=== PATIENT | female | born 1965 | race American Indian/Alaskan Native ===

== ENCOUNTER → 2017-09-16 00:08 | Outpatient (CLI) | payer MEDICAID, SELFPAY ==
--- NOTE | 2017-09-16 08:53 | DI.REPORT_ITS ---
SYMPTOM/DIAGNOSIS: ABD PAIN, RUQ R10.11 ABDOMINAL ULTRASOUND: Comparison 12/03/14. The aorta and IVC are unremarkable. The liver has a normal appearance sonographically. There is a 2 mm echogenic immobile focus along the wall of the gallbladder likely reflecting a polyp. The gallbladder is otherwise unremarkable. There is no biliary ductal dilatation. The pancreas, kidneys and spleen are unremarkable. IMPRESSION: 2 mm gallbladder polyp, otherwise negative examination.
== END ==
PROVIDERS: PCP Family Medicine; Visit Provider Family Medicine
DX: R10.11 Right upper quadrant pain (principal); K82.4 Cholesterolosis of gallbladder
CPT/HCPCS: 76700

== ENCOUNTER 2017-10-20 02:22 | Outpatient (CLI) | payer MEDICAID, SELFPAY ==
--- NOTE | 2017-10-20 08:03 | DI.NM_ITS ---
SYMPTOM/DIAGNOSIS: RUQ ABD PAIN, R10.11, R10.33, GALLBLADDER POLYP ON US CCK HEPATOBILIARY SCAN: 3.6 millicuries of Technetium 99 M MDP were administered IV. There is normal hepatic uptake. There is prompt excretion into the gallbladder and small bowel. 1.1 micrograms of Kinevac was administered via IV drip over 25 minutes. The gallbladder ejection fraction is normal at 79%. IMPRESSION: Normal CCK hepatobiliary scan.
[2017-10-20] MEDS: Sincalide 5 MCG VIAL 1.1 MCG IJ (10:15)
== END 2017-10-20 02:42 ==
PROVIDERS: PCP Family Medicine; Visit Provider Surgery
DX: R10.11 Right upper quadrant pain (principal); R10.33 Periumbilical pain; K82.4 Cholesterolosis of gallbladder
CPT/HCPCS: 78227

== ENCOUNTER 2017-11-08 09:16 | Outpatient (REF) | payer MEDICAID, SELFPAY ==
[2017-11-08 12:41] LABS: Abs Immature Grans 0.01 k/cumm (0.0-0.09); Absolute Basophil Count 0.01 k/cumm (0.0-0.2); Absolute Eosinophil Count 0.17 k/cumm (0.0-0.7); Absolute Lymphocyte Count 2.07 k/cumm (1.2-3.4); Absolute Monocyte Count 0.52 k/cumm (0.11-0.7); Absolute Neutrophil Count 2.98 k/cumm (1.2-6.7); Basophils % 0.2; HCT 39.7 % (36.0-46.0); HGB 13.1 g/dL (12.0-15.5); Immature Grans % 0.2; Lymphocytes % 35.9; Mean Corpuscular Volume 91.1 fL (80-95); Mean Platelet Volume 10.5 fL (8.0-11.0); Neutrophils % 51.7; Platelet Count 283 x1000/uL (130-400); RBC 4.36 m/cumm (4.00-5.20); RBC Distribution Width 12.4 % (11.7-14.6); White Blood Cell Count 5.76 k/cumm (4.4-10.8)
[2017-11-08 13:03] LABS: TSH (W/Ref FT4) 2.11 uIU/mL (0.358-3.74)
== END 2017-11-08 09:36 ==
LOC: NCHCN 09:16
PROVIDERS: PCP Family Medicine; Visit Provider Nurse Practitioner Family
DX: E03.9 Hypothyroidism, unspecified (principal); R53.83 Other fatigue
CPT/HCPCS: 84443; 85025

== ENCOUNTER 2017-12-06 00:46 | Outpatient (CLI) | payer MEDICAID, SELFPAY ==
--- NOTE | 2017-12-06 12:20 | DI.MAMMO_ITS ---
SYMPTOM/DIAGNOSIS: SCREENING, Z12.31 MAMMOGRAMS; Mammograms were interpreted according to the usual protocol including computer analysis with CAD system, tomosynthesis and C view imaging. Comparison is made with exams from [id number]. The breasts are composed of heterogeneously dense fibroglandular tissue, breast density, Category C. No suspicious masses or suspicious microcalcifications are seen. There has been no significant change. IMPRESSION: Category 1C, negative mammogram. Routine screening is recommended. [facility] ASSESSMENT OF FINDINGS: Negative. Category 1. Patient will receive a letter notifying them of these results. Bi-RADS category C. The breasts are heterogeneously dense, which may obscure small masses.
== END 2017-12-06 01:06 ==
PROVIDERS: PCP Nurse Practitioner Family; Visit Provider Nurse Practitioner Family
DX: Z12.31 Encounter for screening mammogram for malignant neoplasm of breast (principal)
CPT/HCPCS: 77063; 77067

== ENCOUNTER 2017-12-22 10:50 | Day surgery (SDC) | payer MEDICAID, SELFPAY ==
--- NOTE | 2017-12-22 10:20 | W.PM.HP.N ---
Assessment and Plan (1) Epigastric pain: Current visit: No Status: Acute A\\ Epigastric pain, Us showed only a small 2 mm polyp. HIDA was within normal P\\ EGD under sedation Risks, benefits, complications were reviewed with the patient. Complications include but are not limited to bleeding, pain, perforation, sore throat, aspiration, and adverse reaction to the medications. Questions were entertained and answered to her satisfaction and she wished to proceed. No guarantees were given or implied. Ms. Ramires is a 2-year-old female who in August of this year started to have some right lower quadrant pain and then migrated to the right upper quadrant and then more to the epigastric area. The pain is dull and sometimes worse after eating she is. She is normally constipated and that has not changed. She has had no vomiting. She did have nausea but that has subsided on 40 mg of omeprazole. She also stated that the pain seemed to be there less frequently since starting the omeprazole. Ultrasound of the abdomen showed 2 mm polyp. Labs are unremarkable. HIDA scan was done which was normal patient is here today for an upper endoscopy. There have been no changes in her health since she was originally seen in the office on October 14. Review of Systems Constitutional Denies anorexia, Denies fever(s) and Denies night sweats Cardiovascular Denies rapid heart rate, Denies irregular heart rhythm, Denies palpitations, Denies dyspnea and Denies dyspnea on exertion Respiratory Denies cough, Denies dyspnea and Denies dyspnea on exertion Gastrointestinal Reports as per HPI Endocrine Denies palpitations PFSH Family History Father AML (acute myeloid leukemia) Medical History Anxiety Chronic back pain Dizzy spells Dyspnea Exposure to hepatitis C Fatigue History of fracture of right ankle Hypercholesterolemia Hypothyroidism Incomplete bladder emptying Myalgia Panic disorder RLS (restless legs syndrome) Recovering alcoholic Right foot pain Skin tag Smoker TMJ (dislocation of temporomandibular joint) Tubular adenoma Urinary frequency Vitamin D deficiency Social History Smoking/Tobacco Use Status: Former Tobacco Use alcohol intake: never substance use type: does not use seatbelt use: always Surgical History Hysterectomy, Laproscopic (~2004) Oophrectomy, Both (~2004) Meds Home Medications Medication Instructions Recorded Confirmed Type alprazolam [Xanax] 0.5 mg PO PRN PRN 04/30/12 12/22/17 History clonazepam [Klonopin] 0.5 mg PO DAILY 04/30/12 12/22/17 History escitalopram oxalate [Lexapro] 10 mg PO DAILY 04/30/12 12/22/17 History levothyroxine 88 mcg PO DAILY tab-cap 05/13/17 12/22/17 History atorvastatin [Lipitor] 10 mg PO DAILY tab-cap NS 09/23/17 12/22/17 History omeprazole 40 mg PO DAILY tab-cap NS 09/23/17 12/22/17 History estradiol 0.01% (0.1 mg/gram) 1 gm VG .COMPLEX #42.5 gm 11/29/17 12/22/17 Rx vaginal cream methylprednisolone [Medrol (Enio)] DIRECTED 12/22/17 History Allergies Allergy/AdvReac Type Severity Reaction Status Date / Time sulfamethoxazole Allergy Severe hepititis Verified 12/22/17 11:14 [From Bactrim] trimethoprim [From Bactrim] Allergy Severe hepititis Verified 12/22/17 11:14 venlafaxine HCl Allergy Verified 12/22/17 11:14 [From Effexor] metronidazole [From Flagyl] AdvReac Intermediate NAUSEA Verified 12/22/17 11:14 Metronidazole HCl AdvReac Intermediate NAUSEA Verified 12/22/17 11:14 [From Flagyl] oxycodone AdvReac Intermediate NAUSEA Verified 12/22/17 11:14 garlic Allergy Severe Anaphylaxsi Uncoded 12/22/17 11:14 s Exam Const General: comfortable and no acute distress Resp Effort & Inspection: normal respiratory effort Auscultation: clear to auscultation bilaterally Cardio Rate: regular rate Rhythm: regular rhythm Heart Sounds: no gallops, no murmurs and no rubs GI Inspection: normal to inspection Palpation: soft and tender (mild epigastric) Auscultation: normal bowel sounds
--- NOTE | 2017-12-22 10:28 | W.PM.OP ---
Date of service: 12/22/17 Time of Service: 13:07 Operative Note DATE OF PROCEDURE: 12/22/17 PRE-OP DIAGNOSIS: Epigastric pain POST-OP DIAGNOSIS: other (gastritis and esophagitis) PROCEDURE: EGD with biopsies SURGEON: Dixie Diaz ANESTHESIA: MAC (Neelima Chavarria CRNA) ESTIMATED BLOOD LOSS: 3 PATHOLOGY: other (Gastric bx and Ge junction bx) COMPLICATIONS: None Patient was transported to: same day Patient's condition: stable Indications: Ms. Ramires is a pleasant 52 year old female with Epigastric pain. US and HIDA were unremarkable. There was some improvement of symptoms on Omperazole. Risks, benefits, complications were reviewed with the patient and she wished to proceed. No guarantees were given or implied. Procedure Description: After informed consent was obtained the patient was take to the procedure room and placed in a supine position. Monitors were applied and a time out was done. The patients name, date of , procedure type, allergies to medications and metal in their body was reviewed. A bite block was placed and the patient was sedated. Once sedated and comfortable the gastroscope was advanced through the oropharynx which was grossly normal into the esophagus. The proximal and mid-esophagus were normal. In the distal esophagus there was mild inflammation noted. The scope was advanced into the stomach and through the pylorus into the 3rd portion of the duodenum. The duodenum was noted to be normal. The scope was retracted back into the stomach and biopsies were done to rule out H. pylori. The scope was retroflexed. The cardia and fundus were noted to be inflammed. Biopsies were done of the fundus. There was no hiatal hernia noted. The scope was retracted back into the esophagus and biopsies were done of the GE junction to rule out Marion's. The Z line was regular. The GE junction was at 32 cm. The scope was removed and the patient was woken up and taken back to [facility] in stable condition. Follow up: 3-4 weeks
--- NOTE | 2017-12-22 10:30 | W.PM.DSUDISC ---
Discharge Plan Disposition Patient Disposition: HOME Condition: Good Discharge Details Reason For Visit: EGD Attending Provider: Dixie Diaz Primary Care Provider: Rosanna Cintron Home Meds and New Rx's Prescriptions: New ranitidine HCl 300 mg capsule 300 mg PO HS Qty: 30 RF: 0 Continue estradiol [Estrace] 0.01 % (0.1 mg/gram) cream 1 gm VG .COMPLEX Qty: 42.5 RF: 4 levothyroxine 75 MCG tablet 88 mcg PO DAILY RF: 0 atorvastatin [Lipitor] 10 MG tablet 10 mg PO DAILY RF: 0 omeprazole 40 MG capsule,delayed release(DR/EC) 40 mg PO DAILY RF: 0 clonazepam [Klonopin] 0.5 MG tablet 0.5 mg PO DAILY RF: 0 alprazolam [Xanax] 0.5 MG tablet 0.5 mg PO PRN PRNRF: 0 escitalopram oxalate [Lexapro] 20 MG tablet 10 mg PO DAILY RF: 0 methylprednisolone [Medrol (Enio)] 4 mg Tablets,Dose Pack DIRECTED RF: 0 Discharge Instructions Instructions: Upper Endoscopy (DC), Diet for Stomach Ulcers and Gastritis (GEN), Gastritis (DC), Esophagitis (DC) Additional Instructions: Findings: moderate inflammation in the stomach mild inflammation in the esophagus Follow up: 01/10/18 at 1 pm New Medications: Continue Omeprazole 40 mg in the morning Add Zantac (Ranitidine) 300 mg every night Please call if you develop: fevers >101.5 Nausea or Vomiting Abdominal pain that is not transient 1. Because there will be medication in your system for the next 24 hours, you may feel a little sleepy. Your coordination will be affected. Therefore: a. Do not drive or operate dangerous equipment for 24 hours. b. Do not drink alcohol beverages for 24 hours (not even beer). c. Plan to go home and rest for the day. 2. Generally there are no restrictions on your activity after a day or so has gone by, but you may feel a bit fatigued for a few days. 3 After you arrive home you may have a light meal and return to a normal diet as you can tolerate it without feeling sick to your stomach. 4. After surgery, you may feel pain or discomfort. This should be only transient, but if it persists please contact your doctor. 5. If there are any questions regarding the findings of your procedure, please feel free to contact your doctor. 6. If you are unable to contact your doctor with a problem, contact the hospital at [phone]. 7. Continue all your regular medications unless directed otherwise. I understand the above instructions and have no questions. Signature of Patient or Responsible Adult Escort Date/Time Name of Responsible Adult Escort Signature of Nurse Date/Time Referrals: Dixie Diaz MD [ [facility] STAFF PHYSICIAN] - 01/10/18 1:00 pm Activity:: Activity as Tolerated Diet:: Low acid Discharge Orders Discharge Orders: Discharge Order (Routine); Ordered 12/22/17 Ordered By: Dixie Diaz DS: Diagnosis Discharge Diagnosis (1) Gastritis: Status: Acute (2) Esophagitis determined by endoscopy: Status: Acute
[2017-12-22 11:00] VITALS: BP 125/74; PULSE 57; RESP 18; TEMP 37.3; O2SAT 97
[2017-12-22] MEDS: Lactated Ringers 1,000 ML 80 ML IV (11:36)
[2017-12-22] MEDS: Lidocaine 2% Viscous 15 ML CUP (12:50)
--- NOTE | 2017-12-22 13:00 | STOM_PTH ---
PATIENT: Neal Ramires LOC: [facility] U#:[id number] AGE/SX: 52/F ROOM: RE12/22/[address]: Dixie Diaz MD : 1965 BED: DIS: 12/22/2017 SPEC #: [id number] RECD: 12/22/17 17:21 STATUS: JEREMI RE #: [id number] TATYANA: 12/22/17 13:[address]: Dixie Diaz DEPT: Surgical Specimen RECD BY: Esme Luz ENTERED: 12/22/17 17:22 SP TYPE: STOMACH OTHR DR: Rosanna Cintron Tissues: 1 - STOMACH BIOPSY 2 - STOMACH BIOPSY 3 - ESOPHAGUS BIOPSY Procedures: GROSS AND MICRO LEVEL 4 Comments: [id number]
== END 2017-12-22 14:30 | disposition home or self-care (01) ==
LOC: SUR 10:50
PROVIDERS: PCP Nurse Practitioner Family; Visit Provider Surgery
PROC: 0DJ68ZZ Inspection of Stomach, Via Natural or Artificial Opening Endoscopic (ICD-10-PCS; CPT 43235; principal; 2017-12-22 13:00)
DX: R10.13 Epigastric pain (principal); K29.80 Duodenitis without bleeding; K20.9 Esophagitis, unspecified; B96.81 Helicobacter pylori [H. pylori] as the cause of diseases classified elsewhere
CPT/HCPCS: 43239; 88305; NC; J2405

== ENCOUNTER 2018-03-20 09:46 | Outpatient (CLI) | payer MEDICAID, SELFPAY ==
--- NOTE | 2018-03-20 09:35 | DI.RAD_ITS ---
SYMPTOM/DIAGNOSIS: RT KNEE PAIN RIGHT KNEE Comparison is made with 06/05/13. There is mild spurring at the medial tibial plateau, tibial spines and patella. No joint effusion is seen. IMPRESSION: Mild degenerative changes.
== END 2018-03-20 10:06 ==
PROVIDERS: PCP Nurse Practitioner Family; Visit Provider Physician Assistant
DX: M25.561 Pain in right knee (principal); M17.11 Unilateral primary osteoarthritis, right knee
CPT/HCPCS: 73562

== ENCOUNTER 2018-04-04 19:05 | Outpatient (REF) | payer MEDICAID, SELFPAY ==
[2018-04-04 19:53] LABS: TSH (W/Ref FT4) 1.44 uIU/mL (0.358-3.74)
== END 2018-04-04 19:25 ==
LOC: NCHCN 19:05
PROVIDERS: PCP Nurse Practitioner Family; Visit Provider Nurse Practitioner Family
DX: E03.9 Hypothyroidism, unspecified (principal)
CPT/HCPCS: 84443

== ENCOUNTER 2018-04-28 07:14 | Outpatient (REF) | payer MEDICAID, SELFPAY ==
[2018-05-04 14:02] LABS: Helicobacter pylori Ag, Feces Negative (NEGAT)
== END 2018-04-28 07:34 ==
LOC: LBN 07:14
PROVIDERS: PCP Nurse Practitioner Family; Visit Provider Surgery
DX: K29.70 Gastritis, unspecified, without bleeding (principal); B96.81 Helicobacter pylori [H. pylori] as the cause of diseases classified elsewhere
CPT/HCPCS: 87338

== ENCOUNTER 2018-05-18 18:23 | Observation (INO) | payer MEDICAID, SELFPAY ==
[2018-05-18] VITALS (42 sets, daily range): BP systolic 98–133; BP diastolic 62–74; PULSE 57–89; RESP 12–28; TEMP 36.4–36.8; O2SAT 94–100
--- NOTE | 2018-05-18 18:29 | W.ED.GENAD ---
Discharge Plan Disposition Patient Disposition: [facility] INPATIENT Condition: Good Discharge Details Chief Complaint: Dizzy/Sync Clinical Impression: Chest pain, Shortness of breath, Light-headed feeling Primary Care Provider: Mayra Browning ED Provider: Kendall James Meds and New Rx's Prescriptions: No Action estradiol [Estrace] 0.01 % (0.1 mg/gram) cream 1 gm VG .COMPLEX Qty: 42.5 RF: 4 levothyroxine 75 MCG tablet 88 mcg PO DAILY RF: 0 clonazepam [Klonopin] 0.5 MG tablet 0.5 mg PO DAILY RF: 0 alprazolam [Xanax] 0.5 MG tablet 0.5 mg PO PRN PRNRF: 0 escitalopram oxalate [Lexapro] 20 MG tablet 10 mg PO DAILY RF: 0 Medical Decision Making Patient presenting to ED with complaints of chest pressure, shortness of breath, lightheadedness, nausea while working out. Has had symptoms a couple times prior which resolved when she rested. Symptoms did not resolve tonight which worried her so she came in. She has had previous cardiac workup 2 years ago which was negative. She has no major cardiac risk factors other than high cholesterol. She has no PE risk factors. EKG from triage shows sinus rhythm at a rate of 70. She has normal intervals and axis. She has nonspecific mild ST depression in precordial lateral leads. There is no acute ST elevation. There is no change from previous. Doubt this is cardiac in nature, but given exertional nature will work up as such. Will give aspirin and a sublingual nitro. Will check labs, d-dimer, chest x-ray. Will give a liter of fluids and reevaluate. Patient received aspirin and nitroglycerin. She is not sure whether it helped or not but eventually discomfort did resolve. Repeat EKG remains unchanged from previous done earlier. Laboratory studies are unremarkable. She is not anemic. Her troponin is negative. Her d-dimer is normal. Chest x-ray is unremarkable. HEART score is a four with exertional history, mild nonspecific EKG changes, age and risk factors. Case discussed with hospitalist. Patient will be placed in observation admission overnight for trending of enzymes and monitoring. Lab Data Lab results reviewed: Yes I reviewed the patient's lab results. ECG Data Attestation: I personally reviewed and interpreted this ECG (s) as follows: Prior ECG tracings: available for review Interpretation: EKG #1: Normal sinus rhythm at 70. Normal axis and intervals. Nonspecific mild lateral ST depression V3 through V6. No change from previous. EKG #2: Sinus rhythm at 69. No change from EKG #1. HPI General Mode of arrival: ambulatory. Date/Time Provider Initiated Documentation: 05/18/18 18:29. Limitations to Documentation: no limitations. Information obtained by: patient. HPI Narrative: Patient presents to ED for evaluation of chest pressure, lightheadedness, shortness of breath, nausea that occurred while working out doing [employer]. She stopped and thought the symptoms would resolve. They got better but they did not go away so she came here for evaluation. She notes that she has had a slow heart rate over the last week but has not had any other symptoms. She did not pass out. She has noticed some mild symptoms similar to this while doing [employer] a couple of times. Symptoms resolved when she rested. She reports having stress testing and echo 2 years ago which were normal when she had actual chest pain. She denies being ill at all. She denies any leg pain or swelling. She has no PE risk factors. Her only cardiac risk factor is high cholesterol. Related Data Home Medications Medication Instructions Recorded Confirmed alprazolam [Xanax] 0.5 mg PO PRN PRN 04/30/12 05/18/18 clonazepam [Klonopin] 0.5 mg PO DAILY 04/30/12 05/18/18 escitalopram oxalate [Lexapro] 10 mg PO DAILY 04/30/12 05/18/18 levothyroxine 88 mcg PO DAILY tab-cap 05/13/17 05/18/18 estradiol 0.01% (0.1 mg/gram) 1 gm VG .COMPLEX #42.5 gm 11/29/17 05/18/18 vaginal cream Previous Rx's Medication Instructions Recorded estradiol 0.01% (0.1 mg/gram) 1 gm VG .COMPLEX #42.5 gm 11/29/17 vaginal cream Allergies Allergy/AdvReac Type Severity Reaction Status Date / Time sulfamethoxazole Allergy Severe hepititis Verified 05/01/18 15:15 [From Bactrim] trimethoprim [From Bactrim] Allergy Severe hepititis Verified 05/01/18 15:15 venlafaxine HCl Allergy Verified 05/01/18 15:15 [From Effexor] metronidazole [From Flagyl] AdvReac Intermediate NAUSEA Verified 05/01/18 15:15 Metronidazole HCl AdvReac Intermediate NAUSEA Verified 05/01/18 15:15 [From Flagyl] oxycodone AdvReac Intermediate NAUSEA Verified 05/01/18 15:15 garlic Allergy Severe Anaphylaxsi Uncoded 05/01/18 15:15 s Review of Systems Review of Systems 11/27 Review of Systems completed and is negative except as stated above in HPI (Systems reviewed: Const, Eyes, ENT, Resp, CV, GI, , MSK, Skin, Neuro) PFSH Medical History Anxiety (Chronic) Chronic back pain (Chronic) Dizzy spells (Chronic) Hypercholesterolemia (Chronic) Hypothyroidism (Chronic) Panic disorder (Chronic) RLS (restless legs syndrome) (Chronic) Recovering alcoholic (Chronic) Tubular adenoma (Chronic) Vitamin D deficiency (Chronic) History of fracture of right ankle (Resolved) Hx of Helicobacter infection (Resolved ~12/22/17) TMJ (dislocation of temporomandibular joint) (Resolved) Surgical History History of esophagogastroduodenoscopy (EGD) (Inactive ~12/22/17) Hysterectomy, Laproscopic (Inactive ~2004) Oophrectomy, Both (Inactive ~2004) Social History Smoking/Tobacco Use Status: Former Tobacco Use Alcohol Intake: never Drug use: Never Substance use type: does not use Seatbelt use: always Do you feel safe at home: Yes Do you feel safe in your relationship?: Yes Female Reproductive History Menstrual Menopause type: surgical (Hyst 2004) History History 3 Para Hx # Term Pregnancies 3 Multiple births Hx # Pregnancies Ectopic pregnancies AB induced Hx Number of Living Children AB spontaneous Exam Narrative Exam Narrative: 1. Const: WDWN female in NAD. 2. Eyes: No conjunctival injection or scleral icterus. 3. ENT: NC/AT. No facial swelling or tenderness. Mucous membranes moist. 4. Neck: Supple without adenopathy. Trachea midline. 5. CVS: +S1/S2, No murmurs or gallops. Good radial pulses. 6. RESP: Unlabored respiratory effort. Clear to auscultation bilaterally. No wheezes rales or rhonchi. 7. GI: Soft, NT/ND, No hepatosplenomegaly. No guarding or rebound. 8. MSK: No C/C/E present. No deformity or tenderness noted. No calf tenderness. 9. Skin: Warm and dry. No rashes. 10. Neuro: A&O x3. 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 Sensation grossly intact, no focal neurologic deficits. 11. Psych: Appropriate mood and affect
--- NOTE | 2018-05-18 18:35 | ED.GENADUL_ITS ---
Discharge Plan Disposition Patient Disposition: [facility] INPATIENT Condition: Good Discharge Details Chief Complaint: Dizzy/Sync Clinical Impression: Chest pain, Shortness of breath, Light-headed feeling Primary Care Provider: Mayra Browning ED Provider: Kendall James Meds and New Rx's Prescriptions: No Action estradiol [Estrace] 0.01 % (0.1 mg/gram) cream 1 gm VG .COMPLEX Qty: 42.5 RF: 4 levothyroxine 75 MCG tablet 88 mcg PO DAILY RF: 0 clonazepam [Klonopin] 0.5 MG tablet 0.5 mg PO DAILY RF: 0 alprazolam [Xanax] 0.5 MG tablet 0.5 mg PO PRN PRNRF: 0 escitalopram oxalate [Lexapro] 20 MG tablet 10 mg PO DAILY RF: 0 Medical Decision Making Patient presenting to ED with complaints of chest pressure, shortness of breath, lightheadedness, nausea while working out. Has had symptoms a couple times prior which resolved when she rested. Symptoms did not resolve tonight which worried her so she came in. She has had previous cardiac workup 2 years ago which was negative. She has no major cardiac risk factors other than high cholesterol. She has no PE risk factors. EKG from triage shows sinus rhythm at a rate of 70. She has normal intervals and axis. She has nonspecific mild ST depression in precordial lateral leads. There is no acute ST elevation. There is no change from previous. Doubt this is cardiac in nature, but given exertional nature will work up as such. Will give aspirin and a sublingual nitro. Will check labs, d-dimer, chest x-ray. Will give a liter of fluids and reevaluate. Patient received aspirin and nitroglycerin. She is not sure whether it helped or not but eventually discomfort did resolve. Repeat EKG remains unchanged from previous done earlier. Laboratory studies are unremarkable. She is not anemic. Her troponin is negative. Her d-dimer is normal. Chest x-ray is unremarkable. HEART score is a four with exertional history, mild nonspecific EKG changes, age and risk factors. Case discussed with hospitalist. Patient will be placed in observation admission overnight for trending of enzymes and monitoring. Lab Data Lab results reviewed: Yes I reviewed the patient's lab results. ECG Data Attestation: I personally reviewed and interpreted this ECG (s) as follows: Prior ECG tracings: available for review Interpretation: EKG #1: Normal sinus rhythm at 70. Normal axis and intervals. Nonspecific mild lateral ST depression V3 through V6. No change from previous. EKG #2: Sinus rhythm at 69. No change from EKG #1. HPI General Mode of arrival: ambulatory . Date/Time Provider Initiated Documentation: 05/18/18 18:29 . Limitations to Documentation: no limitations . Information obtained by: patient . HPI Narrative: Patient presents to ED for evaluation of chest pressure, lightheadedness, shortness of breath, nausea that occurred while working out doing Scotty. She stopped and thought the symptoms would resolve. They got better but they did not go away so she came here for evaluation. She notes that she has had a slow heart rate over the last week but has not had any other symptoms. She did not pass out. She has noticed some mild symptoms similar to this while doing Scotty a couple of times. Symptoms resolved when she rested. She reports having stress testing and echo 2 years ago which were normal when she had actual chest pain. She denies being ill at all. She denies any leg pain or swelling. She has no PE risk factors. Her only cardiac risk factor is high cholesterol. Related Data Home Medications Medication Instructions Recorded Confirmed alprazolam [Xanax] 0.5 mg PO PRN PRN 04/30/12 05/18/18 clonazepam [Klonopin] 0.5 mg PO DAILY 04/30/12 05/18/18 escitalopram oxalate [Lexapro] 10 mg PO DAILY 04/30/12 05/18/18 levothyroxine 88 mcg PO DAILY tab-cap 05/13/17 05/18/18 estradiol 0.01% (0.1 mg/gram) 1 gm VG .COMPLEX #42.5 gm 11/29/17 05/18/18 vaginal cream Previous Rx's Medication Instructions Recorded estradiol 0.01% (0.1 mg/gram) 1 gm VG .COMPLEX #42.5 gm 11/29/17 vaginal cream Allergies Allergy/AdvReac Type Severity Reaction Status Date / Time sulfamethoxazole Allergy Severe hepititis Verified 05/01/18 15:15 [From Bactrim] trimethoprim [From Bactrim] Allergy Severe hepititis Verified 05/01/18 15:15 venlafaxine HCl Allergy Verified 05/01/18 15:15 [From Effexor] metronidazole [From Flagyl] AdvReac Intermediate NAUSEA Verified 05/01/18 15:15 Metronidazole HCl AdvReac Intermediate NAUSEA Verified 05/01/18 15:15 [From Flagyl] oxycodone AdvReac Intermediate NAUSEA Verified 05/01/18 15:15 garlic Allergy Severe Anaphylaxsi Uncoded 05/01/18 15:15 s Review of Systems Review of Systems 11/27 Review of Systems completed and is negative except as stated above in HPI (Systems reviewed: Const, Eyes, ENT, Resp, CV, GI, , MSK, Skin, Neuro) PFSH Medical History Anxiety (Chronic) Chronic back pain (Chronic) Dizzy spells (Chronic) Hypercholesterolemia (Chronic) Hypothyroidism (Chronic) Panic disorder (Chronic) RLS (restless legs syndrome) (Chronic) Recovering alcoholic (Chronic) Tubular adenoma (Chronic) Vitamin D deficiency (Chronic) History of fracture of right ankle (Resolved) Hx of Helicobacter infection (Resolved ~12/22/17) TMJ (dislocation of temporomandibular joint) (Resolved) Surgical History History of esophagogastroduodenoscopy (EGD) (Inactive ~12/22/17) Hysterectomy, Laproscopic (Inactive ~2004) Oophrectomy, Both (Inactive ~2004) Social History Smoking/Tobacco Use Status: Former Tobacco Use Alcohol Intake: never Drug use: Never Substance use type: does not use Seatbelt use: always Do you feel safe at home: Yes Do you feel safe in your relationship?: Yes Female Reproductive History Menstrual Menopause type: surgical (Hyst 2004) History History 3 Para Hx # Term Pregnancies 3 Multiple births Hx # Pregnancies Ectopic pregnancies AB induced Hx Number of Living Children AB spontaneous Exam Narrative Exam Narrative: 1. Const: WDWN female in NAD. 2. Eyes: No conjunctival injection or scleral icterus. 3. ENT: NC/AT. No facial swelling or tenderness. Mucous membranes moist. 4. Neck: Supple without adenopathy. Trachea midline. 5. CVS: +S1/S2, No murmurs or gallops. Good radial pulses. 6. RESP: Unlabored respiratory effort. Clear to auscultation bilaterally. No wheezes rales or rhonchi. 7. GI: Soft, NT/ND, No hepatosplenomegaly. No guarding or rebound. 8. MSK: No C/C/E present. No deformity or tenderness noted. No calf tenderness. 9. Skin: Warm and dry. No rashes. 10. Neuro: A&O x3. stock speculator II-XII grossly intact. Sensation grossly intact, no focal neurologic deficits. 11. Psych: Appropriate mood and affect
[2018-05-18] MEDS: Aspirin 81 MG CHEW 324 MG CH (19:06)
[2018-05-18] MEDS: Lactated Ringers 1,000 ML 1000 ML IV (19:07)
[2018-05-18] MEDS: Normal Saline Flush 10 ML SYR IVP (19:09)
--- NOTE | 2018-05-18 19:15 | DI.RAD_ITS ---
SYMPTOM/DIAGNOSIS: CHEST PAIN, SOB PA AND LATERAL CHEST: The heart is normal in size. The lungs are clear. The mediastinal structures and pleura appear intact. CONCLUSION: Normal chest.
[2018-05-18 19:16] LABS: Abs Immature Grans 0.01 k/cumm (0.0-0.09); Absolute Basophil Count 0.02 k/cumm (0.0-0.2); Absolute Eosinophil Count 0.17 k/cumm (0.0-0.7); Absolute Monocyte Count 0.63 k/cumm (0.11-0.7); Basophils % 0.2; Eosinophils % 2.1; HCT 38.3 % (36.0-46.0); HGB 12.7 g/dL (12.0-15.5); Immature Grans % 0.1; Lymphocytes % 45.5; Mean Corp. HGB Concentration 33.2 g/dL (32.0-36.0); Mean Corpuscular Volume 90.5 fL (80-95); Mean Platelet Volume 10.7 fL (8.0-11.0); Monocytes % 7.7; Neutrophils % 44.4; Platelet Count 285 x1000/uL (130-400); RBC 4.23 m/cumm (4.00-5.20); RBC Distribution Width 12.7 % (11.7-14.6); White Blood Cell Count 8.13 k/cumm (4.4-10.8)
[2018-05-18 19:31] LABS: ALT 33 U/L (12-78); AST 33 U/L (15-37); Albumin 3.9 g/dL (3.4-5.0); Alkaline Phosphatase 71 U/L (46-116); Anion Gap 9.8 mmol/L (3-11); BUN 22 mg/dL (7-18); Bilirubin, Total 0.2 mg/dL (0.2-1.0); CO2 26.2 mmol/L (21.0-32.0); CREATININE 0.89 mg/dL (0.55-1.02); Calcium 9.1 mg/dL (8.5-10.1); Chloride 104 mmol/L (98-107); Glucose 92 mg/dL (70-100); INR 0.9 (0.9-1.1); Magnesium 2.1 mg/dL (1.8-2.4); PTT Activated 24.2 sec (21.0-31.4); Potassium 3.8 mmol/L (3.5-5.1); Prothrombin Time 8.9 sec (9.3-11.0); Sodium 140 mmol/L (136-145); Total Protein 7.1 g/dL (6.4-8.2)
--- NOTE | 2018-05-18 19:37 | DI.VRAD_ITS ---
EXAM: XR Chest, 2 Views EXAM DATE/TIME: 05/18/2018 6:52 PM CLINICAL HISTORY: 52 years old, female; Pain; Chest pain; Type not specified TECHNIQUE: Imaging protocol: XR of the chest, 2 views. COMPARISON: CR CHEST 2 VIEWS PA,LAT 10/18/2015 9:56 PM FINDINGS: Lungs: No consolidation. Pleural space: No pleural effusion. No pneumothorax. Heart/Mediastinum: No cardiomegaly. Bones/joints: No acute fracture. IMPRESSION: No acute cardiopulmonary pathology. Dictated and Authenticated by: Dianelys Sandhu MD. Ordering:PHYLLIS Argueta MD
[2018-05-18 19:40] LABS: Troponin I < 0.02 ng/mL (0.00-0.06)
[2018-05-18 20:08] LABS: D-Dimer 295 ng/mlFEU (<500)
[2018-05-18 22:38] LABS: Troponin I < 0.02 ng/mL (0.00-0.06)
[2018-05-18 23:47] LABS: Troponin I < 0.02 ng/mL (0.00-0.06)
[2018-05-19] VITALS (7 sets, daily range): BP systolic 103–111; BP diastolic 60–72; PULSE 53–66; RESP 15–18; TEMP 36.5–36.6; O2SAT 97–98
[2018-05-19] MEDS: Enoxaparin 40 MG/0.4 ML SYR SC (00:41)
[2018-05-19 02:01] LABS: Troponin I < 0.02 ng/mL (0.00-0.06)
--- NOTE | 2018-05-19 07:15 | HPE_ITS ---
Date of service: 05/19/18 Time of Service: 07:15 Assessment and Plan (1) Chest pain: Current visit: Yes Status: Acute Patient ordinarily exercises for 60 to 90 minutes in Scotty w/out dyspnea or chest pain. Now over past 2-3 weeks since starting intense cardio circuit w/ a personal finance instructor using weights she has been exeperiencing severe fatigue and intermittent chest pressure and dyspnea after exercise. Given her age and post menopausal status and FH, I think that it would be prudent to repeat her stress MPI. I would do this with an MPI given her baseline EKG abnormalities of rSr in the precordial leads V1 and V2 and the j-point depression across the other leads. A CT scan of her chest was not done last night as there was no mediastinal widening on her CXR and no difference in her arm pulses and the quality of her CP did not sound like an aneurysm. Also the d-dimer was within normal and therefore the likelihood of PE is very low (particularly since she has no risk factors or hx of DVT or PE; i..e not on estrogen replacement, not sedentary, no immobilization, no FH or PMH of thromboembolism and no malignancies). I spoke with the day hospitalist and he will follow up arrangement of outpatient stress MPI early next week. He also would like to get CTA to be certain of no TAA. This has been ordered and he will follow up on this. The patient is agreeable to getting the CTA done. Qualifiers: Chest pain type: unspecified Qualified Code(s): R07.9 - Chest pain, unspecified History of Present Illness Chief Complaint: chest pain Narrative: 52-year-old female with a past medical history of hypothyroidism, anxiety disorder, panic disorder, GERD with helical bacterial infection which has recently been cleared. Patient ordinarily performs Scotty exercises anywhere from an hour to an hour and a half 3-4 days/week. Patient's been doing Scotty for the past year without any symptoms. But 3 weeks ago she started working with an intense circuit training exercises through personal finance instructor. It was since then she is noticed fatigue after her workouts along with low blood pressures and low pulse. She presented emergency department with acute chest pressure and shortness of breath along with lightheadedness and nausea after a Scotty workout. Patient previously had a stress test in 2017 that was normal. Her cardiac risk factors for coronary artery disease include her age as well as a history of hyperlipidemia. She has a family history of coronary artery disease and her father had a coronary bypass graft at the age of 76. Patient is a former smoker but has not smoked in over 11 years. She is s/p KARLEE/BSO but has not been on estrogen replacement for past 4 yrs. Workup in the ER include chest x-ray lab work and EKG. EKG on admission demonstrated NSR w/ rSr pattern and subtle J point depression w/ upward sloping ST segments across precordial leads. Her troponin was normal. Previously her chest pressure would resolve on its own w/ cessation of her exercises but this time it did not so she was given NTG SL x one dose in the ER with resolution of her discomfort. The rest of her labs including CBC, CMP, PT, aPtt, d-dimer were all normal. Her CXR was normal. She was admitted on observation for serial troponin levels and for stress MPI this morning. However, we do not have any cardiology coverage so no stress tests will be performed today. She has remained pain free since admission from the ER. Review of Systems Review of Systems All systems reviewed & are unremarkable except as noted in HPI and below Cardiovascular Reports as per HPI and Reports dyspnea on exertion Respiratory Denies pain on inspiration and Reports dyspnea on exertion Gastrointestinal Denies abdominal pain, Denies belching, Denies bloating, Denies dyspepsia and Denies heartburn [facility] Medical History Anxiety (Chronic) Chronic back pain (Chronic) Dizzy spells (Chronic) Hypercholesterolemia (Chronic) Hypothyroidism (Chronic) Panic disorder (Chronic) RLS (restless legs syndrome) (Chronic) Recovering alcoholic (Chronic) Tubular adenoma (Chronic) Vitamin D deficiency (Chronic) History of fracture of right ankle (Resolved) Hx of Helicobacter infection (Resolved ~12/22/17) TMJ (dislocation of temporomandibular joint) (Resolved) Surgical History History of esophagogastroduodenoscopy (EGD) (Inactive ~12/22/17) Hysterectomy, Laproscopic (Inactive ~2004) Oophrectomy, Both (Inactive ~2004) Family History Father AML (acute myeloid leukemia) Social History Smoking/Tobacco Use Status: Former Tobacco Use Alcohol Intake: never Drug use: Never Substance use type: does not use Seatbelt use: always Do you feel safe at home: Yes Do you feel safe in your relationship?: Yes Female Reproductive History Menstrual Menopause type: surgical (2004) History History 3 Para Hx # Term Pregnancies 3 Multiple births Hx # Pregnancies Ectopic pregnancies AB induced Hx Number of Living Children AB spontaneous Meds Home Medications Medication Instructions Recorded Confirmed Type alprazolam [Xanax] 0.5 mg PO PRN PRN 04/30/12 05/18/18 History clonazepam [Klonopin] 0.5 mg PO DAILY 04/30/12 05/18/18 History escitalopram oxalate [Lexapro] 10 mg PO DAILY 04/30/12 05/18/18 History levothyroxine 88 mcg PO DAILY tab-cap 05/13/17 05/18/18 History estradiol 0.01% (0.1 mg/gram) 1 gm VG .COMPLEX #42.5 gm 11/29/17 05/18/18 Rx vaginal cream Allergies Allergy/AdvReac Type Severity Reaction Status Date / Time sulfamethoxazole Allergy Severe hepititis Verified 05/01/18 15:15 [From Bactrim] trimethoprim [From Bactrim] Allergy Severe hepititis Verified 05/01/18 15:15 venlafaxine HCl Allergy Verified 05/01/18 15:15 [From Effexor] metronidazole [From Flagyl] AdvReac Intermediate NAUSEA Verified 05/01/18 15:15 Metronidazole HCl AdvReac Intermediate NAUSEA Verified 05/01/18 15:15 [From Flagyl] oxycodone AdvReac Intermediate NAUSEA Verified 05/01/18 15:15 garlic Allergy Severe Anaphylaxsi Uncoded 05/01/18 15:15 s Exam Const General: cooperative, no acute distress and well groomed Nutritional Appearance: average body habitus and well nourished Orientation: alert, awake and oriented x3 HENMT Head: normal to inspection, no palpable skull fracture, normocephalic and atraumatic Face and sinus: normal facial exam, sinuses nontender and face symmetric Eyes General: appearance normal, both eyes and all related structures Alignment and Position: alignment normal Periorbital: periorbital findings normal Eyelids: eyelids normal Conjunctivae: conjunctivae normal Sclera: sclerae normal Cornea: corneas normal EOM: EOM intact bilaterally Neck Neck: normal visual inspection, full ROM, no lymphadenopathy, trachea midline and supple Thyroid: thyroid normal Carotids: normal carotid upstroke Lymphatic: no lymphadenopathy noted Chest Chest: normal inspection of the chest and normal palpation of entire chest wall Resp Effort & Inspection: normal respiratory effort and able to speak in complete sentences Auscultation: clear to auscultation bilaterally Percussion: percussion normal Cardio Jugular venous pressure: no JVD Palpation: normal PMI Rate: regular rate Rhythm: regular rhythm Heart Sounds: S1 normal, S2 normal and normal, physiologic split S2 Pulses: normal peripheral pulses GI Inspection: normal to inspection Palpation: soft, no hepatosplenomegaly and nontender Percussion: normal to percussion Auscultation: normal bowel sounds Skin General skin exam: no rashes or lesions noted, elasticity normal and turgor normal Lesions: no lesions Rashes: no rashes Trauma: no lacerations or abrasions Hair: normal Nails: normal Neuro General: alert, awake, oriented x3, moves all extremities and no focal motor deficits Cognition: normal cognition Speech: speech normal Gait: normal gait Motor: muscle tone normal throughout, strength 5/5 throughout, no pronator drift, no movement abnormalities noted and no fasciculations Sensory Exam: no sensory deficits noted Extrem General: normal to inspection, full ROM, normal capillary refill, no joint enlargement, no clubbing, cyanosis or edema and no calf tenderness bilaterally Results Imaging Chest x-ray: report reviewed (IMPRESSION: No acute cardiopulmonary pathology. ) and image reviewed Labs : 05/18/18 18:35 05/18/18 18:35 Laboratory Results - last 24 hr 05/18/18 05/18/18 05/18/18 18:35 18:35 18:35 WBC 8.13 RBC 4.23 Hgb 12.7 Hct 38.3 MCV 90.5 MCH 30.0 MCHC 33.2 RDW 12.7 Plt Count 285 MPV 10.7 Immature Gran % 0.1 Neutrophils % 44.4 Lymphocytes % 45.5 Monocytes % 7.7 Eosinophils % 2.1 Basophils % 0.2 Absolute Neutrophils 3.60 Absolute Lymphocytes 3.70 H Absolute Monocytes 0.63 Absolute Eosinophils 0.17 Absolute Basophils 0.02 PT 8.9 L INR 0.9 APTT 24.2 D-Dimer 295 Sodium 140 Potassium 3.8 Chloride 104 Carbon Dioxide 26.2 Anion Gap 9.8 BUN 22 H Creatinine 0.89 Estimated GFR/1.73 m2 >= 60.00 Glucose 92 Calcium 9.1 Magnesium 2.1 Total Bilirubin 0.2 AST 33 ALT 33 Alkaline Phosphatase 71 Troponin I < 0.02 Total Protein 7.1 Albumin 3.9 05/18/18 05/18/18 05/19/18 22:09 23:20 01:00 WBC RBC Hgb Hct MCV MCH MCHC RDW Plt Count MPV Immature Gran % Neutrophils % Lymphocytes % Monocytes % Eosinophils % Basophils % Absolute Neutrophils Absolute Lymphocytes Absolute Monocytes Absolute Eosinophils Absolute Basophils PT INR APTT D-Dimer Sodium Potassium Chloride Carbon Dioxide Anion Gap BUN Creatinine Estimated GFR/1.73 m2 Glucose Calcium Magnesium Total Bilirubin AST ALT Alkaline Phosphatase Troponin I < 0.02 < 0.02 < 0.02 Total Protein Albumin Last Vital Signs Temp 36.6 C 05/19/18 03:45 Pulse 54 L 05/19/18 03:45 Resp 18 05/19/18 03:45 BP 103/60 05/19/18 03:45 Pulse Ox 98 05/19/18 03:45
--- NOTE | 2018-05-19 11:01 | PDOC.CMIN ---
Care Management Initial Assess REASON FOR HOSPITALIZATION:: Chest Pressure, Near Syncope PAST MEDICAL HISTORY/PAST SURGICAL HISTORY:: Anxiety, Chronic back pain, Dizzy spells, Hypercholesterolemia,. 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 She is independent in all activities of daily life. She reports a supportive network of family and friends including her friend Oral and daughter, Selma who resides locally. She reports she has been doing Scotty for the last year and enjoys it much. CURRENT FUNCTIONAL STATUS:: Neal was sitting up in her chair, pleasant in interaction. She shared that she has an appointment today to complete her taxes and is hopeful she is discharged in time to attend her appointment at 1700. CM notified provider of appointment. ADVANCE DIRECTIVES:: None on file at [facility]. Has patient been provided with information about the portal?: Yes Did the patient sign up for the portal?: No CODE STATUS:: Full Code INSURANCE COVERAGE / FINANCIAL ISSUES:: Medicaid CURRENT HOME/COMMUNITY SERVICES/EQUIPMENT:: No current services or equipment. PRIMARY CARE PHYSICIAN:: Mayra Browning POTENTIAL DISCHARGE NEEDS:: Follow up appointment with PCP. PATIENT/FAMILY EDUCATION NEEDS:: Review of discharge instructions; discuss Ask Me [employer]. ANTICIPATED BARRIERS TO DISCHARGE:: None identified. TRANSPORTATION:: Via private vehicle with a friend. PLAN:: Neal will return home when ready per MD. She will follow up with her PCP and plan of care as prescribed. She will transport via private vehicle with her friend, Oral.
--- NOTE | 2018-05-19 11:51 | DI.CT_ITS ---
SYMPTOMS/DIAGNOSIS: CHEST PRESSURE CHEST CT: CT examination of the chest was performed with a bolus infusion of 100 cc's of Omnipaque 350. Images obtained through the upper abdomen show unremarkable appearance of visualized portions of liver, spleen, pancreas, adrenals and kidneys. No biliary dilatation seen. The lungs are clear. No pleural effusion. No mediastinal mass or adenopathy. The tracheobronchial tree appears intact. No evidence of thoracic aortic aneurysm or dissection. The pulmonary arterial circulation is not ideally opacified but no major embolus is identified. CONCLUSION: Negative chest CT.
[2018-05-19] MEDS: Omnipaque 350 MG/ML 100 ML BTL IV (11:52)
--- NOTE | 2018-05-19 14:19 | W.PM.DS.N ---
Date of service: 05/19/18 Time of Service: 14:19 DS: Diagnosis Discharge Diagnosis (1) Chest pain: Status: Acute Discharge Plan Disposition Patient Disposition: HOME Condition: Good Discharge Details Reason For Visit: CHEST PRESSURE, NEAR SYNCOPE Admit Date/Time: 05/18/18 21:10 Admit Provider: Tone Coles Attending Provider: Tone Coles Primary Care Provider: Mayra Browning Hospital Course Hospital Course: Neal Ramires is a very pleasant 52-year-old female with a past medical history significant for hypothyroidism, anxiety disorder, panic disorder, GERD, recent H. pylori infection who presented to the emergency department yesterday on 05/18/2018 with chest pressure and shortness of breath as well as lightheadedness and nausea after working out. She does exercise routinely but has recently increased the intensity of her workouts and made significant dietary changes. In the emergency department her workup included a chest x-ray which was negative for any acute process, and EKG which showed normal sinus rhythm with a heart rate of 70, Normal axis and intervals. Nonspecific mild lateral ST depression V3 through V6. No change from previous. She had a second EKG in the emergency department which revealed no change from previous. She was given nitroglycerin x1 in the emergency department with resolution of her discomfort. She does have a family history of coronary artery disease, and personal history of hyperlipidemia, she is a former smoker, although she has not smoked in over 11 years. She was admitted to the [facility] floor for serial troponins and monitoring. She had no recurrence of chest pain overnight. Her troponins were negative x3. There was concern for possible thoracic aortic aneurysm and she was referred for a CTA chest. Her chest CT was negative for aneurysm or PE. She will need to be referred for a stress test, there is no cardiology available here at [facility] today, she will follow-up with an outpatient stress test. She is advised to refrain from any exercise or strenuous activity. She will be given a prescription for nitroglycerin. She will follow-up with her primary care provider. She will be referred for a stress test as an outpatient. She has been advised to return to the hospital if she has recurrence of chest pain. Home Meds and New Rx's Prescriptions: New nitroglycerin [Nitrostat] 0.4 mg Tablet, Sublingual 0.4 mg Sublingual Q5 MIN PRN X3 PRNQty: 6 RF: 0 Continued estradiol [Estrace] 0.01 % (0.1 mg/gram) cream 1 gm VG .COMPLEX Qty: 42.5 RF: 4 levothyroxine 75 MCG tablet 88 mcg PO DAILY RF: 0 clonazepam [Klonopin] 0.5 MG tablet 0.5 mg PO DAILY RF: 0 alprazolam [Xanax] 0.5 MG tablet 0.5 mg PO PRN PRNRF: 0 escitalopram oxalate [Lexapro] 20 MG tablet 10 mg PO DAILY RF: 0 Discharge Instructions Instructions: Chest Pain (DC) Additional Instructions: No exercise until cleared by cardiology. A prescription for Nitro has been sent to the pharmacy for you, take nitro if you experience chest pain that is persistent. You need to have a stress test, they will contact you to set it up. Take care! Stand Alone Forms: Nursing Discharge Form Referrals: Mayra Browning MD [Primary Care Provider] - 06/02/18 9:40 am Activity:: Activity as Tolerated Equipment/Supplies:: No Equipment Needed Diet:: As Tolerated Discharge Orders Discharge Orders: Discharge Order (Routine); Ordered 05/19/18 Ordered By: Lori Garcia Exam Narrative Exam Narrative: General: awake and alert, pleasant and cooperative, sitting up in the chair in no acute distress. HEENT: Normocephalic, atraumatic, pupils equal and round, extraocular movements intact, mucous membranes moist. Neck: Supple, no JVD. Cardiovascular: Heart has regular rate and rhythm, no murmur appreciated. Respiratory: Lung sounds clear to auscultation throughout, respirations even and unlabored. Gastrointestinal: Normoactive bowel sounds, abdomen soft, nontender on palpation. Extremities: Well perfused, no clubbing, cyanosis or edema. Peripheral pulses intact bilaterally per DS: Data Vitals/I&O Vitals and I&O: Vital Signs Temperature 36.6 C 05/19/18 09:00 Temperature Source Tympanic 05/19/18 09:00 Pulse 54 L 05/19/18 09:00 Pulse Rhythm Regular 05/19/18 09:51 Pulse 67 05/18/18 21:20 Respiratory Rate 15 05/19/18 09:00 Respiratory Effort Non-Labored 05/19/18 09:51 Respiratory Depth Normal 05/19/18 09:51 Respiratory Pattern Normal 05/19/18 09:51 Blood Pressure 111/72 05/19/18 09:00 Blood Pressure Mean 73 05/18/18 21:16 Blood Pressure Position Sitting 05/18/18 18:27 Pulse Oximetry 98 05/19/18 09:00 Oxygen Delivery Method Room Air 05/19/18 09:00 Oxygen Flow Rate 0 05/19/18 09:00 Pain Level 0 05/19/18 09:00 Comment 05/19/18 03:45 Intake & Output 05/18/18 05/19/18 05/19/18 23:59 11:59 23:59 Intake Total 1000 / 1000 400 / 640 240 / 640 Balance 1000 / 1000 400 / 640 240 / 640 Weight 68.492 kg 68.4 kg Intake: IV 1000 / 1000 Oral 400 / 640 240 / 640 Other: Urine Appearance Clear Clear Urine Odor Normal Comment pt voiding ad beth; urine not assessed at this time Completed studies during hospitalization [Text1]: 05/18/18: PA AND LATERAL CHEST: The heart is normal in size. The lungs are clear. The mediastinal structures and pleura appear intact. CONCLUSION: Normal chest. 05/19/18: CHEST CT: CT examination of the chest was performed with a bolus infusion of 100 cc's of Omnipaque 350. Images obtained through the upper abdomen show unremarkable appearance of visualized portions of liver, spleen, pancreas, adrenals and kidneys. No biliary dilatation seen. The lungs are clear. No pleural effusion. No mediastinal mass or adenopathy. The tracheobronchial tree appears intact. No evidence of thoracic aortic aneurysm or dissection. The pulmonary arterial circulation is not ideally opacified but no major embolus is identified. CONCLUSION: Negative chest CT. Labs on day of discharge: Labs from last 24 hours 05/19/18 05/18/18 05/18/18 01:00 23:20 22:09 WBC RBC Hgb Hct MCV MCH MCHC RDW Plt Count MPV Immature Gran % Neutrophils % Lymphocytes % Monocytes % Eosinophils % Basophils % Absolute Neutrophils Absolute Lymphocytes Absolute Monocytes Absolute Eosinophils Absolute Basophils PT INR APTT D-Dimer Sodium Potassium Chloride Carbon Dioxide Anion Gap BUN Creatinine Estimated GFR/1.73 m2 Glucose Calcium Magnesium Total Bilirubin AST ALT Alkaline Phosphatase Troponin I < 0.02 < 0.02 < 0.02 Total Protein Albumin 05/18/18 05/18/18 05/18/18 18:35 18:35 18:35 WBC 8.13 RBC 4.23 Hgb 12.7 Hct 38.3 MCV 90.5 MCH 30.0 MCHC 33.2 RDW 12.7 Plt Count 285 MPV 10.7 Immature Gran % 0.1 Neutrophils % 44.4 Lymphocytes % 45.5 Monocytes % 7.7 Eosinophils % 2.1 Basophils % 0.2 Absolute Neutrophils 3.60 Absolute Lymphocytes 3.70 H Absolute Monocytes 0.63 Absolute Eosinophils 0.17 Absolute Basophils 0.02 PT 8.9 L INR 0.9 APTT 24.2 D-Dimer 295 Sodium 140 Potassium 3.8 Chloride 104 Carbon Dioxide 26.2 Anion Gap 9.8 BUN 22 H Creatinine 0.89 Estimated GFR/1.73 m2 >= 60.00 Glucose 92 Calcium 9.1 Magnesium 2.1 Total Bilirubin 0.2 AST 33 ALT 33 Alkaline Phosphatase 71 Troponin I < 0.02 Total Protein 7.1 Albumin 3.9 PFSH Medical History Anxiety (Chronic) Chronic back pain (Chronic) Dizzy spells (Chronic) Hypercholesterolemia (Chronic) Hypothyroidism (Chronic) Panic disorder (Chronic) RLS (restless legs syndrome) (Chronic) Recovering alcoholic (Chronic) Tubular adenoma (Chronic) Vitamin D deficiency (Chronic) History of fracture of right ankle (Resolved) Hx of Helicobacter infection (Resolved ~12/22/17) TMJ (dislocation of temporomandibular joint) (Resolved) Surgical History History of esophagogastroduodenoscopy (EGD) (Inactive ~12/22/17) Hysterectomy, Laproscopic (Inactive ~2004) Oophrectomy, Both (Inactive ~2004) Family History Father AML (acute myeloid leukemia) Social History Smoking/Tobacco Use Status: Former Tobacco Use Alcohol Intake: never Drug use: Never Substance use type: does not use Seatbelt use: always Do you feel safe at home: Yes Do you feel safe in your relationship?: Yes Female Reproductive History Menstrual Menopause type: surgical (2004) History History 3 Para Hx # Term Pregnancies 3 Multiple births Hx # Pregnancies Ectopic pregnancies AB induced Hx Number of Living Children AB spontaneous
--- NOTE | 2018-05-19 15:13 | CHAPLAIN ---
Neal was up walking around her room when I visited. 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 She said now she is not allowed to exercise until she has a stress test which will be next week. She is used to exercising daily, so this is disappointing to her, but Neal said maybe this admission will help her to reassess how much she is doing.
--- NOTE | 2018-05-19 15:55 | INITIAL_ITS ---
Care Management Initial Assess REASON FOR HOSPITALIZATION:: Chest Pressure, Near Syncope PAST MEDICAL HISTORY/PAST SURGICAL HISTORY:: Anxiety, Chronic back pain, Dizzy spells, Hypercholesterolemia,. 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 She is independent in all activities of daily life. She reports a supportive network of family and friends including her friend Oral and daughter, Selma who resides locally. She reports she has been doing Scotty for the last year and enjoys it much. CURRENT FUNCTIONAL STATUS:: Neal was sitting up in her chair, pleasant in interaction. She shared that she has an appointment today to complete her taxes and is hopeful she is discharged in time to attend her appointment at 1700. CM notified provider of appointment. ADVANCE DIRECTIVES:: None on file at [facility]. Has patient been provided with information about the portal?: Yes Did the patient sign up for the portal?: No CODE STATUS:: Full Code INSURANCE COVERAGE / FINANCIAL ISSUES:: Medicaid CURRENT HOME/COMMUNITY SERVICES/EQUIPMENT:: No current services or equipment. PRIMARY CARE PHYSICIAN:: Mayra Browning POTENTIAL DISCHARGE NEEDS:: Follow up appointment with PCP. PATIENT/FAMILY EDUCATION NEEDS:: Review of discharge instructions; discuss Ask Me Three. ANTICIPATED BARRIERS TO DISCHARGE:: None identified. TRANSPORTATION:: Via private vehicle with a friend. PLAN:: Neal will return home when ready per MD. She will follow up with her PCP and plan of care as prescribed. She will transport via private vehicle with her friend, Oral.
--- NOTE | 2018-05-19 15:55 | PDOC.CMDIS ---
LACE Index Scoring Tool - Questions: Length of Stay (in days): 2 Acuity (Admit via E.D.?): Yes E.D. Visits: 1 - Answers: Total Score: 6 Risk of Readmission: Low Risk Care Management Discharge Reason for Hospitalization: Chest Pressure, Near Syncope Discharge Plan: Neal will return home when ready per MD-no additional services anticipated at this time. She will follow up with her PCP and plan of care as prescribed. She will transport via private vehicle with her friend, Oral. Patient/Family Education Needs: Review discharge instructions, discuss Ask Me Three.
== END 2018-05-19 15:38 | disposition home or self-care (01) ==
LOC: ER 21:22 → MS 21:42
PROVIDERS: Admitting Provider Internal Medicine; Emergency Provider Emergency Medicine; PCP Family Medicine; Visit Provider Internal Medicine
DX: R07.9 Chest pain, unspecified (principal); R06.02 Shortness of breath; R42 Dizziness and giddiness; R11.0 Nausea; E03.9 Hypothyroidism, unspecified; F41.0 Panic disorder [episodic paroxysmal anxiety]; K21.9 Gastro-esophageal reflux disease without esophagitis; E78.5 Hyperlipidemia, unspecified; Z87.891 Personal history of nicotine dependence
CPT/HCPCS: 36415; 80053; 93005; 96360; 99222; 99239; 99285; J1650; 71046; 71260; 83735; 84484; 85025; 85379; 85610; 85730; 93010; 99217; 99219; G0378; J3490

== ENCOUNTER 2018-05-24 00:09 | Outpatient (CLI) | payer MEDICAID, SELFPAY ==
--- NOTE | 2018-05-24 09:30 | MERGEMPI_ITS ---
*[facility]* *[facility]* [address] [place] [address] Myocardial Perfusion Imaging - SPECT Wayne protocol Date of study: 05/24/2018 *PATIENT PRESENTATION* Height: 157.5cm (62in) Blood Pressure: Weight: 68.6kg (151lb) BSA: 1.75m^2 Referring physician: Pritesh Wagner Ordering physician: Mayra Browning Impressions: Normal study after maximal exercise. Summary: 1. Myocardial perfusion imaging: No myocardial perfusion defects noted. 2. The calculated left ventricular ejection fraction after stress: 75%. LV global systolic function is normal. No left ventricular regional motion abnormality. 3. Stress ECG conclusions: The stress ECG is negative. The sensitivity of this test is limited by significant motion artifact. 4. Stress: The target heart rate was achieved. The heart rate response to stress is exaggerated. There is a normal resting blood pressure with an appropriate response to stress. The patient experienced no chest pain during stress. Exercise capacity is above normal for age. 5. Treadmill exercise testing was performed using the Wayne protocol. The patient exercised for 12 min, to protocol stage 4, to a maximal work rate of 13.5mets. Exercise was terminated due to fatigue. Indication: R07.9, Appropriate Use Criteria: A (Appropriate). History: Patient's presenting symptoms: asymptomatic. REASON FOR VISIT: PATIENT REPORTS EXPERIENCING SEVERE FATIGUE AND INTERMITTENT 4/10 STERNAL CHEST PRESSURE SINCE STARTING INTENSE CARDIO CIRCUIT TRAINING TWO-THREE WEEKS AGO. PATIENT PRESENTED TO THE ER 05/19/18 AFTER CHEST PRESSURE OCCURED 25MIN INTO ZHANG AND DID NOT RESOLVE WITH REST. ASSOCIATED SYMPTOMS AT THAT TIME INCLUDE LIGHTHEADEDNESS, SOB, NAUSEA, AND INCREASED ANXIETY. CHEST PRESSURE RESOLVED AFTER NITRO X 1 IN ED, AND PATIENT WAS ADMITTED OVERNIGHT FOR OBSERVATION. THERE WAS NO RETURN OF CHEST PRESSURE, NO EKG CHANGES FROM INITIAL, TROPONINS NEGATIVE X 3, AND CHEST CT NEGATIVE FOR ANEURYSM OR PE. PATIENT LAST HAD CHEST PRESSURE ON TUESDAY WHEN RETURNING TO WORK. NO CHEST PRESSURE TODAY. PAST MEDICAL HISTORY: ANXIETY, CHRONIC BACK PAIN, HX OF HELICOBACTER INFECTION, HYPERCHOLESTEROLEMIA, HYPOTHYROIDISM, PANIC DISORDER, RECOVERING ALCOHOLIC, RESTLESS LEG SYNDROME, DISLOCATION OF TEMPOROMANDIBULAR JOINT, TUBULAR ADENOMA, DIZZY SPELLS, FAMILY HISTORY: FATHER (CABG). SMOKING STATUS: 11 PACK YEAR HISTORY, QUIT IN 2007. EXERCISE ROUTINE: 60-90 MINUTES OF CARDIO 4X/WEEK. STRENGTH TRAINING 2X/WEEK. Risk factors: Family history of coronary artery disease. Dyslipidemia. Cholesterol: 181mg/dl. HDL: 61mg/dl. LDL: 118mg/dl. Triglycerides: 62mg/dl. ALLERGIES: SULFAMETHOXAZOLE, TRIMETHOPRIM, VENLAFAXINE HCL, METRONIDAZOLE, OXYCODONE, GARLIC. MEDICATIONS: ALPRAZOLAM 0.5MG, PRN. CLONAZEPAM 0.5MG, DAILY. ESCITALOPRAM OXALATE 10MG, DAILY. ESTRADIOL 1G VG TWICE WEEKLY, LEVOTHYROXINE 88MCG, DAILY. NITROGLYCERIN 0.4MG SUBLING, PRN. Imaging Technique: Protocol: Wayne protocol. Acquisition: Gated SPECT; 1 day - rest/stress. The patient was imaged in the supine position. Attenuation correction used. Isotope administration: - Rest. Tc[99m]-sestamibi. Dose: 10.2mCi. Injection time: 09:30 AM. Injection to stress time: 00:45. - Stress. Tc[99m]-sestamibi. Dose: 30.3mCi. Injection time: 12:00 PM. 1-2 min before end of exercise Baseline ECG: PREVIOUS: SINUS RHYTHM WITH T WAVE INVERSIONS IN LEADS V1 AND V2. TODAY: SINUS BRADYCARDIA WITH T WAVE INVERSION IN LEAD V1. HEART RATE 53 BPM. Sinus bradycardia. Stress protocol: + +---+ + !Stage !HR !BP (mmHg) ! + +---+ + !Baseline supine !53 !120/72 (88)! + +---+ + !Baseline standing !62 !120/66 (84)! + +---+ + !Stage I; 1.7mph, 10degrees; 3 min !91 !130/72 (91)! + +---+ + !Stage II; 2.5mph, 12degrees; 3 min !112!130/74 (93)! + +---+ + !Stage III; 3.4mph, 14degrees; 3 min!136! ! + +---+ + !Stage IV; 4.2mph, 16degrees; 3 min !158! ! + +---+ + !Recovery; 1 min !124!136/70 (92)! + +---+ + !Recovery; 3 min !83 !134/66 (89)! + +---+ + !Recovery; 6 min !82 !118/68 (85)! + +---+ + * Stress results: Maximal heart rate during stress was 174bpm (104% of maximal predicted heart rate). The maximal predicted heart rate was 167bpm. The target heart rate was achieved. The heart rate response to stress is exaggerated. There is a normal resting blood pressure with an appropriate response to stress. The rate-pressure product for the peak heart rate and blood pressure was 81680dh Hg/min. The patient experienced no chest pain during stress. Exercise capacity is above normal for age. Stress ECG: TREADMILL PORTION OF MPI STRESS TEST ENDED IN 12MIN 5SEC DUE TO FATIGUE. APPROPRIATE HEART RATE RESPONSE TO EXERCISE. BLUNTED BLOOD PRESSURE RESPONSE TO EXERCISE. MAX HEART RATE 174BPM, 104% OF TARGET. APPROXIMATE METS ACHIEVED 13.52. NO ANGINA REPORTED. PATIENT EXPERIENCED MILD NAUSEA IN IMMEDIATE RECOVERY PERIOD, RESOLVED BY MINUTE 2 RECOVERY. OCCASIONAL PVC NOTED. NO SIGNIFICANT ST SEGMENT CHANGES NOTED. ABOVE AVERAGE CAPACITY FOR EXERCISE. The stress ECG is negative. The sensitivity of this test is limited by significant motion artifact. Myocardial perfusion: Imaging information: gated. The image quality was excellent. Left ventricular size is normal. No myocardial perfusion defects noted. Ventricular Function (Wall Motion): The calculated left ventricular ejection fraction after stress: 75%. LV global systolic function is normal. No left ventricular regional motion abnormality. Right ventricular function is normal. Study data: Pritesh Wagner MD supervised and was readily available during the procedure. This study was interpreted by [facility]. Study status: Routine. Consent: The risks, benefits, and alternatives to the procedure were explained to the patient and informed consent was obtained. Procedure: Initial setup. A baseline ECG was recorded. Surface ECG leads and manual cuff blood pressure measurements were monitored. Heart sounds: Normal. Lung sounds: Normal. Treadmill exercise testing was performed using the Wayne protocol. The patient exercised for 12 min, to protocol stage 4, to a maximal work rate of 13.5mets. Exercise was terminated due to fatigue. Study completion: All catheters inserted during the procedure were removed. The patient tolerated the procedure well and was discharged from the lab. Discharge: The patient left the laboratory in stable condition. Birthdate: Patient birthdate: 1965. Sex: Gender: female. Study date: Study date: 05/24/2018. Study time: 00:01 AM. Signature Documentation: - The imaging portion of this study was interpreted by Nuclear Product Expert Pritesh Wagner MD. - The Stress ECG portion of this study was interpreted by Pritesh Wagner MD. Electronically signed by Pritesh Wagner 05/24/2018 15:50
== END 2018-05-24 00:29 ==
PROVIDERS: PCP Family Medicine; Visit Provider Family Medicine
DX: R07.9 Chest pain, unspecified (principal); R53.83 Other fatigue; E78.5 Hyperlipidemia, unspecified; E03.9 Hypothyroidism, unspecified; F41.9 Anxiety disorder, unspecified
CPT/HCPCS: 78452; 93017

== ENCOUNTER 2018-08-25 07:29 | Outpatient (REF) | payer MEDICAID, SELFPAY ==
[2018-08-25 11:41] LABS: ALT 31 U/L (12-78); AST 22 U/L (15-37); Albumin 3.9 g/dL (3.4-5.0); Alkaline Phosphatase 65 U/L (46-116); Bilirubin, Direct 0.06 mg/dL (0.00-0.20); Bilirubin, Total 0.4 mg/dL (0.2-1.0); Total Protein 6.9 g/dL (6.4-8.2)
== END 2018-08-25 07:49 ==
LOC: NCHCN 07:29
PROVIDERS: PCP Family Medicine; Visit Provider Family Medicine
DX: R10.11 Right upper quadrant pain (principal); Z86.19 Personal history of other infectious and parasitic diseases
CPT/HCPCS: 80076

== ENCOUNTER 2019-01-22 18:31 | Outpatient (REF) | payer MEDICAID, SELFPAY ==
[2019-01-22 19:43] LABS: Ferritin 66 ng/mL (8-252); TSH (W/Ref FT4) 2.86 uIU/mL (0.36-3.74)
== END 2019-01-22 18:51 ==
LOC: NCHCN 18:31
PROVIDERS: PCP Family Medicine; Visit Provider Family Medicine
DX: E03.9 Hypothyroidism, unspecified (principal); E78.5 Hyperlipidemia, unspecified; G25.81 Restless legs syndrome
CPT/HCPCS: 82728; 84443

== ENCOUNTER 2019-02-06 18:41 | Emergency (ER) | payer MEDICAID, SELFPAY ==
[2019-02-06 18:47] VITALS: BP 130/72; PULSE 71; RESP 18; TEMP 36.3; O2SAT 98
--- NOTE | 2019-02-06 19:05 | ED.GENADUL_ITS ---
Discharge Plan Disposition Patient Disposition: HOME Condition: Stable Discharge Details Chief Complaint: Trauma Clinical Impression: Closed head injury with brief loss of consciousness, Hematoma of scalp, Neck pain Primary Care Provider: Mayra Browning ED Provider: Christie Damon Home Meds and New Rx's Prescriptions: Continued clonazepam [Klonopin] 0.5 MG tablet 0.5 mg PO DAILY RF: 0 alprazolam [Xanax] 0.5 MG tablet 0.5 mg PO PRN PRNRF: 0 escitalopram oxalate [Lexapro] 20 MG tablet 10 mg PO DAILY RF: 0 nitroglycerin [Nitrostat] 0.4 mg Tablet, Sublingual 0.4 mg Sublingual Q5 MIN PRN X3 PRNQty: 6 RF: 0 levothyroxine 100 mcg Tablet 100 mcg PO DAILY RF: 0 Discharge Instructions Instructions: Cervical Strain (ED), Head Injury (ED), Hematoma (ED) Additional Instructions: Drink plenty of fluids and get plenty of rest. Alternate tylenol and motrin as needed and directed for pain. Avoid excessive screen time including cell phone, tablet, computer or TV as this may worsen symptoms of concussion. Follow-up with your primary care doctor in 1 week. Return to the emergency department with any worsening or new concerning symptoms. Discharge Data Discharge Physician: Christie Damon Medical Decision Making 1900 -- 53-year-old female who presents for head injury after fall while ice skating. Patient states she was not wearing a helmet when she fell backward while skating hitting the back of her head on the ice. She is unsure of LOC but thinks she may have lost consciousness for a few seconds. She was able to stand up and ambulate. She admits to mainly frontal headache and right-sided neck pain. She denies any other injuries. She has not taken any medication for pain. Patient drove herself to the ER. Patient has a 3 x 3 cm hematoma posterior midline occipital region. No open wounds. She has midline lower C-spine and right paraspinal cervical tenderness. No focal deficits. Moving all extremities. Lungs clear abdomen nontender. We will give a dose of Tylenol and sent for CT head and cervical spine. 1944 --CT reviewed and negative. Patient feels better and feels good to go home. Advised on the importance of ice, alternating Tylenol and Motrin. She is advised to avoid screen time, follow-up with her primary care doctor as needed and to return here immediately with any worsening or new concerning symptoms. Medical Records Medical records reviewed: Yes I reviewed the patient's medical records. Imaging Data Radiologic Study: Radiologist's impression: CT Head Without Contrast Exam date and time: 02/06/2019 7:14 PM Age: 53 years old Clinical indication: Injury or trauma; Fall; Initial encounter; Blunt trauma (contusions or hematomas); With loss of consciousness; Loss of consciousness for 30 minutes or less; Injury date: 02/06/19; Injury details: Fell and hit back of head, loss conscious for a few seconds; Patient HX: Head and neck pain, bump on back of head TECHNIQUE: Imaging protocol: Computed tomography of the head without contrast. Radiation optimization: All CT scans at this facility use at least one of these dose optimization techniques: automated exposure control; mA and/or kV adjustment per patient size (includes targeted exams where dose is matched to clinical indication); or iterative reconstruction. COMPARISON: CT HEAD WITHOUT CONTRAST 12/27/2016 7:42 PM FINDINGS: Brain: No hemorrhage. No significant white matter disease. No edema. Ventricles: No ventriculomegaly. Bones/joints: No acute fracture. Deformity of the inferior wall of the right orbit, likely chronic. Sinuses: Unremarkablel as visualized. No acute sinusitis. Mastoid air cells: Unremarkable as visualized. No mastoid effusion. Soft tissues: Unremarkable. IMPRESSION: No acute intracranial abnormality. CT Cervical Spine Without Contrast Exam date and time: 02/06/2019 7:14 PM Age: 53 years old Clinical indication: Injury or trauma; Fall; Initial encounter; Blunt trauma (contusions or hematomas); With loss of consciousness; Loss of consciousness for 30 minutes or less; Injury date: 02/06/19; Injury details: Fell and hit back of head, loss conscious for a few seconds; Patient HX: Head and neck pain, bump on back of head TECHNIQUE: Imaging protocol: Computed tomography images of the cervical spine without contrast. Radiation optimization: All CT scans at this facility use at least one of these dose optimization techniques: automated exposure control; mA and/or kV adjustment per patient size (includes targeted exams where dose is matched to clinical indication); or iterative reconstruction. COMPARISON: CT HEAD WITHOUT CONTRAST 12/27/2016 7:42 PM FINDINGS: Vertebrae: No acute fracture. Loss of normal cervical lordosis, likely positional. Discs/Spinal canal/Neural foramina: No spinal stenosis. No neural foraminal narrowing. Soft tissues: Unremarkable. Lungs: Lung apices are normal. IMPRESSION: No acute fractures. HPI General Mode of arrival: ambulatory . Date/Time Provider Initiated Documentation: 02/06/19 18:42 . Limitations to Documentation: no limitations . Information obtained by: patient . History of Present Illness 53 year old F pr esents to the emergency department with the chief complaint of s/p fall and head injury, and is localized to the head and neck. Patient neck. Patient started experiencing this minute(s) (30) and it has been constant. No relieving factors improve symptom(s), Movement worsens symptoms . Patient notes headaches; denies nausea/vomiting. Patient did receive the following treatments prior to arrival, none Related Data Home Medications Medication Instructions Recorded Confirmed alprazolam [Xanax] 0.5 mg PO PRN PRN 04/30/12 02/06/19 clonazepam [Klonopin] 0.5 mg PO DAILY 04/30/12 02/06/19 escitalopram oxalate [Lexapro] 10 mg PO DAILY 04/30/12 02/06/19 nitroglycerin [Nitrostat] 0.4 mg SUBLINGUAL Q5 MIN PRN X3 05/19/18 02/06/19 PRN #6 tab levothyroxine 100 mcg PO DAILY 02/06/19 02/06/19 Previous Rx's Medication Instructions Recorded nitroglycerin [Nitrostat] 0.4 mg SUBLINGUAL Q5 MIN PRN X3 05/19/18 PRN #6 tab Allergies Allergy/AdvReac Type Severity Reaction Status Date / Time sulfamethoxazole Allergy Severe hepititis Verified 02/06/19 18:52 [From Bactrim] trimethoprim [From Bactrim] Allergy Severe hepititis Verified 02/06/19 18:52 venlafaxine HCl Allergy Verified 02/06/19 18:52 [From Effexor] metronidazole [From Flagyl] AdvReac Intermediate NAUSEA Verified 02/06/19 18:52 Metronidazole HCl AdvReac Intermediate NAUSEA Verified 02/06/19 18:52 [From Flagyl] oxycodone AdvReac Intermediate NAUSEA Verified 02/06/19 18:52 garlic Allergy Severe Anaphylaxsi Uncoded 02/06/19 18:52 s General Stated Complaint: Trauma MANDA: 2 Review of Systems All systems reviewed & are unremarkable except as noted in HPI and below Constitutional Constitutional: Reports as per HPI, Denies chills, Denies fever(s) and Reports headache(s) Eyes Eyes: Denies blurry vision ENT Ears, Nose, Mouth, and Throat: Denies dizziness, Reports headache(s), Reports neck pain, Denies sore throat and Denies throat swelling Cardiovascular Cardiovascular: Denies chest pain and Denies dyspnea Respiratory Respiratory: Denies cough and Denies dyspnea Gastrointestinal Gastrointestinal: Denies abdominal pain, Denies diarrhea and Denies vomiting Genitourinary Genitourinary: Denies hematuria and Denies dysuria Musculoskeletal Musculoskeletal: Denies back pain, Reports neck pain and Denies numbness Integumentary/Breasts Skin/Breast: Denies lesions and Denies rash Neurologic Neurologic: Denies dizziness, Reports headache(s), Denies focal weakness and Denies numbness Allergic/Immunologic Allergic/Immunologic: Denies throat swelling PFSH Medical History Anxiety (Chronic) Chronic back pain (Chronic) Dizzy spells (Chronic) History of fracture of right ankle (Resolved) Hx of Helicobacter infection (Resolved ~12/22/17) Hypercholesterolemia (Chronic) Hypothyroidism (Chronic) Panic disorder (Chronic) Recovering alcoholic (Chronic) RLS (restless legs syndrome) (Chronic) TMJ (dislocation of temporomandibular joint) (Resolved) Tubular adenoma (Chronic) Vitamin D deficiency (Chronic) Surgical History History of esophagogastroduodenoscopy (EGD) (Inactive ~12/22/17) Hysterectomy, Laproscopic (Inactive ~2004) 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 Oophrectomy, Both (Inactive ~2004) with hyst Family History Father AML (acute myeloid leukemia) Social History Smoking/Tobacco Use Status: Former Tobacco Use Alcohol Intake: never Drug use: Never Substance use type: does not use Seatbelt use: always Do you feel safe at home: Yes Do you feel safe in your relationship?: Yes Female Reproductive History Menstrual Menopause type: surgical (Hyst 2004) History History 3 Para Hx # Term Pregnancies 3 Multiple births Hx # Pregnancies Ectopic pregnancies AB induced Hx Number of Living Children AB spontaneous Exam Const General: cooperative and healthy appearing Orientation: alert and awake HENMT Head: normal to inspection Head images: 1. 3 x 3 cm tender hematoma to posterior occipital region midline. No open wounds noted. Ears: hearing grossly normal bilaterally, external ears normal and TM's normal bilaterally General nose exam: external nose normal Face and sinus: normal facial exam Mouth: oral mucosae normal Teeth and gingiva: dentition normal Throat: posterior oropharynx normal Eyes General: appearance normal, both eyes and all related structures Eyelids: eyelids normal Pupils: PERRL EOM: EOM intact bilaterally Neck Neck: normal visual inspection Lymphatic: no lymphadenopathy noted Chest Chest: normal inspection of the chest, normal palpation of entire chest wall and no tenderness Resp Effort & Inspection: normal respiratory effort and able to speak in complete sentences Auscultation: clear to auscultation bilaterally Cardio Rate: regular rate Rhythm: regular rhythm GI Inspection: normal to inspection and no abdominal wall ecchymosis Palpation: soft, not firm, no guarding, no hepatosplenomegaly, no masses and nontender Auscultation: normal bowel sounds Back/Spine/Pelvis Back: no CVA tenderness Cervical Spine: cervical muscular tenderness (R cervical paraspinal) and cervical spinal tenderness (midline lower) Thoracic/Lumbar Spine: No thoracic spinal tenderness and No lumbar spinal tenderness Pelvis: no pain with anterior-posterior compression Skin General skin exam: no rashes or lesions noted Neuro General: alert and awake Cranial Nerves: CN's II-XI intact bilaterally Cognition: normal cognition Speech: speech normal Gait: normal gait Motor: muscle tone normal throughout and strength 5/5 throughout Sensory Exam: no sensory deficits noted Extrem General: normal to inspection, full ROM and normal capillary refill Psych Appearance: grossly normal Mental Status: mental status grossly normal Speech and Movement: speech and movement normal Affect: normal affect Thought Process: normal Course Vital Signs Vital signs: Vital Signs Temperature 97.3 F L 02/06/19 18:47 Pulse 71 02/06/19 18:47 Respiratory Rate 18 02/06/19 18:47 Blood Pressure 130/72 02/06/19 18:47 Pulse Oximetry 98 02/06/19 18:47 Temperature 97.3 F L 02/06/19 18:47 Temperature Source Skin 02/06/19 18:47 Pulse 71 02/06/19 18:47 Respiratory Rate 18 02/06/19 18:47 Respiratory Effort 02/06/19 18:56 Respiratory Depth Normal 02/06/19 18:56 Respiratory Pattern Normal 02/06/19 18:56 Blood Pressure 130/72 02/06/19 18:47 Blood Pressure Position Supine 02/06/19 18:47 Pulse Oximetry 98 02/06/19 18:47 Oxygen Delivery Method Room Air 02/06/19 18:47 Oxygen Flow Rate 0 02/06/19 18:47 Pain Level 9 02/06/19 18:56
--- NOTE | 2019-02-06 19:14 | DI.CT_ITS ---
EXAM: CT HEAD CERVICAL SPINE WO CLINICAL HISTORY: s/p fall and hit back of head TECHNIQUE: The procedure was performed utilizing the usual protocol. COMPARISON: CTA BRAIN AND NECK from 12/27/2016 FINDINGS: CT head: There is normal tan-white matter differentiation. No acute intracranial hemorrhage is present. No acute midline shift or mass effect is present. Ventricles are intact. The basilar cisterns are townsend nt. Visualized paranasal sinuses are clear as are the mastoid air cells. The calvarium is intact. There is an unchanged deformity of the floor of the right orbit. This was present on the CT angiogra phy of the head and neck from 12/27/2016. CT cervical spine: No acute fracture or subluxation is seen. The soft tissues are unremarkable. There is straightening of the normal cervical lordosis which may be due to patient positioning. The lung apices are clear. IMPRESSION: 1. No acute intracranial process. 2. No acute fracture or subluxation in the cervical spine.
[2019-02-06] MEDS: Acetaminophen 500 MG TAB 1000 MG PO (19:29)
--- NOTE | 2019-02-06 19:39 | DI.VRAD_ITS ---
PROCEDURE INFORMATION: Exam: CT Head Without Contrast Exam date and time: 02/06/2019 7:14 PM Age: 53 years old Clinical indication: Injury or trauma; Fall; Initial encounter; Blunt trauma (contusions or hematomas); With loss of consciousness; Loss of consciousness for 30 minutes or less; Injury date: 02/06/19; Injury details: Fell and hit back of head, loss conscious for a few seconds; Patient HX: Head and neck pain, bump on back of head TECHNIQUE: Imaging protocol: Computed tomography of the head without contrast. Radiation optimization: All CT scans at this facility use at least one of these dose optimization techniques: automated exposure control; mA and/or kV adjustment per patient size (includes targeted exams where dose is matched to clinical indication); or iterative reconstruction. COMPARISON: CT HEAD WITHOUT CONTRAST 12/27/2016 7:42 PM FINDINGS: Brain: No hemorrhage. No significant white matter disease. No edema. Ventricles: No ventriculomegaly. Bones/joints: No acute fracture. Deformity of the inferior wall of the right orbit, likely chronic. Sinuses: Unremarkablel as visualized. No acute sinusitis. Mastoid air cells: Unremarkable as visualized. No mastoid effusion. Soft tissues: Unremarkable. IMPRESSION: No acute intracranial abnormality. PROCEDURE INFORMATION: Exam: CT Cervical Spine Without Contrast Exam date and time: 02/06/2019 7:14 PM Age: 53 years old Clinical indication: Injury or trauma; Fall; Initial encounter; Blunt trauma (contusions or hematomas); With loss of consciousness; Loss of consciousness for 30 minutes or less; Injury date: 02/06/19; Injury details: Fell and hit back of head, loss conscious for a few seconds; Patient HX: Head and neck pain, bump on back of head TECHNIQUE: Imaging protocol: Computed tomography images of the cervical spine without contrast. Radiation optimization: All CT scans at this facility use at least one of these dose optimization techniques: automated exposure control; mA and/or kV adjustment per patient size (includes targeted exams where dose is matched to clinical indication); or iterative reconstruction. COMPARISON: CT HEAD WITHOUT CONTRAST 12/27/2016 7:42 PM FINDINGS: Vertebrae: No acute fracture. Loss of normal cervical lordosis, likely positional. Discs/Spinal canal/Neural foramina: No spinal stenosis. No neural foraminal narrowing. Soft tissues: Unremarkable. Lungs: Lung apices are normal. IMPRESSION: No acute fractures. Dictated and Authenticated by: Myles Cuenca MD. Ordering:EDNA Soriano MD
[2019-02-06 19:47] VITALS: BP 112/66; PULSE 74; RESP 18; O2SAT 99
== END 2019-02-06 19:50 | disposition home or self-care (01) ==
PROVIDERS: Emergency Provider Physician Assistant; PCP Family Medicine
DX: S06.9X9A Unspecified intracranial injury with loss of consciousness of unspecified duration, initial encounter (principal); S00.03XA Contusion of scalp, initial encounter; M54.2 Cervicalgia; W00.0XXA Fall on same level due to ice and snow, initial encounter; Y93.21 Activity, ice skating
CPT/HCPCS: 99284; 70450; 72125; 99285; L0172

== ENCOUNTER 2019-02-27 10:23 | Outpatient (CLI) | payer MEDICAID, SELFPAY ==
--- NOTE | 2019-02-27 16:21 | DI.RAD_ITS ---
EXAM: XR SHOULDER LT COMPLETE 2+V INDICATION: SHOULDER JOINT PAIN LT M25.512, S/P FALL COMPARISON: No exams were available for comparison TECHNIQUE: 2D digital imaging was performed. FINDINGS: There are mild hypertrophic changes seen at the acromioclavicular joint. The glenohumeral joint is u nremarkable. The bones are intact. No fracture or dislocation is seen. The soft tissues are unrema rkable. IMPRESSION: Mild degenerative changes of the left acromioclavicular joint.
== END 2019-02-27 10:43 ==
PROVIDERS: PCP Family Medicine; Visit Provider Nurse Practitioner Family
DX: M25.512 Pain in left shoulder (principal); M19.012 Primary osteoarthritis, left shoulder
CPT/HCPCS: 73030

== ENCOUNTER 2019-05-02 10:17 | Outpatient (REF) | payer MEDICAID, SELFPAY ==
[2019-05-03 11:04] LABS: Campylobacter PCR Negative (Negative); Salmonella PCR Negative (Negative); Shiga Toxin PCR Negative (Negative); Shigella/Enteroinvasive Ecoli Negative (Negative)
== END 2019-05-02 10:37 ==
LOC: NCHCN 10:17
PROVIDERS: PCP Family Medicine; Visit Provider Family Medicine
DX: R19.7 Diarrhea, unspecified (principal)
CPT/HCPCS: 87329; 87505; 83630; 87324

== ENCOUNTER 2019-05-10 09:01 | Outpatient (REF) | payer MEDICAID, SELFPAY ==
[2019-05-15 14:55] LABS: Helicobacter pylori Ag, Feces Positive (Negative)
== END 2019-05-10 09:21 ==
LOC: NCHCN 09:01
PROVIDERS: PCP Family Medicine; Visit Provider Family Medicine
DX: R19.7 Diarrhea, unspecified (principal); R10.11 Right upper quadrant pain
CPT/HCPCS: 87338

== ENCOUNTER 2019-09-10 10:33 | Outpatient (REF) | payer MEDICAID, SELFPAY ==
[2019-09-10 19:13] LABS: Hemoglobin A1C 5.8 % (3.8-5.6)
[2019-09-10 19:23] LABS: Calculated LDL 190 mg/dL (<100); Cholesterol 266 mg/dL (<200); HDL Cholesterol 46 mg/dL (40-60); TSH (W/Ref FT4) 1.59 uIU/mL (0.36-3.74); Triglyceride 152 mg/dL (<150)
[2019-09-11 14:16] LABS: Helicobacter pylori Ag, Feces Negative (Negative)
== END 2019-09-10 10:53 ==
LOC: NCHCN 10:33
PROVIDERS: PCP Family Medicine; Visit Provider Family Medicine
DX: Z86.19 Personal history of other infectious and parasitic diseases (principal); E03.9 Hypothyroidism, unspecified; E78.5 Hyperlipidemia, unspecified
CPT/HCPCS: 80061; 87338; 83036; 84443

== ENCOUNTER 2019-11-29 12:28 | Outpatient (REF) | payer MEDICAID, SELFPAY ==
[2019-11-29 18:31] LABS: Folate 11.3 ng/mL (8.6-20.0); Vitamin B12 555 pg/mL (193-986)
== END 2019-11-29 12:48 ==
LOC: NCHCN 12:28
PROVIDERS: PCP Family Medicine; Visit Provider Family Medicine
DX: R20.9 Unspecified disturbances of skin sensation (principal); M77.41 Metatarsalgia, right foot
CPT/HCPCS: 82607; 82746

== ENCOUNTER 2020-01-29 00:33 | Outpatient (CLI) | payer MEDICAID, SELFPAY ==
--- NOTE | 2020-01-29 | DI.MAMMO_ITS ---
EXAM: MG MAMMO SCREENING CLINICAL HISTORY: SCREENING,Z12.39 TECHNIQUE: Bilateral full field digital CC and MLO mammographic images were obtained with 3D tomosyn thesis and utilizing computer aided detection (CAD). COMPARISON: Available for comparison. FINDINGS: Masses/Architectural Distortion: None seen. Microcalcifications: No suspicious pleomorphic-type are seen. Skin Thickening/Nipple Retraction: None. IMPRESSION: 1. No significant interval change with no specific features of malignancy noted. 2. Unless there is more urgent need, screening mammography is recommended, as per [employer] guidelines. BI-RADS Category 1 - Negative Breast Density - Category C - Heterogeneously dense Breast density category C or D implies that the patient has dense breast tissue. Dense breast tissue is very common and is not abnormal but dense breast tissue can make it harder to find cancer on a ma mmogram. Also, dense breast tissue may increase their breast cancer risk. This information about the result of the mammogram report was provided to the patient to raise their awareness. Use this report when you speak with the patient about their risks for breast cancer, which includes their family hist ory. At that time, you may recommend for more screening tests (Ultrasound or MRI) as they might be us eful based on their risk. A negative radiographic report should not delay biopsy if a dominant or clinically suspicious mass is present. Up to ten percent of cancers are not identified on mammography. A negative report may reinforce clinical impression. Adenosis and dense breasts may obscure an underlying neoplasm. False positive reports average 6 to 10%. Patient will receive a letter notifying them of these results.
== END 2020-01-29 00:53 ==
PROVIDERS: PCP Family Medicine; Visit Provider Family Medicine
DX: Z12.31 Encounter for screening mammogram for malignant neoplasm of breast (principal)
CPT/HCPCS: 77063; 77067

== ENCOUNTER 2020-05-12 23:27 | Outpatient (REF) | payer OTHER, MEDICAID, SELFPAY ==
[2020-05-12 18:49] LABS: ALT 42 U/L (14-59); AST 25 U/L (15-37); Alkaline Phosphatase 82 U/L (46-116); Anion Gap 7.4 mmol/L (3-11); BUN 14 mg/dL (7-18); Bilirubin, Total 0.3 mg/dL (0.2-1.0); CO2 29.6 mmol/L (21.0-32.0); CREATININE 1.1 mg/dL (0.55-1.02); Calcium 9.3 mg/dL (8.5-10.1); Chloride 106 mmol/L (98-107); Estimated GFR 51.57 (mL/min/1.73m2); Glucose 114 mg/dL (74-106); Potassium 4.1 mmol/L (3.5-5.1); Sodium 143 mmol/L (136-145); TSH (W/Ref FT4) 0.91 uIU/mL (0.36-3.74); Total Protein 6.9 g/dL (6.4-8.2)
== END 2020-05-12 23:28 | disposition home or self-care (01) ==
LOC: NCHCN 23:27
PROVIDERS: PCP Family Medicine; Visit Provider Family Medicine
DX: R53.83 Other fatigue (principal)
CPT/HCPCS: 80053; 84443

== ENCOUNTER 2020-05-26 08:06 | Outpatient (REF) | payer OTHER, MEDICAID, SELFPAY ==
[2020-05-26 13:18] LABS: HCT 40.2 % (36.0-46.0); HGB 13.3 g/dL (11.2-15.7); MCH 29.2 pg (27.0-33.0); MCHC 33.1 % (32.0-36.0); MCV 88.4 fL (80-95); MPV 10.3 fL (8.0-11.0); Platelet Count 313 10^3/uL (130-400); RBC 4.55 10^6/uL (3.93-5.22); RDW 12.5 % (11.7-14.6); RDW-SD 40.5 fL; WBC 7.07 10^3/uL (4.4-10.8)
[2020-05-26 13:31] LABS: Hemoglobin A1C 5.8 % (<5.7)
[2020-05-26 13:33] LABS: Anion Gap 9.4 mmol/L (3-11); BUN 13 mg/dL (7-18); CO2 26.6 mmol/L (21.0-32.0); CREATININE 1.1 mg/dL (0.55-1.02); Calcium 8.9 mg/dL (8.5-10.1); Calculated LDL 162 mg/dL (<100); Chloride 106 mmol/L (98-107); Cholesterol 238 mg/dL (<200); Estimated GFR 51.38 (mL/min/1.73m2); Glucose 105 mg/dL (74-106); HDL Cholesterol 48 mg/dL (40-60); Potassium 4.2 mmol/L (3.5-5.1); Sodium 142 mmol/L (136-145); Triglyceride 142 mg/dL (<150)
[2020-05-26 13:56] LABS: Vitamin D 25 Total 20.5 ng/mL (30-100)
[2020-05-26 19:41] LABS: Bilirubin Negative (Negative); Blood Trace-intact (Negative); COMMENT (LAB VIEW ONLY) 36.34 mg/dL; Clarity Clear (Clear); Glucose Negative (Negative); Ketones Negative (Negative); Leukocyte Esterase Negative (Negative); Microalb ug/mg Crea 10.5 ug/mg Cr; Nitrite Negative (Negative); Urobilinogen 0.2 EU/dL (Up TO 0.2)
[2020-05-26 19:52] LABS: Bacteria Rare HPF (Negative); C & S Indicated? No; Casts Negative LPF (Negative); Crystals Negative HPF (Negative); Epithelial Cells Rare HPF (Negative); Mucus Negative (Negative); Other Cells Negative (Negative); RBC Negative HPF (0-2); WBC Negative HPF (0-5)
== END 2020-05-26 08:07 | disposition home or self-care (01) ==
LOC: NCHCN 08:06
PROVIDERS: PCP Family Medicine; Visit Provider Family Medicine
DX: R79.89 Other specified abnormal findings of blood chemistry (principal); R53.83 Other fatigue; R73.03 Prediabetes; E03.9 Hypothyroidism, unspecified; E78.5 Hyperlipidemia, unspecified; E55.9 Vitamin D deficiency, unspecified
CPT/HCPCS: 80048; 80061; 82306; 85027; 81003; 81015; 82043; 82570; 83036

== ENCOUNTER 2020-09-10 09:25 | Outpatient (REF) | payer OTHER, MEDICAID, SELFPAY ==
[2020-09-10 15:16] LABS: Anion Gap 9.8 mmol/L (3-11); BUN 17 mg/dL (7-18); CO2 26.2 mmol/L (21.0-32.0); CREATININE 0.9 mg/dL (0.55-1.02); Chloride 107 mmol/L (98-107); Glucose 115 mg/dL (74-106); Potassium 4.3 mmol/L (3.5-5.1); Sodium 143 mmol/L (136-145)
== END 2020-09-10 09:26 | disposition home or self-care (01) ==
LOC: NCHCN 09:25
PROVIDERS: PCP Family Medicine; Visit Provider Family Medicine
DX: R79.89 Other specified abnormal findings of blood chemistry (principal)
CPT/HCPCS: 80048

== ENCOUNTER 2020-10-27 10:52 | Emergency (ER) | payer OTHER, MEDICAID, SELFPAY ==
[2020-10-27] VITALS (39 sets, daily range): BP systolic 96–124; BP diastolic 54–71; PULSE 50–72; RESP 10–126; TEMP 36.6; O2SAT 95–100
--- NOTE | 2020-10-27 11:00 | RT.EKG_ITS ---
APPROVED REPORT Exam: Resting ECG Reason for Exam: chest pain Patient Location: E HR:63 bpm ECG Measurements Heart Rate 63 AXIS NE 152 P 31 QRSd 87 QRS 9 QT 418 T 31 QTc 428 Conclusion Age and gender not entered, assume 49 yo male for purpose of ECG interpretation Sinus rhythm...normal P axis, V-rate 60- 99 Low voltage, precordial leads...precordial leads <1.0mV no STEMI, non-diagnostic EKG I have reviewed and interpreted ECG and agree with software generated interpretation.
--- NOTE | 2020-10-27 11:15 | DI.RAD_ITS ---
Exam(s) XR CHEST 2V PA LATERAL EXAM: XR CHEST 2V PA LATERAL CLINICAL HISTORY: Chest pain TECHNIQUE: 2D digital imaging was performed. COMPARISON: CT CT CHEST W from 05/19/2018 FINDINGS: MEDIASTINUM: Normal. HEART: Normal. PULMONARY VASCULATURE: Normal. LUNGS: Clear. PLEURAL SPACE: No pleural effusion or pneumothorax. BONE:Unremarkable for age. IMPRESSION: No acute abnormality. DATA REPOSITORY: RADIATION DOSE DELIVERED:
--- NOTE | 2020-10-27 11:16 | ED.GENADUL_ITS ---
Discharge Plan Disposition Patient Disposition: HOME Condition: Stable Discharge Details Clinical Impression: Chest pressure, Exertional dyspnea Primary Care Provider: Mayra Browning ED Provider: Bere Monahan Home Meds and New Rx's Prescriptions: Continued clonazepam [Klonopin] 0.5 MG tablet 0.5 mg PO DAILY RF: 0 alprazolam [Xanax] 0.5 MG tablet 0.5 mg PO PRN PRNRF: 0 escitalopram oxalate [Lexapro] 20 MG tablet 10 mg PO DAILY RF: 0 levothyroxine 100 mcg Tablet 100 mcg PO DAILY RF: 0 atorvastatin 10 mg tablet 10 mg PO .SUN// RF: 0 triamcinolone acetonide 55 mcg aerosol,spray 2 spray INTRANASAL DAILY RF: 0 Discharge Instructions Instructions: Chest Pain (ED), Dyspnea (ED) Additional Instructions: At this time cardiac work-up including serial troponins is within normal limits. The echocardiogram is being sent to [facility] for results. Follow up with primary care provider in 3-5 days. Return to ED sooner if any worsening or concerns. Increase oral fluids. Please take a baby aspirin every day. You were placed on care management list to follow-up with cardiology. An outpatient stress test was also ordered. They will call you to schedule that. Please return to the ER immediately for any worsening shortness of breath or chest pain. Referrals: Griselda Berman MD [ [facility] STAFF PHYSICIAN] - Mayra Browning MD [Primary Care Provider] - Florentino Vidal MD [MD CONSULTING PHYSICIAN] - Discharge Data Discharge Date/Time-TO BE ENTERED AT DEPARTURE: 10/27/20 15:57 Medical Decision Making 55-year-old female presents to the ER after being seen recently in urgent care this morning with chief complaint of chest pressure, shortness of breath with exertion and increased fatigue. Patient states that 2 weeks ago she was on a hike when she got to the top of the hike that she vomited became increased shortness of breath and having chest heaviness. She reports that yesterday he had a walk where she had shortness of breath and had to stop doing. She reports chest heaviness prior to falling asleep and upon waking this morning. She also endorses some nausea. Denies any vomiting, diaphoresis or abdominal pain. Denies any swelling in her lower extremities. Restless leg syndrome, former alcohol use, vitamin D deficiency. Surgical history includes hysterectomy to tx and oophorectomy. EKG was reviewed by Jihan Reinoso MD ER attending, please see her official report. Cardiac work-up ordered including serial troponins and chest x-ray. 324 mg aspirin given. Patient reports chest pressure scale of 5-10 reports intermittent comes and goes while laying in bed. Will order nitroglycerin sublingual x3 as needed chest pain. I did discuss and offer the option for admission patient is in agreement with this plan. 1427: Nitroglycerin 0.4mg given SL dropped chest pain from a 4 to a 2. SBP at 107, additional ntg held at this time, Hospitalist paged for admission request. 1436: Spoke with Dr. Chavez regarding patient, he recommends Echo cardiogram and outpatient stress test, US contacted, they are available at this time. Rhythm: Bradycardia Indications: Chest pressure Other Information Study Quality: Good Wall motion Left Ventricle The left ventricle is normal size. The left ventricular systolic function is n ormal. The left ventricular ejection fraction is within the normal range. There is normal left ventricular wall thickness. There is normal LV segmental wall motion. There is no ventricular septal defect visualized. LVEF is 60-65%. Right Ventricle The right ventricle is normal size. The right ventricular systolic function is normal. Atria The left atrium size is normal. The right atrium size is normal. The interatrial septum is intact with no evidence for an atrial septal defect. Aortic Valve The aortic valve is normal in structure. Aortic valve is trileaflet. There is no aortic valvular stenosis. No aortic regurgitation is present. Mitral Valve The mitral valve is normal in structure. No evidence of mitral valve stenosis. Trace mitral regurgitation. Tricuspid Valve The tricuspid valve is normal in structure. There is no tricuspid valve stenosis. Trace tricuspid regurgitation. Unable to assess PA pressure. Pulmonic Valve The pulmonary valve is normal in structure. There is no pulmonic valvular stenosis. Trace pulmonic regurgitation. Great Vessels The aortic root is normal in size. The ascending aorta is normal in size. IVC is normal in size and collapses >50% with inspiration. Pericardium There is no pericardial effusion. Second troponin within normal limits. Patient placed on care management list for follow-up with cardiology. Outpatient stress test ordered. Patient remained hemodynamically stable throughout stay. Instructed on strict return instructions, verbalized understanding. The official result from [facility] cardiology shows trace tricuspid regurgitation and trace pulmonic regurgitation. Please see scanned result. At this time I do feel that outpatient follow-up is appropriate. Instructed patient to take daily aspirin. HPI General Mode of arrival: ambulatory . Date/Time Provider Initiated Documentation: 10/27/20 11:00 . Limitations to Documentation: no limitations . Information obtained by: patient, RN notes reviewed and old records reviewed . HPI Narrative: 55-year-old female presents to the ER after being seen recently in urgent care this morning with chief complaint of chest pressure, shortness of breath with exertion and increased fatigue. Patient states that 2 weeks ago she was on a hike when she got to the top of the hike that she vomited became increased shortness of breath and having chest heaviness. She reports that yesterday he had a walk where she had shortness of breath and had to stop doing. She reports chest heaviness prior to falling asleep and upon waking this morning. She also endorses some nausea. Denies any vomiting, diaphoresis or abdominal pain. Denies any swelling in her lower extremities. Restless leg syndrome, former alcohol use, vitamin D deficiency. Surgical history includes hysterectomy to tx and oophorectomy. Related Data Home Medications Medication Instructions Recorded Confirmed alprazolam [Xanax] 0.5 mg PO PRN PRN 04/30/12 10/27/20 clonazepam [Klonopin] 0.5 mg PO DAILY 04/30/12 10/27/20 escitalopram oxalate [Lexapro] 10 mg PO DAILY 04/30/12 10/27/20 levothyroxine 100 mcg PO DAILY 02/06/19 10/27/20 atorvastatin 10 mg PO .SUN/TUES/THURS 10/27/20 10/27/20 triamcinolone acetonide 2 spray INTRANASAL DAILY 10/27/20 10/27/20 Allergies Allergy/AdvReac Type Severity Reaction Status Date / Time sulfamethoxazole Allergy Severe hepititis Verified 10/27/20 11:14 [From Bactrim] trimethoprim [From Bactrim] Allergy Severe hepititis Verified 10/27/20 11:14 venlafaxine HCl Allergy Verified 10/27/20 11:14 [From Effexor] metronidazole [From Flagyl] AdvReac Intermediate NAUSEA Verified 10/27/20 11:14 Metronidazole HCl AdvReac Intermediate NAUSEA Verified 10/27/20 11:14 [From Flagyl] oxycodone AdvReac Intermediate NAUSEA Verified 10/27/20 11:14 garlic Allergy Severe Anaphylaxsi Uncoded 10/27/20 11:14 s General Stated Complaint: GenMedical MANDA: 2 Review of Systems Narrative: Constitutional: Negative for weight loss, alert and oriented, well groomed, normal body habitus, appears comfortable. HEENT: Denies trauma, headaches, blurry vision, nasal discharge, sore throat, trouble swallowing. Chest: Denies palpitations, irregular rhythm, hypertension. Positive chest pain/heaviness and bradycardia. Respiratory: Denies cough hemoptysis. Positive exertional shortness of breath GI: Denies abdominall pain, vomiting, diarrhea, constipation. Positive nausea. : Denies dysuria, hematuria, flank pain, rectal bleeding. Neuro: Denies dizziness, blurry vision, syncope, headache or facial numbness. Hematologic: Denies easy bruising, intolerance to heat or cold, hair loss. [facility] Medical History (Updated 10/27/20 @ 15:38 by Bere Monahan) Anxiety Chronic back pain Dizzy spells History of fracture of right ankle Hx of Helicobacter infection (~12/22/17) Hypercholesterolemia Hypothyroidism Panic disorder Recovering alcoholic RLS (restless legs syndrome) TMJ (dislocation of temporomandibular joint) Tubular adenoma Vitamin D deficiency Surgical History History of esophagogastroduodenoscopy (EGD) (~12/22/17) Hysterectomy, Laproscopic (~2004) 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 Oophrectomy, Both (~2004) with hyst Family History Father AML (acute myeloid leukemia) Social History Smoking/Tobacco Use Status: Former Tobacco Use Smoking risk assessment performed?: Yes Alcohol Intake: never Drug use: Never Substance use type: does not use Seatbelt use: always Do you feel safe at home: Yes Do you feel safe in your relationship?: Yes Female Reproductive History Menstrual Menopause type: surgical (Hyst 2004) History History 3 Para Hx # Term Pregnancies 3 Multiple births Hx # Pregnancies Ectopic pregnancies AB induced Hx Number of Living Children AB spontaneous Exam Narrative Exam Narrative: Constitutional: Alert and oriented x3. Appears stated age. Normal body habitus. Head: Normocephalic, no trauma. Eyes: Pupils PERRLA, Red reflex noted, EOM's intact. Eyelids symmetrical without lesions, discharge, or swelling. ENT: Bilateral TM's WNL, External ear normal to inspection, no mastoid TTP, swelling, or erythema, Nasal turbinates WNL, no nasal discharge. Normal dentition, Posterior pharynx WNL, no exudate. Chest: RRR, Normal S1, S2, distal pulses intact. Resp: Lungs clear to auscultation bilaterally, no wheezes, rales, or rhonchi. Abdomen: Soft, nontender to palpation all 4 quadrants. Musculoskeletal: Normal gait, 5/5 strength to all four extremities. Skin: No suspicious rashes or lesions. Capillary refill less than 2 sec. Neurologic: Cranial nerves II-XII intact. Alert and oriented x 3. DTR's intact. Hematologic/Lymphatic: No ecchymosis, no lymphadenopathy. Course Vital Signs Vital signs: Vital Signs Temperature 36.6 C 10/27/20 11:01 Pulse 64 10/27/20 11:01 Respiratory Rate 16 10/27/20 11:01 Blood Pressure 115/60 10/27/20 11:01 Pulse Oximetry 100 10/27/20 11:01 Temperature 36.6 C 10/27/20 11:01 Temperature Source Temporal Artery Scan 10/27/20 11:01 Pulse 64 10/27/20 11:01 Respiratory Rate 16 10/27/20 11:01 Respiratory Effort Non-Labored 10/27/20 11:13 Blood Pressure 115/60 10/27/20 11:01 Blood Pressure Position Supine 10/27/20 11:01 Pulse Oximetry 100 10/27/20 11:01 Oxygen Delivery Method Room Air 10/27/20 11:01 Oxygen Flow Rate 0 10/27/20 11:01 Pain Level 5 10/27/20 11:01
[2020-10-27 11:38] LABS: Abs Immature Grans 0.03 10^3/uL (0.0-0.06); Absolute Basophil Count 0.04 10^3/uL (0.0-0.2); Absolute Eosinophil Count 0.14 10^3/uL (0.0-0.7); Absolute Monocyte Count 0.47 10^3/uL (0.1-0.8); Absolute Neutrophil Count 3.31 10^3/uL (1.2-6.7); Basophils % 0.6; Eosinophils % 2.2; HCT 41.4 % (36.0-46.0); HGB 13.5 g/dL (11.2-15.7); Immature Grans % 0.5; Lymphocytes % 36.6; MCH 29.3 pg (27.0-33.0); MCHC 32.6 % (32.0-36.0); MCV 89.8 fL (80-95); MPV 10.1 fL (8.0-11.0); Monocytes % 7.5; Neutrophils % 52.6; Nucleated RBC 0 %; Platelet Count 323 10^3/uL (130-400); RBC 4.61 10^6/uL (3.93-5.22); RDW 12.4 % (11.7-14.6); RDW-SD 40.8 fL; WBC 6.29 10^3/uL (4.4-10.8)
[2020-10-27] MEDS: Aspirin 81 MG CHEW 324 MG CH (11:38)
[2020-10-27 11:43] LABS: Magnesium 2.1 mg/dL (1.8-2.4)
[2020-10-27 11:49] LABS: ALT 31 U/L (14-59); AST 19 U/L (15-37); Alkaline Phosphatase 80 U/L (46-116); Anion Gap 7.6 mmol/L (3-11); BUN 12 mg/dL (7-18); Bilirubin, Total 0.3 mg/dL (0.2-1.0); CO2 27.4 mmol/L (21.0-32.0); CREATININE 0.9 mg/dL (0.55-1.02); Calcium 9.1 mg/dL (8.5-10.1); Chloride 106 mmol/L (98-107); Glucose 99 mg/dL (74-106); Sodium 141 mmol/L (136-145); Total Protein 7.3 g/dL (6.4-8.2); Troponin I < 0.05 ng/mL (<0.06)
[2020-10-27 11:56] LABS: TSH (W/Ref FT4) 1.38 uIU/mL (0.36-3.74)
[2020-10-27] MEDS: nitroGLYcerin 0.4 MG TAB SL (13:28)
--- NOTE | 2020-10-27 14:00 | RT.EKG_ITS ---
APPROVED REPORT Exam: Resting ECG Reason for Exam: Patient Location: E HR:55 bpm ECG Measurements Heart Rate 55 AXIS SD 161 P 28 QRSd 90 QRS 15 QT 461 T 31 QTc 440 Conclusion Sinus bradycardia...rate< 60 Low voltage, precordial leads...precordial leads <1.0mV no STEMI, non-diagnostic EKG
[2020-10-27 14:33] LABS: Troponin I < 0.05 ng/mL (<0.06)
[2020-10-27 14:34] LABS: Source Nasal/Nares
--- NOTE | 2020-10-27 15:43 | NUR.NOTE ---
Addendum entered by Carol Olvera 10/27/20 15:54: Order for regular exercise treadmill stress test, chest pain, SOB, faxed to DI. Carol Olvera Original Note: Nursing Note: Referral faxed to [facility] Cardiology for follow up MOHIT for chest pain. Carol Olvera
[2020-10-27 17:01] LABS: COVID-19 PCR Negative (Negative)
== END 2020-10-27 15:57 | disposition home or self-care (01) ==
PROVIDERS: Emergency Provider Registered Nurse Emergency; PCP Family Medicine
DX: R07.89 Other chest pain (principal); R06.09 Other forms of dyspnea
CPT/HCPCS: 36415; 80053; 87635; 93005; 99284; 71046; 83735; 84443; 84484; 85025; 93010; 93306

== ENCOUNTER 2020-10-30 00:59 | Outpatient (CLI) | payer OTHER, MEDICAID, SELFPAY ==
--- NOTE | 2020-10-30 15:00 | ETT_ITS ---
APPROVED REPORT Exam: Exercise Treadmill Patient Location: Out-Patient Room/Bed: Stress Nurse: Junie Mclean RN Ordering Provider:MICA RAMON, Contact Number: BMI: 30.72 Baseline Rhythm: Sinus Bradycardia Indications: Chest pain, shortness of breath Medical History Medical History: Anxiety, dizzy spells, hypercholesterolemia, Chronic back pain, hypothyroidism, Renny vering alcoholic Cardiac Medications: Atorvastatin Allergies: Sulfamethoxazole, Trimethoprim, Venlafaxine, Metronidazone, Oxycodone, Garlic Cardiac Risk Factors: Hyperlipidemia, FHX of CAD, Smoking (former) Previous Cardiac Procedures: None Pretest Chest Pain Characteristics: No chest pain Exercise History: Physically active Physical Disabilities: None Lung Sounds: Clear to auscultation Heart Sounds: Regular Stress Test Details Test: Exercise stress testing was performed using a Wayne protocol. Rest Stress HR Resting HR Supine: 55 bpm Max Heart Rate (APMHR): 164 bpm Resting HR Standin bpm Target HR (85% APMHR): 139 bpm Max HR Achieved: 164 bpm % of APMHR: 100 Recovery HR: 78 bpm HR response to stress: Normal HR response to stress BP Resting BP Supine: 126/74 mmHg Resting BP Standin/80 mmHg Max BP: 160/70 mmHg Recovery BP: 128/70 mmHg BP response to stress: Normal blood pressure response to stress. ECG Resting ECG: Sinus Bradycardia Ectopy: None Stress ECG: Sinus Tachycardia ST Change: No significant ST segment changes noted Arrhythmia: None Recovery ECG: Sinus Rhythm Recovery ST Change: No significant ST segment changes noted Recovery Arrhythmia: None Clinical Reason for Termination: Fatigue Stress Symptoms: General Fatigue, Dyspnea Exercise duration: 10 min28 sec Highest Stage Reached: Stage 4: 4.2 mph at 16% grade. Exercise capacity: 12.59 METs Guido Treadmill Score: 6 Rate Pressure Product: [id number] Stress ECG Conclusion 1. Resting electrocardiogram was normal 2. Patient exercised on the Wayne protocol and completed a workload of 12.59 METS, stopping due to fa tigue and dyspnea 3. Normal heart rate and blood pressure response to exercise. The patient achieved 100% of predicted heart rate for age 4. Electrocardiographically there was no evidence of myocardial ischemia 5. There were no dysrhythmias Guido Treadmill Score is 6 which is Low risk. Stress Test Summary STAGE Time (mins) Speed (mph) Grade (%) HR BP SYMPTOMS METS Supine 55 126/74 Standing 61 122/80 1 3 1.7 10 107 128/76 brief episode of 1/10 chest pain, mild SOB 4.6 2 6 2.5 12 126 144/70 mild/mod SOB 7 3 9 3.4 14 143 156/68 SpO2 97%, mod SOB 10.2 1 min recovery 133 160/70 SOB resolved 3 min recovery 85 148/66 6 min recovery 78 128/70
== END 2020-10-30 01:19 ==
PROVIDERS: PCP Family Medicine; Visit Provider Registered Nurse Emergency
DX: R07.9 Chest pain, unspecified (principal); R06.02 Shortness of breath; E78.5 Hyperlipidemia, unspecified; Z82.49 Family history of ischemic heart disease and other diseases of the circulatory system; Z87.891 Personal history of nicotine dependence
CPT/HCPCS: 93017

== ENCOUNTER 2020-11-14 11:30 | Outpatient (REF) | payer OTHER, MEDICAID, SELFPAY ==
[2020-11-15 01:29] LABS: COVID-19 RT-PCR UVMMC Result Negative (Negative)
== END 2020-11-14 11:31 | disposition home or self-care (01) ==
LOC: NCHCN 11:30
PROVIDERS: PCP Family Medicine; Visit Provider Nurse Practitioner Family
DX: Z20.822 Contact with and (suspected) exposure to COVID-19 (principal)
CPT/HCPCS: U0003

== ENCOUNTER 2020-12-24 16:19 | Outpatient (REF) | payer OTHER, MEDICAID, SELFPAY ==
[2020-12-25 02:16] LABS: COVID-19 RT-PCR UVMMC Result Negative (Negative)
== END 2020-12-24 16:20 | disposition home or self-care (01) ==
LOC: NCHCN 16:19
PROVIDERS: PCP Family Medicine; Visit Provider Internal Medicine
DX: Z20.822 Contact with and (suspected) exposure to COVID-19 (principal)
CPT/HCPCS: U0003

== ENCOUNTER 2021-03-05 15:47 | Outpatient (REF) | payer OTHER, MEDICAID, SELFPAY ==
[2021-03-07 13:26] LABS: COVID-19 RT-PCR UVMMC Result Negative (Negative)
== END 2021-03-05 15:48 | disposition home or self-care (01) ==
LOC: NCHCN 15:47
PROVIDERS: PCP Family Medicine; Visit Provider Family Medicine
DX: Z20.822 Contact with and (suspected) exposure to COVID-19 (principal)
CPT/HCPCS: U0003

== ENCOUNTER 2021-04-21 01:06 | Outpatient (CLI) | payer OTHER, MEDICAID, SELFPAY ==
--- NOTE | 2021-04-21 | DI.MAMMO_ITS ---
Exam(s) MAMMO SCREENING EXAM: MAMMO SCREENING CLINICAL HISTORY: SCREENING FOR BREAST CANCER Z12.39. TECHNIQUE: Bilateral full field digital CC and MLO mammographic images were obtained with 3D tomosyn thesis and utilizing computer aided detection (CAD). COMPARISON: Prior mammograms were reviewed, the most recent being January 2020.. FINDINGS: There has been no significant change in the appearance and distribution of fibroglandular tissue. A thin density posterior left breast is unchanged from prior studies. There are no new spiculated masses nor malignant appearing microcalcification groups. There is no significant architectural distortion nor skin thickening-retraction. IMPRESSION: Stable benign findings. No radiographic evidence of malignancy. BI-RADS Category 2 - Benign Findings Breast Density - Category C - Heterogeneously dense Breast density Category C or D implies that the patient has dense breast tissue. Dense breast tissue can make it harder to find cancer on a mammogram. Dense breast tissue is also associated with an incr eased risk of breast cancer. This information about the result of the mammogram report was provided to the patient to raise their awareness. Use this report when you speak with the patient about their risks for breast cancer, which includes their family history. At that time, you may recommend additional screening tests (Ultrasoun d or MRI) as these tests may add significant information. A negative radiographic report should not delay biopsy if a dominant or clinically suspicious mass is present. Up to ten percent of cancers are not identified on mammography. A negative report may reinforce clinical impression. Adenosis and dense breasts may obscure an underlying neoplasm. False positive reports average 6 to 10%. Patient will receive a letter notifying them of these results.
== END 2021-04-21 01:26 ==
PROVIDERS: PCP Family Medicine; Visit Provider Family Medicine
DX: Z12.31 Encounter for screening mammogram for malignant neoplasm of breast (principal)
CPT/HCPCS: 77063; 77067

== ENCOUNTER 2021-05-29 20:51 | Outpatient (REF) | payer OTHER, MEDICAID, SELFPAY ==
[2021-05-31 01:38] LABS: COVID-19 RT-PCR UVMMC Result Negative (Negative)
== END 2021-05-29 20:52 | disposition home or self-care (01) ==
LOC: NCHCN 20:51
PROVIDERS: PCP Family Medicine; Visit Provider Family Medicine
DX: Z20.822 Contact with and (suspected) exposure to COVID-19 (principal)
CPT/HCPCS: U0003

== ENCOUNTER 2021-06-10 19:03 | Outpatient (REF) | payer OTHER, MEDICAID, SELFPAY ==
[2021-06-10 14:59] LABS: Anion Gap 6.3 mmol/L (3-11); BUN 18 mg/dL (7-18); CO2 27.7 mmol/L (21.0-32.0); CREATININE 0.9 mg/dL (0.55-1.02); Calcium 8.8 mg/dL (8.5-10.1); Calculated LDL 181 mg/dL (<100); Chloride 107 mmol/L (98-107); Cholesterol 249 mg/dL (<200); Glucose 105 mg/dL (74-106); HDL Cholesterol 53 mg/dL (40-60); Potassium 4.3 mmol/L (3.5-5.1); Sodium 141 mmol/L (136-145); TSH (W/Ref FT4) 1.07 uIU/mL (0.36-3.74); Triglyceride 75 mg/dL (<150)
== END 2021-06-10 19:04 | disposition home or self-care (01) ==
LOC: NCHCN 19:03
PROVIDERS: PCP Family Medicine; Visit Provider Family Medicine
DX: R73.03 Prediabetes (principal); E03.9 Hypothyroidism, unspecified; E78.5 Hyperlipidemia, unspecified
CPT/HCPCS: 80048; 80061; 83036; 84443

== ENCOUNTER 2021-09-18 17:27 | Outpatient (REF) | payer OTHER, MEDICAID, SELFPAY ==
[2021-09-19 01:39] LABS: COVID-19 RT-PCR UVMMC Result Negative (Negative)
== END 2021-09-18 17:28 | disposition home or self-care (01) ==
LOC: NCHCN 17:27
PROVIDERS: PCP Family Medicine; Visit Provider Family Medicine
DX: Z20.822 Contact with and (suspected) exposure to COVID-19 (principal)
CPT/HCPCS: U0003

== ENCOUNTER 2021-10-05 18:26 | Outpatient (REF) | payer OTHER, MEDICAID, SELFPAY ==
[2021-10-05 19:33] LABS: HCT 39.6 % (36.0-46.0); HGB 13.1 g/dL (11.2-15.7); MCH 29.4 pg (27.0-33.0); MCHC 33.1 % (32.0-36.0); MCV 89 fL (80-95); MPV 10.5 fL (8.0-11.0); Platelet Count 308 10^3/uL (130-400); RBC 4.45 10^6/uL (3.93-5.22); RDW 12.1 % (11.7-14.6); RDW-SD 39.2 fL; WBC 7.62 10^3/uL (4.4-10.8)
== END 2021-10-05 18:27 | disposition home or self-care (01) ==
LOC: NCHCN 18:26
PROVIDERS: PCP Family Medicine; Visit Provider Family Medicine
DX: R53.83 Other fatigue (principal)
CPT/HCPCS: 85027; 84443

== ENCOUNTER 2022-04-06 06:19 | Emergency (ER) | payer BC, MEDICAID, SELFPAY ==
[2022-04-06 06:28] VITALS: BP 118/61; PULSE 80; RESP 18; TEMP 36.5; O2SAT 100
--- NOTE | 2022-04-06 07:00 | RT.EKG_ITS ---
APPROVED REPORT Exam: Resting ECG Reason for Exam: chest pain Patient Location: E HR:60 bpm ECG Measurements Heart Rate 60 AXIS UT 151 P 28 QRSd 89 QRS 10 QT 417 T 43 QTc 419 Conclusion Sinus rhythm...normal P axis, V-rate 60- 99 Low voltage, precordial leads...precordial leads <1.0mV
--- NOTE | 2022-04-06 07:01 | W.ED.GENAD ---
Discharge Plan Disposition Condition: Stable Discharge Details Chief Complaint: Nk/Back Pain Clinical Impression: Neck pain on right side Primary Care Provider: Mayra Browning ED Provider: Joesph Bazzi Home Meds and New Rx's Prescriptions: No Action clonazepam [Klonopin] 0.5 MG tablet 0.5 mg PO DAILY alprazolam [Xanax] 0.5 MG tablet 0.5 mg PO PRN PRN Patient Comments: 02/06/19-pt states she rarely takes med. escitalopram oxalate [Lexapro] 20 MG tablet 10 mg PO DAILY levothyroxine 100 mcg Tablet 100 mcg PO DAILY atorvastatin 10 mg tablet 10 mg PO .SUN/TUES/THURS Patient Comments: TAKE ONE TABLET BY MOUTH EVERY DAY triamcinolone acetonide 55 mcg aerosol,spray 2 spray INTRANASAL DAILY Patient Comments: INSTILL 2 SPRAYS INTO BOTH NOSTRIL ONCE A DAY Medical Decision Making 56 yo female with hx of hypothryoidism, who has had intermittent right neck pain for a month with no trauma, comes in with continued pain but yesterday has had increase in painand had issues with expressive aphasia/finding words yesterday. She states she was at [employer] and used a phone yesterday and had immense pain in the right neck and right ear. She states shortly after this she had a few minutes of not being able to find words when talking which has resolved. She denies fevers, chills, dyspnea. She does states she feels the right neck pain radiaties to the right anterior chest. Denies pain with exertion, n/v, diaphoresis. She arrives stable, normal gait and speaking clearly caox4. CN II-XII intact, no focal motor or sensation deficits, nih of 0. She has normal tm's bilaterally as well abnormal ext auditory canals. She has tenderness to the mid right upper and mid back. She has no flucutance, no restricted neck movements, normal oropharynx. Unclear etiology for constellation of symptoms, concern she may have had a tia though symptoms not entirely consistent with this given lack of vision changes or weakness. Will obta ct head and cta to evaluate for possible dissection given the neck pain. Feel acs is unlikely but will also obtain ecg/troponin along with cbc and cmp. No hypoxia or tachycardia or evidence of dvt on exam so doubt pe pt signed out to oncoming provider pending labs and ct imaging, dispo Differential Diagnosis Differential Diagnosis: dissection, muscle strain, tia Medical Records Medical records reviewed: Yes I reviewed the patient's medical records. Lab Data Lab results reviewed: Yes I reviewed the patient's lab results. ECG Data Attestation: I personally reviewed and interpreted this ECG (s) as follows: Prior ECG tracings: available for review Interpretation: sinus rate of 60, pr 151, no acute ischemic findings HPI General Mode of arrival: ambulatory. Date/Time Provider Initiated Documentation: 04/06/22 06:20. Limitations to Documentation: no limitations. Information obtained by: patient. History of Present Illness 56 year old F presents to the emergency department with the chief complaint of right neck pain, described as moderate, Patient started experiencing this month(s) (1) and it has been intermittent. No relieving factors improve symptom(s), No exacerbating factors reported . Patient notes chest pain; denies fever/chills. Patient did receive the following treatments prior to arrival, none Related Data Home Medications Medication Instructions Recorded Confirmed alprazolam 0.5 mg tablet (Xanax) 0.5 mg PO PRN PRN 04/30/12 04/06/22 clonazepam 0.5 mg tablet (Klonopin) 0.5 mg PO DAILY 04/30/12 04/06/22 escitalopram oxalate 20 mg tablet 10 mg PO DAILY 04/30/12 04/06/22 (Lexapro) levothyroxine 100 mcg tablet 100 mcg PO DAILY 02/06/19 04/06/22 atorvastatin 10 mg tablet 10 mg PO .SUN/TUES/THURS 10/27/20 04/06/22 triamcinolone acetonide 55 mcg 2 spray intranasal DAILY 10/27/20 04/06/22 nasal spray aerosol Allergies Allergy/AdvReac Type Severity Reaction Status Date / Time sulfamethoxazole Allergy Severe hepititis Verified 10/27/20 11:14 [From Bactrim] trimethoprim [From Bactrim] Allergy Severe hepititis Verified 10/27/20 11:14 venlafaxine HCl Allergy Verified 10/27/20 11:14 [From Effexor] metronidazole [From Flagyl] AdvReac Intermediate NAUSEA Verified 10/27/20 11:14 Metronidazole HCl AdvReac Intermediate NAUSEA Verified 10/27/20 11:14 [From Flagyl] oxycodone AdvReac Intermediate NAUSEA Verified 10/27/20 11:14 garlic Allergy Severe Anaphylaxsi Uncoded 10/27/20 11:14 s General Stated Complaint: Nk/Back Pain MANDA: 4 Review of Systems All systems reviewed & are unremarkable except as noted in HPI and below Constitutional Constitutional: Denies chills, Denies fever(s) and Denies weakness Eyes Eyes: Denies loss of vision ENT Ears, Nose, Mouth, and Throat: Denies change in voice Cardiovascular Cardiovascular: Denies dyspnea Respiratory Respiratory: Denies cough and Denies dyspnea Gastrointestinal Gastrointestinal: Denies abdominal pain, Denies nausea and Denies vomiting Musculoskeletal Musculoskeletal: Denies joint swelling Neurologic Neurologic: Denies loss of vision and Denies weakness PFSH All Active Problems (Updated 04/06/22 @ 07:26 by Joesph Bazzi MD) Chest pressure (Acute) Exertional dyspnea (Acute) Neck pain on right side (Acute) Chest pain (Acute) Iliotibial band syndrome, right leg (Acute) Esophagitis determined by endoscopy (Acute) Gastritis (Acute) Epigastric pain (Acute) Atrophic vaginitis (Acute 03/18/15) Anxiety (Acute 03/18/15) Acquired hypothyroidism (Acute 08/19/11) Acquired absence of both cervix and uterus (Acute 03/18/15) S/P hyst and BSO for benign reasons Acquired absence of both cervix and uterus (Acute 08/22/12) Lumbar radicular pain (Chronic) Medical History (Updated 04/06/22 @ 07:26 by Joesph Bazzi MD) Anxiety Chronic back pain Dizzy spells History of fracture of right ankle Hx of Helicobacter infection (~12/22/17) Hypercholesterolemia Hypothyroidism Panic disorder Recovering alcoholic RLS (restless legs syndrome) TMJ (dislocation of temporomandibular joint) Tubular adenoma Vitamin D deficiency Surgical History Hysterectomy, Laproscopic (~2004) 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 Oophrectomy, Both (~2004) with hyst Family History Father AML (acute myeloid leukemia) Social History Smoking/Tobacco Use Status: Former Tobacco Use Smoking risk assessment performed?: Yes Alcohol Intake: never Drug use: Never Substance use type: does not use Seatbelt use: always Do you feel safe at home: Yes Do you feel safe in your relationship?: Yes Female Reproductive History Menstrual Menopause type: surgical (Hyst 2004) History History 3 Para Hx # Term Pregnancies 3 Multiple births Hx # Pregnancies Ectopic pregnancies AB induced Hx Number of Living Children AB spontaneous Exam Const General: no acute distress Orientation: alert HENMT Head: normal to inspection Ears: external ears normal General nose exam: external nose normal Mouth: moist mucous membranes Eyes General: appearance normal, both eyes and all related structures Visual Hobbs: normal visual hobbs by confrontation Alignment and Position: alignment normal Periorbital: periorbital findings normal Conjunctivae: conjunctivae normal Pupils: PERRL EOM: EOM intact bilaterally Direct ophthalmoscopy: normal light reflex Neck Neck: normal visual inspection, full ROM, no lymphadenopathy, no meningeal signs, trachea midline, no tracheal deviation and no JVD Resp Effort & Inspection: normal respiratory effort and able to speak in complete sentences Auscultation: clear to auscultation bilaterally Cardio Jugular venous pressure: no JVD Rate: regular rate Heart Sounds: no murmurs Skin General skin exam: no rashes or lesions noted Neuro General: patient alert and patient oriented x3 Extrem General: normal to inspection Psych Mental Status: mental status grossly normal Course Vital Signs Vital signs: Vital Signs Temperature 36.5 C 04/06/22 06:28 Pulse 80 04/06/22 06:28 Respiratory Rate 18 04/06/22 06:28 Blood Pressure 118/61 04/06/22 06:28 Pulse Oximetry 100 04/06/22 06:28 Temperature 36.5 C 04/06/22 06:28 Temperature Source Oral 04/06/22 06:28 Pulse 80 04/06/22 06:28 Respiratory Rate 18 04/06/22 06:28 Respiratory Effort Normal 04/06/22 06:36 Blood Pressure 118/61 04/06/22 06:28 Blood Pressure Position Supine 04/06/22 06:28 Pulse Oximetry 100 04/06/22 06:28 Oxygen Delivery Method Room Air 04/06/22 06:28 Oxygen Flow Rate 0 04/06/22 06:28 Pain Level 2 04/06/22 06:28
[2022-04-06 07:16] LABS: Abs Immature Grans 0.01 10^3/uL (0.0-0.06); Absolute Basophil Count 0.03 10^3/uL (0.0-0.2); Absolute Lymphocyte Count 1.88 10^3/uL (1.2-3.4); Absolute Monocyte Count 0.39 10^3/uL (0.1-0.8); Absolute Neutrophil Count 3.82 10^3/uL (1.2-6.7); Basophils % 0.5; Eosinophils % 1.6; HCT 40.7 % (36.0-46.0); HGB 13.3 g/dL (11.2-15.7); Immature Grans % 0.2; Lymphocytes % 30.2; MCH 29.4 pg (27.0-33.0); MCHC 32.7 % (32.0-36.0); MCV 90 fL (80-95); MPV 10.1 fL (8.0-11.0); Monocytes % 6.3; Neutrophils % 61.2; Platelet Count 299 10^3/uL (130-400); RBC 4.53 10^6/uL (3.93-5.22); RDW 12.7 % (11.7-14.6); RDW-SD 41.4 fL; WBC 6.23 10^3/uL (4.4-10.8)
[2022-04-06 07:32] LABS: ALT 21 U/L (14-59); AST 18 U/L (15-37); Alkaline Phosphatase 63 U/L (46-116); Anion Gap 8.2 mmol/L (3-11); BUN 17 mg/dL (7-18); Bilirubin, Total 0.4 mg/dL (0.2-1.0); CO2 27.8 mmol/L (21.0-32.0); Calcium 9.3 mg/dL (8.5-10.1); Chloride 106 mmol/L (98-107); Estimated GFR 65.71 (mL/min/1.73m2); Glucose 105 mg/dL (74-106); Magnesium 1.8 mg/dL (1.8-2.4); Potassium 3.6 mmol/L (3.5-5.1); Sodium 142 mmol/L (136-145); Total Protein 6.9 g/dL (6.4-8.2); Troponin I < 50 ng/L (<or=60)
[2022-04-06] MEDS: Normal Saline - Diluent 50 ML VIAL IJ (08:06)
[2022-04-06] MEDS: Omnipaque 350 MG/ML 100 ML BTL 85 ML IJ (08:07)
--- NOTE | 2022-04-06 08:08 | DI.CT_ITS ---
Exam(s) CT BRAIN NECK CTA EXAM: CT BRAIN NECK CTA CLINICAL HISTORY: right neck discomfort, resolved expressive aphasia. TECHNIQUE: Imaging Protocol: Axial CT angiography was performed with multi-slice acquisition and mu lti-planar and/or 3D reconstructions. CONTRAST MATERIAL: Intravenous: Omnipaque 350 contrast volume:85 mL COMPARISON: CT CTA BRAIN AND NECK from 12/27/2016 FINDINGS: CT Head W/O and W: Ventricles and Extra axial spaces: Normal in size and morphology for the patient's age. Hemorrhage: None. Cerebral parenchyma: No acute territorial infarct is present. There is normal tan-white matter diff erentiation present. Midline shift: None. Brainstem/Cerebellum: Normal. Calvarium: Normal. Visualized Paranasal sinuses/Mastoids: Clear. Soft Tissues: Unremarkable. Enhancement: Unremarkable. CTA Neck W: Common Carotid: Right: No dissection, occlusion or significant stenosis. Left: No dissection, occlusion or significant stenosis. External Carotid: Right: No occlusion or significant stenosis. Left: No occlusion or significant stenosis. Internal Carotid: Right: No dissection, occlusion or significant stenosis. Left: No dissection, occlusion or significant stenosis. Vertebral Artery: Right: No dissection, occlusion or significant stenosis. Left: No dissection, occlusion or significant stenosis. Lung Apices: Normal. Bones: Within normal limits for the patient's age. Soft Tissues: Normal. Thyroid gland: Unremarkable. CTA Brain W: Internal Carotid Arteries: Normal. Anterior Cerebral Arteries: Right: No aneurysm, occlusion or significant stenosis. Left: No aneurysm, occlusion or significant stenosis. Middle Cerebral Arteries: Right: No aneurysm, occlusion or significant stenosis. Left: No aneurysm, occlusion or significant stenosis. Posterior Cerebral Arteries: Right: No aneurysm, occlusion or significant stenosis. Left: No aneurysm, occlusion or significant stenosis. Vertebral Arteries: Right: No aneurysm, occlusion or significant stenosis. Left: No aneurysm, occlusion or significant stenosis. Basilar Artery: No aneurysm, occlusion or significant stenosis. IMPRESSION: 1. No large vessel occlusion or significant stenosis on the CT angiography of the head. 2. No acute intracranial process. 3. No occlusion or significant stenosis on the CT angiography of the neck. 4. Findings were discussed with Dr. Morris at 9:15 a.m. on 04/06/2022. RADIATION DOSE DELIVERED: 1,967.28mGy.cm Total DLP DATA REPOSITORY: All CT scans at this facility are submitted to the National Radiology Data Registry (NRDR) Dose Index Registry (DIR) with the [employer] ([employer]). RADIATION OPTIMIZATION: All CT scans at this facility use at least one of these dose optimization te chniques: automated exposure control; mA and/or kV adjustment per patient size (includes targeted exa ms where dose is matched to clinical indication); or iterative reconstruction.
--- NOTE | 2022-04-06 08:08 | W.EDPROG ---
Date of service: 04/06/22 Time of Service: 09:32 Medical Decision Making I received signout on this 56-year-old female with neck pain pending a CTA head and neck and an ECG. She had transient word finding difficulties which have subsequently resolved. Her NIH stroke scale is 0. She is not a tPA candidate. Based on her transient symptoms and resolved deficits no indication for MRI as suspicion is reportedly low for TIA. 9:30 AM Patient had reassuring chest x-ray and CT scan. I met with her she was feeling well. She has outpatient follow-up scheduled with Dr. Berman. Will discharge now. Sign Out Sign Out Data: Sign Out Comment: right neck pain worsening over a month, ?expressive aphasia lasting a few minutes yesterday that resolved, peding lab work and CTA Last updated by Joesph Bazzi MD at 04/06/22 07:32 Discharge Plan Disposition Patient Disposition: Home Discharge Details Clinical Impression: Neck pain on right side Primary Care Provider: Mayra Browning ED Provider: Chan Galeana Home Meds and New Rx's Prescriptions: No Action clonazepam [Klonopin] 0.5 MG tablet 0.5 mg PO DAILY alprazolam [Xanax] 0.5 MG tablet 0.5 mg PO PRN PRN Patient Comments: 02/06/19-pt states she rarely takes med. escitalopram oxalate [Lexapro] 20 MG tablet 10 mg PO DAILY levothyroxine 100 mcg Tablet 100 mcg PO DAILY atorvastatin 10 mg tablet 10 mg PO .SUN/TUES/THURS Patient Comments: TAKE ONE TABLET BY MOUTH EVERY DAY triamcinolone acetonide 55 mcg aerosol,spray 2 spray INTRANASAL DAILY Patient Comments: INSTILL 2 SPRAYS INTO BOTH NOSTRIL ONCE A DAY Discharge Instructions Additional Instructions: You were seen in the emergency department for your neck pain. Your CAT scan and EKG showed no acute abnormalities. Please return to the emergency department if you develop nausea vomiting or fevers. Otherwise please follow-up with your primary care provider.
--- NOTE | 2022-04-06 08:13 | DI.RAD_ITS ---
Exam(s) XR CHEST 2V PA LATERAL EXAM: XR CHEST 2V PA LATERAL CLINICAL HISTORY: chest pain TECHNIQUE: 2D digital imaging was performed of the chest. Two images were obtained. PA and lateral views were obtained. COMPARISON: CR XR CHEST 2V PA LATERAL from 10/27/2020 FINDINGS: MEDIASTINUM: Normal. HEART: Normal. PULMONARY VASCULATURE: Normal. LUNGS: Clear. PLEURAL SPACE: No pleural effusion or pneumothorax. BONE:Within normal limits for the patient's age. OTHER FINDINGS:Normal. IMPRESSION: No acute pulmonary findings. DATA REPOSITORY: RADIATION DOSE DELIVERED:
[2022-04-06 08:15] LABS: COVID-19 PCR Negative (Negative); Influenza A PCR Negative (Negative); Influenza B PCR Negative (Negative); RSV PCR Negative (Negative)
[2022-04-06 08:17] LABS: Source Nasopharynx
[2022-04-06 09:59] VITALS: BP 102/63; PULSE 70; RESP 15; TEMP 36.4; O2SAT 99
== END 2022-04-06 10:00 | disposition home or self-care (01) ==
PROVIDERS: Emergency Medicine; Emergency Provider Emergency Medicine; PCP Family Medicine
DX: E03.9 Hypothyroidism, unspecified (principal); M54.2 Cervicalgia; Z87.891 Personal history of nicotine dependence; Z20.822 Contact with and (suspected) exposure to COVID-19
CPT/HCPCS: 70496; 70498; 80053; 87637; 93005; 99285; 71046; 83735; 84484; 85025; 93010; 99284; J3490

== ENCOUNTER 2022-04-08 14:01 | Outpatient (CLI) | payer BC, MEDICAID, SELFPAY ==
--- NOTE | 2022-04-08 14:00 | RT.EKG_ITS ---
APPROVED REPORT Exam: Resting ECG Reason for Exam: CP Patient Location: O HR:65 bpm ECG Measurements Heart Rate 65 AXIS NV 147 P 15 QRSd 201 QRS -7 QT 425 T 23 QTc 442 Conclusion Sinus rhythm...normal P axis, V-rate 50- 99 Normal Electrocardiogram
== END 2022-04-08 14:02 | disposition home or self-care (01) ==
LOC: DI.CARD 14:02
PROVIDERS: PCP Family Medicine; Visit Provider Internal Medicine Cardiovascular Disease
DX: R07.89 Other chest pain (principal)
CPT/HCPCS: 93010

== ENCOUNTER 2022-06-11 13:30 | Outpatient (REF) | payer BC, MEDICAID, SELFPAY ==
[2022-06-11 14:19] LABS: Hemoglobin A1C 5.5 % (<5.7)
[2022-06-11 14:26] LABS: Calculated LDL 151 mg/dL (<100); Cholesterol 219 mg/dL (<200); HDL Cholesterol 58 mg/dL (40-60); Triglyceride 54 mg/dL (<150)
== END 2022-06-11 13:31 | disposition home or self-care (01) ==
LOC: NCHCN 13:30
PROVIDERS: PCP Family Medicine; Visit Provider Family Medicine
DX: E78.5 Hyperlipidemia, unspecified (principal); R73.03 Prediabetes
CPT/HCPCS: 80061; 83036

== ENCOUNTER 2022-07-01 01:18 | Outpatient (CLI) | payer BC, MEDICAID, SELFPAY ==
--- NOTE | 2022-07-01 | DI.MAMMO_ITS ---
Exam(s) MAMMO SCREENING EXAM: MAMMO SCREENING CLINICAL HISTORY: SCREENING, Z12.39 TECHNIQUE: Bilateral full field digital CC and MLO mammographic images were obtained with 3D tomosyn thesis and utilizing computer aided detection (CAD). COMPARISON: Available for comparison. FINDINGS: Masses/Architectural Distortion: There is a stable nodule in the posterior superior left breast. No suspicious nodules or areas of architectural distortion are present. Microcalcifications: No suspicious pleomorphic-type are seen. Skin Thickening/Nipple Retraction: None. IMPRESSION: 1. No significant interval change with no specific features of malignancy noted. 2. Unless there is more urgent need, screening mammography is recommended, as per [employer] guidelines. BI-RADS Category 2 - Benign Findings Breast Density - Category C - Heterogeneously dense Breast density category C or D implies that the patient has dense breast tissue. Dense breast tissue is very common and is not abnormal but dense breast tissue can make it harder to find cancer on a ma mmogram. Also, dense breast tissue may increase their breast cancer risk. This information about the result of the mammogram report was provided to the patient to raise their awareness. Use this report when you speak with the patient about their risks for breast cancer, which includes their family hist ory. At that time, you may recommend for more screening tests (Ultrasound or MRI) as they might be us eful based on their risk. A negative radiographic report should not delay biopsy if a dominant or clinically suspicious mass is present. Up to ten percent of cancers are not identified on mammography. A negative report may reinforce clinical impression. Adenosis and dense breasts may obscure an underlying neoplasm. False positive reports average 6 to 10%. Patient will receive a letter notifying them of these results.
--- NOTE | 2022-07-01 15:35 | DI.RAD_ITS ---
Exam(s) XR ABDOMEN FLAT PLATE EXAM: 2D digital imaging was performed. CLINICAL HISTORY: ABD PAIN, CONSTIPATION, R10.9, K59.00. COMPARISON: CR ABDOMEN FLAT PLATE from 02/19/2013 TECHNIQUE: Supine views of the abdomen performed. Two views were obtained. FINDINGS: BOWEL GAS PATTERN: Nondistended. Moderate amount of stool is seen throughout the colon. There is no evidence of obstruction. CALCIFICATIONS: No radiopaque calcifications. OSSEOUS STRUCTURES: Normal for age. OTHER FINDINGS: None. IMPRESSION: 1. Nonobstructive bowel gas pattern. 2. Moderate amount of stool in the colon. DATA REPOSITORY: RADIATION DOSE DELIVERED:
== END 2022-07-01 01:38 ==
PROVIDERS: PCP Family Medicine; Visit Provider Family Medicine
DX: Z12.31 Encounter for screening mammogram for malignant neoplasm of breast (principal); R10.9 Unspecified abdominal pain; K59.00 Constipation, unspecified
CPT/HCPCS: 77063; 77067; 74018

== ENCOUNTER 2022-08-04 13:02 | Outpatient (REF) | payer BC, MEDICAID, SELFPAY ==
[2022-08-04 18:59] LABS: HCT 40.6 % (36.0-46.0); HGB 13.4 g/dL (11.2-15.7); MCV 91 fL (80-95); MPV 10.3 fL (8.0-11.0); Platelet Count 313 10^3/uL (130-400); RBC 4.46 10^6/uL (3.93-5.22); RDW 12.3 % (11.7-14.6); RDW-SD 40.9 fL; WBC 6.32 10^3/uL (4.4-10.8)
[2022-08-04 19:16] LABS: ALT 26 U/L (14-59); AST 23 U/L (15-37); Alkaline Phosphatase 64 U/L (46-116); Anion Gap 5.8 mmol/L (3-11); BUN 15 mg/dL (7-18); Bilirubin, Total 0.3 mg/dL (0.2-1.0); CO2 30.2 mmol/L (21.0-32.0); Calcium 9.1 mg/dL (8.5-10.1); Chloride 104 mmol/L (98-107); FREE T4 1.16 ng/dL (0.76-1.46); Glucose 76 mg/dL (74-106); Potassium 4.2 mmol/L (3.5-5.1); Sodium 140 mmol/L (136-145); TSH 1.95 uIU/mL (0.36-3.74); Total Protein 7.1 g/dL (6.4-8.2)
[2022-08-05 13:45] LABS: Helicobacter pylori Ag, Feces Negative (Negative)
== END 2022-08-04 13:03 | disposition home or self-care (01) ==
LOC: NCHCN 13:02
PROVIDERS: PCP Family Medicine; Visit Provider Nurse Practitioner Family
DX: R19.4 Change in bowel habit (principal); K21.9 Gastro-esophageal reflux disease without esophagitis; R11.0 Nausea; R53.83 Other fatigue; F41.1 Generalized anxiety disorder; R10.9 Unspecified abdominal pain
CPT/HCPCS: 80053; 85027; 87338; 84439; 84443

== ENCOUNTER 2022-11-29 10:47 | Outpatient (REF) | payer BC, MEDICAID, SELFPAY ==
--- NOTE | 2022-11-29 09:00 | SKI_PTH ---
PATIENT: Neal Ramires LOC: [facility] U#:[id number] AGE/SX: 57/F ROOM: RE11/29/[address]: Mayra Browning : 1965 BED: DIS: 11/29/2022 SPEC #: [id number] RECD: 11/29/22 17:29 STATUS: JEREMI HUTCHINSON #: [id number] TATYANA: 11/29/22 09:[address]: Mayra Browning DEPT: Surgical Specimen RECD BY: Esme Luz Tissues: 1 - SKIN BIOPSY(SHAVE/PUNCH) Procedures: SKIN LEVEL 4 Comments: [id number]
== END 2022-11-29 10:48 | disposition home or self-care (01) ==
LOC: NCHCN 10:47
PROVIDERS: PCP Family Medicine; Visit Provider Family Medicine
DX: L43.9 Lichen planus, unspecified (principal); L90.5 Scar conditions and fibrosis of skin
CPT/HCPCS: 88305

== ENCOUNTER 2023-07-01 15:49 | Outpatient (REF) | payer BC, MEDICAID, SELFPAY ==
[2023-07-01 18:43] LABS: HCT 41.8 % (36.0-46.0); HGB 13.7 g/dL (11.2-15.7); MCH 30.2 pg (27.0-33.0); MCHC 32.8 % (32.0-36.0); MCV 92 fL (80-95); MPV 10.4 fL (8.0-11.0); Platelet Count 280 10^3/uL (130-400); RBC 4.53 10^6/uL (3.93-5.22); RDW-SD 40.8 fL; WBC 6.28 10^3/uL (4.4-10.8)
[2023-07-01 19:08] LABS: ALT 44 U/L (14-59); AST 25 U/L (15-37); Albumin 4.3 g/dL (3.4-5.0); Alkaline Phosphatase 65 U/L (46-116); Anion Gap 8.4 mmol/L (3-11); BUN 13 mg/dL (7-18); Bilirubin, Total 0.4 mg/dL (0.2-1.0); CO2 31.6 mmol/L (21.0-32.0); Calcium 9.7 mg/dL (8.5-10.1); Calculated LDL 170 mg/dL (<100); Chloride 106 mmol/L (98-107); Cholesterol 265 mg/dL (<200); Glucose 91 mg/dL (74-106); HDL Cholesterol 71 mg/dL (40-60); Hemoglobin A1C 5.9 % (<5.7); Potassium 4.3 mmol/L (3.5-5.1); Sodium 146 mmol/L (136-145); Total Protein 7.2 g/dL (6.4-8.2); Triglyceride 120 mg/dL (<150)
[2023-07-01 19:21] LABS: Vitamin D 25 Total 19.1 ng/mL (30-100)
[2023-07-01 19:33] LABS: FREE T4 0.86 ng/dL (0.76-1.46)
[2023-07-04 10:50] LABS: Varicella IgG Antibody Positive (See Note)
== END 2023-07-01 15:50 | disposition home or self-care (01) ==
LOC: NCHCN 15:49
PROVIDERS: PCP Family Medicine; Visit Provider Family Medicine
DX: Z00.00 Encounter for general adult medical examination without abnormal findings (principal); R73.03 Prediabetes; R53.83 Other fatigue; E03.9 Hypothyroidism, unspecified
CPT/HCPCS: 80053; 80061; 82306; 85027; 86787; 83036; 84439; 84443

== ENCOUNTER → 2023-07-05 02:26 | Outpatient (CLI) | payer BC, MEDICAID, SELFPAY ==
--- NOTE | 2023-07-05 11:26 | DI.MAMMO_ITS ---
Exam(s) MAMMO SCREENING EXAM: MAMMO SCREENING CLINICAL HISTORY: Z12.31 Screening TECHNIQUE: Mammograms were interpreted according to the usual protocol including computer analysis w [email or web address] CAD system, tomosynthesis and C-view imaging. COMPARISON: 2014 through 2022 FINDINGS: The breasts are composed of heterogeneously dense fibroglandular densities, Breast Density category C . No suspicious masses or suspicious microcalcifications are seen. No skin thickening or abnormal axillary lymph nodes are seen. There has been no significant change from prior exams. IMPRESSION: BI-RADS Category 1, Negative mammogram. Yearly screening mammography is recommended. Breast Density Category C, heterogeneously Dense. The mammogram demonstrates the patient's breast tissue is dense. Dense breast tissue is very common a nd is not abnormal but dense breast tissue can make it harder to find cancer on a mammogram. Also, de nse breast tissue may increase breast cancer risk. This information about the result of the mammogram report was provided to the patient to raise their awareness. Use this report when you speak with the patient about their risks for breast cancer, which includes their family history. At that time, you may recommend additional screening tests (Ultrasound or MRI) as they might be useful based on their r isk. A negative radiographic report should not delay biopsy if a dominant or clinically suspicious mass is present. Up to ten percent of cancers are not identified on mammography. A negative report may reinforce clinical impression. Adenosis and dense breasts may obscure an underlying neoplasm. False positive reports average 6 to 10%.
== END ==
PROVIDERS: PCP Family Medicine; Visit Provider Family Medicine
DX: Z12.31 Encounter for screening mammogram for malignant neoplasm of breast (principal)
CPT/HCPCS: 77063; 77067

== ENCOUNTER 2023-07-25 14:12 | Outpatient (REF) | payer BC, MEDICAID, SELFPAY ==
[2023-07-25 16:37] LABS: Creatine Kinase 124 U/L (26-192)
[2023-07-25 17:25] LABS: Vitamin D 25 Total 23.4 ng/mL (30-100)
== END 2023-07-25 14:13 | disposition home or self-care (01) ==
LOC: NCHCN 14:12
PROVIDERS: PCP Family Medicine; Visit Provider Family Medicine
DX: M79.18 Myalgia, other site (principal); E55.9 Vitamin D deficiency, unspecified
CPT/HCPCS: 82306; 82550

== ENCOUNTER 2023-11-28 18:35 | Outpatient (REF) | payer BC, MEDICAID, SELFPAY ==
[2023-11-28 17:44] LABS: FREE T4 1.46 ng/dL (0.76-1.46)
--- OUTSIDE RECORDS SUMMARY | 2023-11-28 18:37 | XMS_ITS | Clinical Summary ---
Author Organization [facility] Address [facility] [place] [address] Care Team Providers Care Medical Technician Name Role Phone Mayra Browning MD Primary Care Provider [phone] Allergies Active Allergy Reactions Criticality Noted Date Comments Sulfamethoxazole-Trimeth oprim Other (See Comments) High 12/21/2016 Acute hepatitis Codeine Phosphate CIS - Nausea/Vomiting Garlic 05/05/2021 Metronidazole CIS - Nausea/Vomiting Oxycodone 05/05/2021 Venlafaxine 05/05/2021 Medications Medication Sig Dispensed Refills Start Date End Date Status ALPRAZolam (XANAX) 1 mg Tablet Take 1 mg by mouth 3 times daily as needed. 2 07/26/2016 Active atorvastatin (LIPITOR) 10 mg Tablet Take 10 mg by mouth daily. 3 11/11/2016 Active clonazePAM (KLONOPIN) 0.5 mg Tablet Take 0.5 mg by mouth 2 times daily as needed. 3 11/11/2016 Active cholecalciferol, Vitamin D3, 1,000 unit Capsule Take 1,000 Units by mouth daily. 2 08/25/2016 Active escitalopram (LEXAPRO) 10 mg Tablet Take 20 mg by mouth daily. 1 08/31/2016 Active levothyroxine (SYNTHROID) 88 mcg Tablet Take 1 tablet by mouth daily. 90 tablet 3 12/21/2016 Active Additional Information Patient taking differently: 100 mcgOral DAILY, Reported on 05/05/2021 tretinoin (RETIN-A) 0.05 % Cream Apply 1-2 nights per week, working up to nightly. 45 g 01/13/2018 Active meloxicam (MOBIC) 7.5 mg TabletIndications:M etatarsalgia of both feet,Arthralgia of both feet Take 1 tablet by mouth daily. 30 tablet 02/28/2020 Active omeprazole (PriLOSEC) 40 mg Capsule, Delayed Release(E.C.) Daily. Active clonazePAM (KlonoPIN) 0.5 mg Tablet Daily. Active selenium sulfide 2.5 % Lotion Use as shampoo. Allow lather to sit for 2-3 minutes before rinsing out. 120 mL 5 05/05/2021 Active fluocinolone acetonide (Synalar) 0.01 % Solution Apply to scalp at bedtime for pruritus 60 mL 5 05/05/2021 Active Active Problems Problem Noted Date Diagnosed Date Hypothyroid 12/21/2016 Vitamin D deficiency 12/21/2016 Weight gain 12/21/2016 Chronic fatigue 12/21/2016 Rosacea 01/28/2015 History of basal cell carcinoma 06/10/2011 History of basal cell carcinoma 08/28/2010 Acne vulgaris 08/28/2010 Sebaceous hyperplasia 08/28/2010 Social History Tobacco Use Types Packs/Day Years Used Date Smoking Tobacco: Former Cigarettes Smokeless Tobacco: Never Sex and Gender Information Value Date Recorded Sex Assigned at Not on file Gender Identity Not on file Sexual Orientation Not on file Last Filed Vital Signs Vital Sign Reading Time Taken Comments Blood Pressure 109/69 12/21/2016 1:05 PM EST Pulse 65 12/21/2016 1:05 PM EST Temperature - - Respiratory Rate - - Oxygen Saturation - - Inhaled Oxygen Concentration - - Weight 72.9 kg (160 lb 11.2 oz) 12/21/2016 1:05 PM EST Height 156.8 cm (5' 1.75) 12/21/2016 1:05 PM ES T Body Mass Index 29.63 12/21/2016 1:05 PM EST Plan of Treatment Health Maintenance Due Date Last Done Comments CT Colonography 1965 Colonoscopy 1965 Colorectal Cancer Screening 1965 FIT DNA 1965 FIT 1965 Sigmoidoscopy (10 year) with FIT yearly 1965 Sigmoidoscopy 1965 HIV screen 1982 Hepatitis C Screening 1982 Hepatitis B vaccine (0-59 yrs) (1) 05/27/1983 Tetanus/Diphtheria/Pertussis Vaccines (1 - Tdap) 05/26 HPV test 1994 PAP Smear 1994 Breast Cancer Share Decision Needed 2004 Breast Cancer screening 2004 Zoster vaccine (1 of 2) 2014 Advance Directive 05/27/2019 Covid-19 Vaccine (1 - season) 2023 Influenza (Flu) vaccine (1 o f 1 - Influenza standard series) 10/16/2023 Care Teams Medical Technician Relationship Specialty Start Date End Date Mayra Browning MD [facility] [address] [place], [place] [id number] PCP - General Family Medicine 12/09/19
--- OUTSIDE RECORDS SUMMARY | 2023-11-28 18:37 | XMS_ITS | Encounter Summary ---
Author Organization [facility] Address [facility] [place] [address] Care Team Providers Care Animal Geneticist Name Role Phone Rosanna Cintron APRN Primary Care Provider [phone] Encounter Details Date Type Department Care Team (Late st Contact Info) Description 08/29/2018 External [place] [address] Provider, Scanning Social History Tobacco Use Types Packs/Day Years Used Date Smoking Tobacco: Former Cigarettes Smokeless Tobacco: Never Sex and Gender Information Value Date Recorded Sex Assigned at Not on file Gender Identity Not on file Sexual Orientation Not on file documented as of this encounter Plan of Treatment Not on file documented as of this encounter Procedures Procedure Name Priority Date/Time Associated Diagnosis Comments SURGICAL PATHOLOGY SCAN Routine 08/29/2018 documented in this encounter Results * Scan Doc: Surgical Pathology (08/29/2018) Historical Provider MD AGUILA MGR SCAN EX T ORDR/RSLT documented in this encounter Visit Diagnoses Not on filedocumented in this encounter Care Teams Animal Geneticist Relationship Specialty Start Date End Date Rosanna Cintron APRN PCP - General 04/23/14 09/13/18 documented as of this encounter
--- OUTSIDE RECORDS SUMMARY | 2023-11-28 18:37 | XMS_ITS | Encounter Summary ---
Author Organization [facility] [place] [address] Care Team Providers Care Graphics Specialist Name Role Phone Mayra Browning MD Primary Care Provider [phone] Reason for Visit * Reason Comments Foot Pain * Consultation (Routine) - Specialty Diagnoses / Procedures Referred By Yoana bal Referred To Contact Podiatry Diagnoses Metatarsalgia, unspecified foot Mayra Browning MD [facility] [address] [place] [address] [facility] [place] [address] Referral ID Status Reason Start Date Expiration Date V isits Requested Visits Authorized [id number] Consult, [facility] PCP Updated and/or Approved 11/29/2019 05/29/2020 6 6 Encounter Details Date Type Department Care Team (Latest Contact Info) Description 02/28/2020 10:00 AM EST Office [place] [address] Jo Titus DPM [facility] [place] [address] Metatarsalgia of both feet; Arthralgia of both feet Social History Tobacco Use Types Packs/Day Years Used Date Smoking Tobacco: Former Cigarettes Smokeless Tobacco: Never Sex and Gender Information Value Date Recorded Sex Assigned at Not on file Gender Identity Not on file Sexual Orientation Not on file documented as of this encounter Progress Notes * Jo Titus DPM - 02/28/2020 10:00 AM EST Outpatient Foot Care Clinic Note Name: Neal Ramires Age:54 y.o. MR#: [id number] Date of Service: 02/28/2020 SUBJECTIVE: Neal Ramires is a pleasant 54 y.o. female who presents to the clinic today with chief complaint of throbbing pain near the bases of of toes of both feet, right greater than left. Reports discomfort began approximately 1 year ago. Patient states that the time she attributed this to Scotty, however symptoms continue to persist since then. Rates pain as being 4/10 today, worsened with activities and by the end of the day. Denies any recent injury, trauma or recent treatment. Denies other sites of involvement. Denies any previous episodes. Denies any sensory changes. Relates being active on feet. No constitutional symptoms reported today. No other pedal complaints. Allergies Allergen Reactions ??? Bactrim [Sulfamethoxazole-Trimethoprim] Other (See Comments) Acute hepatitis ??? Codeine Phosphate CIS - Nausea/Vomiting ??? Metronidazole CIS - Nausea/Vomiting No past medical history on file. Social History Socioeconomic History ??? Marital status: Single Spouse name: Not on file ??? Number of children: Not on file ??? Years of education: Not on file ??? Highest education level: Not on file Occupational History ??? Not on file Social Needs ??? Financial resource strain: Not on file ??? Food insecurity Worry: Not on file Inability: Not on file ??? Transportation needs Medical: Not on file Non-medical: Not on file Tobacco Use ??? Smoking status: Former Smoker Packs/day: 1.00 Types: Cigarettes ??? Smokeless tobacco: Never Used Substance and Sexual Activity ??? Alcohol use: Not on file ??? Drug use: Not on file ??? Sexual activity: Not on file Lifestyle ??? Physical activity Days per week: Not on file Minutes per session: Not on file ??? Stress: Not on file Relationships ??? Social connections Talks on phone: Not on file Gets together: Not on file Attends yazidi service: Not on file Active member of club or organization: Not on file Attends meetings of clubs or organizations: Not on file Relationship status: Not on file ??? Intimate partner violence Fear of current or ex partner: Not on file Emotionally abused: Not on file Physically abused: Not on file Forced sexual activity: Not on file Other Topics Concern ??? Not on file Social History Narrative ??? Not on file No family history on file. Current Outpatient Medications on File Prior to Visit Medication Sig Dispense Refill ??? tretinoin (RETIN-A) 0.05 % Cream Apply 1-2 nights per week, working up to nightly. 45 g PRN ??? ALPRAZolam (XANAX) 1 mg Tablet Take 1 mg by mouth 3 times daily as needed. 2 ??? atorvastatin (LIPITOR) 10 mg Tablet Take 10 mg by mouth daily. 3 ??? clonazePAM (KLONOPIN) 0.5 mg Tablet Take 0.5 mg by mouth 2 times daily as needed. 3 ??? cholecalciferol, Vitamin D3, 1,000 unit Capsule Take 1,000 Units by mouth daily. 2 ??? escitalopram (LEXAPRO) 10 mg Tablet Take 5 mg by mouth daily. 1 ??? levothyroxine (SYNTHROID) 88 mcg Tablet Take 1 tablet by mouth daily. 90 tablet 3 No current facility-administered medications on file prior to visit. ROS: MSK: + Foot pain The remainder of 10 ROS were reviewed and negative. OBJECTIVE: GEN: Patient is in no acute distress and AAOX3. Gait stable and non-antalgic. DERM: Skin supple and dry with no open lesions or macerations appreciated. Hair growth present. Temperature gradient within normal limits. No apparent increased warmth to the affected side. No signs of infection bilaterally. VASC: Dorsalis pedis + 2/4 and posterior tibial pulse + 2/4 bilaterally. Capillary refill 3 secondsto all digits. No significant edema noted. No claudication, no rest pain, no calf pain, no color changes. NEURO: Epicritic sensation intact bilaterally. MSK: Tenderness on exam right second met head/MTPJ with minimally restricted range of motion. Diffuse pain on palpation plantar sulcus lesser digits bilaterally. No soft tissue masses appreciated. Muscle strength 5/5 all groups. ASSESSMENT: Metatarsalgia/arthralgia, right greater than left PLAN: Patient evaluated with condition and treatment options for management discussed at length. Advised patient to begin using metatarsal offloading pads with supportive shoe gear. Mobic 7.5 mg prescribed, instructed patient to discontinue if any side effects. Discussed importance of supportive shoe gear and avoidance of barefoot ambulation. Stretching toe flexion exercises reviewed, encouraged adequate hydration. Advised patient to consider orthotics with metatarsal offloading pad long-term and useof compression stockings. Explained to patient if symptoms continue to persist or worsen return to clinic next visit with radiographs. Order placed today. Discussed further offloading options if sympt oms not controlled with treatment course reviewed today. All questions answered. Patient verbalizedunderstanding of all instructions. FOLLOW UP: 4-5 weeks or sooner if any concerns or changes arise Jo Titus DPM [employer], [facility] documented in this encounter Plan of Treatment Not on file documented as of this encounter Visit Diagnoses Diagnosis Metatarsalgia of both feet Enthesopathy of ankle and tarsus, unspecified Arthralgia of both feet documented in this encounter Care Teams Graphics Specialist Relationship Specialty Start Date End Date Mayra Browning MD [address] [place] [address] PCP - General Family Medicine 12/09/19 documented as of this encounter
--- OUTSIDE RECORDS SUMMARY | 2023-11-28 18:37 | XMS_ITS | Encounter Summary ---
[place] [address] Care Team Providers Care Digital Account Coordinator Name Role Phone Mayra Browning MD Primary Care Provider [phone] Reason for Referral * Diagnostic Test (Routine) - Closed Specialty Diagnoses / Procedures Referred By Yoana bal Referred To Contact Cardiology Diagnoses Chest pressure Procedures [facility] Bere Monahan APRN [address] [place] [address] [facility] [place] [address] Referral ID Status Reason Start Date Expiration Date V isits Requested Visits Authorized [id number] Closed Specialty Service Requested 10/27/2020 10/27/2021 1 1 Reason for Visit * Diagnostic Test (Routine) - Closed Specialty Diagnoses / Procedures Referred By Yoana bal Referred To Contact Cardiology Diagnoses Chest pressure Procedures [facility] Bere Monahan APRN [facility] [place] [address] [facility] [place] [address] Referral ID Status Reason Start Date Expiration Date V isits Requested Visits Authorized [id number] Closed Specialty Service Requested 10/27/2020 10/27/2021 1 1 Encounter Details Date Type Department Care Team (Latest Contact Info) Description 10/27/2020 4:25 PM EDT - 10/27/2020 11:59 PM EDT Hospital Encounter [place] [address] Bere Monahan, TELE TECH [address] [place] [address] Chest pressure Discharge Disposition: Home Social History Tobacco Use Types Packs/Day Years Used Date Smoking Tobacco: Former Cigarettes Smokeless Tobacco: Never Sex and Gender Information Value Date Recorded Sex Assigned at Not on file Gender Identity Not on file Sexual Orientation Not on file documented as of this encounter Medications at Time of Discharge Medication Sig Dispensed Refills Start Date End Date meloxicam (MOBIC) 7.5 mg TabletIndications:Metata rsalgia of both feet,Arthralgia of both feet Take 1 tablet by mouth daily. 30 tablet 02/28/2020 tretinoin (RETIN-A) 0.05 % Cream Apply 1-2 nights per week, working up to nightly. 45 g 01/13/2018 ALPRAZolam (XANAX) 1 mg Tablet Take 1 mg by mouth 3 times daily as needed. 2 07/26/2016 atorvastatin (LIPITOR) 10 mg Tablet Take 10 mg by mouth daily. 3 11/11/2016 clonazePAM (KLONOPIN) 0.5 mg Tablet Take 0.5 mg by mouth 2 times daily as needed. 3 11/11/2016 cholecalciferol, Vitamin D3, 1,000 unit Capsule Take 1,000 Units by mouth daily. 2 08/25/2016 escitalopram (LEXAPRO) 10 mg Tablet Take 20 mg by mouth daily. 1 08/31/2016 levothyroxine (SYNTHROID) 88 mcg Tablet Take 1 tablet by mouth daily. 90 tablet 3 12/21/2016 documented as of this encounter Plan of Treatment Not on file documented as of this encounter Procedures Procedure Name Priority Date/Time Associated Diagnosis Comments ECHO COMPLETE Routine 10/27/2020 4:31 PM EDT Chest pressure documented in this encounter Results * ECHO COMPLETE (10/27/2020 4:31 PM EDT) Anatomical Region Laterality Modality Other 10/27/2020 Narrative 10/27/2020 4:53 PM EDT Procedure: ?Transthoracic Echocardiogram Patient: ?SHIRA De Jesus S. ?(Age): 1965(55y) Med Rec#: ? [id number] ?Sex: ?F ? Site Loc: ? [facility] ??Ht / Wt: ??157.48(cm)/76.2 Pt. Loc: ?ED ?BSA: ?1.77 Study Date: ?? 10/27/2020 ?Pt. Type: Inpatient Tape: ? Referring: ALLEN Reading: Vanessa Khalil ([id number]) Pastry Sous Chef: ARPITA Interpreting Fellow: Johanna Johnson ([id number]) Diagnosis: *Chest pain, unspecified (R07.9) BP: ? 107/60 SUMMARY: 1. The left ventricular chamber size and wall thickness are normal. There is normal global left ventricular systolic function. Ejection fraction is estimated to be 65%. There are no left ventricular segmental wall motion abnormalities. 2. The right ventricle is normal in size and global systolic function. Pulmonary artery hypertension could not be assessed due to inadequate tricuspid regurgitation jet. 3. There is no hemodynamically significant valve disease. 4. There is no pericardial effusion. 5. See remainder of report. No prior studies are available for comparison. Findings ? : Left Ventricle: ? The left ventricular chamber size is normal. ?Left ventricular wall thickness is normal. ?No ventricular septal defect is visualized. ?There is normal global left ventricular systolic function. ??Ejection fraction is estimated to be 65%. ?There are no left ventricular segmental wall motion abnormalities. ?Left ventricular diastolic function is normal. ?Doppler assessment is consistent with normal left sided filling pressure. Left Atrium: ? The left atrium is normal in size. Right Ventricle: ? The right ventricle is normal in size. ?Right ventricular global systolic function is normal. ?Pulmonary artery hypertension could not be assessed due to inadequate tricuspid regurgitation jet. Right Atrium: ? The right atrium appears normal. Aortic Valve: ? The aortic valve is tricuspid. ?There is no evidence of aortic valve stenosis. ?There is no evidence of aortic regurgitation. Mitral Valve: ? The mitral valve appears normal in structure and function. ?There is no evidence of mitral stenosis. ?There is no evidence of mitral regurgitation. Tricuspid Valve: ? The tricuspid valve appears normal in structure and function. ?There is no tricuspid valve stenosis. ?There is trace tricuspid regurgitation present. Pulmonic Valve: ? The pulmonic valve is not well visualized. ?There is no pulmonic stenosis present. ?There is trace pulmonic regurgitation present. Pericardium: ? The pericardium appears normal and there is no evidence of a pericardial effusion. Aorta: ? The ascending aorta is normal in size. Venous: ? The inferior vena cava appears normal in size. ?There is less than 50% respiratory change in the inferior vena cava dimension consistent with elevated right atrial pressure. Misc: ? See remainder of report for additional findings. ?Two-dimensional echo, spectral Doppler and color Doppler performed. Chambers 2D ?Value ?Units (Range) ? IVSd (2D) ? 0.86 ? cm ? LVPWd (2D) ?0.95 ? cm ? IVS:LVPW ratio (2D) 0.9 ?ratio ? RWT (2D) ?0.41 ? ratio ? RWT PW (2D) ? 0.43 ? ratio ? LVIDd (2D) ?4.39 ? cm ? LVIDs (2D) ?2.78 ? cm ? LVIDd (2D) index ?2.47 ? cm/m2 ? LVIDs (2D) index ?1.57 ? cm/m2 ? LV FS (2D) ?36.61 ?% ? EF Teichholz (2D) ?? 66.63 ?% ? Ascending Ao ?2.91 ? cm (2 - 3.5) ? Volumes/Mass ?Value ?Units (Range) ? LA Area 4 CH ?16 ? cm2 (<21) ? LA ESV BP (A/L) inde26.89 ?ml/m2 ? RA AREA 4CH ? 12 ? cm2 ? LA ESV BP (MOD) inde25.03 ?ml/m2 ? LV ESV SP 4CH (MOD) 26.69 ?ml ? LV ESV SP 2CH (MOD) 32.05 ?ml ? LV EDV BP ? 80.85 ?ml ? LV ESV BP ? 29.79 ?ml ? LV EDV BP index ? 45.55 ?ml/m2 ? LV ESV BP index ? 16.78 ?ml/m2 ? BP EF (MOD) ? 63.15 ?% ? LV mass (2D) ?128.74 ? g ? LV mass (2D) index ??72.53 ?g/m2 ? Diastolic/Systolic Function ?Value ?Units (Range) ? MV E-wave Vmax ?0.75 ? m/sec ? MV deceleration wbel140.76 ? msec ? MV A-wave Vmax ?0.62 ? m/sec ? MV E:A ratio ?1.21 ? ratio ? LV septal e' Vmax ?? 0.14 ? m/sec ? LV lateral e' Vmax ??0.12 ? m/sec ? LV average e' Vmax ??0.13 ? m/sec ? LV E:e' septal ratio5.47 ? ratio ? LV E:e' lateral rati6.43 ? ratio ? LV average E:e' rati5.91 ? ratio ? Aortic Valve ?Value ?Units (Range) ? AV Vmax ? 1.27 ? m/sec ? AV VTI ?25.64 ?cm ? AV peak gradient ?6.46 ? mmHg ? AV mean gradient ?3.39 ? mmHg ? LVOT diameter ? 2 ?cm ? LVOT Vmax ? 0.94 ? m/sec ? LVOT VTI ?21.85 ?cm ? DOI (VTI) ? 0.85 ? ratio ? DOI (Vmax) ?0.74 ? ratio ? SV LVOT ? 68.78 ?ml ? CO LVOT ? 3.72 ? l/min ? Cardiac index ? 2.09 ? l/min/m2 ? VIOLETA (continuity Vmax2.34 ? cm2 ? VIOLETA (continuity Vmax1.32 ? cm2/m2 ? VIOLETA (continuity VTI)2.68 ? cm ? VIOLETA (continuity VTI)1.51 ? cm2/m2 ? Mitral Valve ?Value ?Units (Range) ? MV VTI ?38.68 ?cm ? MV PHT ?56.48 ?msec ? MVA (PHT) ? 3.9 ?cm2 ? MVA (continuity VTI)1.78 ? cm2 ? Tricuspid Valve ?Value ?Units (Range) ? RAP ? 3 ?mmHg ? Pulmonic Valve/Qp:Qs ?Value ?Units (Range) ? PV Vmax ? 0.97 ? m/sec ? PV VTI ?23.69 ?cm ? PV peak gradient ?3.76 ? mmHg ? PV mean gradient ?1.89 ? mmHg ? RVOT Vmax ? 0.64 ? m/sec ? RVOT VTI ?16.66 ?cm ? RVOT peak gradient ??1.65 ? mmHg ? PV acceleration time74.59 ?msec ? PV ejection time ?366.73 ? msec ? PV AT:ET ?0.2 ?ratio ? This report has been electronically signed by: Vanessa Khalil MD ? 10/27/2020 16:53:11 Images reviewed and interpretation verified [facility] Cardiac Ultrasound Laboratory Procedure Note Vanessa Khalil MD - 10/27/2020 Procedure: Transthoracic Echocardiogram Patient: SHIRA CARTAGENA(Age): 1965(55y) Med Rec#: [id number] Sex: F Site Loc: [facility] Ht / Wt: 157.48(cm)/76.2 Pt. Loc: ED BSA: 1.77 Study Date: 10/27/2020 Pt. Type: Inpatient Tape: Referring: TRISTENNAIF Reading: Vanessa Khalil ([id number]) Pastry Sous Chef: ARPITA Interpreting Fellow: Johanna Johnson ([id number]) Diagnosis: *Chest pain, unspecified (R07.9) BP: 107/60 SUMMARY: 1. The left ventricular chamber size and wall thickness are normal. There is normal global left ventricular systolic function. Ejection fraction is estimated to be 65%. There are no left ventricular segmental wall motion abnormalities. 2. The right ventricle is normal in size and global systolic function. Pulmonary artery hypertension could not be assessed due to inadequate tricuspid regurgitation jet. 3. There is no hemodynamically significant valve disease. 4. There is no pericardial effusion. 5. See remainder of report. No prior studies are available for comparison. Findings : Left Ventricle: The left ventricular chamber size is normal. Left ventricular wall thickness is normal. No ventricular septal defect is visualized. There is normal global left ventricular systolic function. Ejection fraction is estimated to be 65%. There are no left ventricular segmental wall motion abnormalities. Left ventricular diastolic function is normal. Doppler assessment is consistent with normal left sided filling pressure. Left Atrium: The left atrium is normal in size. Right Ventricle: The right ventricle is normal in size. Right ventricular global systolic function is normal. Pulmonary artery hypertension could not be assessed due to inadequate tricuspid regurgitation jet. Right Atrium: The right atrium appears normal. Aortic Valve: The aortic valve is tricuspid. There is no evidence of aortic valve stenosis. There is no evidence of aortic regurgitation. Mitral Valve: The mitral valve appears normal in structure and function. There is no evidence of mitral stenosis. There is no evidence of mitral regurgitation. Tricuspid Valve: The tricuspid valve appears normal in structure and function. There is no tricuspid valve stenosis. There is trace tricuspid regurgitation present. Pulmonic Valve: The pulmonic valve is not well visualized. There is no pulmonic stenosis present. There is trace pulmonic regurgitation present. Pericardium: The pericardium appears normal and there is no evidence of a pericardial effusion. Aorta: The ascending aorta is normal in size. Venous: The inferior vena cava appears normal in size. There is less than 50% respiratory change in the inferior vena cava dimension consistent with elevated right atrial pressure. Misc: See remainder of report for additional findings. Two-dimensional echo, spectral Doppler and color Doppler performed. Chambers 2D Value Units (Range) IVSd (2D) 0.86 cm LVPWd (2D) 0.95 cm IVS:LVPW ratio (2D) 0.9 ratio RWT (2D) 0.41 ratio RWT PW (2D) 0.43 ratio LVIDd (2D) 4.39 cm LVIDs (2D) 2.78 cm LVIDd (2D) index 2.47 cm/m2 LVIDs (2D) index 1.57 cm/m2 LV FS (2D) 36.61 % EF Teichholz (2D) 66.63 % Ascending Ao 2.91 cm (2 - 3.5) Volumes/Mass Value Units (Range) LA Area 4 CH 16 cm2 (<21) LA ESV BP (A/L) inde26.89 ml/m2 RA AREA 4CH 12 cm2 LA ESV BP (MOD) inde25.03 ml/m2 LV ESV SP 4CH (MOD) 26.69 ml LV ESV SP 2CH (MOD) 32.05 ml LV EDV BP 80.85 ml LV ESV BP 29.79 ml LV EDV BP index 45.55 ml/m2 LV ESV BP index 16.78 ml/m2 BP EF (MOD) 63.15 % LV mass (2D) 128.74 g LV mass (2D) index 72.53 g/m2 Diastolic/Systolic Function Value Units (Range) MV E-wave Vmax 0.75 m/sec MV deceleration gkiq470.76 msec MV A-wave Vmax 0.62 m/sec MV E:A ratio 1.21 ratio LV septal e' Vmax 0.14 m/sec LV lateral e' Vmax 0.12 m/sec LV average e' Vmax 0.13 m/sec LV E:e' septal ratio5.47 ratio LV E:e' lateral rati6.43 ratio LV average E:e' rati5.91 ratio Aortic Valve Value Units (Range) AV Vmax 1.27 m/sec AV VTI 25.64 cm AV peak gradient 6.46 mmHg AV mean gradient 3.39 mmHg LVOT diameter 2 cm LVOT Vmax 0.94 m/sec LVOT VTI 21.85 cm DOI (VTI) 0.85 ratio DOI (Vmax) 0.74 ratio SV LVOT 68.78 ml CO LVOT 3.72 l/min Cardiac index 2.09 l/min/m2 VIOLETA (continuity Vmax2.34 cm2 VIOLETA (continuity Vmax1.32 cm2/m2 VIOLETA (continuity VTI)2.68 cm VIOELTA (continuity VTI)1.51 cm2/m2 Mitral Valve Value Units (Range) MV VTI 38.68 cm MV PHT 56.48 msec MVA (PHT) 3.9 cm2 MVA (continuity VTI)1.78 cm2 Tricuspid Valve Value Units (Range) RAP 3 mmHg Pulmonic Valve/Qp:Qs Value Units (Range) PV Vmax 0.97 m/sec PV VTI 23.69 cm PV peak gradient 3.76 mmHg PV mean gradient 1.89 mmHg RVOT Vmax 0.64 m/sec RVOT VTI 16.66 cm RVOT peak gradient 1.65 mmHg PV acceleration time74.59 msec PV ejection time 366.73 msec PV AT:ET 0.2 ratio This report has been electronically signed by: Vanessa Khalil MD 10/27/2020 16:53:11 Images reviewed and interpretation verified [facility] Cardiac Ultrasound Laboratory Bere Monahan NATHALIE ECHO ORDERABLES documented in this encounter Visit Diagnoses Diagnosis Chest pressure Other chest pain documented in this encounter Care Teams Digital Account Coordinator Relationship Specialty Start Date End Date Mayra Browning MD [address] [place] [address] PCP - General Family Medicine 12/09/19 documented as of this encounter
--- OUTSIDE RECORDS SUMMARY | 2023-11-28 18:37 | XMS_ITS | Encounter Summary ---
Author Organization [facility] [place] [address] Care Team Providers Care Flying Squad Worker Name Role Phone Mayra Browning MD Primary Care Provider [phone] Encounter Details Date Type Department Care Team (Latest Contact Info) Description 09/03/2020 8:38 PM EDT - 09/03/2020 11:59 PM EDT [place] [id number] Discharge Disposition: Home Social History Tobacco Use [...] Priority Date/Time Associated Diagnosis Comments SURGICAL PATHOLOGY REPORT Routine 09/03/2020 11:20 AM EDT documented in this encounter Results * Surgical Pathology Report (09/03/2020 11:20 AM EDT) Final Diagnosis [id number] ? Location: [facility] The signing pathologist has (i) examined the relevant preparation(s) for the specimen(s) and (ii) rendered or confirmed the diagnosis(es). . ?Surgical Pathology DIAGNOSIS A - Antrum bx: - ??Gastric antral gland mucosa with nonspecific reactive gastropathy. 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 - ??Immunostainin g for H. pylori is negative. C - Lesser curvature bx: - ??Gastric fundic mucosa within normal limits. D - Greater curvature bx: - ??Gastric fundic mucosa within normal limits. E - Cardia of stomach bx: - ??Gastric fundic mucosa within normal limits. F - Distal esophagus bx: - ??Esophageal squamous mucosa, within normal limits. Electronically signed by: ?Prudence RAMON PhD, Aisha Verified: ??09/12/2020 8:59 ?? Pathologist Performed at: ??-[facility] [place] Dept. [place]ology, [place], [place] SPECIMEN(S) SUBMITTED A - Antrum Bx B - Incisura Bx C - Lesser Curvature Bx D - Greater Curvature Bx E - Cardia of Stomach Bx F - Distal Esophagus Bx Referring Identifier: ?(not provided) Report to: Mayra Browning CLINICAL INFORMATION On PPI. History of intestinal metaplasia of stomach SPECIMEN PROCESSING A - Labeled/Fixativ e: Antrum BX, formalin. Quantity/Size: Single, 0.2 cm. Tissue Description: Soft, portillo-brown tissue. Sections/Proces sing: Submitted en toto ??in 1 cassette labeled A1. B - Labeled/Fixativ e: Incisura BX, formalin. Quantity/Size: Two, averaging 0.2 cm. . SPECIMEN PROCESSING Tissue Description: Soft, portillo tissues. Sections/Proces sing: Submitted en toto ??in 1 cassette labeled B1. C - Labeled/Fixativ e: Lesser curvature BX, formalin. Quantity/Size: Single, 0.3 cm. Tissue Description: Soft, portillo tissue. Sections/Proces sing: Submitted en toto ??in 1 cassette labeled C1. D - Labeled/Fixativ e: Greater curvature BX, formalin. Quantity/Size: Three, 0.1-0.2 cm. Tissue Description: Soft, portillo tissues. Sections/Proces sing: Submitted en toto ??in 1 cassette labeled D1. E - Labeled/Fixativ e: Cardia of stomach, formalin. Quantity/Size: Single, 0.3 cm. Tissue Description: Soft, portillo tissue. Sections/Proces sing: Submitted en toto ??in 1 cassette labeled E1. F - Labeled/Fixativ e: Distal esophagus BX, formalin. Quantity/Size: Single, 0.2 cm. Tissue Description: Soft, portillo-white tissue. Sections/Proces sing: Submitted en toto ??in 1 cassette labeled F1. ??yasmany 09/12/2020 8:59 AM EDT [facility] GI Biopsy 09/03/2020 11:2 0 AM EDT 09/03/2020 11:20 AM EDT GI Biopsy 09/03/2020 11:2 0 AM EDT 09/03/2020 11:20 AM EDT GI Biopsy 09/03/2020 11:2 0 AM EDT 09/03/2020 11:20 AM EDT GI Biopsy 09/03/2020 11:2 0 AM EDT 09/03/2020 11:20 AM EDT GI Biopsy 09/03/2020 11:2 0 AM EDT 09/03/2020 11:20 AM EDT GI Biopsy 09/03/2020 11:2 0 AM EDT 09/03/2020 11:20 AM EDT Candido Vitale DO PATHOLOGY/CYT OLOGY ORDERABLES Performing Organization Address City/State/[facility] Co de Phone Number [place] [phone] documented in this encounter Visit Diagnoses Not on filedocumented in this encounter Care Teams Flying Squad Worker Relationship Specialty Start Date End Date Mayra Browning MD [facility] [address] [place] [address] PCP - General Family Medicine 12/09/19 documented as of this encounter
--- OUTSIDE RECORDS SUMMARY | 2023-11-28 18:37 | XMS_ITS | Encounter Summary ---
[place] [address] Care Team Providers Care Salvationist Name Role Phone Mayra Browning MD Primary Care Provider [phone] Encounter Details Date Type Department Care Team (Late st Contact Info) Description 08/04/[address] [facility] [address] [place] [address] Kimberley Velasquez PA [address] [place] [address] Social History Tobacco Use Types Packs/Day Years Used Date Smoking Tobacco: Former Cigarettes Smokeless Tobacco: Never Sex and Gender Information Value Date Recorded Sex Assigned at Not on file Gender Identity Not on file Sexual Orientation Not on file documented as of this encounter Plan of Treatment Pending Results Name Type Priority Associated Diagnoses Date /Time US Abdomen Limited Imaging Routine 2023 10:27 AM EDT documented as of this encounter Visit Diagnoses Not on filedocumented in this encounter Care Teams Salvationist Relationship Specialty Start Date End Date Mayra Browning MD [address] [place], [place] [id number] PCP - General Family Medicine 12/09/19 documented as of this encounter
--- OUTSIDE RECORDS SUMMARY | 2023-11-28 18:37 | XMS_ITS | Encounter Summary ---
Author Organization [facility] [place] [address] Care Team Providers Care Costumed Character Entertainer Name Role Phone Mayra Browning MD Primary Care Provider [phone] Reason for Visit * Reason Comments Rash Encounter Details Date Type Department Care Team (Late st Contact Info) Description 05/05/2021 1:45 PM EDT Office Visit Dermatology at [address] [place] [address] Juan Becerra MD [address] [place] [address], [facility] [place] [address] Seborrheic dermatitis Social History Tobacco Use Types Packs/Day Years Used Date Smoking Tobacco: Former Cigarettes Smokeless Tobacco: Never Sex and Gender Information Value Date Recorded Sex Assigned at Not on file Gender Identity Not on file Sexual Orientation Not on file documented as of this encounter Progress Notes * Juan Becerra MD - 05/05/2021 1:45 PM EDT Problem: Skin lesions of concern Neal follows up and is now 55. She complains of bumps in the base of her scalp and red patches inside her face which are very pruritic. I last saw her in 2015 for rosacea. Physical examination reveals a pleasant 55-year-old woman who has mild seborrheic dermatitis on theoccipital scalp without any associated erythema. The ears are slightly red but without significant scaling, and the postauricular scalp is currently uninvolved. I do not appreciate any papules withinthe scalp. She has 1 or 2 seborrheic keratoses in the on the anterior temporal hairline bilaterally. Her rosacea previously a problem appears to be quiesced sent today. Assessment plan: Seborrheic dermatitis 1. Recommend that the patient begin prescription strength selenium sulfide 2.5% lotion use as shampoo. Allow lather sit sit for 2 to 3 minutes before rinsing out dispense 120 g with 5 refills 2. Prescription will be given for fluocinolone 0.01% solution apply to scalp and at bedtime basis for pruritus. Dispense 60 mL with 5 refills 3. Return to clinic as needed if not seeing improvement. CC: Mayra Browning MD documented in this encounter Plan of Treatment Not on file documented as of this encounter Visit Diagnoses Diagnosis Seborrheic dermatitis Seborrheic dermatitis, unspecified documented in this encounter Care Teams Costumed Character Entertainer Relationship Specialty Start Date End Date Mayra Browning MD [address] [place] [address] PCP - General Family Medicine 12/09/19 documented as of this encounter
--- OUTSIDE RECORDS SUMMARY | 2023-11-28 18:37 | XMS_ITS | Encounter Summary ---
Author Organization [facility] [place] [address] Care Team Providers Care Production Wood Craftsman Name Role Phone Mayra Browning MD Primary Care Provider Encounter Details Date Type Department Care Team (Late st Contact Info) Description 05/05/2021 Refill Dermatology at [address] [place] [phone] Radha Mcmillan, ASSOCIATE MERCHANDISER Social History Tobacco Use Types Packs/Day Years [...] on filedocumented in this encounter Care Teams Production Wood Craftsman Relationship Specialty Start Date End Date Mayra Browning MD [address] [place] [address] PCP - General Family Medicine 12/09/19 documented as of this encounter
--- OUTSIDE RECORDS SUMMARY | 2023-11-28 18:38 | XMS_ITS | Encounter Summary ---
Author Organization [facility] Address [address] [place] [address] Care Team Providers Care Belting Inspector Name Role Phone Unknown, Provider Primary Care Provider [phone] Encounter Details Date Type Department Care Team (Late st Contact Info) Description 08/04/2022 Lab Requisition [facility] Pathology & Laboratory Medicine - [facility] [address] [place] [address] Outr Resulting Lab, Provider Social History Tobacco Use Types Packs/Day Years Used Date Smoking Tobacco: Never Assessed Interpersonal Safety Answer Date Record ed Physically Hurt Never 09/16/2019 Verbally Threaten Not on file 09/16/2019 Sex and Gender Information Value Date Recorded Sex Assigned at Not on file Gender Identity Not on file Sexual Orientation Not on file documented as of this encounter Plan of Treatment Not on file documented as of this encounter Procedures Procedure Name Priority Date/Time Associated Diagnosis Comments H. PYLORI ANTIGEN Routine 08/04/2022 12: 10 EDT documented in this encounter Results * H. PYLORI ANTIGEN (08/04/2022 12:10 EDT) H. Pylori Negative Negative 08/05/2022 13:40 EDT [facility] Feces SPECIMEN FROM RECTUM / Unknown 08/04/2022 12:10 EDT 08/04/2022 21:26 EDT Narrative [facility] - 08/05/2022 13:40 EDT Results were obtained with the [employer] [place] [facility] [employer] ALESSANDRO. Provider Outr Resulting Lab MICROBIOLOGY - GENERAL ORDERABLES [facility] [address] [place] [address] documented in this encounter Visit Diagnoses Not on filedocumented in this encounter Care Teams Belting Inspector Relationship Specialty Start Date End Date Unknown, Provider, PCP - General 05/03/13 documented as of this encounter
--- OUTSIDE RECORDS SUMMARY | 2023-11-28 18:38 | XMS_ITS | Encounter Summary ---
Author Organization [facility] Address [address] [place] [address] Care Team Providers Care Agriculture Teacher Name Role Phone Unknown, Provider Primary Care Provider Encounter Details Date Type Department Care Team (Late st Contact Info) Description 05/02/2019 Lab Requisition [facility] Pathology & Laboratory Medicine - [address] [address] Unknown, Provider, Social History Tobacco Use Types Packs/Day Years Used Date Smoking Tobacco: Never Assessed Sex and Gender Information Value Date Recorded Sex Assigned at Not on file Gender Identity Not on file Sexual Orientation Not on file documented as of this encounter Plan of Treatment Not on file documented as of this encounter Procedures Procedure Name Priority Date/Time Associated Diagnosis Comments GIARDIA AND CRYPTOSPORIDIUM ANTIGENS Routine 05/02/2019 10:00 EDT documented in this encounter Results * GIARDIA AND CRYPTOSPORIDIUM ANTIGENS (05/02/2019 10:00 EDT) Giardia and Cryptosporidium Cryptosporidium Antigen Neg and Giardia Antigen Neg Cryptosporidium Antigen Neg and Giardia Antigen Neg 0 13:44 EDT [facility] Feces SPECIMEN FROM RECTUM / Unknown 05/02/2019 10:00 EDT 05/02/2019 20:57 EDT Provider Unknown MICROBIOLOGY - GENER AL ORDERABLES [facility] [address] [place] [address] documented in this encounter Visit Diagnoses Not on filedocumented in this encounter Care Teams Agriculture Teacher Relationship Specialty Start Date End Date Unknown, Provider, PCP - General 05/03/13 documented as of this encounter
--- OUTSIDE RECORDS SUMMARY | 2023-11-28 18:38 | XMS_ITS | Encounter Summary ---
Author Organization [facility] [place] [address] Care Team Providers Care Branch Retail Executive Name Role Phone Rosanna Cintron APRN Primary Care Provider [phone] Encounter Details Date Type Department Care Team (Late st Contact Info) Description 11/18/2017 Telephone Dermatology at [address] [address] Berta Ellison MD [facility] [address] [address] Social History Tobacco Use Types Packs/Day Years Used Date Smoking Tobacco: Former Cigarettes Smokeless Tobacco: Never Sex and Gender Information Value Date Recorded Sex Assigned at Not on file Gender Identity Not on file Sexual Orientation Not on file documented as of this encounter Miscellaneous Notes * Telephone Encounter - Katarzyna Sarkar - 11/18/2017 1:36 PM EDT Received message from Neal Ramires to reschedule her procedure with Dr. Ellison. Called patient back on mobile number left voicemail. documented in this encounter Plan of Treatment Not on file documented as of this encounter Visit Diagnoses Not on filedocumented in this encounter Care Teams Branch Retail Executive Relationship Specialty Start Date End Date Rosanna Cintron APRN PCP - General 04/23/14 09/13/18 documented as of this encounter
--- OUTSIDE RECORDS SUMMARY | 2023-11-28 18:38 | XMS_ITS | Encounter Summary ---
[place] [address] Care Team Providers Care Director Merit System Name Role Phone Renetta Riddle APRN Primary Care Provider Encounter Details Date Type Department Care Team (Late st Contact Info) Description 02/25/2010 2:00 PM EST Office Visit Dermatology [address] [facility] [address] [place], [place] [address] Juan Becerra MD [address] [place] [address] Social History Tobacco Use Types Packs/Day Years Used Date Smoking Tobacco: Never Assessed Sex and Gender Information Value Date Recorded Sex Assigned at Not on file Gender Identity Not on file Sexual Orientation Not on file documented as of this encounter Plan of Treatment Not on file documented as of this encounter Visit Diagnoses Not on filedocumented in this encounter Care Teams Director Merit System Relationship Specialty Start Date End Date Renetta Riddle APRN [address] [place], [place] [address] PCP - General 01/06/10 06/24/11 documented as of this encounter
--- OUTSIDE RECORDS SUMMARY | 2023-11-28 18:38 | XMS_ITS | Encounter Summary ---
Author Organization [facility] Address [address] [place] [address] Care Team Providers Care Marketing Operations Specialist Name Role Phone Unknown, Provider Primary Care Provider [phone] Encounter Details Date Type Department Care Team (Late st Contact Info) Description 12/24/2020 Lab Requisition [facility] Pathology & Laboratory Medicine - [address] [address] Outr Resulting Lab, Provider Social History Tobacco [...] Procedure Name Priority Date/Time Associated Diagnosis Comments ZZCOVID-19 TEST [facility] PCR Today 12/24/2020 12:28 EST COVID-19 TESTING Routine 12/24/2020 12:2 8 EST documented in this encounter Results * COVID-19 TEST [facility] PCR (12/24/2020 12:28 EST) Swab 12/24/2020 12:2 8 EST 12/24/2020 22:41 EST Provider Outr Resulting Lab MICROBIOLOGY - GENERAL ORDERABLES [facility] [address] [place] [address] * COVID-19 TESTING (12/24/2020 12:28 EST) COVID-19 rt-PCR Result Negative Negative 12/25/2020 2:11 EST [facility] Comment: This test has not been FDA cleared or approved. This test has been authorized by FDA under an EUA for use by authorized laboratories. This test has been authorized only for detection of nucleic acid from 2019-nCoV, not for any other viruses or pathogens. This test is only authorized for the duration of the declaration that circumstances exist justifying the authorization of emergency use of in vitro diagnostic tests for detection and/or diagnosis of 2019-nCoV under section 564(b)(1) of Act, 21 U.S.C ?? 360bbb-3(b) (1), unless the authorization is terminated or revoked sooner. Negative results do not preclude 2019-nCoV infection and should not be used as the sole basis for treatment or other patient management decisions. Negative results must be combined with clinical observations, patient history, and epidemiological information. Performed on the [employer] Fusion instrument Performing Lab [facility] Lab 12/25/2020 2:11 EST [facility] Swab 12/24/2020 12:2 8 EST 12/24/2020 22:41 EST Provider Outr Resulting Lab MICROBIOLOGY - GENERAL ORDERABLES [facility] [address] [place] [address] documented in this encounter Visit Diagnoses Not on filedocumented in this encounter Care Teams Marketing Operations Specialist Relationship Specialty Start Date End Date Unknown, Provider, PCP - General 05/03/13 documented as of this encounter
--- OUTSIDE RECORDS SUMMARY | 2023-11-28 18:38 | XMS_ITS | Encounter Summary ---
Author Organization [facility] [place] [address] Care Team Providers Care Animal Killer Name Role Phone Rosanna Cintron APRN Primary Care Provider [phone] Encounter Details Date Type Department Care Team (Late st Contact Info) Description 11/17/2017 Telephone Dermatology at [address] [address] Berta Ellison MD [facility] [address] [place] [address] Social History Tobacco Use Types Packs/Day Years Used Date Smoking Tobacco: Former Cigarettes Smokeless Tobacco: Never Sex and Gender Information Value Date Recorded Sex Assigned at Not on file Gender Identity Not on file Sexual Orientation Not on file documented as of this encounter Miscellaneous Notes * Telephone Encounter - Katarzyna Sarkar - 11/17/2017 3:59 PM EDT Called Neal Ramires to reschedule appointment due to prior commitments. Left voicemail for patient. documented in this encounter Plan of Treatment Not on file documented as of this encounter Visit Diagnoses Not on filedocumented in this encounter Care Teams Animal Killer Relationship Specialty Start Date End Date Rosanna Cintron APRN PCP - General 04/23/14 09/13/18 documented as of this encounter
--- OUTSIDE RECORDS SUMMARY | 2023-11-28 18:38 | XMS_ITS | Encounter Summary ---
Author Organization [facility] Address [address] [place] [address] Care Team Providers Care Garage Supervisor Name Role Phone Unavailable Primary Care Provider Unavailabl e Encounter Details Date Type Department Care Team (Late st Contact Info) Description 06/08/2010 Results Only [facility] Services - [facility] ([facility] [address] [place] [address] Kesha Bean, [facility] [address] [place] [phone] Social History Tobacco Use Types Packs/Day Years Used Date Smoking Tobacco: Never Assessed Sex and Gender Information Value Date Recorded Sex Assigned at Not on file Gender Identity Not on file Sexual Orientation Not on file documented as of this encounter Plan of Treatment Pending Results Name Type Priority Associated Diagnoses Date /Time CYTOPATHOLOGY Pathology Routine 06/08/2010 0:00 EDT documented as of this encounter Procedures Procedure Name Priority Date/Time Associated Diagnosis Comments PAP TEST- RESULT ONLY Routine 06/08/2010 0:00 EDT documented in this encounter Results * PAP TEST- RESULT ONLY (06/08/2010 0:00 EDT) Pathology Report: CYTOPATHOLOGY REPORT ? Reports generated via electronic interface contain original data; ? however they are lacking the format of the original report. ? Caution should be taken when reading/interpreti ng unformatted reports. ? Name: ? NEAL RAMIRES ? Accession #: ? [id number] ? : ? 1965 (Age: 45) ??F ?Collect Date: ? 06/08/2010 ? Location: ? [facility] ? Receive Date: ? 06/09/2010 ? Provider: ?KESHA ELEAZAR PREPARER MAKING DEPARTMENT ? Copy to: ? Specimen/Source: ?Pap Test, Vagina, ThinPrep Imaging System with manual ?? evaluation ? Last Menstrual Period: ? Treatment History: ? Hysterectomy: S/P ? SPECIMEN ADEQUACY ? Satisfactory for Evaluation ? - assessment of transformation zone component not applicable ( e.g. atrophy, ? vaginal sample, hysterectomy) ? GENERAL CATEGORIZATION ? Negative for Intraepithelial Lesion or Malignancy ? Document reviewed and electronically signed by: ? Leticia Verville,CT(ASCP) ? Report Date: ??06/12/2010 08:17 ? End of Report ? BARB RODRIGUEZ 06/08/2010 06/09/2010 Kesha Bean PREPARER MAKING DEPARTMENT PATHOLOGY ORDERABLES [facility] [address] [place] [address] documented in this encounter Visit Diagnoses Not on filedocumented in this encounter
--- OUTSIDE RECORDS SUMMARY | 2023-11-28 18:38 | XMS_ITS | Encounter Summary ---
Author Organization [facility] [place] [address] Care Team Providers Care Landscaping And Groundskeeping Laborer Name Role Phone AbdulazizRosanna Baylee ZELAYA Primary Care Provider Encounter Details Date Type Department Care Team (Late st Contact Info) Description 01/28/2015 1:30 PM EST Office Visit Dermatology at [address] [address] Juan Becerra MD [address] [place] [address], [facility] A DERMATOLOGY [place], [place] [id number] Rosacea Social History Tobacco Use Types Packs/Day Years Used Date Smoking Tobacco: Former Sex and Gender Information Value Date Recorded Sex Assigned at Not on file Gender Identity Not on file Sexual Orientation Not on file documented as of this encounter Progress Notes * Juan Becerra MD - 01/28/2015 1:57 PM EST Problem: Followup rosacea. Neal follows up and her face has been doing fairly well but is starting again now to become more erythematous. Physical examination reveals telangiectatic patch rosacea of the glabella, the medial cheeks, and chin. She has no papulopustular component. Her skin is otherwise doing much better. She is not getting the acne that she used to. Assessment and Plan: Rosacea. a. Discontinue tretinoin 0.1% cream. b. Instead begin minocycline 100 mg, take one p.o. b.i.d. for a month, then one p.o. q.day; #60 dispensed with two refills. c. Also begin metronidazole 0.75% cream, apply b.i.d. for a month, then once topically a day thereafter; 45 grams dispensed with two refills. d. Recommend I see the patient again in six weeks for repeat check. Discussed the difficulty of treating patch/telangiectatic rosacea. The patient understands. We will try with the above. COPY: Rosanna Cintron N.P. documented in this encounter Plan of Treatment Not on file documented as of this encounter Visit Diagnoses Diagnosis Rosacea documented in this encounter Care Teams Landscaping And Groundskeeping Laborer Relationship Specialty Start Date End Date Rosanna Cintron APRN PCP - General 04/23/14 09/13/18 documented as of this encounter
--- OUTSIDE RECORDS SUMMARY | 2023-11-28 18:38 | XMS_ITS | Encounter Summary ---
Author Organization [facility] Address [address] [place] [address] Care Team Providers Care Senior Technologist Name Role Phone Unknown, Provider Primary Care Provider [phone] Encounter Details Date Type Department Care Team (Late st Contact Info) Description 11/14/2020 Lab Requisition [facility] Pathology & Laboratory Medicine - [facility] [address] [place] [address] Outr Resulting Lab, Provider Social History Tobacco [...] Comments ZZCOVID-19 TEST [facility] PCR Today 11/14/2020 9:35 EDT COVID-19 TESTING Routine 11/14/2020 9:35 EDT documented in this encounter Results * COVID-19 TEST [facility] PCR (11/14/2020 9:35 EDT) Swab ENTIRE NASOPHARYNX / Unknown 11/14/2020 9:35 EDT 11/14/2020 22:10 EDT Provider Outr Resulting Lab MICROBIOLOGY - GENERAL ORDERABLES [facility] [address] [place] [address] * COVID-19 TESTING (11/14/2020 9:35 EDT) COVID-19 rt-PCR Result Negative Negative 11/15/2020 1:24 EDT [facility] Comment: This test has not [...] history, and epidemiological information. Performed on the [employer]ix[employer] Fusion instrument Performing Lab [place] [facility] 11/15/2020 1:24 EDT [facility] Swab 11/14/2020 9:35 EDT 11/14/2020 22:10 EDT Provider Outr Resulting Lab MICROBIOLOGY - GENERAL ORDERABLES [facility] [address] [place] [address] documented in this encounter Visit Diagnoses Not on filedocumented in this encounter Care Teams Senior Technologist Relationship Specialty Start Date End Date Unknown, Provider, PCP - General 05/03/13 documented as of this encounter
--- OUTSIDE RECORDS SUMMARY | 2023-11-28 18:38 | XMS_ITS | Clinical Summary ---
Author Organization [facility] Address [address] [place] [address] Care Team Providers Care Program Management Manager Name Role Phone Unknown, Provider Primary Care Provider [phone] Social History Tobacco Use Types Packs/Day Years Used Date Smoking Tobacco: Never Assessed Interpersonal Safety Answer Date Record ed Physically Hurt Never 09/16/2019 Verbally Threaten Not on file 09/16/2019 Sex and Gender Information Value Date Recorded Sex Assigned at Not on file Gender Identity Not on file Sexual Orientation Not on file Plan of Treatment Health Maintenance Due Date Last Done Comments Hepatitis C Screen 1965 Hepatitis B Vaccine (1 of 3 - 19+ 3-dose series) 05/26 COVID-19 Vaccine ( season) 2022 Care Teams Program Management Manager Relationship Specialty Start Date End Date Unknown, Provider, PCP - General 05/03/13
--- OUTSIDE RECORDS SUMMARY | 2023-11-28 18:38 | XMS_ITS | Encounter Summary ---
Author Organization [facility] Address [address] [place] [id number] Care Team Providers Care Junior Web Developer Name Role Phone Unavailable Primary Care Provider Unavailabl e Encounter Details Date Type Department Care Team (Late st Contact Info) Description 05/01/2013 Results Only [facility] Services - [facility] ([facility] [address], [place] [id number] Candido Mccann, DO [address] [address] [place] [address] Social History Tobacco Use Types Packs/Day Years Used Date Smoking Tobacco: Never Assessed Sex and Gender Information Value Date Recorded Sex Assigned at Not on file Gender Identity Not on file Sexual Orientation Not on file documented as of this encounter Plan of Treatment Not on file documented as of this encounter Procedures Procedure Name Priority Date/Time Associated Diagnosis Comments SURGICAL PATHOLOGY Routine 05/01/2013 19 :02 EDT documented in this encounter Results * SURGICAL PATHOLOGY (05/01/2013 19:02 EDT) Pathology Report: SURGICAL PATHOLOGY REPORT Reports generated via electronic interface contain original data; however they are lacking the format of the original report. Caution should be taken when reading/interpreti ng unformatted reports. Name: ? IKE NEAL ? Accession #: ? [id number] ? : ? 1965 (Age: 47) ??F ? Collect Date: ? 05/01/2013 ? Location: ? [facility] ? Receive Date: ? 05/01/2013 ? Provider: CANDIDO MCCANN DO Copy to: PIERREPAMELA ARMSTRONG ACCESSIONER ? Final Pathologic Diagnosis: A. COLON, 20 CM, POLYPS, BIOPSIES: - ??Tubular adenoma. - ??Hyperplastic polyp. B. RECTUM, POLYP, BIOPSY: - ??Hyperplastic polyp. Document reviewed and electronically signed by: ANSELMO CABALLERO MD Report ??Date: 05/03/2013 09:43 By the signature above, the attending physician certifies that he/she has personally conducted a gross and/or microscopic examination of the described specimens and rendered or confirmed the above diagnosis. Specimen(s) Received: A. ?Polyp 20 cm x2 B. ? Rectum Clinical History: Change in bowel habits; screening Gross Description: A. ?Received in formalin labelled with proper patient identification (initials B, R) and polyp at 20 cm x2 are two light portillo tissues (0.2 x 0.2 x 0.1 cm and 0.3 x 0.2 x 0.2 cm). Entirely submitted in block A1. B. ?Received in formalin labelled with proper patient identification (initials B, R) and rectum are two light portillo tissues (0.2 x 0.2 x 0.2 cm and 0.2 x 0.2 x 0.2 cm). Entirely submitted in block B1. Pauyl Giraldo 05/02/2013 09:48 AM End of Report [facility] 05/01/2013 19:0 2 EDT 05/01/2013 19:02 EDT Candido Mccann DO PATHOLOGY ORDER [facility] [address] [place] [address] documented in this encounter Visit Diagnoses Not on filedocumented in this encounter
--- OUTSIDE RECORDS SUMMARY | 2023-11-28 18:38 | XMS_ITS | Referral Summary ---
Author Organization [facility] Address [address] [place] [address] Care Team Providers Care Mill Worker Name Role Phone Unknown, Provider Primary Care Provider [phone] Social History Tobacco Use Types Packs/Day Years Used Date Smoking Tobacco: Never Assessed Interpersonal Safety Answer Date Record ed Physically Hurt Never 09/16/2019 Verbally Threaten Not on file 09/16/2019 Sex and Gender Information Value Date Recorded Sex Assigned at Not on file Gender Identity Not on file Sexual Orientation Not on file Plan of Treatment Not on file Care Teams Mill Worker Relationship Specialty Start Date End Date Unknown, Provider, PCP - General 05/03/13
--- OUTSIDE RECORDS SUMMARY | 2023-11-28 18:38 | XMS_ITS | Encounter Summary ---
Author Organization [facility] Address [address] [place] [address] Care Team Providers Care Sales And Catering Coordinator Name Role Phone Unknown, Provider Primary Care Provider [phone] Encounter Details Date Type Department Care Team (Late st Contact Info) Description 05/10/2019 Lab Requisition [facility] Pathology & Laboratory Medicine - [address] [address] Unknown, Provider, Social History Tobacco Use Types [...] Associated Diagnosis Comments H. PYLORI ANTIGEN Routine 05/10/2019 8:00 EDT documented in this encounter Results * (ABNORMAL) H. PYLORI ANTIGEN (05/10/2019 8:00 EDT) H. Pylori Positive(A ) Negative 05/15/2019 14:51 EDT [facility] Feces SPECIMEN FROM RECTUM / Unknown 05/10/2019 8:00 EDT 05/10/2019 17:12 EDT Narrative [facility] - 05/15/2019 14:51 EDT Results were obtained with the [employer] [place] [facility] ALESSANDRO. Provider Unknown MICROBIOLOGY - GENER AL ORDERABLES [facility] [address] [place] [id number] documented in this encounter Visit Diagnoses Not on filedocumented in this encounter Care Teams Sales And Catering Coordinator Relationship Specialty Start Date End Date Unknown, Provider, PCP - General 05/03/13 documented as of this encounter
--- OUTSIDE RECORDS SUMMARY | 2023-11-28 18:38 | XMS_ITS | Encounter Summary ---
Author Organization [facility] Address [address] [place] [address] Care Team Providers Care Cartoon Animator Name Role Phone Unknown, Provider Primary Care Provider [phone] Encounter Details Date Type Department Care Team (Late st Contact Info) Description 12/22/2017 Results Only [facility] [phone] Marva Connelly MD [facility] [place], [place] [id number] Social History Tobacco Use Types Packs/Day Years Used Date Smoking Tobacco: Never Assessed Sex and Gender Information Value Date Recorded Sex Assigned at Not on file Gender Identity Not on file Sexual Orientation Not on file documented as of this encounter Plan of Treatment Not on file documented as of this encounter Procedures Procedure Name Priority Date/Time Associated Diagnosis Comments SURGICAL PATHOLOGY Routine 12/22/2017 21 :29 EST documented in this encounter Results * SURGICAL PATHOLOGY (12/22/2017 21:29 EST) Pathology Report: SURGICAL PATHOLOGY REPORT Reports generated via electronic interface contain original data; however they are lacking the format of the original report. Caution should be taken when reading/interpret ing unformatted reports. Name: ? NEAL SILVA ? Accession #: ? [id number] ? : ? 1965 (Age: 52) ??F ? Collect Date: ? 12/22/2017 ? Location: ? [facility] ? Receive Date: ? 12/22/2017 ? Provider: MARVA CONNELLY MD Copy to: LAURIE ESCOBAR BLENDING TANK TENDER HELPER ? Final Pathologic Diagnosis: A. ??STOMACH, ANTRUM, BIOPSY: - Chronic active gastritis. - Positive for numerous Helicobacter pylori organisms. B. ??STOMACH, FUNDUS, BIOPSY: - Chronic active gastritis. - Positive for numerous Helicobacter pylori organisms. C. ??GASTROESOPHAGEA L JUNCTION, BIOPSY: - Columnar junctional mucosa with chronic active inflammatory changes and numerous Helicobacter pylori organisms. - Negative for Marion's specialized-colum raul epithelium. Document reviewed and electronically signed by: LORENA MENDOZA MD Report ??Date: 12/27/2017 16:13 By the signature above, the attending physician certifies that he/she has personally conducted a gross and/or microscopic examination of the described specimens and rendered or confirmed the above diagnosis. Specimen(s) Received: A. ??Bx gastric antrum B. ??Bx fundus of stomach C. ??Bx GE junction Clinical History: Epigastric pain Gross Description: A. ?Received in formalin labelled with proper patient identification (initials B, R) and gastric antrum bx are two portillo-white tissues (0.5 x 0.2 x 0.1 cm and 0.3 x 0.1 x 0.1 cm). Entirely submitted in A1. B. ?Received in formalin labelled with proper patient identification (initials B, R) and fundus of stomach bx are two light portillo tissues (0.6 x 0.1 x 0.1 cm and 0.2 x 0.1 x 0.1 cm). Entirely submitted in B1. C. ?Received in formalin labelled with proper patient identification (initials B, R) and GE junction bx are three white brown speckled tissues (0.7 x 0.2 x 0.1 cm, 0.6 x 0.2 x 0.1 cm and 0.3 x 0.3 x 0.2 cm). Entirely submitted in C1. Mihrab Ali 12/23/2017 7:[address] [facility] 12/22/2017 21:2 9 EST 12/22/2017 21:29 EST Marva Connelly MD PATHOLOGY ORDERA [facility] [address] [place] [address] documented in this encounter Visit Diagnoses Not on filedocumented in this encounter Care Teams Cartoon Animator Relationship Specialty Start Date End Date Unknown, Provider, PCP - General 05/03/13 documented as of this encounter
--- OUTSIDE RECORDS SUMMARY | 2023-11-28 18:38 | XMS_ITS | Data Portability ---
Author Organization [place] - [facility] Address [address] [place] [address] Assessment No assessment recorded. Plan of Treatment Reminders Order Date Submit Date Provider Last Modified By Organization Details Last Modified Time Details Appointments Nurse Visit 20 2023 09:00A M [facility] Nursing Staff Not available Not available Not available Lab HbA1c (hemoglo bin A1c), blood - 2 tigers, 1 LAV obtained without issue from (R) [address] [facility] [address] [facility] (Registration ), [address] [place] [address] [place], [address], 07/13/2023 08:58:16 varicell a zoster virus IgG Ab, titer, serum - 2 tigers, 1 LAV obtained without issue from (R) 2023 024 [facility] (Registration ), [address] [place] [address] [place], [address], 07/04/2023 17:12:39 lipid panel, serum - 2 tigers, 1 LAV obtained without issue from (R) 2023 024 [facility] (Registration ), [address] [place] [address] [place], [address], 07/03/2023 19:34:01 CMP, serum or plasma - 2 tigers, 1 LAV obtained without issue from (R) 2023 024 [facility] (Registration ), [address] [place] [address] [place], [address], 07/01/2023 19:13:28 CBC - 2 tigers, 1 LAV obtained without issue from (R) 2023 024 [facility] (Registration ), [address] [place] [address] [place], [address], 07/01/2023 18:51:24 vitamin D, 25-hydro xy, total, serum - 2 tigers, 1 LAV obtained without issue from (R) 2023 024 [facility] (Registration ), [address] [place] [address] [place], [address], 07/01/2023 19:25:32 TSH, serum, reflex free T4 - 2 tigers, 1 LAV obtained without issue from (R) 2023 024 [facility] (Registration ), [address] [place] [address] [place], [address], 07/03/2023 19:33:23 TSH, serum, reflex free T4 2023 [email or web address] [address] [place] [address] [place], [address], 11/28/2023 11:35:24 Referral None recorded . Procedures colonosc opy screenin g (PROC) - Due for screenin g colonosc opy 2023 024 [email or web address] Candido Vitale DO - Direct, [address] [facility], [place], [address], 08/10/2023 09:10:26 Surgeries None recorded . Imaging MAMMO, screenin g, bilatera l 2023 024 [facility] (Radiology), [address] [place] [address] [place], [address], 07/06/2023 10:50:06 Medication Orders Lidocain e Viscous 2 % mucosal solution 2023 024 [email or web address] [facility], [address] [place] [address], [address], 07/01/2023 11:51:23 atorvast atin 10 mg tablet 2023 024 [email or web address] [facility], [address] [place] [address], [address], 07/01/2023 16:24:15 omeprazo le 40 mg capsule, delayed release 2023 024 [email or web address] [facility], [address] [place] [address], [address], 07/01/2023 16:24:15 levothyr oxine 100 mcg tablet 2023 024 [email or web address] [facility], [address] [place] [address], [address], 07/01/2023 16:24:15 Patient TargetsNo targets recorded. Patient InstructionsNo instructions recorded. Reason for Referral Physical Therapist Referral for Hip pain bilateral hip pain, worse with external rotation, started after starting [place] and new exercise classes, which she stopped. Xrays of hips ordered. Did also recently increase dose of her statin. Referring Physician: Mayra Browning, Family Medicine, Encounter Date: 07/25/2023 Results Created Date Observation Date Name Description Value Unit Range Abnormal Flag Note LastModifiedBy Organization Detail LastModifiedTime 07/01/19 24 07/01/2023 COMPL ETE BLOOD COUNT NO DIFF WBC 6.28 10_3/ uL 4.4-10 .8 normal Not Available [address] [facility] [place], [address] 07/01/2023 18:51:24 07/01/19 24 07/01/2023 COMPL ETE BLOOD COUNT NO DIFF RBC 4.53 10_6/ uL 3.93-5 .22 normal Not Available [address] [place], [address] 07/01/2023 18:51:24 07/01/19 24 07/01/2023 COMPL ETE BLOOD COUNT NO DIFF HGB 13.7 g/dL 11.2-1 5.7 normal Not Available [address] [place], [address] 07/01/2023 18:51:24 07/01/19 24 07/01/2023 COMPL ETE BLOOD COUNT NO DIFF HCT 41.8 % 36.0-4 6.0 normal Not Available [address] [place], [address] 07/01/2023 18:51:24 07/01/19 24 07/01/2023 COMPL ETE BLOOD COUNT NO DIFF MCV 92 fL 80-95 normal Not Available [address] [place], [address] 07/01/2023 18:51:24 07/01/19 24 07/01/2023 COMPL ETE BLOOD COUNT NO DIFF MCH 30.2 pg 27.0-3 3.0 normal Not Available [address] [place], [address] 07/01/2023 18:51:24 07/01/19 24 07/01/2023 COMPL ETE BLOOD COUNT NO DIFF MCHC 32.8 % 32.0-3 6.0 normal Not Available [address] [place], [address] 07/01/2023 18:51:24 07/01/19 24 07/01/2023 COMPL ETE BLOOD COUNT NO DIFF RDW 12.0 % 11.7-1 4.6 normal Not Available [address] [place], [address] 07/01/2023 18:51:24 07/01/19 24 07/01/2023 COMPL ETE BLOOD COUNT NO DIFF platelet count 280 10_3/ uL 130-40 0 normal Not Available [address] [place], [address] 07/01/2023 18:51:24 07/01/19 24 07/01/2023 COMPL ETE BLOOD COUNT NO DIFF MPV 10.4 fL 8.0-11 .0 normal Not Available [address] [place] [facility] [place], [address] 07/01/2023 18:51:24 07/01/19 24 07/01/2023 HEMOG LOBIN A1C hemoglobin A1C 5.9 % <5.7 high Refer ence Range s <5.7 Lisa l 5.7-6 .4% Predi abete s 6.5% or great er Diagn ostic for diabe guillaume (if confi rmed) Refer ences : 1. Ameri can [facility]abe guillaume Assoc iatio n. Clas sific ation and Diagn osis of Diabe guillaume. [facility] gu[facility] 2019 Feb; 2(Sup pleme nt 1):S1 3-s28 . Not Available [facility] (Registration ) [address] [place] [address] [place], [address], 07/01/2023 19:12:31 07/01/19 24 07/01/2023 COMPR EHENS DOLLY METAB OLIC PANEL calcium 9.7 mg/dL 8.5-10 .1 normal Not Available [address] [facility] [place], [address] 07/01/2023 19:13:28 07/01/19 24 07/01/2023 COMPR EHENS DOLLY METAB OLIC PANEL glucose 91 mg/dL 74-106 normal Not Available Caron [address] [place], [address] 07/01/2023 19:13:28 07/01/19 24 07/01/2023 COMPR EHENS DOLLY METAB OLIC PANEL BUN 13 mg/dL 7-18 normal Not Available [facility] [address] [facility] [place], [address] 07/01/2023 19:13:28 07/01/19 24 07/01/2023 COMPR EHENS DOLLY METAB OLIC PANEL creatinine 1.0 mg/dL 0.55-1 .02 normal Not Available [address] [place] [facility] [place], [address] 07/01/2023 19:13:28 07/01/19 24 07/01/2023 COMPR EHENS DOLLY METAB OLIC PANEL estimated GFR 64.90 mL/min /1.73m 2 The eGFR is calcu lated from a serum creat inine using the CKD-E PI 2020 equat ion. Other varia bles requi red for the equat ion are gende r and age; this equat ion does not inclu de a race coeff icien t. This equat ion has simil ar overa ll perfo rmanc e to previ ous equat ions excep t value s may diffe r, in parti cular , in patie nts with highe r value s of eGFR and young er-ag ed adult s. Not Available [address] [place], [address] 07/01/2023 19:13:28 07/01/19 24 07/01/2023 COMPR EHENS DOLLY METAB OLIC PANEL total protein 7.2 g/dL 6.4-8. 2 normal Not Available [address] [place], [address] 07/01/2023 19:13:28 07/01/19 24 07/01/2023 COMPR EHENS DOLLY METAB OLIC PANEL albumin 4.3 g/dL 3.4-5. 0 normal Not Available [address] [place], [address] 07/01/2023 19:13:28 07/01/19 24 07/01/2023 COMPR EHENS DOLLY METAB OLIC PANEL bilirubin, total 0.4 mg/dL 0.2-1. 0 normal Not Available [address] [place], [address] 07/01/2023 19:13:28 07/01/19 24 07/01/2023 COMPR EHENS DOLLY METAB OLIC PANEL alk phos 65 U/L 46-116 normal Not Available [address] [place], [address] 07/01/2023 19:13:28 07/01/19 24 07/01/2023 COMPR EHENS DOLLY METAB OLIC PANEL sodium 146 mmol/ L 136-14 5 high Not Available [address] [place], [address] 07/01/2023 19:13:28 07/01/19 24 07/01/2023 COMPR EHENS DOLLY METAB OLIC PANEL potassium 4.3 mmol/ L 3.5-5. 1 normal Not Available [address] [place], [address] 07/01/2023 19:13:28 07/01/19 24 07/01/2023 COMPR EHENS DOLLY METAB OLIC PANEL chloride 106 mmol/ L 98-107 normal Not Available [address] [place], [address] 07/01/2023 19:13:28 07/01/19 24 07/01/2023 COMPR EHENS DOLLY METAB OLIC PANEL CO2 31.6 mmol/ L 21.0-3 2.0 normal Not Available [address] [place], [address] 07/01/2023 19:13:28 07/01/19 24 07/01/2023 COMPR EHENS DOLLY METAB OLIC PANEL anion gap 8.4 mmol/ L 3-11 normal Not Available [address] [place], [address] 07/01/2023 19:13:28 07/01/19 24 07/01/2023 COMPR EHENS DOLLY METAB OLIC PANEL AST 25 U/L 15-37 normal Not Available Caron [address] [place], [address] 07/01/2023 19:13:28 07/01/19 24 07/01/2023 COMPR EHENS DOLLY METAB OLIC PANEL ALT 44 U/L 14-59 normal Not Available [facility] [place] [address] [place], [address] 07/01/2023 19:13:28 07/01/19 24 07/01/2023 LIPID 2 cholesterol 265 mg/dL <200 high Not Available Dennys teran [address] [place], [address] 07/01/2023 19:13:29 07/01/19 24 07/01/2023 LIPID 2 triglyceride 120 mg/dL <150 Not Available [address] [place], [address] 07/01/2023 19:13:29 07/01/19 24 07/01/2023 LIPID 2 HDL cholesterol 71 mg/dL 40-60 Not Available Justin brianparul [address] [place], [address] 07/01/2023 19:13:29 07/01/19 24 07/01/2023 LIPID 2 calculated LDL 170 mg/dL <100 high Natio nal Marianela stero l Educa tion Progr am (NCEP -ATPI II) class ifica tions : Marianela stero l <200 mg/dL Silvana able Marianela stero l 200-2 39 mg/dL Borde rline High Marianela stero l >or=2 40 mg/dL High HDL <40 mg/dL Low HDL >or=6 0 mg/dL High LDL <100 mg/dL Optim al LDL 100-1 29 mg/dL Near Optim al/Ab ove Optim al LDL 130-1 59 mg/dL Borde rline High LDL 160-1 89 mg/dL High LDL >or=1 90 mg/dL Very High *The above refer ence range is for adult s 18 years or older . Not Available [address] [place], [address] 07/01/2023 19:13:29 07/01/19 24 07/01/2023 TSH (W/RE F FT4) TSH (w/ref FT4) 4.90 uIU/m L 0.36-3 .74 high Not Available [address] [place], [address] 07/01/2023 19:13:29 07/01/19 24 07/01/2023 VITAM IN D 25 TOTAL vitamin D 25 total 19.1 NG/mL 30-100 low Refer ence Guide lines : Defic ient: <10 ng/ml Insuf ficie nt: 10-30 ng/ml Suffi cient : 30-10 0 ng/ml Toxic : >100 ng/ml Not Available [address] [place], [address] 07/01/2023 19:25:31 07/01/19 24 07/01/2023 LIPID 2 cholesterol 265 mg/dL <[address] [facility] (Registration ) [address] [place] [address] [place], [address], 07/01/2023 19:43:35 07/01/19 24 07/01/2023 LIPID 2 triglyceride 120 mg/dL <[address] [facility] (Registration ) [address] [place] [address] [place], [address], 07/01/2023 19:43:35 07/01/19 24 07/01/2023 LIPID 2 HDL cholesterol 71 mg/dL 40-[address] [facility] (Registration ) [address] [place] [address] [place], [address], 07/01/2023 19:43:35 07/01/19 24 07/01/2023 LIPID 2 calculated LDL 170 mg/dL <100 high Natio nal Marianela stero l Educa tion Progr am (NCEP -ATPI II) class ifica tions : Marianela stero l <200 mg/dL Silvana able Marianela stero l 200-2 39 mg/dL Borde rline High Marianela stero l >or=2 40 mg/dL High HDL <40 mg/dL Low HDL >or=6 0 mg/dL High LDL <100 mg/dL Optim al LDL 100-1 29 mg/dL Near Optim al/Ab ove Optim al LDL 130-1 59 mg/dL Borde rline High LDL 160-1 89 mg/dL High LDL >or=1 90 mg/dL Very High *The above refer ence range is for adult s 18 years or older . Not Available [facility] (Registration ) [address] [place] [address] [place], [address], 07/01/2023 19:43:35 07/01/19 24 07/01/2023 TSH (W/RE F FT4) TSH (w/ref FT4) 4.90 uIU/m L 0.36-3 [address] [facility] (Registration ) [address] [place] [address] [place], [address], 07/01/2023 19:43:36 07/01/19 24 07/01/2023 FREE T4 free T4 0.86 NG/dL 0.76-1 .46 normal Not Available [address] [place], [address] 07/01/2023 19:43:36 07/01/19 24 07/04/2023 VARIC NICKOLAS IGG ANTIB ARTURO varicella IgG antibody Positi ve see note Prese nce of detec table Varic nickolas Zoste r virus IgG antib odies . Test perfo rmed or refer red by [facility] [address], [place] [address] [facility] (Registration ) [address] [place] [address] [place], [address], 07/04/2023 16:34:13 07/25/19 24 07/25/2023 CREAT INE KINAS E creatine kinase 124 U/L 26-192 normal Not Available [address] [place], [address] 07/25/2023 17:27:18 07/25/19 24 07/25/2023 VITAM IN D 25 TOTAL vitamin D 25 total 23.4 NG/mL 30-100 low Refer ence Guide lines : Defic ient: <10 ng/ml Insuf ficie nt: 10-30 ng/ml Suffi cient : 30-10 0 ng/ml Toxic : >100 ng/ml Not Available [address] [place], [address] 07/25/2023 17:27:20 07/05/19 24 07/05/2023 MAMMO , scree ravindra, bilat eral Patien t Name: Shine Aguila Unit #: [id number] Loc: DI Orderi ng Provid er: Mayra Browning M.D. Accoun t #: [id number] Status : REG CLI Primar y Care Provid er: Mayra Browning M.D. Date of Exam: Sex: F Admiss ion Date: : 1965 Age: 58 Exam(s ) MG MAMMO SCREEN ING EXAM: MG MAMMO SCREEN ING CLINIC AL HISTOR Y: Z12.31 Screen ing TECHNI QUE: Mammog hardy were interp reted accord ing to the usual protoc ol includ ing comput er analys is with CAD system , tomosy nthesi s and C-view imagin g. COMPAR CODEY: 2014 throug h 2022 FINDIN GS: The breast s are compos ed of hetero geneou sly dense fibrog landul ar densit ies, Breast Densit y catego ry C. No suspic ious masses or suspic ious microc alcifi cation s are seen. No skin thicke ravindra or abnorm al axilla ry lymph nodes are seen. There has been no signif icant change from prior exams. IMPRES ISAIAH: BI-RAD S Catego ry 1, Negati ve mammog wayne. Yearly screen ing mammog alba is recomm ended. Breast Densit y Catego ry C, hetero geneou sly Dense. The mammog wayne demons trates the patien t's breast tissue is dense. Dense breast tissue is very common and is not abnorm al but dense breast tissue can make it harder to find cancer on a mammog wayne. Also, dense breast tissue may increa se breast cancer risk. This inform ation about the result of the mammog wayne report was provid ed to the patien t to raise their awaren ess. Use this report when you speak with the patien t about their risks for breast cancer , which includ es their family histor y. At that time, you may recomm end additi onal screen ing tests (Ultra sound or MRI) as they might be useful based on their risk. A negati ve radiog raphic report should not delay biopsy if a domina nt or clinic ally suspic ious mass is presen t. Up to ten percen t of cancer s are not identi fied on mammog alba. A negati ve report may reinfo rce clinic al impres isaiah. Adenos is and dense breast s may obscur e an underl gali neopla sm. False positi ve report s averag e 6 to 10%. Faviane d By: Mayra Browning M.D. CC: ------ ------ ------ ------ ------ ------ ------ ------ ------ ------ ------ ------ - Dictat ed By: Renata Randolph 1340 1340 Transc ribed By: Christina Granda 1340 This is privil eged, confid ential inform ation intend ed only for the provid er named. Any use or distri bution by any person other than this provid er is strict ly prohib ited. If you receiv e this report in error, please notify us immedi ately at and return the origin al report to us at the addres s above. Thank- you. [email or web address] [facility] (Radiology) [address] [facility] [place], [address], 07/06/2023 10:50:32 10/31/19 24 10/27/2020 imagi ng/di agnos tic resul t No observ ation record ed. Not Available 10/30 06:51:38 10/31/19 24 10/27/2020 imagi ng/di agnos tic resul t No observ ation record ed. Not Available 10/30 06:51:40 10/31/19 24 10/30/2020 imagi ng/di agnos tic resul t No observ ation record ed. Not Available 10/30 06:51:41 10/31/19 24 04/08/2022 imagi ng/di agnos tic resul t No observ ation record ed. Not Available 10/30 06:51:51 10/31/19 24 04/06/2022 imagi ng/di agnos tic resul t No observ ation record ed. Not Available 10/30 06:51:53 10/31/19 24 03/20/2018 imagi ng/di agnos tic resul t No observ ation record ed. Not Available 10/30 06:52:55 10/31/19 24 04/06/2022 imagi ng/di agnos tic resul t No observ ation record ed. Not Available 10/30 06:52:56 10/31/19 24 02/08/2019 imagi ng/di agnos tic resul t No observ ation record ed. Not Available 10/30 06:52:57 10/31/19 24 07/01/2022 imagi ng/di agnos tic resul t No observ ation record ed. Not Available 10/30 06:53:01 10/31/19 24 05/19/2018 imagi ng/di agnos tic resul t No observ ation record ed. Not Available 10/30 06:53:02 10/31/19 24 02/27/2019 imagi ng/di agnos tic resul t No observ ation record ed. Not Available 10/30 06:53:03 10/31/19 24 07/02/2022 MAMMO , scremary ravindra No observ ation record ed. Not Available 10/30 06:53:04 10/31/19 24 04/21/2021 MAMMO , scremary ravindra No observ ation record ed. Not Available 10/30 06:53:08 10/31/19 24 01/29/2020 MAMMO , hali ravindra No observ ation record ed. Not Available 10/30 06:53:09 10/31/19 24 01/29/2020 MAMMO , scremary ravindra No observ ation record ed. Not Available 10/30 06:53:10 10/31/19 24 09/01/2019 CT, abdom en + pelvi s No observ ation record ed. Not Available 10/30 06:53:11 10/31/19 24 05/19/2018 XR, chest No observ ation record ed. Not Available 10/30 06:53:13 10/31/19 24 10/27/2020 XR, chest No observ ation record ed. Not Available 10/30 06:53:14 10/31/19 24 04/06/2022 XR, chest No observ ation record ed. Not Available 10/30 06:53:15 10/31/19 24 03/07/2022 XR, chest No observ ation record ed. Not Available 10/30 06:53:36 10/31/19 24 02/06/2019 imagi ng/di agnos tic resul t No observ ation record ed. Not Available 10/30 06:54:08 10/31/19 24 05/18/2018 imagi ng/di agnos tic resul t No observ ation record ed. Not Available 10/30 06:54:09 10/31/19 24 10/27/2020 imagi ng/di agnos tic resul t No observ ation record ed. Not Available 10/30 06:54:59 10/31/19 24 10/27/2020 imagi ng/di agnos tic resul t No observ ation record ed. Not Available 10/30 06:55:00 10/31/19 24 03/07/2022 imagi ng/di agnos tic resul t No observ ation record ed. Not Available 10/30 06:55:08 10/31/19 24 05/24/2018 imagi ng/di agnos tic resul t No observ ation record ed. Not Available 10/30 06:55:21 10/31/19 24 05/24/2018 imagi ng/di agnos tic resul t No observ ation record ed. Not Available 10/30 06:55:22 Result Notes Documentation Provider Name and Address Organization Details Recorded Time Mammo, Screening, Bilateral : Patient Name: Neal Ramires Unit #: [id number] Loc: DI Ordering Provider: Mayra Browning M.D. 1 Status: REG CLI Primary Care Provider: Mayra Browning M.D. Date of Exam: Sex: F Admission Date: 07/05/23 : 1965 Age: 58 Exam(s) MAMMO SCREENING EXAM: MAMMO SCREENING CLINICAL HISTORY: Z12.31 Screening TECHNIQUE: Mammograms were interpreted according to the usual protocol including computer analysis with CAD system, tomosynthesis and C-view imaging. COMPARISON: 2014 through 2022 FINDINGS: The breasts are composed of heterogeneously dense fibroglandular densities, Breast Density category C. No suspicious masses or suspicious microcalcifications are seen. No skin thickening or abnormal axillary lymph nodes are seen. There has been no significant change from prior exams. IMPRESSION: BI-RADS Category 1, Negative mammogram. Yearly screening mammography is recommended. Breast Density Category C, heterogeneously Dense. The mammogram demonstrates the patient's breast tissue is dense. Dense breast tissue is very common and is not abnormal but dense breast tissue can make it harder to find cancer on a mammogram. Also, dense breast tissue may increase breast cancer risk. This information about the result of the mammogram report was provided to the patient to raise their awareness. Use this report when you speak with the patient about their risks for breast cancer, which includes their family history. At that time, you may recommend additional screening tests (Ultrasound or MRI) as they might be useful based on their risk. A negative radiographic report should not delay biopsy if a dominant or clinically suspicious mass is present. Up to ten percent of cancers are not identified on mammography. A negative report may reinforce clinical impression. Adenosis and dense breasts may obscure an underlying neoplasm. False positive reports average 6 to 10%. Ordered By: Mayra Browning M.D. CC: Dictated By: Angy Granda M.D. 07/05/23 1340 07/05/23 1340 Transcribed By: Angy Granda 07/05/23 1340 This is privileged, confidential information intended only for the provider named. Any use or distribution by any person other than this provider is strictly prohibited. If you receive this report in error, please notify us immediately at [phone] and return the original report to us at the address above. Thank-you. JV herrera, [facility] 07/06/2023 10:50:32 Problems Name Problem SNOMED Code Status Onset Date Resolution Date Notes Provider Name and Address Organization Details Recorded Time Generali zed anxiety disorder 61295870 Active [address], [facility] [id number] [place] [address] 4 17:32:40 Hyperlip idemia 48001350 Active 2010 on statin MD [address], [facility] [id number] [place] [address] 4 12:10:51 Hypothyr oidism 17130618 Active [address], [facility] [id number] [place] [address] 4 12:10:57 Rosacea 129971842 Active [address], [facility] [id number] [place] [address] 4 12:14:51 Arthralg ia of temporom andibula r joint 78250060 Active [address], [facility] [id number] [place] [address] 4 12:01:12 Restless legs 53684591 Active [address], [facility] [address] [place] [address] 4 12:14:31 Fatigue 71163778 Active [address], [facility] [address] [place] [address] 4 12:02:27 Acquired absence of cervix and uterus 511237265 Active MD [address]iel [address], [place], [address] , [facility] 4 12:00:55 Adult health examinat ion Active [address], [place], [address] , [facility] 4 12:01:04 Vitamin D deficien cy 13495617 Active [address], [place], [address] , [facility] 4 12:15:16 Pain in thoracic spine 765994213 Active [address], [place], [address] , [facility] 4 12:13:25 Sciatica 99656682 Active [address], [place], [address] , [facility] 4 13:21:53 Right upper quadrant pain 337214421 Active [address], [place], [address] , [facility] 4 12:14:44 Pain of right knee joint 05724064510 4100 Active [address], [place], [address] , [facility] 4 12:13:42 Pain of left shoulder joint [id number] 278681 Active [address], [place], [address] , [facility]. 4 12:13:33 Insomnia 616739520 Active [address], [place], [address] , [facility] 4 12:12:20 Diarrhea 27655984 Completed 201905/16/2019 Problem Code: R19.7; Problem Code Type: ICD-10; Not Available [facility] 3 04:09:35 Diabetes mellitus screenin g Completed 201906/18/2019 Problem Code: Z13.1; Problem Code Type: ICD-10; Not Available [facility] 3 04:09:35 Prediabe guillaume 891213002 Active [address], [place], [address] , [facility] 4 12:14:25 Obstruct dolly sleep apnea syndrome 43349663 Active [address], [place], [address] , [facility] 4 12:13:15 Polyp of nasal cavity and/or nasal sinus 815876759 Active 2019 Not interest ed in surgical interven tion, continue with nasal steroids . MD [address], [place], [address] , [facility] 4 12:14:17 Screenin g for malignan t neoplasm of breast Completed 201907/01/2023 Problem Code: Z12.39; Problem Code Type: ICD-10; MD [address], [place], [address] , [facility] 4 12:15:08 Metatars algia 05825594 Active [address], [place], [address] , [facility] 4 12:12:40 Seasonal allergic rhinitis 869286394 Active [address], [place], [address] , [facility] 4 12:15:04 Therapeu tic drug monitori ng assay 43787211 Completed 202011/24/2020 Problem Code: Z51.81; Problem Code Type: ICD-10; Not Available [facility] 3 04:09:36 Gastroes ophageal reflux disease without esophagi tis 087977438 Active 2020 No reflux symptoms , just stomach pain. EGD 08/2020 (intesti nal metaplas ia of stomach 08/2018, not present 2020) Hx of Hpylori 12/[address], [facility] [address] , [facility] 4 13:18:40 Menopaus e present 552327058 Active [address], [facility] [address] , [facility] 4 12:12:29 Chest pain 78604364 Active [address], [facility] [address] , [facility] 4 12:01:35 Dyspnea 347566657 Active [address], [facility] [address] , [facility] 4 12:02:20 Neck pain 69812815 Active [address], [facility] [address] , [facility] 4 12:12:49 Constipa tion 84929395 Active [address], [place], [address] , [facility] 4 12:01:53 Disorder of skin and/or subcutan eous tissue 21835315 Completed 202207/01/2023 Problem Code: L98.9; Problem Code Type: ICD-10; MAYRA BROWNING MD [address], [place], [address] , [facility]. 4 12:02:12 Cough 04846064 Completed 201508/09/2016 Problem Code: R05; Problem Code Type: ICD-10; Not Available [facility] 3 04:09:40 Diarrhea 05967776 Completed 201801/15/2019 Problem Code: R19.7; Problem Code Type: ICD-10; Not Available [facility] 3 04:09:40 Asthenia 74725049 Completed 201705/11/2018 Problem Code: R53.1; Problem Code Type: ICD-10; Not Available [facility] 3 04:09:40 Intestin al metaplas ia of gastric mucosa 89709914 Completed 202009/29/2020 Not Available [facility] 3 04:09:40 Localize d eruption of skin 282250456 Completed 202106/12/2021 Problem Code: R21; Problem Code Type: ICD-10; Not Available [facility] 3 04:09:40 Benign neoplasm of colon 97141505 Completed 201311/10/2022 Problem Code: 211.3; Problem Code Type: ICD-9; Not Available [facility] 3 04:09:41 Sensatio n as if urinary bladder still full 738625936 Completed 201405/11/2018 Problem Code: R39.14; Problem Code Type: ICD-10; Not Available [facility] 3 04:09:41 Anxiety disorder 669841502 Completed 200111/10/2022 Not Available [facility] 3 04:09:41 Blood chemistr y outside referenc e range 642990656 Completed 202009/29/2020 Problem Code: R79.89; Problem Code Type: ICD-10; Not Available [facility] 3 04:09:42 History of clinical finding in subject 881955186 Completed 201211/10/2022 Not Available [facility] 3 04:09:42 Neck pain 52171277 Completed 201809/14/2019 Problem Code: M54.2; Problem Code Type: ICD-10; MD [address], [place], [address] , [facility] 4 12:12:49 Skin sensatio n disturba nce 82105847 Completed 201906/25/2020 Problem Code: R20.9; Problem Code Type: ICD-10; Not Available [facility] 3 04:09:42 Localize d eruption of skin 948221954 Completed 202008/06/2020 Problem Code: R21; Problem Code Type: ICD-10; Not Available [facility] 3 04:09:42 Pleuriti c pain 3095800 Completed 202009/29/2020 Problem Code: R07.81; Problem Code Type: ICD-10; Not Available [facility] 3 04:09:43 Altered bowel function 55898300 Completed 202210/11/2022 Problem Code: R19.4; Problem Code Type: ICD-10; Not Available [facility] 3 04:09:43 Chest pain 92854327 Completed 201809/14/2019 Problem Code: R07.9; Problem Code Type: ICD-10; MD [address], [place], [address] , [facility] 4 12:01:35 Exposure to communic able disease Completed 202006/12/2021 Problem Code: Z20.828; Problem Code Type: ICD-10; Not Available [facility] 3 04:09:44 Muscle pain 77320334 Completed 201605/11/2018 Problem Code: M79.1; Problem Code Type: ICD-10; Not Available [facility] 3 04:09:44 Viral screenin g Completed 202110/05/2021 Problem Code: Z11.52; Problem Code Type: ICD-10; Not Available [facility] 3 04:09:44 Adult health examinat ion Completed 201405/11/2018 Problem Code: Z00.00; Problem Code Type: ICD-10; MD [address], [place], [address] , [facility] 4 12:01:04 Hypertro phic conditio n of skin 82510635 Completed 201405/11/2018 Problem Code: L91.8; Problem Code Type: ICD-10; Not Available [facility] 3 04:09:45 Hypertro phic conditio n of skin 77260073 Completed 202106/14/2022 Problem Code: L91.8; Problem Code Type: ICD-10; Not Available [facility] 3 04:09:45 Pain of right shoulder joint 35186695373 222543 Completed 202106/14/2022 Problem Code: M25.511; Problem Code Type: ICD-10; Not Available [facility] 3 04:09:45 Smoker 62500647 Completed 201308/03/2016 Not Available [facility] 3 04:09:46 Dizzines s and giddines s 901343344 Completed 201605/11/2018 Problem Code: R42; Problem Code Type: ICD-10; Not Available [facility] 3 04:09:46 Pain in right foot 66984217827 9107 Completed 201505/11/2018 Problem Code: M79.671; Problem Code Type: ICD-10; Not Available [facility] 3 04:09:46 Pain in thoracic spine 206306667 Completed 202110/05/2021 Problem Code: M54.89; Problem Code Type: ICD-10; MD [address], [place], [address] , [facility]. 4 12:13:25 Low back pain 708243379 Completed 201605/11/2018 Problem Code: M54.5; Problem Code Type: ICD-10; Not Available [facility] 3 04:09:47 Bradycar geoff 96114308 Completed 202006/12/2021 Problem Code: R00.1; Problem Code Type: ICD-10; Not Available [facility] 3 04:09:47 Abdomina l pain 85161270 Completed 202210/11/2022 Problem Code: R10.9; Problem Code Type: ICD-10; Not Available [facility] 3 04:09:47 Nausea 601269659 Completed 202010/11/2022 Problem Code: R11.0; Problem Code Type: ICD-10; Not Available [facility] 3 04:09:48 Exposure to viral hepatiti s Completed 201605/11/2018 Problem Code: Z20.5; Problem Code Type: ICD-10; Not Available [facility] 3 04:09:48 Increase d frequenc y of urinatio n 101367191 Completed 201405/11/2018 Problem Code: R35.0; Problem Code Type: ICD-10; Not Available [facility] 3 04:09:49 Pain in right foot 99476321067 9107 Completed 202106/14/2022 Problem Code: M79.671; Problem Code Type: ICD-10; Not Available [facility] 3 04:09:49 Dyspnea 008121659 Completed 201505/11/2018 Problem Code: R06.09; Problem Code Type: ICD-10; MD [address], [place], [address] , [facility]. 4 12:02:20 History of adenomat ous polyp of colon 961170569 Active 2013, normal colonosc opy [address], [place], [address] , [facility] 12:10:28 Ex-smoke r 6016501 Active [address], [place], [address] , [facility] 12:13:06 Problem Notes None recorded. Procedures Surgical History Date Name Laterality Status Provider Name and Address Organization Details Recorded Time 07/02/19 Most Recent Mammogram completed ADOLFO MCCANN RN [facility] 07/01/2023 11:59:19 08/29/19 19 Date of Last Colonoscopy completed ADOLFO MCCANN RN [facility] 07/01/2023 12:03:39 02/16/19 05 hysterectomy completed MD [address], [place], [address], [facility] 07/01/2023 12:21:25 Imaging Results Imaging Date Name Status LastModified by Organiz ation Details LastModified Time 07/05/2023 MAMMO, screening, bilateral completed [email or web address] [facility] (Radiology) [address] [facility] , [place], [address], 07/06/2023 10:50:32 10/27/2020 imaging/diagno stic result completed Information not available 10/31/2023 06:51:38 10/27/2020 imaging/diagno stic result completed Information not available 10/31/2023 06:51:40 10/30/2020 imaging/diagno stic result completed Information not available 10/31/2023 06:51:41 04/08/2022 imaging/diagno stic result completed Information not available 10/31/2023 06:51:51 04/06/2022 imaging/diagno stic result completed Information not available 10/31/2023 06:51:53 03/20/2018 imaging/diagno stic result completed Information not available 10/31/2023 06:52:55 04/06/2022 imaging/diagno stic result completed Information not available 10/31/2023 06:52:56 02/08/2019 imaging/diagno stic result completed Information not available 10/31/2023 06:52:57 07/01/2022 imaging/diagno stic result completed Information not available 10/31/2023 06:53:01 05/19/2018 imaging/diagno stic result completed Information not available 10/31/2023 06:53:02 02/27/2019 imaging/diagno stic result completed Information not available 10/31/2023 06:53:03 07/02/2022 MAMMO, screening completed Information not available 10/31/2023 06:53:04 04/21/2021 MAMMO, screening completed Information not available 10/31/2023 06:53:08 01/29/2020 MAMMO, screening completed Information not available 10/31/2023 06:53:09 01/29/2020 MAMMO, screening completed Information not available 10/31/2023 06:53:10 09/01/2019 CT, abdomen + pelvis completed Information not available 10/31/2023 06:53:11 05/19/2018 XR, chest completed Information no t available 10/31/2023 06:53:13 10/27/2020 XR, chest completed Information no t available 10/31/2023 06:53:14 04/06/2022 XR, chest completed Information no t available 10/31/2023 06:53:15 03/07/2022 XR, chest completed Information no t available 10/31/2023 06:53:36 02/06/2019 imaging/diagno stic result completed Information not available 10/31/2023 06:54:08 05/18/2018 imaging/diagno stic result completed Information not available 10/31/2023 06:54:09 10/27/2020 imaging/diagno stic result completed Information not available 10/31/2023 06:54:59 10/27/2020 imaging/diagno stic result completed Information not available 10/31/2023 06:55:00 03/07/2022 imaging/diagno stic result completed Information not available 10/31/2023 06:55:08 05/24/2018 imaging/diagno stic result completed Information not available 10/31/2023 06:55:21 05/24/2018 imaging/diagno stic result completed Information not available 10/31/2023 06:55:22 Procedure Notes None recorded. Medical Equipment None Reported. Allergies Allergen ID Allergen Name Allergen Category Reaction Reaction Severity Criticality Documentation Date Start Date Code Code System Note Provider Name and Address Organization Details Recorded Time 68980 codeine medicatio n other Not available Not available 12/24/20222008 2670 RxNorm GI Aller gyRea ction : 'GI'; Not Available [facility] 16:21:52 54747 oxycodone medicatio n dizziness vomiting Not available Not available Not available 07/01/2023 7804 RxNorm GERONIMO BARRETT, [facility] 4 11:49:08 58555 Bactrim medicatio n Not available Not available Not available 07/01/2023 08723 9 RxNorm acute hepat itis, eleva ahmet liver enzym es ADOLFO MCCANN RN null, [facility] 4 11:49:47 46565 Effexor medicatio n headache nausea vomiting Not available Not available Not available Not available 07/01/2023 10165 2 RxNorm GERONIMO BARRETT, [facility] 4 11:50:12 18146 garlic preparati on food,medi cation hives Not available Not available 07/01/2023 53874 7 RxNorm throa t close s GERONIMO BARRETT, [facility] 4 11:50:41 Medications Name Sig Start Date Stop Date Status Note LastModified by Organization Details LastModified Time amoxicill in 500 mg capsule Take 2 cap by mouth two times daily for 14 days 05/25 completed Not Available Not Available Not Available Miralax 17 gram/dose oral powder 1TBSLP QD 09/30 completed Not Available Not Available Not Available Xanax 0.5 mg tablet 1 TAB TID 04/02 completed Not Available Not Available Not Available Colace 100 mg capsule 1TAB bid constipa tion 10/12 completed Not Available Not Available Not Available atorvasta tin 10 mg tablet TAKE ONE TABLET BY MOUTH EVERY OTHER DAY active Not Available Not Available No t Available IBU 800 mg tablet 1TAB tid 07/04 completed Not Available Not Available Not Available alprazola m 1 mg tablet TAKE 1/2 TABLET BY MOUTH EVERY 12 HOURS NEEDED FOR PANIC ATTACK, MAXIMUM DAILY DOSE = 1 TABLET DAILY active Not Available Not Available No t Available doxepin 25 mg capsule Take 1 capsule by mouth every evening 01/28 completed Not Available Not Available Not Available clarithro mycin 500 mg tablet Take 1 tab by mouth twice daily for 14 days 06/03 completed Not Available Not Available Not Available Retin-A 0.1 % topical cream Apply daily to face at bedtime 10/25 completed Not Available Not Available Not Available prazosin 1 mg capsule start 1 mg, increase by 1 mg every 3 days 05/12 completed Not Available Not Available Not Available Medrol (Enio) 4 mg tablets in a dose pack Take 1 tablet by mouth as directed directio ns in the package, take with food. 08/31 completed Not Available Not Available Not Available prednison e 20 mg tablet Take 2 tablet by mouth once a day for 5 days, then 1 once a day for 5 days 02/07 completed Not Available Not Available Not Available clonazepa m 0.5 mg tablet TAKE ONE TABLET BY MOUTH EVERY DAY FOR ANXIETY active Not Available Not Available No t Available Zithromax 250 mg tablet 07/14 completed Not Available Not Available Not Available meclizine 12.5 mg tablet Take 1 tablet by mouth three times a day as needed for car sickness /nausea 2020 active Not Available Not Available Not Avai lable doxepin 10 mg capsule 1 capsule by mouth every night 09/29 completed sleep Not Available Not Available Not Available Tamiflu 75 mg capsule Take 1 tab by mouth twice daily onset of symptoms . 03/20 completed Not Available Not Available Not Available omeprazol e 40 mg capsule,d elayed release TAKE ONE CAPSULE BY MOUTH EVERY DAY active Not Available Not Available No t Available Wellbutri n SR 100 mg tablet, 12 hr sustained -release Take 1 tablet by mouth once a day 09/29 completed Not Available Not Available Not Available triamcino lone acetonide 0.1 % topical cream CREAM twice daily 02/11 completed Not Available Not Available Not Available Medrol 4 mg tablet Dose enio: 6 day taper. Take as directed 05/11 completed per Traillronda Cintron Not Available Not Available Not Available Bactroban 2 % topical cream ointment three times daily 09/18 completed Not Available Not Available Not Available levothyro xine 100 mcg tablet Take 1 tablet by mouth once a day 2023 active Not Available Not Available Not Avai lable Tessalon Perles 100 mg capsule take one q 8 hours prn 06/03 completed Not Available Not Available Not Available Valium 2 mg tablet 1 TAB q4h 05/18 completed Not Available Not Available Not Available Beconase AQ 42 mcg (0.042 %) nasal spray 2 sprays each notril twice a day 08/12 completed Not Available Not Available Not Available Synthroid 25 mcg tablet 1 TAB daily 01/15 completed Not Available Not Available Not Available amitripty line 10 mg tablet Take 1 by mouth daily at bedtime to help with sleep and generali zed gabriella aches 09/07 completed Not Available Not Available Not Available meclizine 25 mg tablet Take q6-8 hours, prn for vertigo. 07/04 completed Not Available Not Available Not Available levothyro xine 125 mcg tablet TAKE ONE TABLET BY MOUTH EVERY DAY active Not Available Not Available No t Available triamcino lone acetonide 55 mcg nasal spray aerosol USE 2 SPRAYS IN BOTH NOSTRILS ONCE DAILY active Not Available Not Available No t Available Synthroid 88 mcg tablet Take 1 tab by mouth daily 2017 active Not Available Not Available Not Avai lable Synthroid 75 mcg tablet Take 1 tab by mouth daily 12/13 completed Not Available Not Available Not Available Vivelle-D ot 0.0375 mg/24 hr transderm al patch Apply 1 patch to skin as directed twice per week. 06/14 completed Not Available Not Available Not Available Synthroid 50 mcg tablet Take 1 tab by mouth daily 2014 active Not Available Not Available Not Avai lable lidocaine HCl 2 % mucosal solution TAKE 15 ML BY MOUTH EVERY 3 HOURS NEEDED 06/30 completed Not Available Not Available Not Available omeprazol e 20 mg capsule,d elayed release 1 capsule by mouth daily 2019 active Not Available Not Available Not Avai lable ranitidin e 150 mg capsule 1 tab BID 12/06 completed Not Available Not Available Not Available oxaprozin 600 mg tablet 1 tab bid 09/04 completed Not Available Not Available Not Available Requip 0.25 mg tablet Take 1 tab by mouth daily at bedtime 05/06 completed Not Available Not Available Not Available Anusol-HC 25 mg rectal supposito ry 1 NV BID 09/01 completed Not Available Not Available Not Available albuterol sulfate HFA 90 mcg/actua tion aerosol inhaler 2 puffs 4 times a day- 06/03 completed Not Available Not Available Not Available ketoconaz ole 2 % topical cream Apply a small amount to affected area twice a day 07/09 completed Not Available Not Available Not Available hydroxyzi ne HCl 10 mg tablet Take 1-2 tablet by mouth at bedtime 11/101 completed Not Available Not Available Not Available Ambien 5 mg tablet QHS prn 07/02 completed 10/28/14- called in to Pharmacy DNR Not Available Not Available Not Available prazosin 2 mg capsule start at 1 mg and titrate by 1 mg every 3-4 days for max of 15 mg 05/12 completed Not Available Not Available Not Available Flexeril 10 mg tablet 1 TAB TID 07/02 completed Not Available Not Available Not Available oxycodone 5 mg tablet 1TAB .qid , prn tail bone aldo 07/04 completed Not Available Not Available Not Available escitalop wayne 20 mg tablet TAKE ONE TABLET BY MOUTH EVERY DAY active Not Available Not Available No t Available Lexapro 10 mg tablet Take 1 by mouth daily 06/03 completed Not Available Not Available Not Available Vitamin D3 25 mcg (1,000 unit) tablet take 1 capsule daily 07/04 completed Not Available Not Available Not Available mirtazapi ne 7.5 mg tablet Take 1 tab by mouth at bedtime 09/10 completed Not Available Not Available Not Available Bactrim DS 1TAB twice daily 10/13 completed Not Available Not Available Not Available NAC 600 mg capsule Take 1 capsule by mouth twice a day up to 2 BID 06/30 completed Not Available Not Available Not Available omeprazol e 20 mg tablet,de layed release Take 1 tab by mouth daily. 2017 active Not Available Not Available Not Avai lable Guaifenes in AC 10 mg-100 mg/5 mL oral syrup 1 tsp q 4-6 hours 02/03 completed Not Available Not Available Not Available Vitamin D3 125 mcg (5,000 unit) tablet Take 1 tablet every day by oral route. 2023 active Not Available Not Available Not Avai lable doxycycli ne hyclate 200 mg tablet,de layed release 1CAP today 10/12 completed Not Available Not Available Not Available Biotene PBF mouthwash as needed 06/25 completed Not Available Not Available Not Available melatonin 10 mg-lemon balm leaf extract 1 mg tablet 1 tab qhs 12/06 completed Not Available Not Available Not Available Mylanta Tonight 800 mg-270 mg-80 mg/10 mL oral suspensio n 20 ml BID 10/25 completed Not Available Not Available Not Available Vitals Date Recorded Body height Body mass index (BMI) Body weight Body temperature Heart rate Systolic blood pressure Diastolic blood pressure Provider Name and Address Organization Details Last Updated DateTime 4 156.21 cm 28.1 kg/m2 84295.4 5 g 98.1 [degF] 57 /min 119 mm[Hg] 73 mm[Hg] ADOLFO MCCANN RN [facility] 11:13:24 Date Recorded Body height Body temperature Heart rate Respiratory rate Body mass index (BMI) Body weight Systolic blood pressure Diastolic blood pressure Provider Name and Address Organization Details Last Updated DateTime 4 156.72 cm 96.8 [degF] 61 /min 14 /min 29 kg/m2 48233 g 120 mm[Hg] 76 mm[Hg] ADOLFO MCCANN RN [facility] 11:46:41 Social History Question Answer Notes LastModified by Organizat ion Details LastModified Time Tobacco Smoking Status Former Smoker ADOLFO MCCANN RN [facility], [facility] 04/18/2023 11:13:48 When Did You Quit Smoking? 16+yearssinc elastcigaret te [email or web address] Information not available 04/18/2023 Sex: Female Functional Status None recorded. Mental Status None recorded. Family History Relationship Description Onset Age of this Age Resolved Age Notes LastModified by Organization Details LastModified Time Mother Family history of Hypertension [email or web address] Not available 11/2022 03:58:35 Notes:*Problem: Mother: yasmin hernandez and well Father: Deseased age 77, MDS, AML. Hx CABG in 02/2015. Parents when pt was 11 yrs old Sisters: none Brothers: 2, one paralyzed 2o MVA Children: 2, one dgtr and one son Family History of: Hypertension: yes Hyperlipidemia: yes Coronary heart disease: no Diabetes mellitus: no Breast cancer: no Colorectal cancer: no Alcoholism: yes Mental illness: yes 10/26 Nothing new to add. 11/26 Nothing new to add. Medical History No medical history recorded. Gynecological History Statement/Question Response Date of Last Pap Smear Date of Last Colonoscopy 08/28/2018 Most Recent Mammogram 07/01/2022 Obstetrics History GPAL:G 0 P 0 0 0 0 Immunizations Vaccine Type Date Status Provider Name and Address Organization Details Recorded Time Hep B, adolescent or pediatric 12/06/2016 completed Not Available [facility] 12/24/2022 04:35:28 Tdap 10/01/2011 completed Not Available [facility] 04:35:28 Tdap 10/16/2021 completed Not Available [facility] 04:35:29 Influenza, split virus, trivalent, preservative 10/29/2015 completed Not Available [facility] 12/24/2022 04:35:29 Influenza, split virus, trivalent, preservative 11/20/2014 completed Not Available [facility] 12/24/2022 04:35:29 Influenza, split virus, quadrivalent, PF 11/04/2021 completed Not Available [facility] 12/24/2022 04:35:30 Influenza, split virus, quadrivalent, PF 11/10/2020 completed Not Available [facility] 12/24/2022 04:35:30 Influenza, split virus, quadrivalent, PF 11/21/2019 completed Not Available [facility] 12/24/2022 04:35:30 Influenza, split virus, quadrivalent, preservative 11/11/2017 completed Not Available [facility] 12/24/2022 04:35:30 COVID-19, mRNA, LNP-S, PF, 100 mcg/0.5mL dose or 50 mcg/0.25mL dose 12/12/2020 completed Not Available [facility] 12/25/19 04:35:31 SARS-COV-2 (COVID-19) vaccine, UNSPECIFIED 03/13/2020 completed Not Available [facility] 12/24/2022 04:35:31 SARS-COV-2 (COVID-19) vaccine, UNSPECIFIED 02/14/2020 completed Not Available [facility] 12/24/2022 04:35:31 Hep B, adult 04/25/2017 completed Not Available [facility] 12/24/2022 04:35:32 Hep B, adult 10/11/2016 completed Not Available [facility] 12/24/2022 04:35:32 influenza, unspecified formulation 11/21/2018 completed Not Available [facility] 12/24/2022 04:35:33 Influenza, split virus, quadrivalent, PF 11/18/2022 completed Not Available [facility] 02/25/2023 05:33:14 Past Encounters Encounter ID Performer Location Encounter Start Date Encounter Closed Date Diagnosis/Indication Diagnosis SNOMED-CT Code Diagnosis ICD10 Code [id number] ADOLFO MCCANN RN [facility] [address] [place] [address] 04/18/2023 10:14:01 04/18/2023 11:09:31 Aphthous ulcer of mouth 690535772 K12.0 [id number] MAYRA BROWNING MD [facility] [place] [address] [address] 07/01/2023 11:44:02 07/01/2023 13:44:06 Screening mammography 05207659 Z12.31 Adult heal th examination 449587707 Z00.00 Hyperlipidemia 32927269 E78.5 Prediabetes 858094956 R7 3.03 Fatigue 95367241 R53.83 Generalize d anxiety disorder 56547788 F41.1 History of polyp of colon 883941958 Z86.010 Hypothyroidism 98049280 E03.9 Vitamin D deficiency 347 90242 E55.9 Screening for malignant neoplasm of colon 902795041 Z12.11 Gastroesop hageal reflux disease without esophagitis 212095091 K21.9 [id number] ADOLFO MCCANN RN [facility] [address] [place] [address] 07/25/2023 12:31:41 07/27/2023 11:31:02 [id number] ADOLFO MCCANN RN [facility] [address] 11/28/2023 09:29:12 11/28/2023 10:16:32 [facility] [id number] E03.9 Health Concerns Section Related Observation LastModified by Organization Detai ls LastModified Time None Recorded Concern Status LastModified by Organization Details LastModified Time None Recorded Advance Directives Directive None Recorded Payers Encounter Date Sequence Insurance Name Policy Number Policy Hester Covered Member ID Hester Member ID Guarantor Name 04/18/2023 1 [place] [facility] Neal S Ike [id number] Neal S Ike 04/18/2023 2 [facility] (MEDICAID) Neal S Ike [id number] Neal S Ike 07/01/2023 1 [place] [facility] ([place]) Neal S Ike [id number] Neal S Ike 07/01/2023 2 [facility] (MEDICAID) Neal S Ike [id number] Neal S Ike 07/25/2023 1 [place] [facility] ([place]) Neal S Ike [id number] Neal S Ike 07/25/2023 2 [facility] (MEDICAID) Neal S Ike [id number] Neal S Ike 11/28/2023 1 [place] [facility] ([place]) Nael S Ike [id number] Neal S Ike 11/28/2023 2 [facility] (MEDICAID) Neal S Ike [id number] Neal S Ike Notes Date Note Type Note Provider Name and Address Organization Details Recorded Time 04/18/2023 text/html HPI Notes: Troub le swallowing. Started 4-5 days ago. No generalized sore throat, no URI symptoms, no fevers or chills, does not fill ill. On the right side, feels like a piece of paper stuck. Feels it when she swallows, or when she talks. She had eaten a spicy sausage. Worried about cancer of her tonsil. ADOLFO MCCANN [facility] [place] [facility] 04/18/2023 11:13:52 07/01/2023 text/html HPI Notes: Here for Annual Exam. Interval history form was reviewed, including comprehensive ROS form. ROS negative throughout with the exception as noted below: Has not had episodes of chest pain or SOB lately. In the past they occurred during [employer] class or during hiking. She never did have her stress test, insurance would not cover. However when she works out at [employer] she gets very shaky, which makes her anxious. She is able to walk without weakness. What she describes is shaking of a muscle when it is under stress. Two episodes when she has had quivering of her mouth. (that makes her worry she has MS) She continues to struggle with her anxiety. Tries to take her alprazolam before she develops a full panic attack. She tried weaning the clonazepam but was just too anxious. Also ran out of her escitalopram for a few days, and was not able to think properly. I think I would need to be in the hospital to wean off. Some days are fine, other days are hard. She never has thoughts of killing herself, just at times wonders about the meaning of it all, why are we alive, only to ? Still has chronic RUQ pain. Not related to eating or activity. Takes the PPI every day. Has had 2 EGDs, second one the metaplasia noted 2 years prior was gone. Not debilitating but always present. Overweight- has been in bad habit of not eating all day, is going to get back on her weight watchers program. Constipation- a bit better, only uses miralax PRN. Gets occasional trouble swallowing, despite taking her PPI daily. Not eating 2-3 hours before bedtime. Scared when it happens, has never had food fully stuck. Hyperlipidemia- takes the statin 2-3 times per week, if she takes more than that she gets aching in her hands. Still has back and knee and shoulder pain. MAYRA BROWNING MD [address], [place], [address], [place] [facility]. 07/01/2023 16:47:30 OBGyn Episode No OBEpisode recorded.
--- OUTSIDE RECORDS SUMMARY | 2023-11-28 18:38 | XMS_ITS | Encounter Summary ---
Author Organization [facility] Address [address] [place] [address] Care Team Providers Care Rough Rounder Machine Name Role Phone Unknown, Provider Primary Care Provider [phone] Encounter Details Date Type Department Care Team (Late st Contact Info) Description 11/29/2022 Lab Requisition [facility] Pathology & Laboratory Medicine - [facility] [address] [place], [place] [address] Mayra Browning MD [address] [place] [phone] Other specified disorders of the skin and subcutaneous tissue Social History Tobacco Use Types Packs/Day Years [...] Priority Date/Time Associated Diagnosis Comments SURGICAL PATHOLOGY Today 11/29/2022 9:00 EDT documented in this encounter Results * SURGICAL PATHOLOGY (11/29/2022 9:00 EDT) Note to Patient The following pathology results have been interpreted by your pathologist and may be available to you before your health provider has had the opportunity to review them. Please allow time for your provider to receive these results and explore management options, if applicable. 12/07/2022 15:34 EDT [facility] Final Diagnosis A. 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 - Dermal fibrosis. 12/07/2022 15:34 [facility] Attestation By the signature below, the attending physician certifies that they have 1) personally conducted a gross and/or microscopic examination of the described specimen(s), and/or personally interpreted the results of laboratory testing of the described specimen(s), and 2) personally rendered or confirmed the above diagnosis. 12/07/2022 15:34 [facility] at 1534 Microscopic Description Multiple deeper sections have been examined. 12/07/2022 15:34 [facility] Clinical History Papule present for years, intermittently bleeds; clinical diagnosis code: L98.8 12/07/2022 15:34 [facility] Gross Description A. Received in formalin labelled with proper patient identification (initials B, R) and left lower arm is a shave biopsy an irregular portillo, centrally portillo-brown and crusted lesion (0.5 x 0.3 x 0.1 cm). The margin is inked blue and the specimen is submitted intact in A1. Radha Reyes 11/30/2022 10:57 12/07/2022 15:34 [facility] Performing Lab [facility] 12/07/2022 15:34 [facility] Scanned Images 12/07/2022 15:34 [facility] Tissue SPECIMEN FROM SKIN / Unknown 11/29/2022 9:00 EDT 11/29/2022 23:00 EDT Mayra Browning MD PATHOLOGY ORDERABLES [facility] [address] [place] [address] documented in this encounter Visit Diagnoses Diagnosis Other specified disorders of the skin and subcutaneous tissue documented in this encounter Care Teams Rough Rounder Machine Relationship Specialty Start Date End Date Unknown, Provider, PCP - General 05/03/13 documented as of this encounter
--- OUTSIDE RECORDS SUMMARY | 2023-11-28 18:38 | XMS_ITS | Encounter Summary ---
[place] [address] Care Team Providers Care Extruding Department Supervisor Name Role Phone RiddleRenetta Dulce ZELAYA Primary Care Provider [phone] Reason for Visit * Reason Comments Skin Check Encounter Details Date Type Department Care Team (Late st Contact Info) Description 08/28/2010 3:30 PM EDT Office Visit Dermatology [address] [facility] [address] [place], [place] [address] Juan Becerra MD [address] [place] [address], [facility] [place] [address] History of basal cell carcinoma (Primary Dx); Acne vulgaris; Sebaceous hyperplasia Social History Tobacco Use Types Packs/Day Years Used Date Smoking Tobacco: Never Assessed Sex and Gender Information Value Date Recorded Sex Assigned at Not on file Gender Identity Not on file Sexual Orientation Not on file documented as of this encounter Progress Notes * Juan Becerra MD - 08/28/2010 4:22 PM EDT Problem: 1. Follow up skin checkup, history of BCCA left medial canthus in February 2010. 2. Acne vulgaris. 3. Status post hysterectomy in 2004. 4. History of anxiety disorder, resistant to option of Isotretinoin. Neal follows up and is doing well. The BCCA site below the left medial canthus has healed well without evidence of recurrence. She has had no lesions or areas on her face that crust, scab, and bleed as this one did. However, she has a spot that she would like me to check. Her acne has been going well. She stopped the methacycline and is just using topicals. She has been doing this for a quite a number of months. Physical examination reveals a pleasant 45-year-old woman who has excellent healing of the BCCA C and D treatment scar just below the medial canthus on the very medial most infraorbital fold. She has quite a number of papules of sebaceous hyperplasia on the forehead and cheeks. She has a somewhat pearly 3-mm papule on the right glabella. She has had it for two years. It has not changed in size. It has never scabbed, crusted, or bled. It bears watching as a new nevus. Most rule out the possibility of BCCA. Acne is minimal today. One or two erythematous papules well within the patients' comfort level. Assessment and Plan: 1. Acne vulgaris. A. Continue current therapy benzoyl peroxide 5% ointment gel. Apply to face q.a.m. after washing. B. Continue tretinoin 1% cream, apply at bedtime to face after washing. Twenty-five grams dispensed with five refills. 2. History of BCCA. A. No evidence of recurrence at the medial canthus site. Repeat check in six months and likely will go to once yearly visits. B. She needs to be followed for the pearly papule 3 mm on the right glabella, which is likely a benign nevus. documented in this encounter Plan of Treatment Not on file documented as of this encounter Visit Diagnoses Diagnosis History of basal cell carcinoma- Primary Personal history of other malignant neoplasm of skin Acne vulgaris Other acne Sebaceous hyperplasia Other specified disease of sebaceous glands documented in this encounter Care Teams Extruding Department Supervisor Relationship Specialty Start Date End Date Renetta Riddle APRN [address] [place] [address] PCP - General 01/06/10 06/24/11 documented as of this encounter
--- OUTSIDE RECORDS SUMMARY | 2023-11-28 18:38 | XMS_ITS | Encounter Summary ---
Author Organization [facility] Address [address] [place] [address] Care Team Providers Care Human Resources Admin Name Role Phone Unavailable Primary Care Provider Unavailabl e Encounter Details Date Type Department Care Team (Late st Contact Info) Description 11/03/2000 Results Only [facility] [address] [place] [address] Pierre Riddle FNP [address] [place], [place] [id number] Social History Tobacco Use Types Packs/Day Years Used Date Smoking Tobacco: Never Assessed Sex and Gender Information Value Date Recorded Sex Assigned at Not on file Gender Identity Not on file Sexual Orientation Not on file documented as of this encounter Plan of Treatment Not on file documented as of this encounter Procedures Procedure Name Priority Date/Time Associated Diagnosis Comments CYTOPATHOLOGY Routine 11/03/2000 0:00 EDT documented in this encounter Results * CYTOPATHOLOGY (11/03/2000 0:00 EDT) Pathology Report: CYTOPATHOLOGY REPORT Reports generated via electronic interface contain original data; however they are lacking the format of the original report. Caution should be taken when reading/interpreti ng unformatted reports. Name: ? SHIRA NEAL ? Accession #: ? [id number] : ? 1965 (Age: 35) ??F ?Collect Date: ? 11/03/2000 Location: ? [facility] ? Receive Date: ? 11/08/2000 Provider: ?PIERRE GARCIAP Copy to: ? Specimen/Source: ?ThinPrep Pap Test, Endocervix Last Menstrual Period: ? 10/30/00 Previous Gynecologic Pathology: ? Yes Treatment History: ? Cryotherapy: of cervix ? SPECIMEN ADEQUACY ? Satisfactory for evaluation. GENERAL CATEGORIZATION ? Within Normal Limits ? Document reviewed and electronically signed by: ? Federica Parker, SCT(ASCP) ? Report Date: ??11/10/2000 08:05 End of Report [facility] RODRIGUEZ 11/03/2000 11/08/2000 Pierre GARCIAP PATHOLOGY ORDERABLES [facility] RODRIGUEZ [address] [place] [address] documented in this encounter Visit Diagnoses Not on filedocumented in this encounter
--- OUTSIDE RECORDS SUMMARY | 2023-11-28 18:38 | XMS_ITS | Encounter Summary ---
Author Organization [facility] Address [facility] [place] [address] Care Team Providers Care Federal Appellate Law Clerk Name Role Phone Rosanna Cintron NATHALIE Primary Care Provider [phone] Reason for Visit * Reason Comments Procedure Encounter Details Date Type Department Care Team (Late st Contact Info) Description 02/20/2018 2:00 PM EST Office Visit Dermatology at [address] [phone] Berta Ellison MD [facility] [address] [place] [address] Encounter for cosmetic procedure Social History Tobacco Use Types Packs/Day Years Used Date Smoking Tobacco: Former Cigarettes Smokeless Tobacco: Never Sex and Gender Information Value Date Recorded Sex Assigned at Not on file Gender Identity Not on file Sexual Orientation Not on file documented as of this encounter Patient Instructions * Patient Instructions* Karissa Rucker LPN - 02/20/2018 2:00 PM EST VBEAM You've made a great choice! The Vbeam procedure is one of the most commonly performed treatments inour office. It is intense, effective and safe. This laser treatment treats redness and blood vessels that detract from a healthy, evenly colored complexion. It also treats the inflammation of rosaceaand acne and can be effective at stimulating collagen growth. Treatments are usually performed as a series. We often suggest 2-5 treatments, performed monthly toobtain substantial improvement. We then advise maintenance treatments every 6-12 months because, whether treating rosacea, sun damage or aging in general, there is always a tendency to re accumulate redness and blood vessels. The best, most long-lasting results are seen in patients who maintain with a good skincare routine that includes excellent sun protection and a retinoid. Discuss this with your provider if you don't have such a regimen. Before Your Vbeam Procedure: ?? Consider taking 400-600 mg Ibuprofen to minimize discomfort during the procedure. ?? Stop all retinols, vitamin C, hydroxy acids 5 days before your treatment. (If on a ZO regimen products to avoid include: C Bright, TE Pads, Exfoliating Icelandic, Vitascrub, Cebatrol, Glycogent, Melamix, Tretinoin, Retamax, Brightenex, Brightamax, Growth Factor, Invisapeel.) Check with your doctor if you are unsure. ?? If you plan to receive numbing cream, please be sure to come 30 min before your appointment timeand tell the front desk agent that you were told to do so. ?? Don't plan a major engagement within one week. (Prolonged swelling is very unlikely but better to be safe and allow a week.) ?? Expect redness and swelling for typically 24 hours. After Your Vbeam Procedure: ?? Apply ice esa as needed for comfort. ?? Avoid heat or sun exposure until redness and swelling subside. ?? Swelling can be minimal to severe. If severe, consider sleeping with the head of your bed elevated. ?? Blood vessels and redness may seem worse than they were before the treatment in some areas. Thisdoesn't mean the treatment wasn't effective. Expect improvement to evolve over the following 3 weeks. ?? OK to resume your normal skin care routine when swelling, sensitivity and redness have resolved (typically 24-48 hours). ?? Avoid sun exposure directly to the skin for 1 week after treatment. Questions and/or concerns please call: ???s appointment receptionist secretary For urgent concerns on weekends or off hours please call [facility] main number and ask for the regional operations manager curbstone setter: or call Dr. Ellison's cell: [phone] documented in this encounter Progress Notes * Berta Ellison MD - 02/20/2018 2:00 PM EST Date of service: 02/20/2018 Provider: Berta Ellison MD Neal Ramires : 1965 PATIENT PREFERENCES: -prefers to be called: Neal VALDES Neal Ramires is a 52 y.o. year old female. Here for V-Beam to her face today. She reports that she tolerated her last V-Beam well but she did not notice any significant changes in her redness. COSMETIC TREATMENT VISIT -Questions or concerns today? No -Any change in health or new diagnosis since last visit?: No -Any new medications?: No -Pt received pre and post instructions? Yes -HSV prophylaxis? None, no hx -Stopped retinoids/ Vitamin C/ AHAs? Yes -Recent sun exposure? No -, lactating or trying to conceive?: No -Recent ibuprofen, aspirin, or other blood thinner? (including ginko biloba, vitamin E ADR: Allergies Allergen Reactions ??? Bactrim [Sulfamethoxazole-Trimethoprim] Other (See Comments) Acute hepatitis ??? Codeine Phosphate CIS - Nausea/Vomiting ??? Metronidazole CIS - Nausea/Vomiting MEDS: Current Outpatient Medications Medication Sig Dispense Refill ??? tretinoin (RETIN-A) [...] 90 tablet 3 No current facility-administered medications for this visit. EXAMINATION: -New findings: Assessment and Plan: #??Vbeam??treatments for??reds?located on full face?? - Number of treatments recommeded:??2-4, monthly treatments?? - Special considerations for this pt:??will plan to have her skin get less oily before starting laser treatments?? - Area of main concern:??central face?? - Before and after instructions given (in AVS):??no?? - HSV prophylaxis needed?:??no??If yes, does pt have rx?:??n/a??date verified:??11/16/17 - oliveros quoted:??$350.00 per treatment for full face?? - See laser log for treatment dates and details -Additional notes: ?? # Sebaceous Gland Hyperplasia:?? -Discussed elective removal. -Quoted $350.00??per session for removal. Patient told to expect 2 treatments?? -Before After Instructions for [facility] given (see AVS) -location of primary concern:??forehead, cheeks?? -special considerations for this patient:??patient aware that she will have small scabs on her facefor a few days after treatment? # Chemoprevention/correction: Emphasized value of retinoid-based skin care system to amplify and maintain benefits of any anti aging plan/procedures. -special considerations:??history of acne??in her 20's -retinoid:?tretinoin 0.05% cream date started:??01/11/18 -ZO skincare regimen: regimen or products:??GSR Oily- exfoliating cleanser, south sudanese, oil control??reviewed by:??DW??date:??11/16/2017?? -instructions in AVS dated??11/16/2017?? -discussed importance of meticulous sun protection ? # Photography: - Date:??11/16/2017?View: Head and Neck Flash?Initials: DW - Date:??11/16/2017?View: Head and Neck No Flash?Initials: DW ?? LASER TREATMENT LOG ?? Date: 01/11/18 Laser: Vbeam Area: full face Spot: 10 Energy(J): 8.5 Pulse Duration: 10 Pulse #: [phone] Paid: $350.00 - $100.00 consult Tx By: RL Notes: Date: 02/20/18 Laser: Vbeam Area: full face Spot: 10 Energy(J): 8.5 Pulse Duration: 10 Pulse #: [id number] Paid: $350.00 Tx By:RL Notes: FOLLOW UP WHEN: PRN FOR WHAT: [facility] removal LENGTH OF VISIT: 30 no double book NUMBING?: no PICTURES NEEDED? No FOLLOW UP WHEN: PRN FOR WHAT: Vbeam LENGTH OF VISIT: 15 NUMBING?: no PICTURES NEEDED? no Cosmetic cost today: $350.00 paid in full upon exiting the clinic today Treatment delivered by Dr. Ellison I am documenting this encounter acting as the scribe for and in the presence of Berta Ellison MD,Karissa Rucker LPN and Sheree Chandler I performed the above scribed service and agree with the accuracy of the documentation in this encounter, MD Berta Matias MD Section of Dermatology documented in this encounter Plan of Treatment Not on file documented as of this encounter Visit Diagnoses Diagnosis Encounter for cosmetic procedure documented in this encounter Care Teams Federal Appellate Law Clerk Relationship Specialty Start Date End Date Rosanna Cintron APRN PCP - General 04/23/14 09/13/18 documented as of this encounter
--- OUTSIDE RECORDS SUMMARY | 2023-11-28 18:38 | XMS_ITS | Encounter Summary ---
Author Organization [facility] Address [facility] [place] [address] Care Team Providers Care Road Repairer Name Role Phone Rosanna Cintron NATHALIE Primary Care Provider Reason for Visit * Reason Comments Procedure Encounter Details Date Type Department Care Team (Late st Contact Info) Description 11/16/2017 8:30 AM EDT Office Visit Dermatology at [address] [id number] Berta Ellison MD [facility] [address] [place] [address] Encounter for cosmetic procedure Social History Tobacco Use Types Packs/Day Years Used Date Smoking Tobacco: Former Cigarettes Smokeless Tobacco: Never Sex and Gender Information Value Date Recorded Sex Assigned at Not on file Gender Identity Not on file Sexual Orientation Not on file documented as of this encounter Patient Instructions * Patient Instructions* Sheree Chandler - 11/16/2017 8:30 AM EDT LASER OLIVEROS QUOTE We discussed Vbeam treatment(s) to your full face . We predict you will need 2-4 treatments to get a meaningful, long lasting result. Those treatments would ideally be spaced 3-6 weeks apart. After that, we recommend you consider maintenance treatments. The cost is $350.00 per treatment. This is not a package oliveros. Maintenance prices would be the same oliveros unless we discuss a new plan. Any quote we give you for a procedure is valid for up to 6 months after your consult. After that, prices are subject to change. If you are unsure about the cost, please ask us to clarify before you undergo your procedure. COSMETIC DERMATOLOGY OLIVEROS QUOTE ?? We discussed hyfrecation treatment(s) for Sebaceous Hyperplasia. ?? The cost is $350.00 per treatment. This is not a package oliveros. ?? Maintenance prices would be the same oliveros unless we discuss a new plan. ?? Any quote we give you for a procedure is valid for up to 6 months after your consult. After that, prices are subject to change. ?? If you are unsure about the cost, please ask us to clarify before you undergo your procedure. SEBACEOUS GLAND HYPERPLASIA (or SGH) What is Sebaceous Gland Hyperplasia? SGH is a common finding in adults. It appears as one or more yellow bumps on the skin that seem to have a central enlarged pore. Squeezing these bumps never clears them, though it may cause some oil (or sebum) to drain. These bumps represent overgrowth of aged skin oil glands. What causes SGH? They are of unknown cause but seem to be genetic. How can I prevent them? A good skin care program that includes a retinoid, skin anti oxidants and exfoliants seems to make them less noticeable but they do not go away unless the glands are destroyed. We do not know if this type of skin care progam can prevent them from appearing but we believe that to be the case (clinical observation that has not been studied). How do you destroy the gland? Our method of destroying SGH involves individual treatment of the lesions with a hyfrecator, or electric heat source. We deliver heat energy to the lesion, using a very fine needle point. Sometimes the needle point must puncture through the skin to deliver enough heat to all of the lobes of the gland. Once that is done, the contents of the gland are soft and can be extracted with a tool we use for pimples ( a comedone extractor). Is it painful? This procedure is mildly to moderately uncomfortable, depending on the area treated (near the nose is more sensitive for example) and on the number and size of the bumps. If you have many of these SGH bumps then we suggest you take Ibuprofen 400-600 mg 1 hour before the procedure andarrive early for numbing. If you would like to numb in advance please tell the senior front end developer when you check in that you are early for that and were told to ask to be brought back when you arrived. How long does it take to heal? Treated areas will bleed focally at times for an hour or two after the procedure. They then heal with a tendency to scab. Any that are large enough to form a noticeablescab should be covered by a bandaid for the first 3-5 days. This will promote faster healing. Most patients find that all areas have healed to the point where they can be concealed by coverup within a week or less. Will it leave a scar? This treatment usually does not leave a scar. Any juvenal it leaves is much smaller than the original bump. It is possible for the treated area to be slightly depressed once the gland is destroyed but this often fills in and improves with time. Red domínguez on the skin are temporaryafter the treatment, resolving at different speeds in different individuals but almost uniformly gone by 2 months. Will they come back? This treatment is very effective at destroying the gland that is causing the bump but it is not uncommon for a second treatment to be needed before the result is permanent. Some glands are very good at regrowing--especially larger ones that have been present for many years. How much does it cost? Your doctor will quote your treatment oliveros which typically ranges between $200 and $500 per session. We oliveros it according to the amount of time needed per session. BEFORE YOUR TREATMENT: ?? Men should shave the morning of the treatment if any of the unwanted lesions are covered by hair. ?? Stop your skincare products 5 days before the procedure if you are using a retinoid (Retamax, Tretinoin, Retin A, Atrelin, Differin, Casper, Brightenex, Brightamax, Growth Factor Plus) a Vitamin Cand/or a hydroxy acid (glycolic, lactic, mandelic or salicylic acid). Ok to resume their use within5 days of the treatment. ?? Take 400-600 mg Ibuprofen 1 hour before your treatment ?? Let your doctor know if you have a history of cold sores and are receiving treatment near any area you have ever had a cold sore. AFTER YOUR TREATMENT: ?? Cover any treated areas that form scabs with a bandaid and Aquaphor (or Vaseline). For many patients, too many lesions were treated to possibly cover with bandaids. In that case, apply Aquaphor (or vaseline) directly to the treated areas 2-3 x per day to protect and encourage faster healing. ?? Avoid any exfoliants or scrubs until each area has healed over (approximately one week). ?? Avoid shaving for 5-7 days. ?? Avoid any other skin procedure (including waxing or facials) for 1 week after. ?? Resume use of retinoids or alpha hydroxy acids 5-7 days after the procedure. ?? Call us if any areas fail to improve steadily or if there is any pain at the treatment site. *Note: We often reserve extra time to give a thorough treatment for SGH. If you are unsure whether you want the procedure you have been booked for, please contact us to discuss so we can use that time slot appropriately. We ask for 2 full business days notice to avoid any charges for late cancellations. VBEAM You've made a great choice! The [...] avoid include: C Bright, TE Pads, Exfoliating Canadian, Vitascrub, Cebatrol, Glycogent, Melamix, Tretinoin, Retamax, Brightenex, Brightamax, Growth Factor, Invisapeel.) Check with your doctor if you are unsure. ?? If you plan to receive numbing cream, please be sure to come 30 min before your appointment timeand tell the senior front end developer that you were told to do so. [...] Questions and/or concerns please call: ???s appointment package delivery driver For urgent concerns on weekends or off hours please call [facility] main number and ask for the railroad dining car steward/stewardess clerk television production: or call Dr. Ellison's cell: [phone] VBeam FAQs What does the Vbeam treat? The Vbeam laser is ideal for treating flushing, blood vessels and blood vessel growths (shah angiomas) on the face and body. These unwanted conditions are often the result of rosacea or sun exposure but can also just be a normal product of aging. What is a procedure like? Treatments are mildly to moderately uncomfortable. The discomfort occurs each time the laser is pulsed and resolves completely in between pulses. There is no lingering pain with this procedure. We apply protective eye patches during your treatment and blow cold air directly onto your skin in order to dampen the sting of the laser pulses. What can I do to prepare for a treatment? Calm patients are more comfortable! If you are nervous about the procedure you will have a less pleasant experience. Be sure to let us know if you have any unanswered questions. You may want to take 400-600 mg of Ibuprofen 1 hour before the procedure. Are there things I should avoid before or after the procedure? We ask that you avoid sun exposure 2weeks before and after your procedure. This is so important for avoiding discoloration as a side effect of the treatment. Avoid saunas, hot tubs or any form of high heat on the face for 24 hours after your procedure. What are the risks? Vbeam procedures are very safe. Blistering and scarring are nearly unheard of. Bruising, swelling and redness are common but avoidable with cautious settings. Can I do this and go back to work? Some patients, especially those who do focal treatments on the nose and cheeks, can go right back to work. Swelling and redness after the procedure are largely a factor of the severity of redness and size/amount of blood vessels going into the procedure. Typicallythe first treatment causes the most redness and swelling. Most patients do not plan any important social or work encounters for 3 days to be careful. How long will my results last? The duration of the benefit from Vbeam treatments is variable. It depends on the activity of the underlying condition. A patient with active rosacea will need more frequent treatments than a person whose rosacea is inactive or well managed by skincare or prescriptions. Results are likely to last longer in patients who avoid triggers for their facial redness (sunlight, hot beverages, spicy food, red wine, stress, poor sleep). How often will I need a treatment? Most patients receive 1-3 treatments, by 3-4 weeks andthen receive a single, maintenance treatment every 6- 12 months. Many patients need even fewer treatments b/c they are so careful about avoiding triggers and are using effective skin care and sun protection at home. YOUR SKIN CARE INSTRUCTIONS FACE AND NECK Overview: This cleansing routine can dramatically reduce breakouts and improve your overall skin health. It???s an important first step. Anyone prone to acne breakouts needs to have a system that eliminates skin oils (contrary to misinformation you may have received about skin oil improving your skin and aging.) An additional benefit of this system is its ability to ???Get Skin Ready?? (GSR) forother helpful ingredients that can be used. Once you tolerate your GSR system, you may benefit froma more comprehensive system that incorporates active ingredients like Vitamin C and retinol. Until then, apply lightweight sunscreens (daily) and moisturizers only as needed. Notify Dr. Ellison if you experience excessive irritation and need solutions. AM 11. Exfoliating Cleanser: Wash face with lukewarm water. 12. Exfoliating Canadian: Apply to moistened face, massage for 60 seconds and rinse. Start 1-2 times per week and increase to 5-7 days per week. Stinging is normal. See information below. 13. Oil Control Pads: Pat face dry with towel then apply Oil Control Pads. Use 1 pad to wipe face and neck. You can put that same pad back in the container and use the other side at night time. Stinging is normal. 14. Daily sunblock: we can make suggestions but use what you have for now. PM 14. Exfoliating Cleanser 15. Oil Control Pads 16. Your usual night time product *I plan to add a nighttime retinol and gradually increase its strength. OK to use a lightweight moisturizer if you feel you absolutely need it here. General Precautions *Stop the following products 5 days before any skin procedure (waxing, laser, chemical peel or facials): Dual Action Scrub Oil control Pads Sun Precautions *All of the products listed above as having potential to increase your skin sensitivity will also increase your risk of sunburn and possibly make you susceptible to discoloration if you use them without also taking sun precautions. Your regimen should include a sunscreen. Ideally, one with zinc and titanium as main ingredients. You should also seek shade when possible. Sun exposure interferes with every healthy skin goal. Do not stop your regimen in the summertime. Your skin is healthier on this program. Just be sure not to get unprotected and/or heavy sun exposure. Avoid any direct sunlight on your face (protected or not) whenever you are experiencing redness, peeling or sensitivity as youadjust to your skin care regimen Products that Require Extra Information Oil Control Pads: Designed as a toner for Oily or Combination Skin. Meant to be used twice a day. Help control oil and breakouts as well as improve texture and pores. Contain mandelic acid is great for Rosacea prone skin as well as acneic or just oily skin. Cebatrol feels harsh at first but your skin will adjust andbecome stronger with sustained use. Exfoliating Canadian: Benefits: 1) Increases circulation and skin turnover 2) Enhances penetration of other products you use 3) Helps to remove , dry skin generated from the use of a retinoid (when you start your retinoid you???ll likely experience this.) The general instructions are to apply it to a moistened face. When you really need to remove skin, and/or as you get used to this product, you may want to try using it with a less moistened-almost dry face. That heightens the microdermabrasion effect. Safe to go near the eyes (to the ???bony rim?? ). documented in this encounter Progress Notes * Deion Hall LPN - 11/16/2017 8:30 AM EDT DERMATOLOGY COSMETIC CONSULT Date of service: 11/16/2017 Neal Ramires : 1965 Provider: Berta Ellison MD Chief Complaint Patient presents with ??? Procedure HPI Neal Ramires is a 52 y.o. year old female. 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 ROS General: feeling well Skin: denies other skin complaints PMH: Any chronic medical conditions: anxiety and panic. SKIN HX: None HSV Hx and Details no SH: Tobacco: former ETOH: rarely ADR: Allergies Allergen Reactions ??? Bactrim [Sulfamethoxazole-Trimethoprim] Other (See Comments) Acute hepatitis ??? Codeine Phosphate CIS - Nausea/Vomiting ??? Metronidazole CIS - Nausea/Vomiting MEDS: Current Outpatient Prescriptions Medication Sig Dispense Refill ??? ALPRAZolam (XANAX) 1 mg Tablet Take [...] No current facility-administered medications for this visit. Examination General: Appears well, no distress Assessment and Plan: # Vbeam treatments for reds located on full face - Number of treatments recommeded: 2-4, monthly treatments - Special considerations for this pt: will plan to have her skin get less oily before starting laser treatments - Area of main concern: central face - Before and after instructions given (in AVS): no - HSV prophylaxis needed?: no If yes, does pt have rx?: n/a date verified: 11/16/17 - oliveros quoted: $350.00 per treatment for full face - See laser log for treatment dates and details -Additional notes: # Sebaceous Gland Hyperplasia: -Discussed elective removal. -Quoted $350.00 per session for removal. Patient told to expect 2 treatments -Before After Instructions for SGH given (see AVS) -location of primary concern: forehead, cheeks -special considerations for this patient: patient aware that she will have small scabs on her face for a few days after treatment # Chemoprevention/correction: Emphasized value of retinoid-based skin care system to amplify and maintain benefits of any anti aging plan/procedures. -special considerations: history of acne in her 20's -retinoid: Will add at next visit date started: n/a -ZO skincare regimen: regimen or products: GSR Oily- exfoliating cleanser, belarusian, oil control reviewed by: TY date: 11/16/2017 -instructions in AVS dated 11/16/2017 -discussed importance of meticulous sun protection # Photography: - Date: 11/16/2017 View: Head and Neck Flash Initials: DW - Date: 11/16/2017 View: Head and Neck No Flash Initials: TY Pt paid:$150.00 consult fee paid in full upon exiting the clinic today Instructions: Handout: yes FOLLOW UP WHEN: PRN FOR WHAT: SGH removal LENGTH OF VISIT: 30 no double book NUMBING?: no PICTURES NEEDED? no FOLLOW UP WHEN: PRN FOR WHAT: Vbeam LENGTH OF VISIT: 15 NUMBING?: no I am documenting this encounter acting as the scribe for and in the presence of Dr.Lucas DEION HALL, ARSEN and Sheree Chandler I performed the above scribed service and agree with the accuracy of the documentation in this encounter. Berta Ellison MD Section of Dermatology [facility] documented in this encounter Plan of Treatment Not on file documented as of this encounter Visit Diagnoses Diagnosis Encounter for cosmetic procedure documented in this encounter Care Teams Road Repairer Relationship Specialty Start Date End Date Rosanna Cintron APRN PCP - General 04/23/14 09/13/18 documented as of this encounter
--- OUTSIDE RECORDS SUMMARY | 2023-11-28 18:38 | XMS_ITS | Encounter Summary ---
Author Organization [facility] Address [address] [place] [address] Care Team Providers Care Building Mover Name Role Phone Unavailable Primary Care Provider Unavailabl e Encounter Details Date Type Department Care Team (Latest Contact Info) Description 04/30/2013 14:39 EDT - 04/30/2013 23:59 EDT Hospital Encounter [address] [address] Unknown, Provider, Discharge Disposition: Home or Self Care Social History Tobacco Use Types Packs/Day Years Used Date Smoking Tobacco: Never Assessed Sex and Gender Information Value Date Recorded Sex Assigned at Not on file Gender Identity Not on file Sexual Orientation Not on file documented as of this encounter Discharge Disposition Disposition Code Departure Means Destination Home or Self Alf documented in this encounter Plan of Treatment Not on file documented as of this encounter Visit Diagnoses Not on filedocumented in this encounter
--- OUTSIDE RECORDS SUMMARY | 2023-11-28 18:38 | XMS_ITS | Encounter Summary ---
Author Organization [facility] Address [address] [place] [address] Care Team Providers Care Beer Maker Name Role Phone Unknown, Provider Primary Care Provider [phone] Encounter Details Date Type Department Care Team (Late st Contact Info) Description 09/18/2021 Lab Requisition [facility] Pathology & Laboratory Medicine - [facility] [address] [place] [address] Outr Resulting Lab, Provider Social History Tobacco [...] Comments ZZCOVID-19 TEST [facility] PCR Today 09/18/2021 9:27 EDT COVID-19 TESTING Routine 09/18/2021 9:27 EDT documented in this encounter Results * COVID-19 TEST [facility] PCR (09/18/2021 9:27 EDT) Swab 09/18/2021 9:27 EDT 09/18/2021 21:46 EDT Provider Outr Resulting Lab MICROBIOLOGY - GENERAL ORDERABLES [facility] [address] [place] [address] * COVID-19 TESTING (09/18/2021 9:27 EDT) COVID-19 rt-PCR Result Negative Negative 09/19/2021 1:34 EDT [facility] Comment: This test has [...] history, and epidemiological information. Performed on the [employer] Fusion instrument Performing Lab [place] [facility] Lab 09/19/2021 1:34 EDT [facility] Swab 09/18/2021 9:27 EDT 09/18/2021 21:46 EDT Provider Outr Resulting Lab MICROBIOLOGY - GENERAL ORDERABLES [facility] [address] [place] [address] documented in this encounter Visit Diagnoses Not on filedocumented in this encounter Care Teams Beer Maker Relationship Specialty Start Date End Date Unknown, Provider, PCP - General 05/03/13 documented as of this encounter
--- OUTSIDE RECORDS SUMMARY | 2023-11-28 18:38 | XMS_ITS | Encounter Summary ---
Author Organization [facility] Address [address] [place] [address] Care Team Providers Care Sand System Operator Name Role Phone Unknown, Provider Primary Care Provider [phone] Encounter Details Date Type Department Care Team (Late st Contact Info) Description 03/06/2021 Lab Requisition [facility] Pathology & Laboratory Medicine - [facility] [address] [place] [address] Outr Resulting Lab, Provider Social History Tobacco [...] Comments ZZCOVID-19 TEST [facility] PCR Today 03/05/2021 13:46 EST COVID-19 TESTING Routine 03/05/2021 13:4 6 EST documented in this encounter Results * COVID-19 TEST [facility] PCR (03/05/2021 13:46 EST) Swab 03/05/2021 13:4 6 EST 03/06/2021 17:35 EST Provider Outr Resulting Lab MICROBIOLOGY - GENERAL ORDERABLES [facility] [address] [place] [address] * COVID-19 TESTING (03/05/2021 13:46 EST) COVID-19 rt-PCR Result Negative Negative 03/07/2021 13:19 EST [facility] Comment: This test has [...] clinical observations, patient history, and epidemiological information. Testing was performed using the curtis SARS-CoV-2 assay ([employer] on the Curtis 6800 System Performing Lab [address] [facility] Lab 03/07/2021 13:19 EST [facility] Swab 03/05/2021 13:4 6 EST 03/06/2021 17:35 EST Provider Outr Resulting Lab MICROBIOLOGY - GENERAL ORDERABLES [facility] [address] [place] [address] documented in this encounter Visit Diagnoses Not on filedocumented in this encounter Care Teams Sand System Operator Relationship Specialty Start Date End Date Unknown, Provider, PCP - General 05/03/13 documented as of this encounter
--- OUTSIDE RECORDS SUMMARY | 2023-11-28 18:38 | XMS_ITS | Encounter Summary ---
Author Organization [facility] Address [address] [place] [address] Care Team Providers Care Staff Midwife/Apprenticeship Director Name Role Phone Unavailable Primary Care Provider Unavailabl e Encounter Details Date Type Department Care Team (Late st Contact Info) Description 07/21/2000 Results Only [facility] - Maple conversion [address] [place] [address] Pierre Riddle FNP [address] [place], [place] [id number] Social History Tobacco Use Types Packs/Day Years Used Date Smoking Tobacco: Never Assessed Sex and Gender Information Value Date Recorded Sex Assigned at Not on file Gender Identity Not on file Sexual Orientation Not on file documented as of this encounter Plan of Treatment Not on file documented as of this encounter Procedures Procedure Name Priority Date/Time Associated Diagnosis Comments CYTOPATHOLOGY Routine 07/21/2000 0:00 EDT documented in this encounter Results * CYTOPATHOLOGY (07/21/2000 0:00 EDT) Pathology Report: CYTOPATHOLOGY REPORT Reports generated via electronic interface contain original data; however they are lacking the format of the original report. Caution should be taken when reading/interpreti ng unformatted reports. Name: ? SHIRA NEAL ? Accession #: ? [id number] : ? 1965 (Age: 35) ??F ?Collect Date: ? 07/21/2000 Location: ? [facility] ? Receive Date: ? 07/25/2000 Provider: ? PIERRE RIDDLE SPINNING AND WINDING SUPERVISOR Copy to: ? CYTOLOGIC DIAGNOSIS: ? Tongue scraping, cytologic material: - No malignant cells identified. ??See comment. ? COMMENT: ? The single prepared slide demonstrates bland squamous epithelial cells and bacterial colonies. ??There is no accompanying inflammation and no evidence of viral infection. ??(Dr. Trivedi)/[facility] Document reviewed and electronically signed by: ? Amanda Trivedi MD Report Date: ??07/25/2000 16:04 By the signature above, the attending physician certifies that he/she has personally conducted a gross and/or microscopic examination of the described specimens and rendered or confirmed the above diagnosis. Specimen Type: ? Scraping of Tongue lesion Clinical History: ? Tongue lesion. ? Gross Description: ? 1 fixed prepared slide was received and processed. ? End of Report BARB RODRIGUEZ 07/21/2000 07/25/2000 9:4 4 EDT Pierre Riddle [facility] PATHOLOGY ORDERABLES BARB RODRIGUEZ [address] [place] [address] documented in this encounter Visit Diagnoses Not on filedocumented in this encounter
--- OUTSIDE RECORDS SUMMARY | 2023-11-28 18:38 | XMS_ITS | Encounter Summary ---
Author Organization [facility] [place] [address] Care Team Providers Care Roller Painter Name Role Phone Rosanna Cintron APRN Primary Care Provider [phone] Reason for Visit * Reason Comments Hypothyroidism * Consultation (Routine) - Closed Specialty Diagnoses / Procedures Referred By Yoana bal Referred To Contact Endocrinology Diagnoses hypothroid Rosanna Cintron APRN [address] [place] [address] [facility] [address] [place] [address] [facility] [address] [place] [id number] Referral ID Status Reason Start Date Expiration Date V isits Requested Visits Authorized [id number] Closed Consult, [facility] 12/17/2016 12/17/2017 1 1 Encounter Details Date Type Department Care Team (Late st Contact Info) Description 12/21/2016 1:00 PM EST Office [place] [phone] Darwin Torrez MD [facility] [address] Spring Figueroa MD [facility] [place] [address] Hypothyroidism, unspecified type; Vitamin D deficiency Social History Tobacco Use Types Packs/Day Years Used Date Smoking Tobacco: Former Cigarettes Smokeless Tobacco: Never Sex and Gender Information Value Date Recorded Sex Assigned at Not on file Gender Identity Not on file Sexual Orientation Not on file documented as of this encounter Last Filed Vital Signs Vital Sign Reading [...] Mass Index 29.63 12/21/2016 1:05 PM EST documented in this encounter Patient Instructions * Patient Instructions* Spring Figueroa MD - 12/21/2016 1:00 PM EST Please go down to lab at 3L for blood work today. I will call you with the results. We have increased your levothyroxine from 75mcg daily to 88mcg by mouth daily. We will need repeat blood work in 3 months. Once those results return, we will call you with results. Thank you for your patience. documented in this encounter Progress Notes * Spring Figueroa MD - 12/21/2016 1:00 PM EST Images from the original note were not included. New Patient in Clinic History & Physical Name: Neal Ramires Date: 12/21/2016 Chief complaint/Reason for referral: Hypothyroidism HPI: Patient is a 51 y.o. female presents to clinic as a new patient. She has a PMH of hypothyroidism diagnosed about 5 years ago through routine blood tests. She has had her thyroid function checkedthrough the years due to chronic anxiety and panic disorder. She was initially placed on LT4 25mcg po initially and gradually it was increased and now she is taking LT4 75mcg po daily. She has been on this dose since last year in September. Takes medication first thing in the morning, by itself and wait about 30 min to eat or drink anything else. Takes Vitamin D3 1000 IU when she remembers mostly inthe mornings, denies taking MV or calcium, denies taking biotin supplements. Denies PPI use also. She is here today to us after physical with her PCP. She states she keeps getting cold chills in her thighs - like goosebumps - that would not go away. Addtionally, when she would climb stairs, she feels tachycardic and dyspneic, she has been gaining weight of about 12lbs in about 2 months despite not eating more. Does state that she is not as physically active due to increased back pain (but she is going to PT for this now). She has no energy, she states she can sleep 24/7. Chronically constipated, not a new issue. Was diagnosed with Vitamin D deficiency about 1 year ago and was placed on 1000 IU daily. 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 atorvastatin (LIPITOR) 10 mg Tablet ??? cholecalciferol, Vitamin D3, 1,000 unit Capsule ??? escitalopram (LEXAPRO) 10 mg Tablet ??? levothyroxine (SYNTHROID) 75 mcg tablet ??? ALPRAZolam (XANAX) 1 mg Tablet ??? clonazePAM (KLONOPIN) 0.5 mg Tablet Review of Systems: Gen: ++ fatigue, - weakness, - night sweats, weight gain 12 lbs in 2 months Head: some pressure headaches ENT: - swelling/puffiness around eyes, denies tinnitus or decreased hearing, chronic dysphagia CV: denies chest pain, + intermittent palpitations/skipped heart beats, +mild edema in b/l LE Resp: denies shortness of breath on exertion, denies cough GI: endorses constipation, denies abdominal pain, +nausea/-vomiting : denies dysuria, increased urgency or frequency Musk: some diffuse myalgias & arthralgias Neuro: denies numbness/tingling in fingers or toes. Skin: denies dry/ coarse/cracked skin Physical Exam: BP 109/69 Pulse 65 Ht 156.8 cm (5' 1.75) Wt 72.9 kg (160 lb 11.2 oz) BMI 29.63 kg/m2 GEN: Pleasant female, who appears stated age, NAD. EYES: PERRL B/L, EOMi b/l; no periorbital edema or loss of eyebrows NECK: Trachea midline, no neck masses; no thyromegaly; no cervical lymphadenopathy noted MOUTH: No enlargement of tongue CHEST: +air entry b/l CV: +s1, s2 nl RRR ABD: +BS, soft, NT/ND MSK: Normal gait SKIN: Warm and dry; no cracked skin noted on my exam NEURO: AAOX 4, 5/5 strength in b/l UE & LE, no delayed relaxation of tendon reflexes Labs: \ THYROID ULTRASOUND Date: 12/21/2016 Indication: thyroid nodule Comparison: None Real time images of the thyroid gland were obtained during this examination. All measurements are given as Longitudinal x AP x Transverse. Right Lobe: The right lobe measures 2.5 cm x 2.1cm x 1.4 cm with an echo-texture that is heterogenous. Left Lobe: The left lobe measures 2.4 cm x1.4 cm x1.4cm with an echo-texture that is heterogenous. Isthmus: The isthmus measures 0.4 cm in the AP dimension with an echo-texture that is isoechoic. 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 There are no nodules visualized in the thyroid gland in either lobe. Images reviewed with the attending Dr. Torrez prior to compiling this report. Assessment/Plan Neal Ramires is a 51 y.o. female with PMH significant for hypothyroidism who presents to clinic with symptoms of fatigue, some cold intolerance, and weight gain. She has a recent TSH done of 3.70 and we think that some patients tend to feel better when their TSH ranges between 1.0-2.5 or so and because her US of thyroid gland is consistent with Rodger's (which we will confirm with TPO ab today), we think eventually she will require full weight based dose for replacement. Her full weight based dose is 112mcg po daily and she is currently on 75mcg. We would recommend increasing her to [id number] po daily and will recheck TFTs in 3 months. Will readjust dose in 3 months if needed. Due to her PMH of vitamin D def, we will also check her vitamin D levels today. We will also screenher for additional autoimmune condition - vitamin B12 deficiency which could also contribute to herfatigue. Will call her once results return. We would recommend that her PCP check her TFTs every year and she likely will need dose adjustmentsto keep her TSH in between 1.0 - 2.5 for her to symptomatically feel her best. This case was discussed fully with my attending physician, Dr. Torrez. Thank you, Spring Figueroa MD Endocrinology Fellow, PGY-5 12/21/2016 * Darwin Torrez MD - 12/21/2016 1:00 PM EST I have seen the patient and reviewed Dr. Molina's above history and I agree with the details as written. The assessment and plan were formulated in discussion with me and I agree with them as documented. I also directly supervised thyroid US and agree with the findings as written. Darwin Torrez MD, PhD, FACP, FACE documented in this encounter Miscellaneous Notes * Addendum Note - Spring Figueroa MD - 12/21/2016 2:35 PM ESTAddended by: SPRING FIGUEROA on: 12/21/2016 02:35 PM Modules accepted: Orders * Addendum Note - Nathen Cuenca - 12/21/2016 2:13 PM ESTAddended by: NATHEN CUENCA on: 12/21/2016 02:13 PM Modules accepted: Orders documented in this encounter Plan of Treatment Not on file documented as of this encounter Procedures Procedure Name Priority Date/Time Associated Diagnosis Comments GREEN TUBE HOLD Routine 12/21/2016 2:22 PM EST THYROID PEROXIDASE ANTIBODY Routine 12/21/2016 2:22 PM EST Hypothyroidism, unspecified type Vitamin D deficiency VITAMIN D, 25-HYDROXY Routine 12/21/2016 2:22 PM EST Hypothyroidism, unspecified type Vitamin D deficiency VITAMIN B12 Routine 12/21/2016 2:22 PM EST Hypothyroidism, unspecified type Vitamin D deficiency documented in this encounter Results * Green Tube HOLD (12/21/2016 2:22 PM EST) Green Hold Sample in lab. [facility] Blood specimen (specimen) No Charge / Unknown 12/21/2016 2:22 PM EST 12/21/2016 2:29 PM EST Spring Figueroa MD CHEMISTRY ORDERABLES Performing Organization Address City/[facility]/ZIP Co de Phone Number [facility] [place] [address] * Vitamin B12 (12/21/2016 2:22 PM EST) Vitamin B12 656 207 - 974 pg/mL [facility] Blood specimen (specimen) 12/21/2016 2:22 PM EST 12/21/2016 2:29 PM EST Narrative Resulting Agency Comment Spec In Lab Darwin Torrez MD CHEMISTRY ORDERAB LES Performing Organization Address City/[facility]/ZIP Co de Phone Number [facility] [place] [address] * (ABNORMAL) Thyroid peroxidase antibody (12/21/2016 2:22 PM EST) Thyroperoxidase Ab 1,530(H) <=34 IU/mL [facility] Blood specimen (specimen) 12/21/2016 2:22 PM EST 12/21/2016 2:29 PM EST Narrative Resulting Agency Comment Spec In Lab Darwin Torrez MD IMMUNOLOGY ORDERA BLES Performing Organization Address City/[facility]/ZIP Co de Phone Number [facility] [place] [address] * Vitamin D, 25-Hydroxy (12/21/2016 2:22 PM EST) Vitamin D Total 25 OH 30 30 - 100 ng/mL [facility] Comment: Deficient <10 ng/mL Insufficient 10 to 29 ng/mL Sufficient 30 to 100 ng/mL Potential Intoxication >100 ng/mL According to the [place] National Osteoporosis Foundation, Vitamin D concentrations >30 ng/mL are sufficient to protect bone health. ??The National Kidney Foundation has similarly stated that patients with Vitamin D concentrations <30ng/mL should be considered to be insufficient or deficient. http://S[employer]nikBot/nkf-guidelines http://SputnikBot/nejm-VitD The [employer] iSYS Vitamin D Immunoassay detects both 25-OH Vitamin D2 and 25-OH Vitamin D3, but only a total Vitamin D concentration is reported. Blood specimen (specimen) 12/21/2016 2:22 PM EST 12/22/2016 7:32 AM EST Narrative Resulting Agency Comment Spec In Lab Darwin Torrez MD CHEMISTRY ORDERAB LES Performing Organization Address City/[facility]/ZIP Co de Phone Number [facility] [place] [address] documented in this encounter Visit Diagnoses Diagnosis Hypothyroidism, unspecified type Vitamin D deficiency Unspecified vitamin D deficiency documented in this encounter Care Teams Roller Painter Relationship Specialty Start Date End Date Rosanna Cintron APRN PCP - General 04/23/14 09/13/18 documented as of this encounter
--- OUTSIDE RECORDS SUMMARY | 2023-11-28 18:38 | XMS_ITS | Encounter Summary ---
Author Organization [facility] Address [address] [place] [address] Care Team Providers Care Grubber Name Role Phone Unavailable Primary Care Provider Unavailabl e Encounter Details Date Type Department Care Team (Late st Contact Info) Description 08/16/2002 Results Only [facility] - Maple conversion [address] [place] [address] Pierre Riddle FNP [address] [place], [place] [id number] Social History Tobacco Use Types Packs/Day Years Used Date Smoking Tobacco: Never Assessed Sex and Gender Information Value Date Recorded Sex Assigned at Not on file Gender Identity Not on file Sexual Orientation Not on file documented as of this encounter Plan of Treatment Not on file documented as of this encounter Procedures Procedure Name Priority Date/Time Associated Diagnosis Comments CYTOPATHOLOGY Routine 08/16/2002 0:00 EDT documented in this encounter Results * CYTOPATHOLOGY (08/16/2002 0:00 EDT) Pathology Report: CYTOPATHOLOGY REPORT Reports generated via electronic interface contain original data; however they are lacking the format of the original report. Caution should be taken when reading/interpreti ng unformatted reports. Name: ? SHIRA NEAL ? Accession #: ? [id number] : ? 1965 (Age: 37) ??F ?Collect Date: ? 08/16/2002 Location: ? [facility] ? Receive Date: ? 08/21/2002 Provider: ?PIERRE GARCIAP Copy to: ? Specimen/Source: ?ThinPrep Pap Test, Cervix/Endocervix Last Menstrual Period: ? 07/17 Previous Gynecologic Pathology: ? Yes: years ago Treatment History: ? Miscellaneous treatment: Abx for episode of gonorrhea age 17 Other: ? HPVA - HPV testing requested if ASC-US on the current ThinPrep Pap test. ? SPECIMEN ADEQUACY ? Satisfactory for Evaluation - transformation zone component present - scant squamous epithelial component secondary to excessive blood GENERAL CATEGORIZATION ? Negative for Intraepithelial Lesion or Malignancy ? Document reviewed and electronically signed by: ? ALISE Upton(ASCP) ? Report Date: ??08/23/2002 14:12 End of Report BARB RODRIGUEZ 08/16/2002 08/21/2002 Pierre GARCIAP PATHOLOGY ORDERABLES Performing Organization Address City/State/[facility] Co de Phone Number BARB RODRIGUEZ [address] [place] [address] documented in this encounter Visit Diagnoses Not on filedocumented in this encounter
--- OUTSIDE RECORDS SUMMARY | 2023-11-28 18:38 | XMS_ITS | Encounter Summary ---
Author Organization [facility] Address [address] [place] [address] Care Team Providers Care Manager Materials Management Name Role Phone Unavailable Primary Care Provider Unavailabl e Encounter Details Date Type Department Care Team (Late st Contact Info) Description 04/14/[address] [facility] - Maple conversion [address] [place] [address] Kesha Bean, [facility] [address] [place] [phone] Social History Tobacco Use Types Packs/Day Years Used Date Smoking Tobacco: Never Assessed Sex and Gender Information Value Date Recorded Sex Assigned at Not on file Gender Identity Not on file Sexual Orientation Not on file documented as of this encounter Plan of Treatment Not on file documented as of this encounter Procedures Procedure Name Priority Date/Time Associated Diagnosis Comments CYTOPATHOLOGY Routine 04/14/2007 0:00 EST documented in this encounter Results * CYTOPATHOLOGY (04/14/2007 0:00 EST) Pathology Report: CYTOPATHOLOGY REPORT Reports generated via electronic interface contain original data; however they are lacking the format of the original report. Caution should be taken when reading/interpreti ng unformatted reports. Name: ? SHIRA NEAL ? Accession #: ? [id number] : ? 1965 (Age: 41) ??F ?Collect Date: ? 04/14/2007 Location: ? [facility] ? Receive Date: ? 04/17/2007 Provider: ?KESHA BEAN RECEIVING WORKER Copy to: ? Specimen/Source: ?ThinPrep Pap Test, Vagina, processed on [employer] ThinPrep Imaging System, with manual evaluation Last Menstrual Period: ? Treatment History: ? Hysterectomy: 06/18 Other: ? HPVA - HPV testing requested if ASC-US on the current ThinPrep Pap test. ? SPECIMEN ADEQUACY ? Satisfactory for Evaluation - assessment of transformation zone component not applicable ( e.g. atrophy, vaginal sample, hysterectomy) GENERAL CATEGORIZATION ? Negative for Intraepithelial Lesion or Malignancy ? Document reviewed and electronically signed by: ? AMALIA Walsh(ASCP) ? Report Date: ??04/19/2007 10:04 End of Report BARB RODRIGUEZ 04/14/2007 04/17/2007 Kesha Bean RECEIVING WORKER PATHOLOGY ORDERABLES Performing Organization Address City/State/[facility] Co de Phone Number BARB RODRIGUEZ [address] [place] [address] documented in this encounter Visit Diagnoses Not on filedocumented in this encounter
--- OUTSIDE RECORDS SUMMARY | 2023-11-28 18:38 | XMS_ITS | Encounter Summary ---
Author Organization [facility] Address [address] [place] [address] Care Team Providers Care Ore Miner Name Role Phone Unavailable Primary Care Provider Unavailabl e Encounter Details Date Type Department Care Team (Late st Contact Info) Description 05/22/2004 Results Only [facility] - Maple conversion [address] [place] [address] Jerry Borrego MD [address] [place] [address] Social History Tobacco Use Types [...] Priority Date/Time Associated Diagnosis Comments CYTOPATHOLOGY Routine 05/22/2004 0:00 EDT documented in this encounter Results * CYTOPATHOLOGY (05/22/2004 0:00 EDT) Pathology Report: CYTOPATHOLOGY REPORT Reports generated via electronic interface contain original data; however they are lacking the format of the original report. Caution should be taken when reading/interpreti ng unformatted reports. Name: ? SHIRA NEAL ? Accession #: ? [id number] : ? 1965 (Age: 39) ??F ?Collect Date: ? 05/22/2004 Location: ? [facility] ? Receive Date: ? 2004 Provider: ?JERRY BORREGO MD Copy to: ? Specimen/Source: ?ThinPrep Pap Test, Cervix/Endocervix Last Menstrual Period: ? 05/03/04 Treatment History: ? Cryotherapy: 1994 Other: ? Additional clinical information: Patient is scheduled for LAVH/BSO, H/O Abnormal paps HPVA - HPV testing requested if ASC-US on the current ThinPrep Pap test. ? SPECIMEN ADEQUACY ? Satisfactory for Evaluation - transformation zone component present GENERAL CATEGORIZATION ? Negative for Intraepithelial Lesion or Malignancy ? Document reviewed and electronically signed by: ? AMALIA Mendiola(ASCP) ? Report Date: ??05/27/2004 13:36 End of Report BARB RODRIGUEZ 05/22/2004 2004 Jerry Borrego MD PATHOLOGY ORDERABLES Performing Organization Address City/State/[facility] Co de Phone Number BARB RODRIGUEZ [address] [place] [address] documented in this encounter Visit Diagnoses Not on filedocumented in this encounter
--- OUTSIDE RECORDS SUMMARY | 2023-11-28 18:38 | XMS_ITS | Encounter Summary ---
Author Organization [facility] Address [address] [place] [address] Care Team Providers Care Finance Intern Name Role Phone Unavailable Primary Care Provider Unavailabl e Encounter Details Date Type Department Care Team (Late st Contact Info) Description 06/24/2004 Results Only [facility] [address] [place] [address] Jerry Borrego MD [address] [place] [address] Social History Tobacco Use Types [...] Date/Time Associated Diagnosis Comments SURGICAL PATHOLOGY Routine 06/24/2004 0:00 EDT documented in this encounter Results * SURGICAL PATHOLOGY (06/24/2004 0:00 EDT) Pathology Report: SURGICAL PATHOLOGY REPORT Reports generated via electronic interface contain original data; however they are lacking the format of the original report. Caution should be taken when reading/interpreti ng unformatted reports. Name: ? IKENEAL RODRIGUEZ ? Accession #: ? [id number] ? : ? 1965 (Age: 39) ??F ? Collect Date: ? 06/24/2004 ? Location: ? [facility] ? Receive Date: ? 06/24/2004 ? Provider: JERRY BORREGO MD Copy to: PIERRE ARMSTRONG HEDIS ANALYST ? Final Pathologic Diagnosis: A. ?Peritoneum, pelvic sidewall, right, biopsy: 1. ?Cauterized fibroadipose tissue with no specific pathologic features. B. ?Uterus, fallopian tubes, and ovaries, simple hysterectomy and bilateral salpingo-oophorect pete: 1. ?Endometrium: ? - Predominantly basalis. 2. ?Myometrium: ? - No pathologic features. 3. ?Cervix and portion of vaginal mucosa: ? - No significant pathologic features. 4. ?Serosa: ? - Fibrous adhesions. 5. ?Ovary, right: ? - Tubo-ovarian adhesions. 6. ?Ovary, left: ? - No specific pathologic features. 7. ?Fallopian tube, right: ? - Hydrosalpinx with chronic salpingitis. - Paratubal cysts. 8. ?Fallopian tube, left: ? - Hydrosalpinx with chronic follicular salpingitis. ??See comment. Comment: ? Law Writer sections of (B) have been reviewed. ??(Dr. Lam)/[facility] Document reviewed and electronically signed by: DENZEL LAM MD Report ??Date: 06/26/2004 17:38 By the signature above, the attending physician certifies that he/she has personally conducted a gross and/or microscopic examination of the described specimens and rendered or confirmed the above diagnosis. Specimen(s) Received: ? A. R pelvic sidewall (#1) B. Uterus & ovaries (#2) Clinical History: ? Pelvic pain, chronic PID Gross Description: ? Received in formalin labeled Ike and right pelvic sidewall is a 0.6 x 0.4 x 0.3 cm, white-pink, focally hemorrhagic portion of soft tissue. ??The specimen is inked, bisected, and entirely submitted as (A). Received in formalin labeled Ike and uterus and ovaries is a 159 gram hysterectomy specimen with attached tubes and ovaries which measures 11.5 cm from cervix to fundus, 5.0 cm from cornu to cornu, and 4.5 cm from anterior to posterior. ??The serosa is portillo-pink with hemorrhagic adhesions on the posterior lower uterine segment. ??The portillo-white glistening endometrium averages 0.1 cm in thickness. ??The portillo-pink trabeculated myometrium averages 2.3 cm in thickness. The endocervix is portillo-white, smooth, and hyperemic. ??The ectocervix is portillo-pink, smooth, and hemorrhagic surrounding the os. ??There is a minimal amount of wrinkled portillo-pink vaginal mucosa attached to the posterior cervix. ??The 20 gram, 3.9 x 2.5 x 1.2 cm, right ovary is adherent to the right fallopian tube. ??The ovarian serosa is white-pink and lobulated. ??Cut sections reveal portillo-pink stroma. ??The adherent 7.0 cm segment of fallopian tube has a distended tip and ranges from 0.6 to 2.0 cm in diameter. ??The serosa shows exudate at the dilated tip. ??A 1.9 cm paratubal cyst is present. ??Upon cut section, the lumen contains a moderate amount of blood. ??The 23 gram, 3.5 x 2.5 x 2.0 cm left ovary has a white-portillo, lobulated serosa. ??The cut surfaces are portillo-pink. ??The adherent 7.5 cm segment of fallopian tube has a distended tip and ranges from 0.5 to 2.5 cm in diameter. ??The serosa is pink and displays hemorrhagic adhesions. ??The cut surfaces reveal a moderate amount of blood within the lumen. ??Law Writer sections are submitted as follows: BLOCK KEYB1 ?Law Writer anterior cervix B2 ?Law Writer posterior cervix to include vaginal mucosa B3 ?Law Writer anterior endomyometrium B4 ?Law Writer posterior endomyometrium B5 ?Law Writer serosal adhesions B6, B7 ?Right ovary and fallopian tube B8, B9 ?Law Writer left ovary and fallopian tube (A. Tomlinson)/lgk End of Report BARB RODRIGUEZ 06/24/2004 06/24/2004 15: 36 EDT Jerry Borrego MD PATHOLOGY ORDERABLES Performing Organization Address City/State/[facility] Co de Phone Number BARB RODRIGUEZ [address] [place] [address] documented in this encounter Visit Diagnoses Not on filedocumented in this encounter
--- OUTSIDE RECORDS SUMMARY | 2023-11-28 18:38 | XMS_ITS | Encounter Summary ---
Author Organization [facility] Address [address] [place] [address] Care Team Providers Care Environmental Research Scientist Name Role Phone Unknown, Provider Primary Care Provider [phone] Encounter Details Date Type Department Care Team (Late st Contact Info) Description 05/30/2021 Lab Requisition [facility] Pathology & Laboratory Medicine - [facility] [address] [place] [address] Outr Resulting Lab, Provider Social History Tobacco [...] Comments ZZCOVID-19 TEST [facility] PCR Today 05/29/2021 7:47 EDT COVID-19 TESTING Routine 05/29/2021 7:47 EDT documented in this encounter Results * COVID-19 TEST [facility] PCR (05/29/2021 7:47 EDT) Swab 05/29/2021 7:47 EDT 05/30/2021 21:58 EDT Provider Outr Resulting Lab MICROBIOLOGY - GENERAL ORDERABLES [facility] [address] [place] [address] * COVID-19 TESTING (05/29/2021 7:47 EDT) COVID-19 rt-PCR Result Negative Negative 05/31/2021 1:32 EDT [facility] Comment: This test has not [...] history, and epidemiological information. Performed on the Lat49 Fusion instrument Performing Lab [facility] Lab 05/31/2021 1:32 EDT [facility] Swab 05/29/2021 7:47 EDT 05/30/2021 21:58 EDT Provider Outr Resulting Lab MICROBIOLOGY - GENERAL ORDERABLES Performing Organization Address City/State/[facility] Co de Phone Number [facility] [address] [place] [address] documented in this encounter Visit Diagnoses Not on filedocumented in this encounter Care Teams Environmental Research Scientist Relationship Specialty Start Date End Date Unknown, Provider, PCP - General 05/03/13 documented as of this encounter
--- OUTSIDE RECORDS SUMMARY | 2023-11-28 18:38 | XMS_ITS | Encounter Summary ---
[place] [address] Care Team Providers Care Web Operations Lead Name Role Phone JanessaRenetta Dulce ZELAYA Primary Care Provider [phone] Reason for Visit * Reason Comments Skin Check Encounter Details Date Type Department Care Team (Late st Contact Info) Description 10/03/2012 10:15 AM EDT Office Visit Dermatology [address] [facility] [address] [place], [place] [id number] Juan Becerra MD [address] [place] [address], [facility] A DERMATOLOGY [place], [place] [id number] Acne vulgaris (Primary Dx); History of basal cell carcinoma Social History Tobacco Use Types Packs/Day Years Used Date Smoking Tobacco: Former Sex and Gender Information Value Date Recorded Sex Assigned at Not on file Gender Identity Not on file Sexual Orientation Not on file documented as of this encounter Progress Notes * Juan Becerra MD - 10/03/2012 10:46 AM EDT Problem List: 1. Followup skin checkup. 2. Followup acne vulgaris. 3. Status post hysterectomy in 2004. 4. History of anxiety disorder, resistant to Accutane use in the past. 5. History of BCCA, left medial canthus, February 2010. Neal follows up and has been doing well. Her acne is getting much better, finally, although she still does need to use occasional courses of minocycline and does try to use the benzoyl peroxide in the morning with tretinoin at night. Physical examination reveals a pleasant 47-year-old woman who has no evidence of recurrence of BCCA on the left medial canthus. She has mild erythema and solar telangiectasia formation on the medial cheeks bilaterally and over the bridge of her nose. She has a sebaceous complexion. Examination of the head and the neck is benign. Examination of the chest, back, hands, arms, forearms, thighs, calves, and feet including soles of feet and web spaces is also benign. She has really only one single inflammatory papule on her face today on her right chin. Assessment and Plan: 1. Acne vulgaris. a. Continue current therapy with benzoyl peroxide 5% water-based gel, applying to face q.a.m. after washing. She still has plenty of this, but we will call in p.r.n. refills. b. Continue tretinoin 0.1% cream, applying at bedtime after washing; 20 grams will be called in with p.r.n. refills. c. Refills were given for minocycline 100 mg, taking one p.o. q. day b.i.d. basis for flares, #60 supplied with three refills. 2. History of BCCA. a. No evidence of recurrence. b. Patient reassured. c. Return to clinic reminder in one year. COPY: Renetta Riddle APRN documented in this encounter Plan of Treatment Not on file documented as of this encounter Visit Diagnoses Diagnosis Acne vulgaris- Primary Other acne History of basal cell carcinoma Personal history of other malignant neoplasm of skin documented in this encounter Care Teams Web Operations Lead Relationship Specialty Start Date End Date Renetta Riddle APRN [address] [place] [address] PCP - General 11/13/11 04/22/14 documented as of this encounter
--- OUTSIDE RECORDS SUMMARY | 2023-11-28 18:38 | XMS_ITS | Encounter Summary ---
Author Organization [facility] Address [address] [place] [address] Care Team Providers Care Inhalation Therapy Aides Teacher Name Role Phone Unknown, Provider Primary Care Provider [phone] Encounter Details Date Type Department Care Team (Late st Contact Info) Description 09/10/2019 Lab Requisition [facility] Pathology & Laboratory Medicine - [address] [address] Outr Resulting Lab, Provider Social History Tobacco [...] Associated Diagnosis Comments H. PYLORI ANTIGEN Routine 09/10/2019 13: 00 EDT documented in this encounter Results * H. PYLORI ANTIGEN (09/10/2019 13:00 EDT) H. Pylori Negative Negative 09/11/2019 14:11 EDT [facility] Feces SPECIMEN FROM RECTUM / Unknown 09/10/2019 13:00 EDT 09/10/2019 21:22 EDT Narrative [facility] - 09/11/2019 14:11 EDT Results were obtained with the [employer] ALESSANDRO. Provider Outr Resulting Lab MICROBIOLOGY - GENERAL ORDERABLES [facility] [address] [place] [address] documented in this encounter Visit Diagnoses Not on filedocumented in this encounter Care Teams Inhalation Therapy Aides Teacher Relationship Specialty Start Date End Date Unknown, Provider, PCP - General 05/03/13 documented as of this encounter
--- OUTSIDE RECORDS SUMMARY | 2023-11-28 18:38 | XMS_ITS | Encounter Summary ---
Author Organization [facility] Address [address] [place] [address] Care Team Providers Care Tailings Dam Pumper Name Role Phone Unknown, Provider Primary Care Provider [phone] Encounter Details Date Type Department Care Team (Late st Contact Info) Description 07/02/2023 Lab Requisition [facility] Pathology & Laboratory Medicine - [facility] [address] [place], [place] [address] Outr Resulting Lab, Provider Social History Tobacco [...] Procedure Name Priority Date/Time Associated Diagnosis Comments VARICELLA IGG ANTIBODY Routine 07/01/2023 15:25 EDT documented in this encounter Results * VARICELLA IGG ANTIBODY (07/01/2023 15:25 EDT) Varicella IgG Ab Positive See Note 07/04/2023 10:45 EDT [facility] Comment:Presence of detectab le Varicella Zoster virus IgG antibodies. Blood VENOUS BLOOD / Unknown 07/01/2023 15:25 EDT 07/02/2023 21:44 EDT Provider Outr Resulting Lab IMMUNOLOGY A ND SEROLOGY ORDERABLES [facility] [address] [place] [address] documented in this encounter Visit Diagnoses Not on filedocumented in this encounter Care Teams Tailings Dam Pumper Relationship Specialty Start Date End Date Unknown, Provider, PCP - General 05/03/13 documented as of this encounter
--- OUTSIDE RECORDS SUMMARY | 2023-11-28 18:38 | XMS_ITS | Encounter Summary ---
Author Organization [facility] [place] [address] Care Team Providers Care Professional Bondsman Name Role Phone Rosanna Cintron NATHALIE Primary Care Provider [phone] Reason for Visit * Reason Onset Date Comments Results 12/22/2016 Encounter Details Date Type Department Care Team (Late st Contact Info) Description 12/22/2016 [place] [address] Spring Meraz MD [facility] [place] [address] Results Social History Tobacco Use Types Packs/Day Years Used Date Smoking Tobacco: Former Cigarettes Smokeless Tobacco: Never Sex and Gender Information Value Date Recorded Sex Assigned at Not on file Gender Identity Not on file Sexual Orientation Not on file documented as of this encounter Miscellaneous Notes * Telephone Encounter - Spring Meraz MD - 12/22/2016 1:19 PM EST Attempted to reach patient over the phone with lab results: Component Latest Ref Rng & Units 12/21/2016 25-OH Vit D Total 30 - 100 ng/mL 30 Thyroperox Ab <=34 IU/mL 1530 (H) Vitamin B-12 207 - 974 pg/mL 656 Green Hold Sample in lab. Unable to reach her, will send her lab letter instead. documented in this encounter Plan of Treatment Not on file documented as of this encounter Visit Diagnoses Not on filedocumented in this encounter Care Teams Professional Bondsman Relationship Specialty Start Date End Date Rosanna Cintron APRN PCP - General 04/23/14 09/13/18 documented as of this encounter
--- OUTSIDE RECORDS SUMMARY | 2023-11-28 18:38 | XMS_ITS | Encounter Summary ---
Author Organization [facility] Address [address] [place] [address] Care Team Providers Care Design Maintenance Engineer Name Role Phone Unknown, Provider Primary Care Provider [phone] Encounter Details Date Type Department Care Team (Late st Contact Info) Description 05/02/2019 Lab Requisition [facility] Pathology & Laboratory Medicine - [facility] [address] [place] [address] Unknown, Provider, Social History Tobacco Use Types Packs/Day Years Used Date Smoking Tobacco: Never Assessed Sex and Gender Information Value Date Recorded Sex Assigned at Not on file Gender Identity Not on file Sexual Orientation Not on file documented as of this encounter Plan of Treatment Not on file documented as of this encounter Procedures Procedure Name Priority Date/Time Associated Diagnosis Comments FECAL BACTERIAL PATHOGENS BY PCR Routine 05/02/2019 10:00 EDT documented in this encounter Results * FECAL BACTERIAL PATHOGENS BY PCR (05/02/2019 10:00 EDT) Salmonella PCR Negative Negative 05/03/2019 11:00 EDT [facility] Shigella/Enteroin vasive E. coli Negative Negative 05/03/2019 11:00 EDT [facility] HN LAB CAMPYLOBACTER PCR Negative Negative 05/03/2019 11:00 EDT [facility] Shiga Toxin PCR Negative Negative 0 11:00 EDT [facility] Feces SPECIMEN FROM RECTUM / Unknown 05/02/2019 10:00 EDT 05/02/2019 20:57 EDT Provider Unknown MICROBIOLOGY - GENER AL ORDERABLES [facility] [address] [place] [address] documented in this encounter Visit Diagnoses Not on filedocumented in this encounter Care Teams Design Maintenance Engineer Relationship Specialty Start Date End Date Unknown, Provider, PCP - General 05/03/13 documented as of this encounter
--- OUTSIDE RECORDS SUMMARY | 2023-11-28 18:38 | XMS_ITS | Encounter Summary ---
Author Organization [facility] [place] [address] Care Team Providers Care Label Operator Name Role Phone Rosanna Cintron APRN Primary Care Provider [phone] Reason for Visit * Reason Comments Rosacea * Consultation (Urgent) - Specialty Diagnoses / Procedures Referred By Yoana t Referred To Contact Dermatology Diagnoses Acne Rosacea Rosanna Cintron APRN [address] [place] [address] [facility] [address] [place] [address] [facility] Dermatology [address] [place] [address] Referral ID Status Reason Start Date Expiration Date V isits Requested Visits Authorized [id number] Consult, Test & Treat [facility] 10/20/2017 10/20/2018 6 6 Encounter Details Date Type Department Care Team (Late st Contact Info) Description 11/15/2017 3:00 PM EDT Office Visit Dermatology at [facility] [address] [place] [address] Lyubov Meadows MD [facility] [address] [place] [address] Gris Dhillon PA [facility] [address] [address] Sebaceous hyperplasias; Skin lesion Social History Tobacco Use Types Packs/Day Years Used Date Smoking Tobacco: Former Cigarettes Smokeless Tobacco: Never Sex and Gender Information Value Date Recorded Sex Assigned at Not on file Gender Identity Not on file Sexual Orientation Not on file documented as of this encounter Progress Notes * Gris Dhillon PA - 11/15/2017 3:00 PM EDT Images from the original note were not included. DERMATOLOGY - NEW PATIENT CONSULT NOTE Date of service: 11/15/2017 Neal Ramires : 1965, 52 y.o. CC: Chief Complaint Patient presents with ??? Rosacea HPI: Neal Ramires is a 52 y.o. female seen in consultation at the request of Rosanna Cintron forredness and rosacea of the face as well as waxy white papules on the face. Denies itching, bleeding, or tenderness of any of these lesions. Denies prior treatments. Also notes a lesion on the left forearm. It was a cat scratch and is slowly getting better. Relevant Skin History: - Skin cancer (including type): None - Acne Family History: Melanoma: None Relevant Social History: - Medications: Current Outpatient Prescriptions Medication Sig Dispense Refill [...] No current facility-administered medications for this visit. Allergies: Allergies Allergen Reactions ??? Bactrim [Sulfamethoxazole-Trimethoprim] Other (See Comments) Acute hepatitis ??? Codeine Phosphate CIS - Nausea/Vomiting ??? Metronidazole CIS - Nausea/Vomiting Review of Systems: - General: Feels well. - Skin: No other skin concerns. Examination: - Constitutional: Patient was alert, well-appearing and in no noticeable distress. - Skin: An exam of the skin from the neck up was performed. This includes examination of the skin of the face, ears, scalp, and neck. Diagnosis/Skin findings/Assessment/Plan: 1. 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 - Discussed with patient that treatment/removal would be considered cosmetic, therefore insurance would not cover it and patient would be expected to pay out of pocket, in full, at time of service. - Recommended patient make an appointment with Dr. Ellison to review treatment options. - Discussed importance of sun protection, sun avoidance strategies, protective clothing, and sunscreen. 2. Non-specific skin lesion - Left forearm: 3mm pink non-specific follicular papule. - Will continue to clinically monitor. Photo taken (by Chante Dhillon) and documented with patient consent. LOS: [id number] RTC: With Dr. Ellison for sebaceous hyperplasia and telangiectasia consultation. Scheduled upon exiting. Note initiated by Kristen Turpin. I have performed the documentation for this encounter in the presence of and acting as a scribe Bette Dhillon PA-C (Bri). I performed the services which were documented by the scribe, and I agree with the accuracy of the documentation in this encounter. Gris Dhillon PA-C (Bri) Reviewed and signed by Gris Dhillon PA-C [facility] Patient seen in conjunction with staff rent collector: Lyubov Meadows MD Section of Dermatology [facility] * Lyubov Meadows MD - 11/15/2017 3:00 PM EDT Patient reassured of benign nature of sebaceus hyperplasia. Patient seen in conjunction with TORRIE Rothman (Bri)-C Signed by: LYUBOV MEADOWS MD Section of Dermatology [facility] documented in this encounter Plan of Treatment Not on file documented as of this encounter Visit Diagnoses Diagnosis Sebaceous hyperplasias Other specified disease of sebaceous glands Skin lesion Unspecified disorder of skin and subcutaneous tissue documented in this encounter Care Teams Label Operator Relationship Specialty Start Date End Date Rosanna Cintron APRN PCP - General 04/23/14 09/13/18 documented as of this encounter
--- OUTSIDE RECORDS SUMMARY | 2023-11-28 18:38 | XMS_ITS | Encounter Summary ---
Author Organization [facility] Address [address] [place] [address] Care Team Providers Care Track Watchman Name Role Phone Unknown, Provider Primary Care Provider [phone] Encounter Details Date Type Department Care Team (Latest Contact Info) Description 12/22/2017 13:41 EST - 12/22/2017 23:59 EST Hospital Encounter [address] [address] Unknown, Provider, Discharge Disposition: Home or Self Care Social History Tobacco Use Types Packs/Day Years Used Date Smoking Tobacco: Never Assessed Sex and Gender Information Value Date Recorded Sex Assigned at Not on file Gender Identity Not on file Sexual Orientation Not on file documented as of this encounter Discharge Disposition Disposition Code Departure Means Destination Home or Self Prison documented in this encounter Plan of Treatment Not on file documented as of this encounter Visit Diagnoses Not on filedocumented in this encounter Care Teams Track Watchman Relationship Specialty Start Date End Date Unknown, Provider, PCP - General 05/03/13 documented as of this encounter
--- OUTSIDE RECORDS SUMMARY | 2023-11-28 18:38 | XMS_ITS | Encounter Summary ---
Author Organization [facility] Address [facility] [place] [address] Care Team Providers Care Court Specialist Name Role Phone Rosanna Cintron NATHALIE Primary Care Provider Reason for Visit * Reason Comments Procedure Encounter Details Date Type Department Care Team (Late st Contact Info) Description 01/11/2018 9:00 AM EST Office Visit Dermatology at [address] [id number] Berta Ellison MD [facility] DR JOA[place] [address] Encounter for cosmetic procedure Social History Tobacco Use Types Packs/Day Years Used Date Smoking Tobacco: Former Cigarettes Smokeless Tobacco: Never Sex and Gender Information Value Date Recorded Sex Assigned at Not on file Gender Identity Not on file Sexual Orientation Not on file documented as of this encounter Patient Instructions * Patient Instructions* Karissa Rucker LPN - 01/11/2018 9:00 AM EST VBEAM You've made a great choice! [...] avoid include: C Bright, TE Pads, Exfoliating Spanish, Vitascrub, Cebatrol, Glycogent, Melamix, Tretinoin, Retamax, Brightenex, Brightamax, Growth Factor, Invisapeel.) Check with your doctor if you are unsure. ?? If you plan to receive numbing cream, please be sure to come 30 min before your appointment timeand tell the front desk attendant that you were told to do so. [...] Questions and/or concerns please call: ???s appointment school secretary For urgent concerns on weekends or off hours please call [facility] main number and ask for the medical illustrator geographic information system analyst: or call Dr. Ellison's cell: [phone] Retinoid Instructions Unfortunately we cannot do a prior authorization for tretinoin, as it considered cosmetic and insurance will not cover it. What you can do is go to [email or web address] and type in the name/strength of the prescription (tretinoin (RETIN-A) 0.025 % Cream). Make sure to adjust the zip code as well, and the local pharmacy's will populate with their estimated prices for the prescription with the [employer] coupon.You print the coupon off and take it to the pharmacy with you- this should bring the oliveros down quite a bit. Retinoids are a class of topical prescription and [id number] skin medications. Originally used for acne, they have also proven to be the most effective anti-aging ingredient available. Your results are dependent on your ability to be consistent and persistent with them. The retinoid we have re commended is tretinoin 0.05% cream Retinoids turn on cell function that has out with time and sun exposure. They quell inflammation and help the skin to maintain clear pores. The skin often--but not always--protests (like musclesdo when newly worked). We call that a ???retinoid reaction?? . It makes the skin feel tighter, stretcher and drier, older, darker and more uneven. Sometimes--but usually not--it may make the skin breakout or make acne worse. This reaction is 1) temporary (always goes away within 5 days) 2) desired (it is a sign of renewal and deep cleansing of the skin) and 3) delayed (it appears 3 days after you apply it. This is why we have you start slowly and not apply it every night in the beginning.) If you were to useyour retinoid every night right away then you would likely see a more intense retinoid reaction. Your skin would be expected to acclimate within 6 weeks. Most prefer to avoid more dramatic irritationand therefore spread this out a bit longer. Just be aware that using it regularly--and experiencingirritation--is very productive, in spite of the turmoil visible on your skin. Adjust the frequency of use to your schedule and goals. It can deter some but with good planning and a mindset of ???out with the old and in with the new?? you will be rewarded. Benefits are seen at 6 weeks but continue to accrue in the first year so no matter how fast or slow you go--stick with it! How to Get Started: Apply a pea-sized amount to a clean, dry face at night. Do this once and then wait 3-4 days. Most will experience some peeling on day 3 or 4. See how you do and when your skin feels ready (redness and peeling have cleared) apply it again. Gradually increase the frequency to every 3rd, then every other night. Your goal is 5 nights per week. Seasonal Factors: Our skin is dryer and the retinoid reaction can be more severe in the winter. Spring and summer are a great time to push your use so that you acclimate before winter time. Many express concern that they should stop their retinoid in the summer. DON???T! Your skin will sustain lesssun damage if you treat it through the summer. Just be sure to wear sunscreen and protect. I don???t recommend you initiate a retinoid product if you are going to be exposing your skin to intense sunlight. Irritated skin should not be exposed to the sun. But if you have already acclimated and tolerate your retinoid then you should maintain--and possibly even increase--your use throughout the summer. Remember, sun exposure damages the skin and sabotages any anti-aging skin regimen. Caution: Stop any retinoid 5 days before any waxing, chemical peel, facial or other skin procedure. Sensitivity: If you have trouble tolerating your retinoid, you can use one of several options to buffer the skin before applying the retinoid. Acne patients do well with a topical antibacterial lotion that Dr. Ellison can prescribe. Sun damaged patients or more sensitive skinned patients do well witha ZO skin product carried in the office (Restoracalm). Dr. Ellison can give you options if you contact her. documented in this encounter Progress Notes * Karissa Rucker LPN - 01/11/2018 9:00 AM EST Date of service: 01/11/2018 Provider: MD Neal Matias : 1965 PATIENT PREFERENCES: -prefers to be called: Neal De Jesus S Ike is a 52 y.o. year old female. Here for V-Beam. COSMETIC TREATMENT VISIT -Questions or concerns today? No -Any change in health or new diagnosis since last visit?: H-Pylori -Any new medications?: Amoxicillin and clarithroycin -Pt received pre and post instructions? Yes -HSV prophylaxis? N/A -Stopped retinoids/ Vitamin C/ AHAs? N/A -Recent sun exposure? No -, lactating or trying to conceive?: No -Recent ibuprofen, aspirin, or other blood thinner? (including ginko biloba, vitamin E ADR: Allergies Allergen Reactions ??? Bactrim [Sulfamethoxazole-Trimethoprim] Other (See Comments) Acute hepatitis ??? Codeine Phosphate CIS - Nausea/Vomiting ??? Metronidazole CIS - Nausea/Vomiting MEDS: Current Outpatient Medications Medication Sig Dispense Refill ??? ALPRAZolam (XANAX) [...] visit. EXAMINATION: -New findings: Assessment and Plan: # Vbeam treatments for [...] details -Additional notes: ?? # Sebaceous Gland Hyperplasia: -Discussed elective removal. -Quoted $350.00 per session for removal. Patient told to expect 2 treatments -Before After Instructions for [facility] given (see AVS) -location of primary concern: forehead, cheeks -special considerations for this patient: patient aware that she will have small scabs on her face for a few days after treatment ?? # Chemoprevention/correction: Emphasized value of retinoid-based skin care system to amplify and maintain benefits of any anti aging plan/procedures. -special considerations: history of acne in her 20's -retinoid: tretinoin 0.05% cream date started: 01/11/18 -ZO skincare regimen: regimen or products: GSR Oily- exfoliating cleanser, colombian, oil control reviewed by: TY date: 11/16/2017 -instructions in AVS dated 11/16/2017 -discussed importance of meticulous sun protection - Rx: Tretinoin 0.05% cream - apply to face nightly at bedtime as tolerated. # Photography: - Date: 11/16/2017 View: Head and Neck Flash Initials: DW - Date: 11/16/2017 View: Head and Neck No Flash Initials: DW ?? LASER TREATMENT LOG Date: 01/11/18 Laser: Vbeam Area: full face Spot: 10 Energy(J): 8.5 Pulse Duration: 10 Pulse #: [phone] Paid: $350.00 - $100.00 consult Tx By: KRIS Notes: FOLLOW UP WHEN: 4-6 weeks FOR WHAT: Vbeam LENGTH OF VISIT: 15 NUMBING?: no PICTURES NEEDED? No Cosmetic cost today: $350.00 - $100.00 consult fee = $250.00 paid in full upon exiting the clinic [...] procedure documented in this encounter Care Teams Court Specialist Relationship Specialty Start Date End Date Rosanna Cintron APRN PCP - General 04/23/14 09/13/18 documented as of this encounter
--- OUTSIDE RECORDS SUMMARY | 2023-11-28 18:38 | XMS_ITS | Encounter Summary ---
Author Organization [facility] Address [address] [place] [address] Care Team Providers Care Viscose Cellar Worker Name Role Phone Unknown, Provider Primary Care Provider [phone] Encounter Details Date Type Department Care Team (Late st Contact Info) Description 02/07/[address] [facility] Pathology & Laboratory Medicine - [address] [address] Outr Resulting Lab, Provider Social History Tobacco [...] Comments ZZCOVID-19 TEST [facility] PCR Today 02/07/2020 8:15 EST COVID-19 TESTING Routine 02/07/2020 8:15 EST documented in this encounter Results * COVID-19 TEST [facility] PCR (02/07/2020 8:15 EST) Swab ENTIRE NASOPHARYNX / Unknown 02/07/2020 8:15 EST 02/07/2020 20:06 EST Provider Outr Resulting Lab MICROBIOLOGY - GENERAL ORDERABLES [facility] [address] [place] [address] * COVID-19 TESTING (02/07/2020 8:15 EST) COVID-19 rt-PCR Result Negative Negative 02/08/2020 16:13 EST [facility] Comment: This test has [...] history, and epidemiological information. Performed on the [employer] Fusion instrument Performing Lab [place] [facility] Lab 02/08/2020 16:13 EST [facility] Swab 02/07/2020 8:15 EST 02/07/2020 20:06 EST Provider Outr Resulting Lab MICROBIOLOGY - GENERAL ORDERABLES [facility] [address] [place] [address] documented in this encounter Visit Diagnoses Not on filedocumented in this encounter Care Teams Viscose Cellar Worker Relationship Specialty Start Date End Date Unknown, Provider, PCP - General 05/03/13 documented as of this encounter
--- OUTSIDE RECORDS SUMMARY | 2023-11-28 18:38 | XMS_ITS | Encounter Summary ---
[place] [address] Care Team Providers Care Military Cook Name Role Phone JaenssaRenetta Dulce ZELAYA Primary Care Provider [phone] Reason for Visit * Reason Comments Skin Check Encounter Details Date Type Department Care Team (Late st Contact Info) Description 06/10/2011 5:15 PM EDT Office Visit Dermatology [address] [facility] [address] [place], [place] [id number] Juan Becerra MD [address] [place] [address], [facility] A DER[facility]OLOGY [place], [place] [id number] Acne vulgaris (Primary Dx); History of basal cell carcinoma Social History Tobacco Use Types Packs/Day Years Used Date Smoking Tobacco: Former Sex and Gender Information Value Date Recorded Sex Assigned at Not on file Gender Identity Not on file Sexual Orientation Not on file documented as of this encounter Progress Notes * Juan Becerra MD - 06/10/2011 5:41 PM EDT Problem: 1. Followup for skin check. 2. Followup acne vulgaris. 3. Status post hysterectomy 2004. 4. History of anxiety disorder, resistance to Accutane use in the past. Neal follows up, and her acne is doing much better. She is now 46. She is able to control it for the most part just with the topicals, but once in a while it takes a course of minocycline. She has not noted any new lesions of concern. Physical examination today reveals a pleasant 46-year-old woman who has no evidence of recurrence of a BCCA on the left medial canthus. She has a 3-mm papule of sebaceous hyperplasia below the right medial canthus. Examination of the head and the neck, the chest, the back, hands, arms, and forearms is benign. Her acne is minimal today with only two papules present. Assessment and Plan: 1. Acne vulgaris. a. Continue current therapy with benzoyl peroxide 5% water-based gel, applying to face q.a.m. after washing. b. Continue tretinoin 0.1% cream, applying at bedtime after washing; 20 grams dispensed with five refills. c. Refills given for minocycline 100 mg to be taken one p.o. daily for flares, but dispensed as one p.o. b.i.d.; #60 with five refills. 2. History of BCCA. a. No evidence of recurrence at the previously treated site. b. Patient reassured. Return to clinic on a yearly basis for routine skin checks. Return to clinic reminder one year. documented in this encounter Plan of Treatment Not on file documented as of this encounter Visit Diagnoses Diagnosis Acne vulgaris- Primary Other acne History of basal cell carcinoma Personal history of other malignant neoplasm of skin documented in this encounter Care Teams Military Cook Relationship Specialty Start Date End Date Renetta Riddle APRN [address] [place] [address] PCP - General 01/06/10 06/24/11 documented as of this encounter
--- OUTSIDE RECORDS SUMMARY | 2023-11-28 18:38 | XMS_ITS | Encounter Summary ---
Author Organization [facility] [place] [address] Care Team Providers Care Nail Welter Name Role Phone Abdulaziz Rosanna Beach APRN Primary Care Provider Encounter Details Date Type Department Care Team (Latest Contact Info) Description 08/28/2018 8:44 PM EDT - 08/28/2018 11:59 PM EDT Hospital [place] [address] Discharge Disposition: Home Social History Tobacco Use Types Packs/Day Years Used Date Smoking Tobacco: Former Cigarettes Smokeless Tobacco: Never Sex and Gender Information Value Date Recorded Sex Assigned at Not on file Gender Identity Not on file Sexual Orientation Not on file documented as of this encounter Medications at Time of Discharge Medication Sig Dispensed Refills Start Date End Date tretinoin (RETIN-A) 0.05 % Cream Apply 1-2 [...] Associated Diagnosis Comments SURGICAL PATHOLOGY REPORT Routine 08/28/2018 9:53 AM EDT documented in this encounter Results * Surgical Pathology Report (08/28/2018 9:53 AM EDT) Final Diagnosis [id number] ? Location: [facility] The signing pathologist has (i) examined the relevant preparation(s) for the specimen(s) and (ii) rendered or confirmed the diagnosis(es). . ?Surgical Pathology DIAGNOSIS A - Antrum, biopsy: Gastric antral mucosa with reactive gastropathy and focal intestinal metaplasia, no H. pylori-like organism seen on H&E stain B - Body of stomach, biopsy: Gastric fundic mucosa within normal limits, no H. pylori-like organism seen on H&E stain C - Distal esophagus, biopsy: Squamous esophageal mucosa with reflux esophagitis (0-4 eosinophils/hpf ) Electronically signed by: ??Juan Nolan MD, I Verified: ??08/29/2018 ?Pathologist Performed at: ??-[facility] Dept. of Pathology, [place], [place] CLINICAL INFORMATION Specimen Submitted: A - Antrum bx B - Body of stomach bx C - Distal esophagus bx Clinical History and Diagnosis: History of H. pylori gastritis. No evidence of gastritis today. Report to: Mayra Browning Referring Identifier: ?(not provided) SPECIMEN PROCESSING A - Labeled/Fixativ e: Antrum biopsy, formalin. Quantity/Size: Two, 0.1 and 0.3 cm. Tissue Description: Soft, portillo-pink tissues. Sections/Proces sing: Submitted en toto ??in 1 cassette labeled A1. B - Labeled/Fixativ e: Body of stomach biopsy, formalin. Quantity/Size: Two, 0.2 and 0.5 cm. Tissue Description: Soft, portillo-pink tissues. Sections/Proces sing: Submitted en toto ??in 1 cassette labeled B1. C - Labeled/Fixativ e: Distal esophagus biopsy, formalin. Quantity/Size: Two, averaging 0.3 cm. Tissue Description: Soft, portillo-white tissues. Sections/Proces sing: Submitted en toto ??in 1 cassette labeled C1. ??apb 08/29/2018 4:22 PM EDT [facility] GI Biopsy 08/28/2018 9:53 AM EDT 08/28/2018 9:53 AM EDT GI Biopsy 08/28/2018 9:53 AM EDT 08/28/2018 9:53 AM EDT GI Biopsy 08/28/2018 9:53 AM EDT 08/28/2018 9:53 AM EDT Candido Vitale DO PATHOLOGY/CYT OLOGY ORDERABLES [facility] [place] [address] documented in this encounter Visit Diagnoses Not on filedocumented in this encounter Care Teams Nail Welter Relationship Specialty Start Date End Date Rosanna Cintron APRN PCP - General 04/23/14 09/13/18 documented as of this encounter
--- OUTSIDE RECORDS SUMMARY | 2023-11-28 18:39 | XMS_ITS | Continuity of Care Document ---
Author Organization [place] - [facility], [facility] Address [address] [place] [address] Assessment No assessment recorded. Plan of Treatment Reminders Order Date Submit Date Provider Last Modified By Organization Details Last Modified Time Details Appointments Nurse Visit 20 2023 09:00A M [facility] Nursing Staff Not available Not available Not available Lab TSH, serum, reflex free T4 2023 024 [email or web address] [facility] (Registration ), [address] [place] [address] , [place], [address], 11/28/2023 11:35:24 Referral None recorde d. Procedures None recorde d. Surgeries None recorde d. Imaging None recorde d. Medication Orders None recorde d. Patient TargetsNo targets recorded. Patient InstructionsNo instructions recorded. Reason for Referral Physical Therapist Referral for Hip pain bilateral hip pain, worse with external rotation, started after starting [place] and new exercise classes, which she stopped. Xrays of hips ordered. Did also recently increase dose of her statin. Referring Physician: Mayra Dockery, Family Medicine, Encounter Date: 07/25/2023 Results Created Date Observation Date Name Description Value Unit Range Abnormal Flag Note LastModifiedBy Organization Detail LastModifiedTime 10/31/19 24 10/27/2020 imagi ng/di agnos tic [...] 10/30 06:53:03 10/31/19 24 07/02/2022 MAMMO , scree ravindra No observ ation record ed. Not Available 10/30 06:53:04 10/31/19 24 04/21/2021 MAMMO , scree ravindra No observ ation record ed. Not Available 10/30 06:53:08 10/31/19 24 01/29/2020 hali GRIGSBY No observ ation record ed. Not Available 10/30 06:53:09 10/31/19 24 01/29/2020 MAMMhali Harris No observ ation record ed. Not Available [...] ed. Not Available 10/30 06:55:22 Result Notes None recorded. Problems Name Problem SNOMED Code Status Onset Date Resolution Date Notes Provider Name and Address Organization Details Recorded Time Generali zed anxiety disorder 72912751 Active [address], [facility] [address] , [facility] 4 17:32:40 Hyperlip idemia 61798421 Active 2010 on statin MD [address], [place], [address] , [facility] 4 12:10:51 Hypothyr oidism 94390329 Active [address], [place], [address] , [facility] 4 12:10:57 Rosacea 136104856 Active [address], [place], [address] , [facility] 4 12:14:51 Arthralg ia of temporom andibula r joint 87491581 Active [address], [place], [address] , [facility] 4 12:01:12 Restless legs 00052336 Active [address], [facility] [address] , [facility] 4 12:14:31 Fatigue 54368672 Active [address], [facility] [address] [place] [address] 4 12:02:27 Acquired absence of cervix and uterus 394776180 Active MD [address]iel [address], [facility] [address] , [facility] 4 12:00:55 Adult health examinat ion Active [address], [address] 4 12:01:04 Vitamin D deficien 46780450 Active [address], [facility] [address] , [facility] 4 12:15:16 Pain in thoracic spine 996398536 Active [address], [facility] [address] [place] [address] 4 12:13:25 Sciatica 71748842 Active [address], [facility] [address] , [facility] 4 13:21:53 Right upper quadrant pain 899799435 Active [address], [facility] [address] , [facility] 4 12:14:44 Pain of right knee joint 54446523952 4100 Active [address], [facility] [address] , [facility] 4 12:13:42 Pain of left shoulder joint 86700094432 960046 Active [address], [place], [address] , [facility] 4 12:13:33 Insomnia 146742397 Active [address], [facility] [address] , [facility] 4 12:12:20 Diarrhea 74792035 Completed 201905/16/2019 Problem Code: R19.7; Problem Code Type: ICD-10; Not Available [facility] 3 04:09:35 Diabetes mellitus screenin g Completed 201906/18/2019 Problem Code: Z13.1; Problem Code Type: ICD-10; Not Available [facility] 3 04:09:35 Prediabe guillaume 630631942 Active [address], [facility] [address] , [facility] 4 12:14:25 Obstruct андрей sleep apnea syndrome 89815571 Active [address], [place], [address] , [facility] 4 12:13:15 Polyp of nasal cavity and/or nasal sinus 292047108 Active 2019 Not interest ed in surgical interven tion, continue with nasal steroids . MD [address]iel [address], [place], [address] , [facility] 4 12:14:17 Screenin g for malignan t neoplasm of breast Completed 201907/01/2023 Problem Code: Z12.39; Problem Code Type: ICD-10; MD [address], [place], [address] , [facility] 4 12:15:08 Metatars algia 50418372 Active [address], [place], [address] , [facility] 4 12:12:40 Seasonal allergic rhinitis 664753284 Active [address], [facility] [address] , [facility] 4 12:15:04 Therapeu tic drug monitori ng assay 78728081 Completed 202011/24/2020 Problem Code: Z51.81; Problem Code Type: ICD-10; Not Available [facility] 3 04:09:36 Gastroes ophageal reflux disease without esophagi tis 083480967 Active 2020 No reflux symptoms , just stomach pain. EGD 08/2020 (intesti nal metaplas ia of stomach 08/2018, not present 2020) Hx of Hpylori 12/[address], [facility] [address] , [facility] 4 13:18:40 Menopaus e present 229197779 Active [address], [facility] [address] , [facility] 4 12:12:29 Chest pain 89159809 Active [address], [facility] [address] , [facility] 4 12:01:35 Dyspnea 037980675 Active [address], [facility] [address] , [facility] 4 12:02:20 Neck pain 78671153 Active [address], [facility] [address] , [facility] 4 12:12:49 Constipa tion 13483134 Active 2022 MAYRA DOCKERY MD [address], [place], [address] , [facility] 4 12:01:53 Disorder of skin and/or subcutan eous tissue 72289104 Completed 202207/01/2023 Problem Code: L98.9; Problem Code Type: ICD-10; MD [address], [place], [address] , [facility] 4 12:02:12 Cough 27672179 Completed 201508/09/2016 Problem Code: R05; Problem Code Type: ICD-10; Not Available [facility] 3 04:09:40 Diarrhea 15100770 Completed 201801/15/2019 Problem Code: R19.7; Problem Code Type: ICD-10; Not Available [facility] 3 04:09:40 Asthenia 91591707 Completed 201705/11/2018 Problem Code: R53.1; Problem Code Type: ICD-10; Not Available [facility] 3 04:09:40 Intestin al metaplas ia of gastric mucosa 08548981 Completed 202009/29/2020 Not Available [facility] 3 04:09:40 Localize d eruption of skin 421250409 Completed 202106/12/2021 Problem Code: R21; Problem Code Type: ICD-10; Not Available [facility] 3 04:09:40 Benign neoplasm of colon 04037349 Completed 201311/10/2022 Problem Code: 211.3; Problem Code Type: ICD-9; Not Available [facility] 3 04:09:41 Sensatio n as if urinary bladder still full 711805065 Completed 201405/11/2018 Problem Code: R39.14; Problem Code Type: ICD-10; Not Available [facility] 3 04:09:41 Anxiety disorder 847055293 Completed 200111/10/2022 Not Available [facility] 3 04:09:41 Blood chemistr y outside referenc e range 026548438 Completed 202009/29/2020 Problem Code: R79.89; Problem Code Type: ICD-10; Not Available [facility] 3 04:09:42 History of clinical finding in subject 542795660 Completed 201211/10/2022 Not Available [facility] 3 04:09:42 Neck pain 45958298 Completed 201809/14/2019 Problem Code: M54.2; Problem Code Type: ICD-10; MD Grabiel [address] Dr, [facility] [address] , [facility] 4 12:12:49 Skin sensatio n disturba nce 34104031 Completed 201906/25/2020 Problem Code: R20.9; Problem Code Type: ICD-10; Not Available [facility] 3 04:09:42 Localize d eruption of skin 594591783 Completed 202008/06/2020 Problem Code: R21; Problem Code Type: ICD-10; Not Available [facility] 3 04:09:42 Pleuriti c pain 7796883 Completed 202009/29/2020 Problem Code: R07.81; Problem Code Type: ICD-10; Not Available [facility] 3 04:09:43 Altered bowel function 71603481 Completed 202210/11/2022 Problem Code: R19.4; Problem Code Type: ICD-10; Not Available [facility] 3 04:09:43 Chest pain 16054145 Completed 201809/14/2019 Problem Code: R07.9; Problem Code Type: ICD-10; MD Grabiel [address], [place], [address] , [facility] 4 12:01:35 Exposure to communic able disease Completed 202006/12/2021 Problem Code: Z20.828; Problem Code Type: ICD-10; Not Available [facility] 3 04:09:44 Muscle pain 91026609 Completed 201605/11/2018 Problem Code: M79.1; Problem Code Type: ICD-10; Not Available [facility] 3 04:09:44 Viral screenin g Completed 202110/05/2021 Problem Code: Z11.52; Problem Code Type: ICD-10; Not Available [facility] 3 04:09:44 Adult health examinat ion Completed 201405/11/2018 Problem Code: Z00.00; Problem Code Type: ICD-10; MAYRA DOCKERY MD [address], [place], [address] , [facility] 4 12:01:04 Hypertro phic conditio n of skin 38829169 Completed 201405/11/2018 Problem Code: L91.8; Problem Code Type: ICD-10; Not Available [facility] 3 04:09:45 Hypertro phic conditio n of skin 48859352 Completed 202106/14/2022 Problem Code: L91.8; Problem Code Type: ICD-10; Not Available [facility] 3 04:09:45 Pain of right shoulder joint 13586381706 846538 Completed 202106/14/2022 Problem Code: M25.511; Problem Code Type: ICD-10; Not Available [facility] 3 04:09:45 Smoker 56598812 Completed 201308/03/2016 Not Available [facility] 3 04:09:46 Dizzines s and giddines s 263674137 Completed 201605/11/2018 Problem Code: R42; Problem Code Type: ICD-10; Not Available [facility] 3 04:09:46 Pain in right foot 15526603823 9107 Completed 201505/11/2018 Problem Code: M79.671; Problem Code Type: ICD-10; Not Available [facility] 3 04:09:46 Pain in thoracic spine 970660055 Completed 202110/05/2021 Problem Code: M54.89; Problem Code Type: ICD-10; MAYRA DOCKERY MD [address], [place], [address] , [facility] 4 12:13:25 Low back pain 366516033 Completed 201605/11/2018 Problem Code: M54.5; Problem Code Type: ICD-10; Not Available [facility] 3 04:09:47 Bradycar geoff 58049881 Completed 202006/12/2021 Problem Code: R00.1; Problem Code Type: ICD-10; Not Available [facility] 3 04:09:47 Abdomina l pain 61734652 Completed 202210/11/2022 Problem Code: R10.9; Problem Code Type: ICD-10; Not Available [facility] 3 04:09:47 Nausea 951444815 Completed 202010/11/2022 Problem Code: R11.0; Problem Code Type: ICD-10; Not Available [facility] 3 04:09:48 Exposure to viral hepatiti s Completed 201605/11/2018 Problem Code: Z20.5; Problem Code Type: ICD-10; Not Available [facility] 3 04:09:48 Increase d frequenc y of urinatio n 168386082 Completed 201405/11/2018 Problem Code: R35.0; Problem Code Type: ICD-10; Not Available [facility] 3 04:09:49 Pain in right foot 07907276821 9107 Completed 202106/14/2022 Problem Code: M79.671; Problem Code Type: ICD-10; Not Available [facility] 3 04:09:49 Dyspnea 550217309 Completed 201505/11/2018 Problem Code: R06.09; Problem Code Type: ICD-10; MD [address]iel [address], [place], [address] , [facility] 4 12:02:20 History of adenomat ous polyp of colon 689520235 Active 2013, normal colonosc opy [address], [place], [address] , [facility] 4 12:10:28 Ex-smoke r 0908213 Active [address], [place], [address] , [facility] 12:13:06 Problem Notes None recorded. Procedures Surgical History Date Name Laterality Status Provider Name and Address Organization Details Recorded Time 07/02/19 23 Most Recent Mammogram completed ADOLFO MCCANN RN [facility] 07/01/2023 11:59:19 08/29/19 19 Date of Last Colonoscopy completed ADOLFO MCCANN RN [facility] 07/01/2023 12:03:39 02/16/19 05 hysterectomy completed MD Grabiel [address] Dr, [place], [address], [facility] 07/01/2023 12:21:25 Imaging Results None recorded. Procedure Notes None recorded. Medical Equipment None Reported. Allergies Allergen ID Allergen Name Allergen Category Reaction Reaction Severity Criticality Documentation Date Start Date Code Code System Note Provider Name and Address Organization Details Recorded Time 28121 codeine medicatio n other Not available Not available 12/24/20222008 2670 RxNorm GI Aller gyRea ction : 'GI'; Not Available [facility] 3 16:21:52 66234 oxycodone medicatio n dizziness vomiting Not available Not available Not available 07/01/2023 7804 RxNorm ADOLFO MCCANN RN [facility], [facility] 4 11:49:08 35807 Bactrim medicatio n Not available Not available Not available 07/01/2023 11835 9 RxNorm acute hepat itis, eleva ahmet liver enzym es ADOLFO MCCANN RN [facility], [facility] 4 11:49:47 54231 Effexor medicatio n headache nausea vomiting Not available Not available Not available Not available 07/01/2023 74752 2 RxNorm ADOLFO MCCANN RN [facility], [facility] 4 11:50:12 32639 garlic preparati on food,medi cation hives Not available Not available 07/01/2023 56930 7 RxNorm throa t close s ADOLFO MCCANN RN [facility], [facility] 4 11:50:41 Medications Name Sig Start Date [...] taper. Take as directed 05/11 completed per Rosanna Cintron Not Available Not Available Not Available [...] Anusol-HC 25 mg rectal supposito ry 1 VA BID 09/01 completed Not Available Not Available [...] Take 1-2 tablet by mouth at bedtime 11/10 completed Not Available Not Available Not Available [...] Not Available Not Available Not Available Vitals None Recorded Social History Question Answer Notes LastModified by Organizat ion Details LastModified Time Tobacco Smoking Status Former Smoker ADOLFO MCCANN RN [facility], [facility] 04/18/2023 11:13:48 When Did You Quit Smoking? 16+yearssinc elastcigaret te [email or web address] Information not available 04/18/2023 Sex: Female Functional Status None recorded. Mental Status None recorded. Family History Relationship Description Onset Age of this Age Resolved Age Notes LastModified by Organization Details LastModified Time Mother Family history of Hypertension [email or web address] Not available 11/2022 03:58:35 Notes:*Problem: Mother: yasmin [...] adolescent or pediatric 12/06/2016 completed Not Available [facility] 12/24/2022 04:35:28 Tdap 10/01/2011 completed Not Available [facility] 04:35:28 Tdap 10/16/2021 completed Not Available [facility] 04:35:29 Influenza, split virus, trivalent, preservative 10/29/2015 completed Not Available [facility] 12/24/2022 04:35:29 Influenza, split virus, trivalent, preservative 11/20/2014 completed Not Available [facility] 12/24/2022 04:35:29 Influenza, split virus, quadrivalent, PF 11/04/2021 completed Not Available [facility] 12/24/2022 04:35:30 Influenza, split virus, quadrivalent, PF 11/10/2020 completed Not Available [facility] 12/24/2022 04:35:30 Influenza, split virus, quadrivalent, PF 11/21/2019 completed Not Available [facility] 12/24/2022 04:35:30 Influenza, split virus, quadrivalent, preservative 11/11/2017 completed Not Available [facility] 12/24/2022 04:35:30 COVID-19, mRNA, LNP-S, PF, 100 mcg/0.5mL dose or 50 mcg/0.25mL dose 12/12/2020 completed Not Available [facility] 12/25/19 04:35:31 SARS-COV-2 (COVID-19) vaccine, UNSPECIFIED 03/13/2020 completed Not Available [facility] 12/24/2022 04:35:31 SARS-COV-2 (COVID-19) vaccine, UNSPECIFIED 02/14/2020 completed Not Available [facility] 12/24/2022 04:35:31 Hep B, adult 04/25/2017 completed Not Available [facility] 12/24/2022 04:35:32 Hep B, adult 10/11/2016 completed Not Available [facility] 12/24/2022 04:35:32 influenza, unspecified formulation 11/21/2018 completed Not Available [facility] 12/24/2022 04:35:33 Influenza, split virus, quadrivalent, PF 11/18/2022 completed Not Available [facility] 02/25/2023 05:33:14 Past Encounters Encounter ID Performer Location Encounter Start Date Encounter Closed Date Diagnosis/Indication Diagnosis SNOMED-CT Code Diagnosis ICD10 Code [id number] ADOLFO MCCANN RN [facility] [address] [place] [address] 11/28/2023 09:29:12 11/28/2023 10:16:32 [facility] [id number] E03.9 Health Concerns Section Related Observation LastModified by Organization Detai ls LastModified Time None Recorded Concern Status LastModified by Organization Details LastModified Time None Recorded Payers Encounter Date Sequence Insurance Name Policy Number Policy Hester Covered Member ID Hester Member ID Guarantor Name 11/28/2023 1 [place] [facility] (POS) Neal Ramires [id number] Neal Ramires 11/28/2023 2 [employer] (MEDICAID) Neal Ramires [id number] Neal Ramires OBGyn Episode No OBEpisode recorded.
== END 2023-11-28 18:36 | disposition home or self-care (01) ==
LOC: NCHCN 18:35
PROVIDERS: PCP Family Medicine; Visit Provider Family Medicine
DX: E03.9 Hypothyroidism, unspecified (principal)
CPT/HCPCS: 84439; 84443

== ENCOUNTER 2024-01-17 15:18 | Outpatient (CLI) | payer BC, MEDICAID, SELFPAY ==
--- NOTE | 2024-01-17 08:00 | DI.RAD_ITS ---
Exam(s) XR SHOULDER LT COMPLETE 2+V EXAM: XR SHOULDER LT COMPLETE 2+V CLINICAL HISTORY: LEFT SHOULDER PAIN. TECHNIQUE: 2D digital imaging was performed of the left shoulder. Two images were obtained. Grashe y and axillary views were obtained. COMPARISON: CR XR SHOULDER LT COMPLETE 2+V from 02/27/2019 FINDINGS: BONES: No acute fracture is present. No bony destructive lesion is seen. JOINTS: No dislocation present. There are mild degenerative changes seen at both the acromioclavicula r and glenohumeral joints. SOFT TISSUE: Normal. IMPRESSION: Mild degenerative changes of the left shoulder as described above. DATA REPOSITORY: RADIATION DOSE DELIVERED:
== END 2024-01-17 15:19 | disposition home or self-care (01) ==
LOC: DIORS 15:18
PROVIDERS: PCP Family Medicine; Visit Provider Student in an Organized Health Care Education/Training Program
DX: M25.512 Pain in left shoulder (principal)
CPT/HCPCS: 73030

== ENCOUNTER 2024-02-21 13:29 | Outpatient (REF) | payer MEDICAID, SELFPAY ==
--- OUTSIDE RECORDS SUMMARY | 2024-02-21 13:33 | XMS_ITS | Encounter Summary ---
[place] [address] Care Team Providers Care Cofounder Name Role Phone Mayra Browning MD Primary Care Provider [phone] Reason for Referral * Diagnostic Test (Routine) - Closed Specialty Diagnoses / Procedures Referred By Yoana bal Referred To Contact Cardiology Diagnoses Chest pressure Procedures [facility] Bere Monahan APRN [address] [place] [address] [facility] [place] [address] Referral ID Status Reason Start Date Expiration Date V isits Requested Visits Authorized [id number] Closed Specialty Service Requested 10/27/2020 10/27/2021 1 1 Reason for Visit * Diagnostic Test (Routine) - Closed Specialty Diagnoses / Procedures Referred By Yoana bal Referred To Contact Cardiology Diagnoses Chest pressure Procedures [facility] Bere Monahan APRN [address] [place] [address] [facility] [place] [address] Referral ID Status Reason Start Date Expiration Date V isits Requested Visits Authorized [id number] Closed Specialty Service Requested 10/27/2020 10/27/2021 1 1 Encounter Details Date Type Department Care Team (Latest Contact Info) Description 10/27/2020 4:25 PM EDT - 10/27/2020 11:59 PM EDT Hospital Encounter Mobile [place] [address] Bere Monahan, [employer] [address] [place] [address] Chest pressure Discharge Disposition: Home Social History [...] Jesus S. ?(Age): 1965(55y) Med Rec#: ? [id number] ?Sex: ?F ? Site Loc: ? [facility] ??Ht / Wt: ??157.48(cm)/76.2 Pt. Loc: ?ED ?BSA: ?1.77 Study Date: ?? 10/27/2020 ?Pt. Type: Inpatient Tape: ? Referring: ALLEN Reading: Vanessa Khalil ([id number]) Bumper Straightener: ARPITA Interpreting Fellow: Johanna Johnson ([id number]) Diagnosis: *Chest pain, unspecified (R07.9) BP: ? [...] Vmax ?0.75 ? m/sec ? MV deceleration yfhy316.76 ? msec ? MV A-wave Vmax ?0.62 [...] 10/27/2020 16:53:11 Images reviewed and interpretation verified [facility] Cardiac Ultrasound Laboratory Procedure Note Vanessa Khalil MD - 10/27/2020 Procedure: Transthoracic Echocardiogram Patient: SHIRA CARTAGENA(Age): 1965(55y) Med Rec#: [id number] Sex: F Site Loc: [facility] Ht / Wt: 157.48(cm)/76.2 Pt. Loc: ED BSA: 1.77 Study Date: 10/27/2020 Pt. Type: Inpatient Tape: Referring: TRISTENNAIF Reading: Vanessa Khalil ([id number]) Bumper Straightener: ARPITA Interpreting Fellow: Johanna Johnson ([id number]) Diagnosis: *Chest pain, unspecified (R07.9) BP: 107/60 [...] MV E-wave Vmax 0.75 m/sec MV deceleration [id number] msec MV A-wave Vmax 0.62 m/sec MV [...] (continuity Vmax1.32 cm2/m2 VIOLETA (continuity VTI)2.68 cm VIOLETA (continuity VTI)1.51 cm2/m2 Mitral Valve Value Units [...] 10/27/2020 16:53:11 Images reviewed and interpretation verified [facility] Cardiac Ultrasound Laboratory Bere Monahan NATHALIE ECHO ORDERABLES documented in this encounter Visit Diagnoses Diagnosis Chest pressure Other chest pain documented in this encounter Care Teams Cofounder Relationship Specialty Start Date End Date Mayra Browning MD [address] [place] [address] PCP - General Family Medicine 12/09/19 documented as of this encounter
--- OUTSIDE RECORDS SUMMARY | 2024-02-21 13:33 | XMS_ITS | Encounter Summary ---
Author Organization [facility] [place] [address] Care Team Providers Care Decision Unit Rn Name Role Phone Rosanna Cintron APRN Primary Care Provider [phone] Encounter Details Date Type Department Care Team (Late st Contact Info) Description 11/18/2017 Telephone Dermatology at [address] [address] [facility] [address] JOAQU[place] [address] Social History Tobacco Use Types Packs/Day Years [...] on filedocumented in this encounter Care Teams Decision Unit Rn Relationship Specialty Start Date End Date Rosanna Cintron APRN PCP - General 04/23/14 09/13/18 documented as of this encounter
--- OUTSIDE RECORDS SUMMARY | 2024-02-21 13:33 | XMS_ITS | Encounter Summary ---
Author Organization [facility] [place] [address] Care Team Providers Care Urologist Physician Name Role Phone Mayra Browning MD Primary Care Provider [phone] Encounter Details Date Type Department Care Team (Latest Contact Info) Description 09/03/2020 8:38 PM EDT - 09/03/2020 11:59 PM EDT [place] [phone] Discharge Disposition: Home Social History Tobacco Use [...] Report (09/03/2020 11:20 AM EDT) Final Diagnosis [id number] ? Location: [facility] The signing pathologist has [...] Verified: ??09/12/2020 8:59 ?? Pathologist Performed at: ??-[facility] Dept. of Pathology, [place], [place] SPECIMEN(S) SUBMITTED A - Antrum Bx [...] labeled F1. ??yasmany 09/12/2020 8:59 AM EDT [facility] GI Biopsy 09/03/2020 11:2 0 [...] DO PATHOLOGY/CYT OLOGY ORDERABLES Performing Organization Address City/State/[facility] Co de Phone Number [place] [phone] documented in this encounter Visit Diagnoses Not on filedocumented in this encounter Care Teams Urologist Physician Relationship Specialty Start Date End Date Mayra Browning MD [facility] [address] [place] [address] PCP - General Family Medicine 12/09/19 documented as of this encounter
--- OUTSIDE RECORDS SUMMARY | 2024-02-21 13:33 | XMS_ITS | Encounter Summary ---
Author Organization [facility] [place] [address] Care Team Providers Care Senior Water/Wastewater Engineer Name Role Phone CintronRosanna Baylee ZELAYA Primary Care Provider Encounter Details Date Type Department Care Team (Late st Contact Info) Description 01/28/2015 1:30 PM EST Office Visit Dermatology at [address] [address] Juan Becerra MD [address] [place] [address], [facility] A DERMATOLOGY [place], [place] [phone] Rosacea Social History Tobacco Use Types Packs/Day [...] Rosacea documented in this encounter Care Teams Senior Water/Wastewater Engineer Relationship Specialty Start Date End Date Rosanna Cintron APRN PCP - General 04/23/14 09/13/18 documented as of this encounter
--- OUTSIDE RECORDS SUMMARY | 2024-02-21 13:33 | XMS_ITS | Encounter Summary ---
Author Organization [facility] [place] [address] Care Team Providers Care Pipe Washer Name Role Phone Abdulaziz Rosanna Beach APRN Primary Care Provider Encounter Details Date Type Department Care Team (Latest Contact Info) Description 08/28/2018 8:44 PM EDT - 08/28/2018 11:59 PM EDT [place] [address] Discharge Disposition: Home Social History Tobacco Use [...] Report (08/28/2018 9:53 AM EDT) Final Diagnosis [id number] ? Location: [facility] The signing pathologist has [...] MD, I Verified: ??08/29/2018 ?Pathologist Performed at: ??-[facility] Dept. of Pathology, [place], [place] CLINICAL INFORMATION Specimen Submitted: A - Antrum bx B - Body of stomach bx C - Distal esophagus bx Clinical History and Diagnosis: History of H. pylori gastritis. No evidence of gastritis today. Report to: Mayra Bronwing Referring Identifier: ?(not provided) SPECIMEN PROCESSING A [...] labeled C1. ??apb 08/29/2018 4:22 PM EDT [facility] GI Biopsy 08/28/2018 9:53 AM EDT 08/28/2018 9:53 AM EDT GI Biopsy 08/28/2018 9:53 AM EDT 08/28/2018 9:53 AM EDT GI Biopsy 08/28/2018 9:53 AM EDT 08/28/2018 9:53 AM EDT Candido Vitale DO PATHOLOGY/CYT OLOGY ORDERABLES [facility] [place] [address] documented in this encounter Visit Diagnoses Not on filedocumented in this encounter Care Teams Pipe Washer Relationship Specialty Start Date End Date Rosanna Cintron APRN PCP - General 04/23/14 09/13/18 documented as of this encounter
--- OUTSIDE RECORDS SUMMARY | 2024-02-21 13:33 | XMS_ITS | Encounter Summary ---
Author Organization [facility] [place] [address] Care Team Providers Care Sewer Pipe Sorter Name Role Phone Mayra Browning MD Primary Care Provider Encounter Details Date Type Department Care Team (Late st Contact Info) Description 05/05/2021 Refill Dermatology at [address] [phone] Radha Mcmillan, BUILDING ECONOMIST Social History Tobacco Use Types Packs/Day Years [...] on filedocumented in this encounter Care Teams Sewer Pipe Sorter Relationship Specialty Start Date End Date Mayra Browning MD [address] [place] [address] PCP - General Family Medicine 12/09/19 documented as of this encounter
--- OUTSIDE RECORDS SUMMARY | 2024-02-21 13:33 | XMS_ITS | Encounter Summary ---
[facility] [place] [address] Care Team Providers Care Academic Dean Name Role Phone Mayra Browning MD Primary Care Provider [phone] Reason for Visit * Reason Comments Rash Encounter Details Date Type Department Care Team (Late st Contact Info) Description 05/05/2021 1:45 PM EDT Office Visit Dermatology at [address] [place] [address] Juan Becerra MD [address] [place] [address], [facility] [place] [place] [address] Seborrheic dermatitis Social History Tobacco Use Types [...] unspecified documented in this encounter Care Teams Academic Dean Relationship Specialty Start Date End Date Mayra Browning MD [address] [place] [address] PCP - General Family Medicine 12/09/19 documented as of this encounter
--- OUTSIDE RECORDS SUMMARY | 2024-02-21 13:33 | XMS_ITS | Encounter Summary ---
[place] [address] Care Team Providers Care Batch Operator Name Role Phone JanessaRenetta Dulce ZELAYA Primary Care Provider [phone] Reason for Visit * Reason Comments Skin Check Encounter Details Date Type Department Care Team (Late st Contact Info) Description 06/10/2011 5:15 PM EDT Office Visit Dermatology [address] [facility] [address] [place], [place] [phone] Juan Becerra MD [address] [place] [address], [facility] A DERMATOLOGY [place], [place] [phone] Acne vulgaris (Primary Dx); History of basal [...] skin documented in this encounter Care Teams Batch Operator Relationship Specialty Start Date End Date Renetta Riddle APRN [address] [place] [address] PCP - General 01/06/10 06/24/11 documented as of this encounter
--- OUTSIDE RECORDS SUMMARY | 2024-02-21 13:33 | XMS_ITS | Encounter Summary ---
Author Organization [facility] Address [facility] [place] [address] Care Team Providers Care Teacher Lip Reading Name Role Phone Rosanna Cintron NATHALIE Primary Care Provider Reason for Visit * Reason Comments Procedure Encounter Details Date Type Department Care Team (Late st Contact Info) Description 01/11/2018 9:00 AM EST Office Visit Dermatology at [address] [address] Berta Ellison MD [facility] [address] [place] [address] Encounter for cosmetic procedure Social History Tobacco [...] avoid include: C Bright, TE Pads, Exfoliating Lao, Vitascrub, Cebatrol, Glycogent, Melamix, Tretinoin, Retamax, Brightenex, Brightamax, Growth Factor, Invisapeel.) Check with your doctor if you are unsure. ?? If you plan to receive numbing cream, please be sure to come 30 min before your appointment timeand tell the front end drupal developer that you were told to do [...] Questions and/or concerns please call: ???s appointment personal secretary For urgent concerns on weekends or off hours please call [facility] main number and ask for the granulating machine operator engineer conductor: or call Dr. Ellison's cell: [phone] Retinoid Instructions Unfortunately we cannot do a prior authorization for tretinoin, as it considered cosmetic and insurance will not cover it. What you can do is go to [employer] and type in the name/strength of the prescription (tretinoin (RETIN-A) 0.025 % Cream). Make sure to adjust the zip code as well, and the local pharmacy's will populate with their estimated prices for the prescription with the Cleeng coupon.You print the coupon off and take it to the pharmacy with you- this should bring the oliveros down quite a bit. Retinoids are a class of topical prescription and ruhj-alm-dgyqymr skin medications. Originally used for acne, they [...] . It makes the skin feel tighter, dipper and drier, older, darker and more uneven. [...] regimen or products: GSR Oily- exfoliating cleanser, venezuelan, oil control reviewed by: TY date: 11/16/2017 [...] procedure documented in this encounter Care Teams Teacher Lip Reading Relationship Specialty Start Date End Date Rosanna Cintron APRN PCP - General 04/23/14 09/13/18 documented as of this encounter
--- OUTSIDE RECORDS SUMMARY | 2024-02-21 13:33 | XMS_ITS | Encounter Summary ---
Author Organization [facility] [place] [address] Care Team Providers Care Nurse Emergency Name Role Phone Mayra Browning MD Primary Care Provider [phone] Reason for Visit * Reason Comments Foot Pain * Consultation (Routine) - Specialty Diagnoses / Procedures Referred By Yoana bal Referred To Contact Podiatry Diagnoses Metatarsalgia, unspecified foot Mayra Browning MD [facility] [address] [place] [address] [facility] [place] [address] Referral ID Status Reason Start Date Expiration Date V isits Requested Visits Authorized [id number] Consult, Test & Treat Connection Center PCP Updated and/or Approved 11/29/2019 05/29/2020 6 6 Encounter Details Date Type Department Care Team (Latest Contact Info) Description 02/28/2020 10:00 AM EST [place] [address] Jo Titus DPM [facility] [place] [address] Metatarsalgia of both feet; Arthralgia [...] Note Name: Neal Ramires Age:54 y.o. MR#: [id number] Date of Service: 02/28/2020 SUBJECTIVE: Neal Ramires [...] file Gets together: Not on file Attends tenriism service: Not on file Active member of [...] concerns or changes arise Jo Titus DPM Contact Person, [facility] documented in this encounter Plan of Treatment Not on file documented as of this encounter Visit Diagnoses Diagnosis Metatarsalgia of both feet Enthesopathy of ankle and tarsus, unspecified Arthralgia of both feet documented in this encounter Care Teams Nurse Emergency Relationship Specialty Start Date End Date Mayra Browning MD [address] [place] [address] PCP - General Family Medicine 12/09/19 documented as of this encounter
--- OUTSIDE RECORDS SUMMARY | 2024-02-21 13:33 | XMS_ITS | Encounter Summary ---
[place] [address] Care Team Providers Care Demonstrator Sewing Techniques Name Role Phone JanessaRenetta Dulce ZELAYA Primary Care Provider [phone] Reason for Visit * Reason Comments Skin Check Encounter Details Date Type Department Care Team (Late st Contact Info) Description 10/03/2012 10:15 AM EDT Office Visit Dermatology [address] [facility] [address] [place], [place] [phone] Juan Becerra MD [address] [place] [address], [facility] A DERMATOLOGY [place], [place] [id number] Acne vulgaris (Primary Dx); History of basal [...] skin documented in this encounter Care Teams Demonstrator Sewing Techniques Relationship Specialty Start Date End Date Renetta Riddle APRN [address] [place] [address] PCP - General 11/13/11 04/22/14 documented as of this encounter
--- OUTSIDE RECORDS SUMMARY | 2024-02-21 13:33 | XMS_ITS | Encounter Summary ---
Author Organization [facility] [place] [address] Care Team Providers Care Dynamotor Repairer Name Role Phone Rosanna Cintron APRN Primary Care Provider [phone] Reason for Visit * Reason Comments Hypothyroidism * Consultation (Routine) - Closed Specialty Diagnoses / Procedures Referred By Yoana bal Referred To Contact Endocrinology Diagnoses hypothroid Rosanna Cintron APRN [address] [place] [address] [address] [place] [address] [facility] Endocrinology [address] [place] [phone] Referral ID Status Reason Start Date Expiration Date V isits Requested Visits Authorized [id number] Closed Consult, Test & Treat Connection Center 12/17/2016 12/17/2017 1 1 Encounter Details Date Type Department Care Team (Late st Contact Info) Description 12/21/2016 1:00 PM EST Office [place] [address] Darwin Torrez MD [facility] [place] [address] Spring Figueroa MD Hypothyroidism, unspecified type; Vitamin D deficiency Social [...] 2 children 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 We would recommend increasing her to [id number] po daily and will recheck TFTs in [...] Figueroa MD CHEMISTRY ORDERABLES Performing Organization Address [facility]/ZIP Co de Phone Number [facility] [place] [address] * Vitamin B12 (12/21/2016 2:22 PM EST) Vitamin B12 656 207 - 974 pg/mL [facility] Blood specimen (specimen) 12/21/2016 2:22 PM EST 12/21/2016 2:29 PM EST Narrative Resulting Agency Comment Spec In Lab Darwin Torrez MD CHEMISTRY ORDERAB LES Performing Organization Address [facility] Co de Phone Number [facility] [place] [address] * (ABNORMAL) Thyroid peroxidase antibody (12/21/2016 2:22 PM EST) Thyroperoxidase Ab 1,530(H) <=34 IU/mL [facility] Blood specimen (specimen) 12/21/2016 2:22 PM EST 12/21/2016 2:29 PM EST Narrative Resulting Agency Comment Spec In Lab Darwin Torrez MD IMMUNOLOGY ORDERA BLES Performing Organization Address [facility] Co de Phone Number [facility] [place] [address] * Vitamin D, 25-Hydroxy (12/21/2016 2:22 PM [...] be considered to be insufficient or deficient. http://CoSchedule/nkf-guidelines http://CoSchedule/nejm-VitD The IDS iSYS Vitamin D Immunoassay detects both 25-OH Vitamin D2 and 25-OH Vitamin D3, but only a total Vitamin D concentration is reported. Blood specimen (specimen) 12/21/2016 2:22 PM EST 12/22/2016 7:32 AM EST Narrative Resulting Agency Comment Spec In Lab Darwin Torrez MD CHEMISTRY ORDERAB LES Performing Organization Address [facility] Co de Phone Number [facility] [place] [address] documented in this encounter Visit Diagnoses Diagnosis Hypothyroidism, unspecified type Vitamin D deficiency Unspecified vitamin D deficiency documented in this encounter Care Teams Dynamotor Repairer Relationship Specialty Start Date End Date Rosanna Cintron APRN PCP - General 04/23/14 09/13/18 documented as of this encounter
--- OUTSIDE RECORDS SUMMARY | 2024-02-21 13:33 | XMS_ITS | Encounter Summary ---
[place] [address] Care Team Providers Care Canvassing Manager Name Role Phone CintronRosanna NATHALIE Primary Care Provider [phone] Reason for Visit * Reason Onset Date Comments Results 12/22/2016 Encounter Details Date Type Department Care Team (Late st Contact Info) Description 12/22/2016 Telephone [place] [phone] Spring Meraz MD Results Social History Tobacco Use Types Packs/Day [...] on filedocumented in this encounter Care Teams Canvassing Manager Relationship Specialty Start Date End Date Rosanna Cintron APRN PCP - General 04/23/14 09/13/18 documented as of this encounter
--- OUTSIDE RECORDS SUMMARY | 2024-02-21 13:33 | XMS_ITS | Encounter Summary ---
Author Organization [facility] Address [facility] [place] [address] Care Team Providers Care Family Practice Physician Assistant Name Role Phone Rosanna Cintron NATHALIE Primary Care Provider Reason for Visit * Reason Comments Procedure Encounter Details Date Type Department Care Team (Late st Contact Info) Description 11/16/2017 8:30 AM EDT Office Visit Dermatology at [address] [address] Berta Ellison MD [facility] DR [address]AQU[address] [place] [address] Encounter for cosmetic procedure Social History Tobacco [...] to numb in advance please tell the frontend engineer when you check in that you are [...] fills in and improves with time. Red dmoínguez on the skin are temporaryafter the treatment, [...] retinoid (Retamax, Tretinoin, Retin A, Atrelin, Differin, Imogene, Brightenex, Brightamax, Growth Factor Plus) a Vitamin [...] avoid include: C Bright, TE Pads, Exfoliating Ethiopian, Vitascrub, Cebatrol, Glycogent, Melamix, Tretinoin, Retamax, Brightenex, Brightamax, Growth Factor, Invisapeel.) Check with your doctor if you are unsure. ?? If you plan to receive numbing cream, please be sure to come 30 min before your appointment timeand tell the frontend engineer that you were told to do so. [...] Questions and/or concerns please call: ???s appointment field secretary For urgent concerns on weekends or off hours please call [facility] main number and ask for the vehicle operator refrigeration insulator: or call Dr. Ellison's cell: [phone] VBeam FAQs What does the Vbeam treat? [...] Wash face with lukewarm water. 12. Exfoliating Ethiopian: Apply to moistened face, massage for 60 [...] adjust andbecome stronger with sustained use. Exfoliating Ethiopian: Benefits: 1) Increases circulation and skin turnover [...] regimen or products: GSR Oily- exfoliating cleanser, hebrew, oil control reviewed by: TY date: 11/16/2017 [...] encounter. Berta Ellison MD Section of Dermatology [facility] documented in this encounter Plan of Treatment Not on file documented as of this encounter Visit Diagnoses Diagnosis Encounter for cosmetic procedure documented in this encounter Care Teams Family Practice Physician Assistant Relationship Specialty Start Date End Date Rosanna Cintron APRN PCP - General 04/23/14 09/13/18 documented as of this encounter
--- OUTSIDE RECORDS SUMMARY | 2024-02-21 13:33 | XMS_ITS | Encounter Summary ---
[place] [address] Care Team Providers Care Gypsum Block Setter Name Role Phone Mayra Browning MD Primary Care Provider Encounter Details Date Type Department Care Team (Late st Contact Info) Description 08/04/2023 Interpretation Only [facility] [address] [place] [address] Kimberley Velasquez PA [address] [place] [address] Social History Tobacco Use Types Packs/Day Years [...] on filedocumented in this encounter Care Teams Gypsum Block Setter Relationship Specialty Start Date End Date Mayra Browning MD [address] [place], [place] [phone] PCP - General Family Medicine 12/09/19 documented as of this encounter
--- OUTSIDE RECORDS SUMMARY | 2024-02-21 13:33 | XMS_ITS | Encounter Summary ---
Author Organization [facility] [place] [address] Care Team Providers Care Sec Accountant Name Role Phone Rosanna Cintron APRN Primary Care Provider [phone] Reason for Visit * Reason Comments Rosacea * Consultation (Urgent) - Specialty Diagnoses / Procedures Referred By Yoana t Referred To Contact Dermatology Diagnoses Acne Rosacea Rosanna Cintron APRN [address] [place] [address] [address] [place] [address] [facility] Dermatology [address] [place] [address] Referral ID Status Reason Start Date Expiration Date V isits Requested Visits Authorized [id number] Consult, Test & Treat Connection Center 10/20/2017 10/20/2018 6 6 Encounter Details Date Type Department Care Team (Late st Contact Info) Description 11/15/2017 3:00 PM EDT Office Visit Dermatology at [facility] [address] [place] [address] Lyubov Meadows MD [facility] [address] [place] [address] Gris Dhillon PA Sebaceous hyperplasias; Skin lesion Social History Tobacco [...] Dhillon) and documented with patient consent. 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 Patient seen in conjunction with staff entry level software developer: Lyubov Meadows MD Section of Dermatology 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 Patient seen in conjunction with Gris Dhillon PA-C ([place]) Signed by: LYUBOV MEADOWS MD Section of Dermatology [facility] documented in this encounter Plan of Treatment Not on file documented as of this encounter Visit Diagnoses Diagnosis Sebaceous hyperplasias Other specified disease of sebaceous glands Skin lesion Unspecified disorder of skin and subcutaneous tissue documented in this encounter Care Teams Sec Accountant Relationship Specialty Start Date End Date Rosanna Cintron APRN PCP - General 04/23/14 09/13/18 documented as of this encounter
--- OUTSIDE RECORDS SUMMARY | 2024-02-21 13:33 | XMS_ITS | Encounter Summary ---
[place] [address] Care Team Providers Care Production Material Handler Name Role Phone RiddleRenetta Dulce ZELAYA Primary Care Provider [phone] Reason for Visit * Reason Comments Skin Check Encounter Details Date Type Department Care Team (Late st Contact Info) Description 08/28/2010 3:30 PM EDT Office Visit Dermatology [address] [facility] [address] [place], [place] [address] Juan Becerra MD [address] [place] [address], [facility] [place] [address] History of basal cell carcinoma (Primary Dx); [...] glands documented in this encounter Care Teams Production Material Handler Relationship Specialty Start Date End Date Renetta Riddle APRN [address] [place] [address] PCP - General 01/06/10 06/24/11 documented as of this encounter
--- OUTSIDE RECORDS SUMMARY | 2024-02-21 13:33 | XMS_ITS | Encounter Summary ---
Author Organization [facility] [place] [address] Care Team Providers Care Food Counter Attendant Name Role Phone Rosanna Cintron APRN Primary Care Provider [phone] Encounter Details Date Type Department Care Team (Late st Contact Info) Description 11/17/2017 Telephone Dermatology at [address] [address] Berta Ellison MD [facility] [address] [place] [address] Social History Tobacco Use Types Packs/Day Years [...] on filedocumented in this encounter Care Teams Food Counter Attendant Relationship Specialty Start Date End Date Rosanna Cintron APRN PCP - General 04/23/14 09/13/18 documented as of this encounter
--- OUTSIDE RECORDS SUMMARY | 2024-02-21 13:33 | XMS_ITS | Encounter Summary ---
Author Organization [facility] Address [facility] [place] [address] Care Team Providers Care Tax Specialist Name Role Phone Rosanna Cintron NATHALIE Primary Care Provider [phone] Reason for Visit * Reason Comments Procedure Encounter Details Date Type Department Care Team (Late st Contact Info) Description 02/20/2018 2:00 PM EST Office Visit Dermatology at [address] [id number] Berta Ellison MD [facility] DR JOAQUIN [place] [address] Encounter for cosmetic procedure Social History Tobacco [...] avoid include: C Bright, TE Pads, Exfoliating Senegalese, Vitascrub, Cebatrol, Glycogent, Melamix, Tretinoin, Retamax, Brightenex, Brightamax, Growth Factor, Invisapeel.) Check with your doctor if you are unsure. ?? If you plan to receive numbing cream, please be sure to come 30 min before your appointment timeand tell the front facer that you were told to do so. [...] Questions and/or concerns please call: ???s appointment psychiatric secretary For urgent concerns on weekends or off hours please call [facility] main number and ask for the control specialist messenger floorperson: or call Dr. Ellison's cell: [phone] documented in this encounter Progress Notes * [...] regimen: regimen or products:??GSR Oily- exfoliating cleanser, latvian, oil control??reviewed by:??DW??date:??11/16/2017?? -instructions in AVS dated??11/16/2017?? [...] procedure documented in this encounter Care Teams Tax Specialist Relationship Specialty Start Date End Date Rosanna Cintron APRN PCP - General 04/23/14 09/13/18 documented as of this encounter
--- OUTSIDE RECORDS SUMMARY | 2024-02-21 13:33 | XMS_ITS | Clinical Summary ---
Author Organization [facility] Address [address] [place] [address] Care Team Providers Care Supervisor Paint Name Role Phone Unknown, Provider Primary Care Provider Unava ilable Social History Tobacco Use Types Packs/Day Years Used Date Smoking Tobacco: Never Assessed Interpersonal Safety Answer Date Record ed Physically Hurt Never 09/16/2019 Verbally Threaten Not on file 09/16/2019 Comments Unknown Sex and Gender Information Value Date Recorded Sex Assigned at Not on file Legal Sex Female 17:46 EST Gender Identity Not on file Sexual Orientation Not on file Plan of Treatment Health Maintenance Due Date Last Done Comments Hepatitis C Screen 1965 Hepatitis B Vaccine (1 of 3 - 19+ 3-dose series) 05/26 COVID-19 Vaccine ( season) 2023 [facility] / Payer (Ef fective 2022-Present) Name:Neal Ramires Relation to Subscriber:Self Name:Neal Ramires Payer ID:[id number] (NAIC) Type:[facility] Address: [address] [id number] MEDICAID [place] [address] [place] [id number] [place] [id number] [place] [id number] Care Teams Supervisor Paint Relationship Specialty Start Date End Date Unknown, Provider, PCP - General 05/03/13
--- OUTSIDE RECORDS SUMMARY | 2024-02-21 13:33 | XMS_ITS | Referral Summary ---
Author Organization [facility] Address [address] [place] [address] Care Team Providers Care Digging Machine Operator Name Role Phone Unknown, Provider Primary [...] file Plan of Treatment Not on file Insurance [facility] Address: [address] [place] [address] MEDICAID [place] Care Teams Digging Machine Operator Relationship Specialty Start Date End Date Unknown, Provider, PCP - General 05/03/13
--- OUTSIDE RECORDS SUMMARY | 2024-02-21 13:33 | XMS_ITS | Encounter Summary ---
[place] [address] Care Team Providers Care Tobacco Stripper Name Role Phone Renetta Riddle APRN Primary Care Provider Encounter Details Date Type Department Care Team (Late st Contact Info) Description 02/25/2010 2:00 PM EST Office Visit Dermatology [address] [facility] [address] [place], [place] [address] Juan Becerra MD [address], [place] [address] Social History Tobacco Use Types Packs/Day Years Used Date Smoking Tobacco: Never Assessed Sex and Gender Information Value Date Recorded Sex Assigned at Not on file Gender Identity Not on file Sexual Orientation Not on file documented as of this encounter Plan of Treatment Not on file documented as of this encounter Visit Diagnoses Not on filedocumented in this encounter Care Teams Tobacco Stripper Relationship Specialty Start Date End Date Renetta Riddle APRN [address] [place], [place] [address] PCP - General 01/06/10 06/24/11 documented as of this encounter
--- OUTSIDE RECORDS SUMMARY | 2024-02-21 13:33 | XMS_ITS | Clinical Summary ---
Author Organization [facility] Address [facility] [place] [address] Care Team Providers Care Automobile Racer Name Role Phone Mayra Browning MD Primary Care Provider [phone] Allergies Active Allergy Reactions Criticality Noted Date [...] 2) 2014 Advance Directive 05/27/2019 Covid-19 Vaccine ( - season) 2023 Influenza (Flu) vaccine (1 o f 1 - Influenza standard series) 10/16/2023 Care Teams Automobile Racer Relationship Specialty Start Date End Date Mayra Browning MD [facility] [address] [place], [place] [id number] PCP - General Family Medicine 12/09/19
--- OUTSIDE RECORDS SUMMARY | 2024-02-21 13:33 | XMS_ITS | Encounter Summary ---
Author Organization [facility] Address [facility] [place] [address] Care Team Providers Care Dray Truck Driver Name Role Phone Rosanna Cintron APRN Primary Care Provider Encounter Details Date Type Department Care Team (Late st Contact Info) Description 08/29/2018 External [place] [address] Provider, Scanning Social History Tobacco Use Types [...] on filedocumented in this encounter Care Teams Dray Truck Driver Relationship Specialty Start Date End Date Rosanna Cintron APRN PCP - General 04/23/14 09/13/18 documented as of this encounter
--- OUTSIDE RECORDS SUMMARY | 2024-02-21 13:34 | XMS_ITS | Encounter Summary ---
Author Organization [facility] Address [address] [place] [address] Care Team Providers Care Electronics Technology Department Chair Name Role Phone Unknown, Provider Primary Care Provider Unava ilable Encounter Details Date Type Department Care Team (Late st Contact Info) Description 05/10/2019 Lab Requisition [facility] Pathology & Laboratory Medicine - [address] [address] Unknown, Provider, Social History Tobacco Use Types Packs/Day Years Used Date Smoking Tobacco: Never Assessed Comments Unknown Sex and Gender Information Value [...] Pylori Positive(A ) Negative 05/15/2019 14:51 EDT [facility] Feces SPECIMEN FROM RECTUM / Unknown 05/10/2019 8:00 EDT 05/10/2019 17:12 EDT Narrative [facility] - 05/15/2019 14:51 EDT Results were obtained with the [employer] [facility] ALESSANDRO. us Provider Unknown MICROBIOLOGY - GENERAL ORDER CAMERON Final Result [facility] [address] [place] [address] documented in this encounter Visit Diagnoses Not on filedocumented in this encounter Care Teams Electronics Technology Department Chair Relationship Specialty Start Date End Date Unknown, Provider, PCP - General 05/03/13 documented as of this encounter
--- OUTSIDE RECORDS SUMMARY | 2024-02-21 13:34 | XMS_ITS | Data Portability ---
Author Organization [place] - [facility] Address [address] [place] [address] Assessment No assessment recorded. Plan of Treatment Reminders Order Date Submit Date Provider Last Modified By Organization Details Last Modified Time Details Appointments Nurse Visit 20 2024 10:30A M [facility] Nursing Staff Not available Not available Not available Lab HbA1c (hemoglo bin A1c), blood - 2 tigers, 1 LAV obtained without issue from (R) [address] [facility] (Registration ), [address] [place] [address] [place], [address], 07/13/2023 08:58:16 varicell a zoster virus IgG Ab, titer, serum - 2 tigers, 1 LAV obtained without issue from (R) 2023 024 [facility] (Registration ), [address] [place] [address] [place], [address], 07/04/2023 17:12:39 lipid panel, serum - 2 tigers, 1 LAV obtained without issue from (R) 2023 024 [facility] (Registration ), [address] [place] [address] [place], [address], 07/03/2023 19:34:01 CMP, serum or plasma - 2 tigers, 1 LAV obtained without issue from (R) 2023 024 [facility] (Registration ), [address] [place] [address] [place], [address], 07/01/2023 19:13:28 CBC - 2 tigers, 1 LAV obtained without issue from (R) AC 2023 024 [facility] (Registration ), [address] [place] [address] [place], [address], 07/01/2023 18:51:24 vitamin D, 25-hydro xy, total, serum - 2 tigers, 1 LAV obtained without issue from (R) AC 2023 024 [facility] (Registration ), [address] [place] [address] [place], [address], 07/01/2023 19:25:32 TSH, serum, reflex free T4 - 2 tigers, 1 LAV obtained without issue from (R) 2023 024 [facility] (Registration ), [address] [place] [address] [place], [address], 07/03/2023 19:33:23 TSH, serum, reflex free T4 2023 024 [facility] (Registration ), [address] [place] [address] [place], [address], 12/15/2023 09:55:08 vitamin D, 25-hydro xy, total, serum 2024 025 [facility] (Registration ), [address] [place] [address] [place], [address], 02/21/2024 12:45:30 HbA1c (hemoglo bin A1c), blood 2024 025 [facility] (Registration ), [address] [place] [address] [place], [address], 02/21/2024 12:40:37 lipid panel, serum 2024 025 [facility] (Registration ), [address] [place] [address] [place], [address], 02/21/2024 12:40:37 TSH, serum, reflex free T4 2024 025 [facility] (Registration ), [address] [place] [address] Dr [facility], [address], 02/21/2024 12:40:35 Referral None recorded . Procedures colonosc opy screenin g (PROC) - Due for screenin g colonosc opy 2023 024 [email or web address] Candido Vitale DO - Direct, [address] [facility], [place], [address], 08/10/2023 09:10:26 Surgeries None recorded . Imaging MAMMO, screenin g, bilatera l 2023 024 [facility] (Radiology), [address] [place] [address] [place], [address], 07/06/2023 10:50:06 Medication Orders Lidocain e Viscous 2 % mucosal solution 2023 024 [email or web address] [facility], [address] [place], [address], 07/01/2023 11:51:23 atorvast atin 10 mg tablet 2023 024 [email or web address] [facility], [address] [place], [address], 07/01/2023 16:24:15 omeprazo le 40 mg capsule, delayed release 2023 024 [email or web address] [facility], [address] [place], [address], 07/01/2023 16:24:15 levothyr oxine 100 mcg tablet 2023 024 [email or web address], [address] [place], [address], 11/29/2023 14:32:17 Patient TargetsNo targets recorded. Patient InstructionsNo instructions recorded. Reason for Referral None Reported. Results Created Date Observation Date Name Description Value Unit Range Abnormal Flag Note LastModifiedBy Organization Detail LastModifiedTime 07/01/19 24 07/01/2023 COMPL ETE BLOOD COUNT NO DIFF WBC 6.28 10_3/ uL 4.4-10 .8 normal Not Available [address] [facility] [place], [address] 07/01/2023 18:51:24 07/01/19 24 07/01/2023 COMPL ETE BLOOD COUNT NO DIFF RBC 4.53 10_6/ uL 3.93-5 .22 normal Not Available [address] [facility] [place], [address] 07/01/2023 18:51:24 07/01/19 24 07/01/2023 COMPL ETE BLOOD COUNT NO DIFF HGB 13.7 g/dL 11.2-1 5.7 normal Not Available [address] [place], [address] 07/01/2023 18:51:24 07/01/19 24 07/01/2023 COMPL ETE BLOOD COUNT NO DIFF HCT 41.8 % 36.0-4 6.0 normal Not Available [address] [facility], [address] 07/01/2023 18:51:24 07/01/19 24 07/01/2023 COMPL ETE BLOOD COUNT NO DIFF MCV 92 fL 80-95 normal Not Available [facility] [address] [facility] [place], [address] 07/01/2023 18:51:24 07/01/19 24 07/01/2023 COMPL ETE BLOOD COUNT NO DIFF MCH 30.2 pg 27.0-3 3.0 normal Not Available [address] [facility], [address] 07/01/2023 18:51:24 07/01/19 24 07/01/2023 COMPL ETE BLOOD COUNT NO DIFF MCHC 32.8 % 32.0-3 6.0 normal Not Available [address] [place], [address] 07/01/2023 18:51:24 07/01/19 24 07/01/2023 COMPL ETE BLOOD COUNT NO DIFF RDW 12.0 % 11.7-1 4.6 normal Not Available [address] [place], [address] 07/01/2023 18:51:24 07/01/19 24 07/01/2023 COMPL ETE BLOOD COUNT NO DIFF platelet count 280 10_3/ uL 130-40 0 normal Not Available [address] [place], [address] 07/01/2023 18:51:24 07/01/19 24 07/01/2023 COMPL ETE BLOOD COUNT NO DIFF MPV 10.4 fL 8.0-11 .0 normal Not Available [address] [place], [address] 07/01/2023 18:51:24 07/01/19 24 07/01/2023 HEMOG LOBIN A1C hemoglobin A1C 5.9 % <5.7 high Refer ence Range s <5.7 Lisa l 5.7-6 .4% Predi abete s 6.5% or great er Diagn ostic for diabe guillaume (if confi rmed) Refer ences : 1. Ameri can Diabe guillaume Assoc iatio n. Clas sific ation and Diagn osis of Diabe guillaume. Diabe guillaume Care 2018 2(Sup pleme nt 1):S1 3-s28 . Not Available [facility] (Registration ) [address] [place] [address] [place], [address], 07/01/2023 19:12:31 07/01/19 24 07/01/2023 COMPR EHENS DOLLY METAB OLIC PANEL calcium 9.7 mg/dL 8.5-10 .1 normal Not Available [address] [place], [address] 07/01/2023 19:13:28 07/01/19 24 07/01/2023 COMPR EHENS DOLLY METAB OLIC PANEL glucose 91 mg/dL 74-106 normal Not Available [facility] [address] [place], [address] 07/01/2023 19:13:28 07/01/19 24 07/01/2023 COMPR EHENS DOLLY METAB OLIC PANEL BUN 13 mg/dL 7-18 normal Not Available [facility] [address] [place], [address] 07/01/2023 19:13:28 07/01/19 24 07/01/2023 COMPR EHENS DOLLY METAB OLIC PANEL creatinine 1.0 mg/dL 0.55-1 .02 normal Not Available [address] [place], [address] 07/01/2023 19:13:28 07/01/19 24 07/01/2023 COMPR EHENS [...] young er-ag ed adult s. Not Available [address] [place], [address] 07/01/2023 19:13:28 07/01/19 24 07/01/2023 COMPR EHENS DOLLY METAB OLIC PANEL total protein 7.2 g/dL 6.4-8. 2 normal Not Available [address] [place], [address] 07/01/2023 19:13:28 07/01/19 24 07/01/2023 COMPR EHENS DOLLY METAB OLIC PANEL albumin 4.3 g/dL 3.4-5. 0 normal Not Available [address] [place], [address] 07/01/2023 19:13:28 07/01/19 24 07/01/2023 COMPR EHENS DOLLY METAB OLIC PANEL bilirubin, total 0.4 mg/dL 0.2-1. 0 normal Not Available [address] [place], [address] 07/01/2023 19:13:28 07/01/19 24 07/01/2023 COMPR EHENS DOLLY METAB OLIC PANEL alk phos 65 U/L 46-116 normal Not Available [address] [place], [address] 07/01/2023 19:13:28 07/01/19 24 07/01/2023 COMPR EHENS DOLLY METAB OLIC PANEL sodium 146 mmol/ L 136-14 5 high Not Available [address] [place], [address] 07/01/2023 19:13:28 07/01/19 24 07/01/2023 COMPR EHENS DOLLY METAB OLIC PANEL potassium 4.3 mmol/ L 3.5-5. 1 normal Not Available [address] [place], [address] 07/01/2023 19:13:28 07/01/19 24 07/01/2023 COMPR EHENS DOLLY METAB OLIC PANEL chloride 106 mmol/ L 98-107 normal Not Available [address] [place], [address] 07/01/2023 19:13:28 07/01/19 24 07/01/2023 COMPR EHENS DOLLY METAB OLIC PANEL CO2 31.6 mmol/ L 21.0-3 2.0 normal Not Available [address] [place], [address] 07/01/2023 19:13:28 07/01/19 24 07/01/2023 COMPR EHENS DOLLY METAB OLIC PANEL anion gap 8.4 mmol/ L 3-11 normal Not Available [address] [place], [address] 07/01/2023 19:13:28 07/01/19 24 07/01/2023 COMPR EHENS DOLLY METAB OLIC PANEL AST 25 U/L 15-37 normal Not Available [address] [place], [address] 07/01/2023 19:13:28 07/01/19 24 07/01/2023 COMPR EHENS DOLLY METAB OLIC PANEL ALT 44 U/L 14-59 normal Not Available [facility] [address] [place], [address] 07/01/2023 19:13:28 07/01/19 24 07/01/2023 LIPID 2 cholesterol 265 mg/dL <200 high Not Available [facility] [address] [place], [address] 07/01/2023 19:13:29 07/01/19 24 07/01/2023 LIPID 2 triglyceride 120 mg/dL <150 Not Available [address] [place], [address] 07/01/2023 19:13:29 07/01/19 24 07/01/2023 LIPID 2 HDL cholesterol 71 mg/dL 40-60 Not Available Justin contreras [address] [place], [address] 07/01/2023 19:13:29 07/01/19 24 07/01/2023 LIPID 2 [...] 18 years or older . Not Available [address] [place], [address] 07/01/2023 19:13:29 07/01/19 24 07/01/2023 TSH (W/RE F FT4) TSH (w/ref FT4) 4.90 uIU/m L 0.36-3 .74 high Not Available [address] [place], [address] 07/01/2023 19:13:29 07/01/19 24 07/01/2023 VITAM IN D 25 TOTAL vitamin D 25 total 19.1 NG/mL 30-100 low Refer ence Guide lines : Defic ient: <10 ng/ml Insuf ficie nt: 10-30 ng/ml Suffi cient : 30-10 0 ng/ml Toxic : >100 ng/ml Not Available [address] [place], [address] 07/01/2023 19:25:31 07/01/19 24 07/01/2023 LIPID 2 cholesterol 265 mg/dL <200 high Not Available [facility] (Registration ) [address] [place] [address] [place], [address], 07/01/2023 19:43:35 07/01/19 24 07/01/2023 LIPID 2 triglyceride 120 mg/dL <150 Not Available [facility] (Registration ) [address] [place] [address] [place], [address], 07/01/2023 19:43:35 07/01/19 24 07/01/2023 LIPID 2 HDL cholesterol 71 mg/dL 40-60 Not Available [facility] (Registration ) [address] [place] [address] [place], [address], 07/01/2023 19:43:35 07/01/19 24 07/01/2023 LIPID 2 [...] ove Optim al LDL 130-1 59 mg/dL Pal butler High LDL 160-1 89 mg/dL High LDL >or=1 90 mg/dL Very High *The above refer ence range is for adult s 18 years or older . Not Available [facility] (Registration ) [address] [place] [address] [place], [address], 07/01/2023 19:43:35 07/01/19 24 07/01/2023 TSH (W/RE F FT4) TSH (w/ref FT4) 4.90 uIU/m L 0.36-3 .74 high Not Available [facility] (Registration ) [address] [place] [address] [place], [address], 07/01/2023 19:43:36 07/01/19 24 07/01/2023 FREE T4 free T4 0.86 NG/dL 0.76-1 .46 normal Not Available [address] [place], [address] 07/01/2023 19:43:36 07/01/19 24 07/04/2023 VARIC NICKOLAS IGG ANTIB ARTURO varicella IgG antibody Positi ve see note Prese nce of detec table Varic nickolas Zoste r virus IgG antib odies . Test perfo rmed or refer red by [facility] [address] [place] [address] Not Available [facility] (Registration ) [address] [place] [address] [place], [address], 07/04/2023 16:34:13 07/25/19 24 07/25/2023 CREAT INE KINAS E creatine kinase 124 U/L 26-192 normal Not Available [address] [place], [address] 07/25/2023 17:27:18 07/25/19 24 07/25/2023 VITAM IN D 25 TOTAL vitamin D 25 total 23.4 NG/mL 30-100 low Refer ence Guide lines : Defic ient: <10 ng/ml Insuf ficie nt: 10-30 ng/ml Suffi cient : 30-10 0 ng/ml Toxic : >100 ng/ml Not Available [address] [facility], [address] 07/25/2023 17:27:20 11/28/19 24 11/28/2023 TSH (W/RE F FT4) TSH (w/ref FT4) 0.20 uIU/m L 0.36-3 .74 low Not Available [facility] (Registration ) [address] [place] [address] [place], [address], 11/28/2023 17:17:52 11/28/1911/28/2023 TSH (W/RE F FT4) TSH (w/ref FT4) 0.20 uIU/m L 0.36-3 .74 low Not Available [address] [place], [address] 11/28/2023 17:47:05 11/28/1911/28/2023 FREE T4 free T4 1.46 NG/dL 0.76-1 .46 normal Not Available [facility] (Registration ) [address] [place] [address] [place], [address], 11/28/2023 17:47:05 07/05/19 24 07/05/2023 MAMMO , ilan triana t Name: Shine Aguila Unit #: [id number] Loc: DI Orderi ng Provid er: Mayra Browning M.D. Accoun t #: [id number] Status : REG CLI Primar [...] report s averag e 6 to 10%. Ordere d By: Mayra Browning M.D. CC: ------ [...] this report in error, please notify us [email or web address] cedillo at and return the origin al report to us at the addres s above. Thank- you. [email or web address] [facility] (Radiology) [address], [place], [address], 07/06/2023 10:50:32 10/31/1910/27/2020 imagi ng/di agnos tic resul t No [...] 10/30 06:53:03 10/31/19 24 07/02/2022 MAMMO , hali ravindra No observ ation record ed. Not Available 10/30 06:53:04 10/31/19 24 04/21/2021 MAMMO , scremary ravindra No observ ation record ed. Not Available 10/30 06:53:08 10/31/19 24 01/29/2020 MAMMO , hali ravindra No observ ation record ed. Not Available 10/30 06:53:09 10/31/19 24 01/29/2020 MAMMO , hali lottg No observ ation record ed. Not Available [...] ation record ed. Not Available 10/30 06:54:08 10/31/1905/18/2018 imagi ng/di agnos tic resul t No observ ation record ed. Not Available 10/30 06:54:09 10/31/1910/27/2020 imagi ng/di agnos tic resul t No observ ation record ed. Not Available 10/30 06:54:59 10/31/1910/27/2020 imagi ng/di agnos tic resul t No observ ation record ed. Not Available 10/30 06:55:00 10/31/19 24 03/07/2022 imagi ng/di agnos tic resul t No observ ation record ed. Not Available 10/30 06:55:08 10/31/1905/24/2018 imagi ng/di agnos tic resul t No observ ation record ed. Not Available 10/30 06:55:21 10/31/19 24 05/24/2018 imagi ng/di agnos tic resul t No observ ation record ed. Not Available 10/30 06:55:22 01/17/2001/17/2024 x-ray imagi ng repor t Patien t Name: Shine Aguila Unit #: [id number] Loc: DIORS Orderi ng Provid er: Moi Ulloa M.D. Accoun t #: [id number] Status : PRE CLI Primar y Care Provid er: Mayra Browning M.D. Date of Exam: 05/07 Sex: F Admiss ion Date: : 1965 Age: 58 Exam(s ) XR SHOULD ER LT COMPLE TE 2+V EXAM: XR SHOULD ER LT COMPLE TE 2+V CLINIC AL HISTOR Y: LEFT SHOULD ER PAIN. TECHNI QUE: 2D digita l imagin g was perfor med of the left should er. Two images were obtain ed. Grashe y and axilla ry views were obtain ed. COMPAR CODEY: CR XR SHOULD ER LT COMPLE TE 2+V from 2019 FINDIN GS: BONES: No acute fractu re is presen t. No bony destru ctive lesion is seen. JOINTS : No disloc ation presen t. There are mild degene rative change s seen at both the acromi oclavi cular and glenoh umeral joints . SOFT TISSUE : Normal . IMPRES ISAIAH: Mild degene rative change s of the left should er as descri bed above. DATA REPOSI TORY: RADIAT ION DOSE DELIVE RED: Ordere d By: Moi Ulloa M.D. CC: ------ ------ ------ ------ ------ ------ ------ ------ ------ ------ ------ ------ - Dictat ed By: Kendall Padilla M.D. 1455 1455 Transc ribed By: Kendall Padilla 1455 This is privil eged, confid ential inform ation intend ed only for the provid er named. Any use or distri bution by any person other than this provid er is strict ly prohib ited. If you receiv e this report in error, please notify us immedi ately at and return the origin al report to us at the addres s above. Thank- you. INTERFACE [facility] [address] , [place], [address] 01/17/2024 15:10:13 Result Notes None recorded. Problems Name Problem SNOMED Code Status Onset Date Resolution Date Notes Provider Name and Address Organization Details Recorded Time Generali zed anxiety disorder 84721427 Active 2001 MAYRA BROWNING MD [address], [facility] [address] , [facility] 4 17:32:40 Hyperlip idemia 15048174 Active 2010 on statin MD [address], [address] [place] [address] 4 12:10:51 Hypothyr oidism 33280288 Active [address], [address] 4 12:10:57 Rosacea 544607788 Active [address], [address] 4 12:14:51 Arthralg ia of temporom andibula r joint 04966834 Active [address], [address] 4 12:01:12 Restless legs 44537066 Active [address], [address] 4 12:14:31 Fatigue 06673369 Active [address], [address] 4 12:02:27 Acquired absence of cervix and uterus 583603996 Active MD [address] Dr, [address] 4 12:00:55 Adult health examinat ion Active [address], [facility] [address] [place] [address] 4 12:01:04 Vitamin D deficien cy 17373054 Active [address], [place], [address] , [facility] 4 12:15:16 Pain in thoracic spine 852746244 Active [address], [place], [address] , [facility] 4 12:13:25 Sciatica 67130953 Active [address], [facility] [address] , [facility] 4 13:21:53 Right upper quadrant pain 584604086 Active [address], [facility] [address] , [facility] 4 12:14:44 Pain of right knee joint 35154683142 4100 Active [address], [facility] [address] , [facility] 4 12:13:42 Pain of left shoulder joint 78951691038 733216 Active [address], [place], [address] , [facility] 4 12:13:33 Insomnia 436033875 Active [address], [place], [address] , [facility] 4 12:12:20 Diarrhea 57022528 Completed 201905/16/2019 Problem Code: R19.7; Problem Code Type: ICD-10; Not Available [facility] 3 04:09:35 Diabetes mellitus screenin g Completed 201906/18/2019 Problem Code: Z13.1; Problem Code Type: ICD-10; Not Available [facility] 3 04:09:35 Prediabe guillaume 893016383 Active [address], [place], [address] , [facility] 4 12:14:25 Obstruct dolly sleep apnea syndrome 72056706 Active [address], [facility] [address] , [facility] 4 12:13:15 Polyp of nasal cavity and/or nasal sinus 568501091 Active 2019 Not interest ed in surgical interven tion, continue with nasal steroids . MD [address], [place], [place], [address] [place] [address] , [facility] 4 12:14:17 Screenin g for malignan t neoplasm of breast Completed 201907/01/2023 Problem Code: Z12.39; Problem Code Type: ICD-10; MD [address], [place], [address] , [facility] 4 12:15:08 Metatars algia 26321981 Active [address], [place], [address] , [facility] 4 12:12:40 Seasonal allergic rhinitis 270851394 Active [address], [place], [address] , [facility] 4 12:15:04 Therapeu tic drug monitori ng assay 52490944 Completed 202011/24/2020 Problem Code: Z51.81; Problem Code Type: ICD-10; Not Available [facility] 3 04:09:36 Gastroes ophageal reflux disease without esophagi tis 881847591 Active 2020 No reflux symptoms , just stomach pain. EGD 08/2020 (intesti nal metaplas ia of stomach 08/2018, not present 2020) Hx of Hpylori 12/[address], [place] [address] , [facility] 4 13:18:40 Menopaus e present 806204140 Active [address], [place] [address] , [facility] 4 12:12:29 Chest pain 04836534 Active [address], [place] [address] , [facility] 4 12:01:35 Dyspnea 092664117 Active [address], [place] [address] , [facility] 4 12:02:20 Neck pain 37974111 Active [address], [place] [address] , [facility] 4 12:12:49 Constipa tion 30227821 Active [address], [address] 4 12:01:53 Disorder of skin and/or subcutan eous tissue 50593625 Completed 202207/01/2023 Problem Code: L98.9; Problem Code Type: ICD-10; MD [address]iel [address], [address] 4 12:02:12 Cough 86303348 Completed 201508/09/2016 Problem Code: R05; Problem Code Type: ICD-10; Not Available [facility] 3 04:09:40 Diarrhea 92132116 Completed 201801/15/2019 Problem Code: R19.7; Problem Code Type: ICD-10; Not Available [facility] 3 04:09:40 Asthenia 58057228 Completed 201705/11/2018 Problem Code: R53.1; Problem Code Type: ICD-10; Not Available [facility] 3 04:09:40 Intestin al metaplas ia of gastric mucosa 97371104 Completed 202009/29/2020 Not Available [facility] 3 04:09:40 Localize d eruption of skin 980198000 Completed 202106/12/2021 Problem Code: R21; Problem Code Type: ICD-10; Not Available [facility] 3 04:09:40 Benign neoplasm of colon 18384514 Completed 201311/10/2022 Problem Code: 211.3; Problem Code Type: ICD-9; Not Available [facility] 3 04:09:41 Sensatio n as if urinary bladder still full 791311156 Completed 201405/11/2018 Problem Code: R39.14; Problem Code Type: ICD-10; Not Available [facility] 3 04:09:41 Anxiety disorder 522798115 Completed 200111/10/2022 Not Available [facility] 3 04:09:41 Blood chemistr y outside referenc e range 456070165 Completed 202009/29/2020 Problem Code: R79.89; Problem Code Type: ICD-10; Not Available [facility] 3 04:09:42 History of clinical finding in subject 279070629 Completed 201211/10/2022 Not Available [facility] 3 04:09:42 Neck pain 20712314 Completed 201809/14/2019 Problem Code: M54.2; Problem Code Type: ICD-10; MAYRA BROWNING MD [address], [place], [address] , [facility]. 4 12:12:49 Skin sensatio n disturba nce 91011692 Completed 201906/25/2020 Problem Code: R20.9; Problem Code Type: ICD-10; Not Available [facility] 3 04:09:42 Localize d eruption of skin 737020214 Completed 202008/06/2020 Problem Code: R21; Problem Code Type: ICD-10; Not Available [facility] 3 04:09:42 Pleuriti c pain 6841232 Completed 202009/29/2020 Problem Code: R07.81; Problem Code Type: ICD-10; Not Available [facility] 3 04:09:43 Altered bowel function 51514286 Completed 202210/11/2022 Problem Code: R19.4; Problem Code Type: ICD-10; Not Available [facility] 3 04:09:43 Chest pain 66465850 Completed 201809/14/2019 Problem Code: R07.9; Problem Code Type: ICD-10; MD [address], [facility] [address] , [facility] 4 12:01:35 Exposure to communic able disease Completed 202006/12/2021 Problem Code: Z20.828; Problem Code Type: ICD-10; Not Available [facility] 3 04:09:44 Muscle pain 33312435 Completed 201605/11/2018 Problem Code: M79.1; Problem Code Type: ICD-10; Not Available [facility] 3 04:09:44 Viral screenin g Completed 202110/05/2021 Problem Code: Z11.52; Problem Code Type: ICD-10; Not Available [facility] 3 04:09:44 Adult health examinat ion Completed 201405/11/2018 Problem Code: Z00.00; Problem Code Type: ICD-10; MD Grabiel [address]Z [facility] [address] , [facility]. 4 12:01:04 Hypertro phic conditio n of skin 38894806 Completed 201405/11/2018 Problem Code: L91.8; Problem Code Type: ICD-10; Not Available [facility] 3 04:09:45 Hypertro phic conditio n of skin 49048117 Completed 202106/14/2022 Problem Code: L91.8; Problem Code Type: ICD-10; Not Available [facility] 3 04:09:45 Pain of right shoulder joint 49918964265 638812 Completed 202106/14/2022 Problem Code: M25.511; Problem Code Type: ICD-10; Not Available [facility] 3 04:09:45 Smoker 90585984 Completed 201308/03/2016 Not Available [facility] 3 04:09:46 Dizzines s and giddines s 723186163 Completed 201605/11/2018 Problem Code: R42; Problem Code Type: ICD-10; Not Available [facility] 3 04:09:46 Pain in right foot 28906361703 9107 Completed 201505/11/2018 Problem Code: M79.671; Problem Code Type: ICD-10; Not Available [facility] 3 04:09:46 Pain in thoracic spine 770811166 Completed 202110/05/2021 Problem Code: M54.89; Problem Code Type: ICD-10; MAYRA BROWNING MD [address], [place], [address] , [facility], [facility]. 4 12:13:25 Low back pain 167266011 Completed 201605/11/2018 Problem Code: M54.5; Problem Code Type: ICD-10; Not Available [facility] 3 04:09:47 Bradycar geoff 13036710 Completed 202006/12/2021 Problem Code: R00.1; Problem Code Type: ICD-10; Not Available [facility] 3 04:09:47 Abdomina l pain 82548944 Completed 202210/11/2022 Problem Code: R10.9; Problem Code Type: ICD-10; Not Available [facility] 3 04:09:47 Nausea 040411623 Completed 202010/11/2022 Problem Code: R11.0; Problem Code Type: ICD-10; Not Available [facility] 3 04:09:48 Exposure to viral hepatiti s Completed 201605/11/2018 Problem Code: Z20.5; Problem Code Type: ICD-10; Not Available [facility] 3 04:09:48 Increase d frequenc y of urinatio n 820220463 Completed 201405/11/2018 Problem Code: R35.0; Problem Code Type: ICD-10; Not Available [facility] 3 04:09:49 Pain in right foot 63462047130 9107 Completed 202106/14/2022 Problem Code: M79.671; Problem Code Type: ICD-10; Not Available [facility] 3 04:09:49 Dyspnea 104423752 Completed 201505/11/2018 Problem Code: R06.09; Problem Code Type: ICD-10; MD Grabiel [address], [place], [address] , [facility]. 4 12:02:20 History of adenomat ous polyp of colon 028316128 Active 2013, normal colonosc opy [address], [place], [address] , [facility]. 4 12:10:28 Ex-smoke r 6354445 Active [address], [place], [address] , [facility]. 4 12:13:06 Problem Notes None recorded. Procedures Surgical History Date Name Laterality Status Provider Name and Address Organization Details Recorded Time 05/18/20 23 Most Recent Mammogram completed ADOLFO MCCANN RN [facility] 07/01/2023 11:59:19 08/29/19 19 Date of Last Colonoscopy completed ADOLFO MCCANN RN [facility] 07/01/2023 12:03:39 02/16/19 05 hysterectomy completed MAYRA BROWNING MD [address], [place], [address], [facility] 07/01/2023 12:21:25 Imaging Results Imaging Date Name Status [facility]Modified by [facility] Details LastModified Time 07/05/2023 MAMMO, screening, bilateral completed [email or web address] [facility] (Radiology) [address] , [place], [address], 07/06/2023 10:50:32 10/27/2020 imaging/diagno stic result completed [...] result completed Information not available 10/31/2023 06:55:22 01/17/2024 x-ray imaging report completed INTERFACE [facility] [address] [place], [address] 01/17/2024 15:10:13 Procedure Notes None recorded. Medical Equipment None Reported. Allergies Allergen ID Allergen Name Allergen Category Reaction Reaction Severity Criticality Documentation Date Start Date Code Code System Note Provider Name and Address Organization Details Recorded Time 77025 codeine medicatio n other Not available Not available 12/24/20222008 2670 RxNorm GI Aller gyRea ction : 'GI'; Not Available [facility] 3 16:21:52 12295 oxycodone medicatio n dizziness vomiting Not available Not available Not available 07/01/2023 7804 RxNorm GERONIMO BARRETT, [facility] 4 11:49:08 24287 Bactrim medicatio n Not available Not available Not available 07/01/2023 78250 9 RxNorm acute hepat itis, eleva ahmet liver enzym es ADOLFO MCCANN RN [facility], [facility] 4 11:49:47 59520 Effexor medicatio n headache nausea vomiting Not available Not available Not available Not available 07/01/2023 76035 2 RxNorm GERONIMO BARRETT, [facility] 4 11:50:12 06187 garlic preparati on food,medi cation hives Not available Not available 07/01/2023 75808 7 RxNorm throa t close s GERONIMO BARRETT, [facility] 4 11:50:41 Medications Name Sig Start Date [...] 1 tablet by mouth once a day 11/28 completed increase dose to 125 Not Available Not Available Not Available Tessalon Perles 100 mg capsule take one [...] TAKE ONE TABLET BY MOUTH EVERY DAY 11/28 completed lower dose to 112 Not Available Not Available Not Available triamcino lone acetonide 55 mcg nasal [...] Available Not Available Not Available levothyro xine 112 mcg tablet TAKE ONE TABLET BY MOUTH EVERY DAY active Not Available Not Available No t Available Flexeril 10 mg tablet 1 TAB [...] Updated DateTime 4 156.21 cm 28.1 kg/m2 54962.4 5 g 98.1 [degF] 57 /min 119 mm[Hg] 73 mm[Hg] ADOLFO MCCANN RN [facility] 4 11:13:24 Date Recorded Body height Body temperature Heart rate Respiratory rate Body mass index (BMI) Body weight Systolic blood pressure Diastolic blood pressure Provider Name and Address Organization Details Last Updated DateTime 4 156.72 cm 96.8 [degF] 61 /min 14 /min 29 kg/m2 31025 g 120 mm[Hg] 76 mm[Hg] ADOLFO MCCANN RN [facility] 4 11:46:41 Social History Question Answer Notes LastModified by Organizat ion Details LastModified Time Tobacco Smoking Status Former Smoker ADOLFO MCCANN RN [facility], [facility] 04/18/2023 11:13:48 When Did You Quit Smoking? [...] 0 0 Immunizations Vaccine Type Date Status Note Provider Nam e and Address Organization Details Recorded Time Hep B, adolescent or pediatric 7 completed Not Available [facility] 12/24/2022 04:35:28 Tdap 2 completed Not Available [facility] 12/24/2022 04:35:28 Tdap 2 completed Not Available [facility] 12/24/2022 04:35:29 Influenza, split virus, trivalent, preservative 6 completed Not Available [facility] 12/24/2022 04:35:29 Influenza, split virus, trivalent, preservative 5 completed Not Available [facility] 12/24/2022 04:35:29 Influenza, split virus, quadrivalent, PF 2 completed Not Available [facility] 12/24/2022 04:35:30 Influenza, split virus, quadrivalent, PF 1 completed Not Available [facility] 12/24/2022 04:35:30 Influenza, split virus, quadrivalent, PF 0 completed Not Available [facility] 12/24/2022 04:35:30 Influenza, split virus, quadrivalent, preservative 8 completed Not Available [facility] 12/24/2022 04:35:30 COVID-19, mRNA, LNP-S, PF, 100 mcg/0.5mL dose or 50 mcg/0.25mL dose 1 completed Not Available [facility] 12/24/2022 04:35:31 SARS-COV-2 (COVID-19) vaccine, UNSPECIFIED 1 completed Not Available [facility] 12/24/2022 04:35:31 SARS-COV-2 (COVID-19) vaccine, UNSPECIFIED 0 completed Not Available [facility] 12/24/2022 04:35:31 Hep B, adult 8 completed Not Available [facility] 12/24/2022 04:35:32 Hep B, adult 7 completed Not Available [facility] 12/24/2022 04:35:32 influenza, unspecified formulation 9 completed Not Available [facility] 12/24/2022 04:35:33 Influenza, split virus, quadrivalent, PF 3 completed Not Available [facility] 02/25/2023 05:33:14 Influenza, MDCK, trivalent, PF 4 completed ANABEL SCOTT RN [facility], [place] - [facility] 12/05/2023 09:03:19 Past Encounters Encounter ID Performer Location Encounter Start Date Encounter Closed Date Diagnosis/Indication Diagnosis SNOMED-CT Code Diagnosis ICD10 Code Diagnosis Note [id number] ADOLFO CMCANN RN [address] [place] [address] 04/18/2023 10:14:01 04/18/2023 11:09:31 Aphthous ulcer of mouth 953984049 K12.0 most likely, perhaps due to spicy sausage.Tr ial of pain control with lidocaine, if not improving can use Dexamethas one elixir 0.5 mg/5 mL ? 5 mL swish and spit three to four times daily.Reas surance that this does not appear to be tonsillar cancer. [id number] MAYRA BROWNING MD [address] [place] [address] 07/01/2023 11:44:02 07/01/2023 13:44:06 Screening mammography 26947764 Z12.31 prefers to [facility] annually[facility] 861089564 Z00.00 Has declined shingrix as she does not believe ever had chickenpox , will check titres. Hyperlipidemia 43045429 E78.5 Takes the atorvastat in low dose 2-3 times per week, more than that causes hand discomfort . Prediabetes 342684667 R7 3.03 Has gained a bit of weight back, not as consistent with healthy meals and snacks most recently. Fatigue 87684744 R53.83 chronic, unchanged. Generalize d anxiety disorder 03088135 F41.1 I offered her a referral to an outside psychiatri c UTILIZATION REVIEW COORDINATOR (Estee De Leon History of polyp of colon 574292351 Z86.010 will schedule her colonoscop y. Hypothyroidism 98921576 E03.9 Vitamin D deficiency 347 67555 E55.9 Screening for malignant neoplasm of colon 518305706 Z12.11 Gastroesop hageal reflux disease without esophagitis 814369932 K21.9 [id number] ADOLFO MCCANN RN [facility] [address] [place] [address] 07/25/2023 12:31:41 07/27/2023 11:31:02 [id number] ADOLFO MCCANN RN [facility] [address] [place] [place] [address] 11/28/2023 09:29:12 11/28/2023 10:16:32 Hypothyroidism 67474052 E03.9 Titrate up dose of synthroid [id number] ANABEL SCOTT RN [facility] [address] [place] [address] 02/21/2024 12:27:26 02/21/2024 12:36:19 Hypothyroidism 42092085 E03.9 TSH is suppressed , lower dose from 125 to 112. Prediabetes 032585153 R7 3.03 work on bringing meals to work. Hyperlipidemia 55641579 E78.5 increase statin to qoday. Vitamin D deficiency 347 43013 E55.9 Health Concerns Section Related Observation LastModified by Organization Detai ls LastModified Time None Recorded Concern Status LastModified by Organization Details LastModified Time None Recorded Advance Directives Directive None Recorded Payers Encounter Date Sequence Insurance Name Policy Number Policy Hester Covered Member ID Hester Member ID Guarantor Name 04/18/2023 1 [place] [facility] ([place]) [id number] Neal Ramires [id number] Neal Ramires 04/18/2023 1 [facility] (MEDICAID) Neal Ramires [id number] Neal Ramires 07/01/2023 1 [place] [facility] ([place]) [id number] Nael Ramires [id number] Neal Ramires 07/01/2023 1 [facility] (MEDICAID) Neal Ramires [id number] Neal Ramires 07/25/2023 1 [place] [facility] ([place]) [id number] Neal Ramires [id number] Neal Ramires 07/25/2023 1 [facility] (MEDICAID) Neal Ramires [id number] Neal Ramires 11/28/2023 1 [place] [facility] ([place]) [id number] Neal Ramires [id number] Neal Ramires 11/28/2023 1 [facility] (MEDICAID) Neal Ramires [id number] Neal Ramires 02/21/2024 1 [facility] (MEDICAID) Neal Ramires [id number] Neal Ramires Notes Date Note Type Note Provider Name and Address Organization Details Recorded Time 04/18/2023 text/html Trouble swallowing.Started 4-5 days ago.No generalized sore throat, no URI symptoms, no fevers or chills, does not fill ill.On the right side, feels like a piece of paper stuck. Feels it when she swallows, or when she talks. She had eaten a spicy sausage. Worried about cancer of her tonsil. ADOLFO MCCANN RN [facility], [facility] 04/18/2023 11:13:52 07/01/2023 text/html Here for Annual Exam.Interval history form was reviewed, including comprehensive ROS form.ROS negative throughout with the exception as noted below: Has not had episodes of chest pain or SOB lately. In the past they occurred during [employer] class or during hiking. She never did have her stress test, insurance would not cover. However when she works out at [employer] she gets very shaky, which makes her anxious. She is able to walk without weakness. What she describes is shaking of a muscle when it is under stress.Two episodes when she has had quivering of [...] pain. MAYRA BROWNING MD [address], [place], [address], [facility]. 07/01/2023 16:47:30 OBGyn Episode No OBEpisode recorded.
--- OUTSIDE RECORDS SUMMARY | 2024-02-21 13:34 | XMS_ITS | Encounter Summary ---
Author Organization [facility] Address [address] [place] [address] Care Team Providers Care Fur Drummer Name Role Phone Unknown, Provider Primary Care Provider Unava ilable Encounter Details Date Type Department Care Team (Latest Contact Info) Description 12/22/2017 13:41 EST - 12/22/2017 23:59 EST Hospital Encounter [address] [address] Unknown, Provider, Discharge Disposition: Home or Self [...] Code Departure Means Destination Home or Self Snf documented in this encounter Plan of Treatment Not on file documented as of this encounter Visit Diagnoses Not on filedocumented in this encounter Care Teams Fur Drummer Relationship Specialty Start Date End Date Unknown, Provider, PCP - General 05/03/13 documented as of this encounter
--- OUTSIDE RECORDS SUMMARY | 2024-02-21 13:34 | XMS_ITS | Encounter Summary ---
Author Organization [facility] Address [address] [place] [address] Care Team Providers Care Drawer In Stitch Bonding Machine Name Role Phone Unavailable Primary Care Provider Unavailabl e Encounter Details Date Type Department Care Team (Late st Contact Info) Description 07/21/2000 Results Only [facility] - Map conversion [address] [place] [address] Pierre Riddle FNP [address] [place], [place] [phone] Social History Tobacco Use Types Packs/Day Years [...] ? SHIRA NEAL ? Accession #: ? [id number] : ? 1965 (Age: 35) ??F ?Collect Date: ? 07/21/2000 Location: ? [facility] ? Receive Date: ? 07/25/2000 Provider: ? PIERRE RIDDLE BROADCASTER Copy to: ? CYTOLOGIC DIAGNOSIS: ? Tongue scraping, cytologic material: - No malignant cells identified. ??See comment. ? COMMENT: ? The single prepared slide demonstrates bland squamous epithelial cells and bacterial colonies. ??There is no accompanying inflammation and no evidence of viral infection. ??(Dr. Trivedi)/[facility] Document reviewed and electronically signed by: [...] BARB RODRIGUEZ 07/21/2000 07/25/2000 9:4 4 EDT us Pierre Riddle BROADCASTER PATHOLOGY ORDERABLES Final Resul t BARB RODRIGUEZ [address] [place] [address] documented in this encounter Visit Diagnoses Not on filedocumented in this encounter
--- OUTSIDE RECORDS SUMMARY | 2024-02-21 13:34 | XMS_ITS | Encounter Summary ---
Author Organization [facility] Address [address] [place] [address] Care Team Providers Care Produce Weigher Name Role Phone Unknown, Provider Primary Care Provider Unava ilable Encounter Details Date Type Department Care Team (Late st Contact Info) Description 05/30/[address] [facility] Pathology & Laboratory Medicine - [facility] [address] [place], [place] [id number] Outr Resulting Lab, Provider Social History Tobacco [...] Swab 05/29/2021 7:47 EDT 05/30/2021 21:58 EDT us Provider Outr Resulting Lab MICROBIOLOGY - GENER AL ORDERABLES Final Result [facility] [address] [place] [address] * COVID-19 TESTING (05/29/2021 7:47 EDT) COVID-19 rt-PCR Result Negative Negative 05/31/2021 1:32 EDT [facility] Comment: This test has [...] history, and epidemiological information. Performed on the [employer] Fusion instrument Performing Lab [place] [facility] 05/31/2021 1:32 EDT [facility] Swab 05/29/2021 7:47 EDT 05/30/2021 21:58 EDT us Provider Outr Resulting Lab MICROBIOLOGY - GENER AL ORDERABLES Final Result [facility] [address] [place] [address] documented in this encounter Visit Diagnoses Not on filedocumented in this encounter Care Teams Produce Weigher Relationship Specialty Start Date End Date Unknown, Provider, PCP - General 05/03/13 documented as of this encounter
--- OUTSIDE RECORDS SUMMARY | 2024-02-21 13:34 | XMS_ITS | Encounter Summary ---
Author Organization [facility] Address [address] [place] [address] Care Team Providers Care Inspecting Machine Adjuster Name Role Phone Unknown, Provider Primary Care Provider Unava ilable Encounter Details Date Type Department Care Team (Late st Contact Info) Description 11/29/2022 Lab Requisition [facility] Pathology & Laboratory Medicine - [facility] [address] [place] [address] Mayra Browning MD [address] [place] [address] Other specified disorders of the skin [...] explore management options, if applicable. 12/07/2022 15:34 [facility] Final Diagnosis A. 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 - Dermal fibrosis. 12/07/2022 15:34 [facility] Attestation By the signature below, the attending physician certifies that they have 1) personally conducted a gross and/or microscopic examination of the described specimen(s), and/or personally interpreted the results of laboratory testing of the described specimen(s), and 2) personally rendered or confirmed the above diagnosis. 12/07/2022 15:34 [facility] at 1534 Microscopic Description Multiple deeper sections have been examined. 12/07/2022 15:34 [facility] Clinical History Papule present for years, intermittently bleeds; clinical diagnosis code: L98.8 12/07/2022 15:34 [facility] Gross Description A. Received in formalin labelled with proper patient identification (initials B, R) and left lower arm is a shave biopsy an irregular portillo, centrally portillo-brown and crusted lesion (0.5 x 0.3 x 0.1 cm). The margin is inked blue and the specimen is submitted intact in A1. Radha Reyes 11/30/2022 10:57 12/07/2022 15:34 [facility] Performing Lab [facility] 12/07/2022 15:34 [facility] Scanned Images 12/07/2022 15:34 [facility] Tissue SPECIMEN FROM SKIN / Unknown 11/29/2022 9:00 EDT 11/29/2022 23:00 EDT us Mayra Browning MD PATHOLOGY ORDERABLES Final Resul t [facility] [address] [place] [address] documented in this encounter Visit Diagnoses Diagnosis Other specified disorders of the skin and subcutaneous tissue documented in this encounter Care Teams Inspecting Machine Adjuster Relationship Specialty Start Date End Date Unknown, Provider, PCP - General 05/03/13 documented as of this encounter
--- OUTSIDE RECORDS SUMMARY | 2024-02-21 13:34 | XMS_ITS | Encounter Summary ---
Author Organization [facility] Address [address] [place] [address] Care Team Providers Care Tunnel Heading Inspector Name Role Phone Unavailable Primary Care Provider Unavailabl e Encounter Details Date Type Department Care Team (Late st Contact Info) Description 11/03/2000 Results Only [facility] - Map conversion [address] [place] [address] Pierre Riddle FNP [address] [place], [place] [phone] Social History Tobacco Use Types Packs/Day Years [...] ? IKE NEAL ? Accession #: ? [id number] : ? 1965 (Age: 35) ??F ?Collect [...] End of Report BARB RODRIGUEZ 11/03/2000 11/08/2000 us Pierre GARCIAP PATHOLOGY ORDERABLES Final Resul t [facility] [address] [place] [address] documented in this encounter Visit Diagnoses Not on filedocumented in this encounter
--- OUTSIDE RECORDS SUMMARY | 2024-02-21 13:34 | XMS_ITS | Encounter Summary ---
Author Organization [facility] Address [address] [place] [address] Care Team Providers Care Clay Artisan Name Role Phone Unknown, Provider Primary Care Provider Unava ilable Encounter Details Date Type Department Care Team (Late st Contact Info) Description 07/02/2023 Lab Requisition [facility] Pathology & Laboratory Medicine - [facility] [address] [place], [place] [address] Outr Resulting Lab, Provider Social History Tobacco [...] Ab Positive See Note 07/04/2023 10:45 EDT [facility] Comment:Presence of detectab le Varicella Zoster virus IgG antibodies. Blood VENOUS BLOOD / Unknown 07/01/2023 15:25 EDT 07/02/2023 21:44 EDT us Provider Outr Resulting Lab IMMUNOLOGY AND SEROL OGY ORDERABLES Final Result Performing Organization Address [facility]/State/ZIP Co de Phone Number [facility] [address] [place] [address] documented in this encounter Visit Diagnoses Not on filedocumented in this encounter Care Teams Clay Artisan Relationship Specialty Start Date End Date Unknown, Provider, PCP - General 05/03/13 documented as of this encounter
--- OUTSIDE RECORDS SUMMARY | 2024-02-21 13:34 | XMS_ITS | Encounter Summary ---
Author Organization [facility] Address [address] [place] [address] Care Team Providers Care Director Safety Name Role Phone Unavailable Primary Care Provider Unavailabl e Encounter Details Date Type Department Care Team (Late st Contact Info) Description 06/24/2004 Results Only [facility] - Map conversion [address] [place] [address] Jerry Borrego MD [address] [place] [address] Social History Tobacco Use Types [...] when reading/interpreti ng unformatted reports. Name: ? NEAL SILVA ? Accession #: ? [id number] ? : ? 1965 (Age: 39) ??F ? Collect Date: ? 06/24/2004 ? Location: ? [facility] ? Receive Date: ? 06/24/2004 ? Provider: JERRY BORREGO MD Copy to: PIERREPAMELA ARMSTRONG NEURO UROLOGIST ? Final Pathologic Diagnosis: A. ?Peritoneum, pelvic [...] chronic follicular salpingitis. ??See comment. Comment: ? Practice Office Associate sections of (B) have been reviewed. ??(Dr. Lam)/[facility] Document reviewed and electronically signed by: [...] moderate amount of blood within the lumen. ??Practice Office Associate sections are submitted as follows: BLOCK KEYB1 ?Practice Office Associate anterior cervix B2 ?Practice Office Associate posterior cervix to include vaginal mucosa B3 ?Practice Office Associate anterior endomyometrium B4 ?Practice Office Associate posterior endomyometrium B5 ?Practice Office Associate serosal adhesions B6, B7 ?Right ovary and fallopian tube B8, B9 ?Practice Office Associate left ovary and fallopian tube (A. Tomlinson)/lgk End of Report BARB RODRIGUEZ 06/24/2004 06/24/2004 15: 36 EDT us Jerry Borrego MD PATHOLOGY ORDERABLES Final Resul t BARB RODRIGUEZ [address] [place] [address] documented in this encounter Visit Diagnoses Not on filedocumented in this encounter
--- OUTSIDE RECORDS SUMMARY | 2024-02-21 13:34 | XMS_ITS | Continuity of Care Document ---
Author Organization [place] [facility] Address [address] [place] [address] Assessment No assessment recorded. Plan of Treatment Reminders Order Date Submit Date Provider Last Modified By Organization Details Last Modified Time Details Appointments Nurse Visit 20 2024 10:30A M [facility] Nursing Staff Not available Not available Not available Lab vitamin D, 25-hydro xy, total, serum 2024 025 [facility] (Registration ), [address] [place] [address] [place], [address], 02/21/2024 12:45:30 HbA1c (hemoglo bin A1c), blood 2024 025 [facility] (Registration ), [address] [place] [address] [place], [address], 02/21/2024 12:40:37 lipid panel, serum 2024 025 [facility] (Registration ), [address] [place] [address] [place], [address], 02/21/2024 12:40:37 TSH, serum, reflex free T4 2024 025 [facility] (Registration ), [address] [place] [address] [place], [address], 02/21/2024 12:40:35 Referral None recorded . Procedures None recorded . Surgeries None recorded . Imaging None recorded . Medication Orders None recorded . Patient TargetsNo targets recorded. Patient InstructionsNo instructions recorded. Reason for Referral None Reported. Problems Name Problem SNOMED Code Status Onset Date Resolution Date Notes Provider Name and Address Organization Details Recorded Time Generali zed anxiety disorder 57612037 Active [address], [facility] [address] , [facility] 4 17:32:40 Hyperlip idemia 16955870 Active 2010 on statin MD Grabiel [address]Z [address], [facility] [address] , [facility] 4 12:10:51 Hypothyr oidism 55392240 Active [address], [facility] [address] [place] [address] 4 12:10:57 Rosacea 392110954 Active [address], [facility] [address] , [facility] 4 12:14:51 Arthralg ia of temporom andibula r joint 75028751 Active [address], [facility] [address] [place] [address] 4 12:01:12 Restless legs 26300823 Active [address], [facility] [address] , [facility] 4 12:14:31 Fatigue 51583997 Active [address], [facility] [address] [place] [address] 4 12:02:27 Acquired absence of cervix and uterus 377038473 Active MD Grabiel G[address]Z Dr, [facility] [address] , [facility]. 4 12:00:55 Adult health examinat ion Active [address], [facility] [address] , [facility] 4 12:01:04 Vitamin D deficien cy 47892603 Active [address], [facility] [address] , [facility] 4 12:15:16 Pain in thoracic spine 351720378 Active [address], [facility] [address] , [facility] 4 12:13:25 Sciatica 56600060 Active [address], [facility] [address] , [facility] 4 13:21:53 Right upper quadrant pain 676194610 Active [address], [facility] [address] , [facility] 4 12:14:44 Pain of right knee joint 90102316849 4100 Active [address], [facility] [address] , [facility] 4 12:13:42 Pain of left shoulder joint 94181389995 642828 Active [address], [facility] [address] , [facility] 4 12:13:33 Insomnia 203475523 Active [address], [place], [address] , [facility] 4 12:12:20 Diarrhea 70618730 Completed 201905/16/2019 Problem Code: R19.7; Problem Code Type: ICD-10; Not Available [facility] 3 04:09:35 Diabetes mellitus screenin g Completed 201906/18/2019 Problem Code: Z13.1; Problem Code Type: ICD-10; Not Available [facility] 3 04:09:35 Prediabe guillaume 134470115 Active [address], [place], [address] , [facility] 4 12:14:25 Obstruct андрей sleep apnea syndrome 93460659 Active [address], [place], [address] , [facility] 4 12:13:15 Polyp of nasal cavity and/or nasal sinus 434462775 Active 2019 Not interest ed in surgical interven tion, continue with nasal steroids . MD Grabiel [address], [place], [address] , [facility] 4 12:14:17 Screenin g for malignan t neoplasm of breast Completed 201907/01/2023 Problem Code: Z12.39; Problem Code Type: ICD-10; MD Grabiel [address], [place], [address] , [facility] 4 12:15:08 Metatars algia 88375127 Active [address], [place], [address] , [facility] 4 12:12:40 Seasonal allergic rhinitis 479613279 Active [address], [place], [address] , [facility] 4 12:15:04 Therapeu tic drug monitori ng assay 41694225 Completed 202011/24/2020 Problem Code: Z51.81; Problem Code Type: ICD-10; Not Available [facility] 3 04:09:36 Gastroes ophageal reflux disease without esophagi tis 713508631 Active 2020 No reflux symptoms , just stomach pain. EGD 08/2020 (intesti nal metaplas ia of stomach 08/2018, not present 2020) Hx of Hpylori 12/[address], [facility] [address] , [facility] 4 13:18:40 Menopaus e present 559042705 Active [address], [facility] [address] , [facility] 4 12:12:29 Chest pain 39077983 Active [address], [facility] [address] , [facility] 4 12:01:35 Dyspnea 688664271 Active [address], [facility] [address] , [facility] 4 12:02:20 Neck pain 53158730 Active [address], [facility] [address] , [facility] 4 12:12:49 Constipa tion 78427172 Active [address], [address] , [facility] 4 12:01:53 Disorder of skin and/or subcutan eous tissue 67648661 Completed 202207/01/2023 Problem Code: L98.9; Problem Code Type: ICD-10; [place], [address] , [facility]. 4 12:02:12 Cough 57358432 Completed 201508/09/2016 Problem Code: R05; Problem Code Type: ICD-10; Not Available [facility] 3 04:09:40 Diarrhea 91756578 Completed 201801/15/2019 Problem Code: R19.7; Problem Code Type: ICD-10; Not Available [facility] 3 04:09:40 Asthenia 43362301 Completed 201705/11/2018 Problem Code: R53.1; Problem Code Type: ICD-10; Not Available [facility] 3 04:09:40 Intestin al metaplas ia of gastric mucosa 47603993 Completed 202009/29/2020 Not Available [facility] 3 04:09:40 Localize d eruption of skin 568548829 Completed 202106/12/2021 Problem Code: R21; Problem Code Type: ICD-10; Not Available [facility] 3 04:09:40 Benign neoplasm of colon 94791325 Completed 201311/10/2022 Problem Code: 211.3; Problem Code Type: ICD-9; Not Available [facility] 3 04:09:41 Sensatio n as if urinary bladder still full 743743100 Completed 201405/11/2018 Problem Code: R39.14; Problem Code Type: ICD-10; Not Available [facility] 3 04:09:41 Anxiety disorder 751582362 Completed 200111/10/2022 Not Available [facility] 3 04:09:41 Blood chemistr y outside referenc e range 896976356 Completed 202009/29/2020 Problem Code: R79.89; Problem Code Type: ICD-10; Not Available [facility] 3 04:09:42 History of clinical finding in subject 142941557 Completed 201211/10/2022 Not Available [facility] 3 04:09:42 Neck pain 36016848 Completed 201809/14/2019 Problem Code: M54.2; Problem Code Type: ICD-10; MD Grabiel [address], [place], [address] , [facility] 4 12:12:49 Skin sensatio n disturba nce 03743338 Completed 201906/25/2020 Problem Code: R20.9; Problem Code Type: ICD-10; Not Available [facility] 3 04:09:42 Localize d eruption of skin 228639066 Completed 202008/06/2020 Problem Code: R21; Problem Code Type: ICD-10; Not Available [facility] 3 04:09:42 Pleuriti c pain 6770178 Completed 202009/29/2020 Problem Code: R07.81; Problem Code Type: ICD-10; Not Available [facility] 3 04:09:43 Altered bowel function 06855786 Completed 202210/11/2022 Problem Code: R19.4; Problem Code Type: ICD-10; Not Available [facility] 3 04:09:43 Chest pain 99977199 Completed 201809/14/2019 Problem Code: R07.9; Problem Code Type: ICD-10; MD Grabiel [address], [place], [address] , [facility] 4 12:01:35 Exposure to communic able disease Completed 202006/12/2021 Problem Code: Z20.828; Problem Code Type: ICD-10; Not Available [facility] 3 04:09:44 Muscle pain 00273105 Completed 201605/11/2018 Problem Code: M79.1; Problem Code Type: ICD-10; Not Available [facility] 3 04:09:44 Viral screenin g Completed 202110/05/2021 Problem Code: Z11.52; Problem Code Type: ICD-10; Not Available [facility] 3 04:09:44 Adult health examinat ion Completed 201405/11/2018 Problem Code: Z00.00; Problem Code Type: ICD-10; MD Grabiel [address], [place], [address] , [facility]. 4 12:01:04 Hypertro phic conditio n of skin 89802302 Completed 201405/11/2018 Problem Code: L91.8; Problem Code Type: ICD-10; Not Available [facility] 3 04:09:45 Hypertro phic conditio n of skin 68975481 Completed 202106/14/2022 Problem Code: L91.8; Problem Code Type: ICD-10; Not Available [facility] 3 04:09:45 Pain of right shoulder joint 24424647128 566888 Completed 202106/14/2022 Problem Code: M25.511; Problem Code Type: ICD-10; Not Available [facility] 3 04:09:45 Smoker 38272524 Completed 201308/03/2016 Not Available [facility] 3 04:09:46 Dizzines s and giddines s 300826199 Completed 201605/11/2018 Problem Code: R42; Problem Code Type: ICD-10; Not Available [facility] 3 04:09:46 Pain in right foot 67146552545 9107 Completed 201505/11/2018 Problem Code: M79.671; Problem Code Type: ICD-10; Not Available [facility] 3 04:09:46 Pain in thoracic spine 923540469 Completed 202110/05/2021 Problem Code: M54.89; Problem Code Type: ICD-10; MD Grabiel [address], [place], [address] , [facility]. 4 12:13:25 Low back pain 464394296 Completed 201605/11/2018 Problem Code: M54.5; Problem Code Type: ICD-10; Not Available [facility] 3 04:09:47 Bradycar geoff 49563174 Completed 202006/12/2021 Problem Code: R00.1; Problem Code Type: ICD-10; Not Available [facility] 3 04:09:47 Abdomina l pain 16773046 Completed 202210/11/2022 Problem Code: R10.9; Problem Code Type: ICD-10; Not Available [facility] 3 04:09:47 Nausea 080724935 Completed 202010/11/2022 Problem Code: R11.0; Problem Code Type: ICD-10; Not Available [facility] 3 04:09:48 Exposure to viral hepatiti s Completed 201605/11/2018 Problem Code: Z20.5; Problem Code Type: ICD-10; Not Available [facility] 3 04:09:48 Increase d frequenc y of urinatio n 739471232 Completed 201405/11/2018 Problem Code: R35.0; Problem Code Type: ICD-10; Not Available [facility] 3 04:09:49 Pain in right foot 68944198432 9107 Completed 202106/14/2022 Problem Code: M79.671; Problem Code Type: ICD-10; Not Available [facility] 3 04:09:49 Dyspnea 215848990 Completed 201505/11/2018 Problem Code: R06.09; Problem Code Type: ICD-10; MD Grabiel [address], [place], [address] , [facility]. 4 12:02:20 History of adenomat ous polyp of colon 644856995 Active 2013, normal colonosc opy [address], [place], [address] , [facility]. 4 12:10:28 Ex-smoke r 8501153 Active 2023 SEBLE DOCKERY MD [address], [place], [address] , [facility] 4 12:13:06 Problem Notes None recorded. Procedures Surgical History Date Name Laterality Status Provider Name and Address Organization Details Recorded Time 07/02/19 23 Most Recent Mammogram completed ADOLFO MCCANN RN [facility] 07/01/2023 11:59:19 08/29/19 19 Date of Last Colonoscopy completed ADOLFO MCCANN RN [facility] 07/01/2023 12:03:39 02/16/19 05 hysterectomy completed SEBLE DOCKERY MD [address], [place], [address], [facility] 07/01/2023 12:21:25 Imaging Results None recorded. Procedure Notes None recorded. Medical Equipment None Reported. Allergies Allergen ID Allergen Name Allergen Category Reaction Reaction Severity Criticality Documentation Date Start Date Code Code System Note Provider Name and Address Organization Details Recorded Time 13117 codeine medicatio n other Not available Not available 12/24/20222008 2670 RxNorm GI Aller gyRea ction : 'GI'; Not Available [facility] 3 16:21:52 58168 oxycodone medicatio n dizziness vomiting Not available Not available Not available 07/01/2023 7804 RxNorm ADOLFO MCCANN RN [facility], [facility] 4 11:49:08 47791 Bactrim medicatio n Not available Not available Not available 07/01/2023 85653 9 RxNorm acute hepat itis, eleva ahmet liver enzym es GERONIMO BARRTET, [facility] 4 11:49:47 61264 Effexor medicatio n headache nausea vomiting Not available Not available Not available Not available 07/01/2023 96194 2 RxNorm GERONIMO BARRETT, [facility] 4 11:50:12 72698 garlic preparati on food,medi cation hives Not available Not available 07/01/2023 01567 7 RxNorm throa t close s ADOLFO MCCANN RN null, [place] - [facility]. 4 11:50:41 Medications Name Sig Start Date [...] Anusol-HC 25 mg rectal supposito ry 1 [place] BID 09/01 completed Not Available Not Available [...] Smoking Status Former Smoker ADOLFO MCCANN RN [facility], [place] - [facility] 04/18/2023 11:13:48 When Did You [...] adolescent or pediatric 7 completed Not Available [facility] 12/24/2022 04:35:28 Tdap 2 completed Not Available [facility] 12/24/2022 04:35:28 Tdap 2 completed Not Available [facility] 12/24/2022 04:35:29 Influenza, split virus, trivalent, preservative 6 completed Not Available [facility] 12/24/2022 04:35:29 Influenza, split virus, trivalent, preservative 5 completed Not Available [facility] 12/24/2022 04:35:29 Influenza, split virus, quadrivalent, PF 2 completed Not Available [facility] 12/24/2022 04:35:30 Influenza, split virus, quadrivalent, PF 1 completed Not Available [facility] 12/24/2022 04:35:30 Influenza, split virus, quadrivalent, PF 0 completed Not Available [facility] 12/24/2022 04:35:30 Influenza, split virus, quadrivalent, preservative 8 completed Not Available [facility] 12/24/2022 04:35:30 COVID-19, mRNA, LNP-S, PF, 100 mcg/0.5mL dose or 50 mcg/0.25mL dose 1 completed Not Available [facility] 12/24/2022 04:35:31 SARS-COV-2 (COVID-19) vaccine, UNSPECIFIED 1 completed Not Available [facility] 12/24/2022 04:35:31 SARS-COV-2 (COVID-19) vaccine, UNSPECIFIED 0 completed Not Available [facility] 12/24/2022 04:35:31 Hep B, adult 8 completed Not Available [facility] 12/24/2022 04:35:32 Hep B, adult 7 completed Not Available [facility] 12/24/2022 04:35:32 influenza, unspecified formulation 9 completed Not Available [facility] 12/24/2022 04:35:33 Influenza, split virus, quadrivalent, PF 3 completed Not Available [facility] 02/25/2023 05:33:14 Influenza, MDCK, trivalent, PF 4 completed ANABEL SCOTT RN [place], [place] - [facility] 12/05/2023 09:03:19 Past Encounters Encounter ID Performer Location Encounter Start Date Encounter Closed Date Diagnosis/Indication Diagnosis SNOMED-CT Code Diagnosis ICD10 Code Diagnosis Note [id number] ANABEL SCOTT RN [facility] [address] [place] [address] 02/21/2024 12:27:26 02/21/2024 12:36:19 Hypothyroidism 83685555 E03.9 TSH is suppressed , lower dose from 125 to 112. Prediabetes 777326252 R7 3.03 work on bringing meals to work. Hyperlipidemia 29423277 E78.5 increase statin to qoday. Vitamin D deficiency 347 33493 E55.9 Health Concerns Section Related Observation LastModified by Organization Detai ls LastModified Time None Recorded Concern Status LastModified by Organization Details LastModified Time None Recorded Payers Encounter Date Sequence Insurance Name Policy Number Policy Hester Covered Member ID Hester Member ID Guarantor Name 02/21/2024 1 [facility] (MEDICAID) Neal Ramires [id number] Neal Ramires OBGyn Episode No OBEpisode recorded.
--- OUTSIDE RECORDS SUMMARY | 2024-02-21 13:34 | XMS_ITS | Encounter Summary ---
Author Organization [facility] Address [address] [place] [address] Care Team Providers Care Inspector Chief Name Role Phone Unknown, Provider Primary Care Provider Unava ilable Encounter Details Date Type Department Care Team (Late st Contact Info) Description 08/04/2022 Lab Requisition [facility] Pathology & Laboratory Medicine - [facility] [address], [place] [address] Outr Resulting Lab, Provider Social History Tobacco [...] H. Pylori Negative Negative 08/05/2022 13:40 EDT [facility] Feces SPECIMEN FROM RECTUM / Unknown 08/04/2022 12:10 EDT 08/04/2022 21:26 EDT Narrative [facility] - 08/05/2022 13:40 EDT Results were obtained with the [employer] ALESSANDRO. us Provider Outr Resulting Lab MICROBIOLOGY - GENER AL ORDERABLES Final Result [facility] [address] [place] [address] documented in this encounter Visit Diagnoses Not on filedocumented in this encounter Care Teams Inspector Chief Relationship Specialty Start Date End Date Unknown, Provider, PCP - General 05/03/13 documented as of this encounter
--- OUTSIDE RECORDS SUMMARY | 2024-02-21 13:34 | XMS_ITS | Encounter Summary ---
Author Organization [facility] Address [address] [place] [address] Care Team Providers Care Tree Topper Name Role Phone Unavailable Primary Care Provider Unavailabl e Encounter Details Date Type Department Care Team (Late st Contact Info) Description 04/14/2007 Results Only [facility] - Maple conversion [address] [place] [address] Kesha Bean, [facility] [address] [place] [address] Social History Tobacco Use Types Packs/Day [...] when reading/interpreti ng unformatted reports. Name: ? SHIRANEAL RODRIGUEZ ? Accession #: ? [id number] : ? 1965 (Age: 41) ??F ?Collect Date: ? 04/14/2007 Location: ? [facility] ? Receive Date: ? 04/17/2007 Provider: ?KESHA BEAN STEEL HANDLER Copy to: ? Specimen/Source: ?ThinPrep Pap Test, Vagina, processed on [employer] ThinPrep Imaging System, with manual evaluation Last [...] Report BARB RODRIGUEZ 04/14/2007 04/17/2007 Kesha Bean STEEL HANDLER PATHOLOGY ORDERABLES Final R esult [facility] [address] [place] [address] documented in this encounter Visit Diagnoses Not on filedocumented in this encounter
--- OUTSIDE RECORDS SUMMARY | 2024-02-21 13:34 | XMS_ITS | Encounter Summary ---
Author Organization [facility] Address [address] [place] [address] Care Team Providers Care Professor Of Law Name Role Phone Unknown, Provider Primary Care Provider Unava ilable Encounter Details Date Type Department Care Team (Late st Contact Info) Description 03/06/2021 Lab Requisition [facility] Pathology & Laboratory Medicine - [facility] [address] [place], [place] [id number] Outr Resulting Lab, Provider Social History Tobacco [...] 03/05/2021 13:4 6 EST 03/06/2021 17:35 EST us Provider Outr Resulting Lab MICROBIOLOGY - GENER AL ORDERABLES Final Result [facility] [address] [place] [address] * COVID-19 TESTING (03/05/2021 13:46 EST) COVID-19 rt-PCR Result Negative Negative 03/07/2021 13:19 EST [facility] Comment: This test [...] epidemiological information. Testing was performed using the mata SARS-CoV-2 assay ([employer] on the Mata 6800 System Performing Lab Mata 6800 [facility] 03/07/2021 13:19 EST [facility] Swab 03/05/2021 13:4 6 EST 03/06/2021 17:35 EST us Provider Outr Resulting Lab MICROBIOLOGY - GENER AL ORDERABLES Final Result [facility] [address] [place] [address] documented in this encounter Visit Diagnoses Not on filedocumented in this encounter Care Teams Professor Of Law Relationship Specialty Start Date End Date Unknown, Provider, PCP - General 05/03/13 documented as of this encounter
--- OUTSIDE RECORDS SUMMARY | 2024-02-21 13:34 | XMS_ITS | Encounter Summary ---
Author Organization [facility] Address [address] [place] [address] Care Team Providers Care Adaptive Physical Education Teacher Name Role Phone Unknown, Provider Primary Care Provider Unava ilable Encounter Details Date Type Department Care Team (Late st Contact Info) Description 02/07/2020 Lab Requisition [facility] Pathology & Laboratory Medicine - [facility] [address] [place], [place] [address] Outr Resulting Lab, Provider Social History Tobacco [...] Unknown 02/07/2020 8:15 EST 02/07/2020 20:06 EST us Provider Outr Resulting Lab MICROBIOLOGY - GENER AL ORDERABLES Final Result [facility] [address] [place] [address] * COVID-19 TESTING (02/07/2020 8:15 EST) COVID-19 rt-PCR Result Negative Negative 02/08/2020 16:13 EST [facility] Comment: This test has not [...] history, and epidemiological information. Performed on the [employer] Fusion instrument Performing Lab [place] [facility] Lab 02/08/2020 16:13 EST [facility] Swab 02/07/2020 8:15 EST 02/07/2020 20:06 EST us Provider Outr Resulting Lab MICROBIOLOGY - GENER AL ORDERABLES Final Result [facility] [address] [place] [address] documented in this encounter Visit Diagnoses Not on filedocumented in this encounter Care Teams Adaptive Physical Education Teacher Relationship Specialty Start Date End Date Unknown, Provider, PCP - General 05/03/13 documented as of this encounter
--- OUTSIDE RECORDS SUMMARY | 2024-02-21 13:34 | XMS_ITS | Encounter Summary ---
Author Organization [facility] Address [address] [place] [address] Care Team Providers Care High School Assistant Principal Name Role Phone Unavailable Primary Care Provider Unavailabl e Encounter Details Date Type Department Care Team (Late st Contact Info) Description 05/01/2013 Results Only [facility] Laboratory Services - [facility] ([facility]) [address], [place] [address] Bryan Mccann, DO [address] [facility] [address] [place] [address] Social History Tobacco Use Types [...] ? NEAL SILVA ? Accession #: ? [id number] ? : ? 1965 (Age: 47) ??F ? Collect Date: ? 05/01/2013 ? Location: ? [facility] ? Receive Date: ? 05/01/2013 ? Provider: BRYAN MCCANN DO Copy to: PIERRE ARMSTRONG CRUSHER LOADER OPERATOR ? Final Pathologic Diagnosis: A. COLON, 20 [...] 0.2 cm). Entirely submitted in block B1. Pauly Giraldo 05/02/2013 09:48 AM End of Report [facility] 05/01/2013 19:0 2 EDT 05/01/2013 19:02 EDT us Bryan Mccann DO PATHOLOGY ORDERABLES Fi nal Result [facility] [address] [place] [address] documented in this encounter Visit Diagnoses Not on filedocumented in this encounter
--- OUTSIDE RECORDS SUMMARY | 2024-02-21 13:34 | XMS_ITS | Encounter Summary ---
Author Organization [facility] Address [address] [place] [address] Care Team Providers Care Pupil Personnel Worker Name Role Phone Unavailable Primary Care Provider Unavailabl e Encounter Details Date Type Department Care Team (Late st Contact Info) Description 05/22/2004 Results Only [facility] [address] [place] [address] Jerry Borrego MD [address] [place] [address] Social History Tobacco Use Types [...] ? IKENEAL RODRIGUEZ ? Accession #: ? [id number] : ? 1965 (Age: 39) ??F ?Collect Date: ? 05/22/2004 Location: ? [facility] ? Receive Date: ? 2004 Provider: ?JERRY BORREGO MD Copy to: ? Specimen/Source: ?ThinPrep Pap Test, Cervix/Endocervix Last Menstrual Period: ? 05/03/04 Treatment History: ? Cryotherapy: 1993 Other: ? Additional clinical information: Patient is scheduled for LAVH/BSO, H/O Abnormal paps HPVA - HPV testing requested if ASC-US on the current ThinPrep Pap test. ? SPECIMEN ADEQUACY ? Satisfactory for Evaluation - transformation zone component present GENERAL CATEGORIZATION ? Negative for Intraepithelial Lesion or Malignancy ? Document reviewed and electronically signed by: ? Kelly Juarez, CT(ASCP) ? Report Date: ??05/27/2004 13:36 End of Report [facility] 05/22/2004 2004 us Jerry Borrego MD PATHOLOGY ORDERABLES Final Resul t [facility] [address] [place] [address] documented in this encounter Visit Diagnoses Not on filedocumented in this encounter
--- OUTSIDE RECORDS SUMMARY | 2024-02-21 13:34 | XMS_ITS | Encounter Summary ---
Author Organization [facility] Address [address] [place] [address] Care Team Providers Care Easement Man Name Role Phone Unknown, Provider MD Primary Care Provider Unava ilable Encounter Details Date Type Department Care Team (Late st Contact Info) Description 05/02/2019 Lab Requisition [facility] Pathology & Laboratory Medicine - [facility] [address] [place] [address] Unknown, Provider, Social History Tobacco Use Types [...] Salmonella PCR Negative Negative 05/03/2019 11:00 EDT [facility] Shigella/Enteroin vasive E. coli Negative Negative 05/03/2019 11:00 EDT [facility] HN LAB CAMPYLOBACTER PCR Negative Negative 05/03/2019 11:00 EDT [facility] Shiga Toxin PCR Negative Negative 0 11:00 EDT [facility] Feces SPECIMEN FROM RECTUM / Unknown 05/02/2019 10:00 EDT 05/02/2019 20:57 EDT us Provider Unknown MICROBIOLOGY - GENERAL ORDER CAMERON Final Result [facility] [address] [place] [address] documented in this encounter Visit Diagnoses Not on filedocumented in this encounter Care Teams Easement Man Relationship Specialty Start Date End Date Unknown, Provider, PCP - General 05/03/13 documented as of this encounter
--- OUTSIDE RECORDS SUMMARY | 2024-02-21 13:34 | XMS_ITS | Encounter Summary ---
Author Organization [facility] Address [address] [place] [address] Care Team Providers Care Copy Worker Name Role Phone Unknown, Provider Primary Care Provider Unava ilable Encounter Details Date Type Department Care Team (Late st Contact Info) Description 11/14/2020 Lab Requisition [facility] Pathology & Laboratory Medicine - [facility] [address] [place], [place] [id number] Outr Resulting Lab, Provider Social History Tobacco [...] Unknown 11/14/2020 9:35 EDT 11/14/2020 22:10 EDT us Provider Outr Resulting Lab MICROBIOLOGY - GENER AL ORDERABLES Final Result [facility] [address] [place] [address] * COVID-19 TESTING (11/14/2020 9:35 EDT) COVID-19 rt-PCR Result Negative Negative 11/15/2020 1:24 EDT [facility] [...] history, and epidemiological information. Performed on the [employer] Fusion instrument Performing Lab [place] [facility] Lab 11/15/2020 1:24 EDT [facility] Swab 11/14/2020 9:35 EDT 11/14/2020 22:10 EDT us Provider Outr Resulting Lab MICROBIOLOGY - GENER AL ORDERABLES Final Result [facility] [address] [place] [address] documented in this encounter Visit Diagnoses Not on filedocumented in this encounter Care Teams Copy Worker Relationship Specialty Start Date End Date Unknown, Provider, PCP - General 05/03/13 documented as of this encounter
--- OUTSIDE RECORDS SUMMARY | 2024-02-21 13:34 | XMS_ITS | Encounter Summary ---
Author Organization [facility] Address [address] [place] [address] Care Team Providers Care Machine Repairer Maintenance Name Role Phone Unknown, Provider Primary Care Provider Unava ilable Encounter Details Date Type Department Care Team (Late st Contact Info) Description 12/22/2017 Results Only [facility] [phone] Marva Connelly MD [facility] [place], [place] [id number] Social History Tobacco Use Types Packs/Day Years [...] ? NEAL SILVA ? Accession #: ? [id number] ? : ? 1965 (Age: 52) ??F ? Collect Date: ? 12/22/2017 ? Location: ? [facility] ? Receive Date: ? 12/22/2017 ? Provider: MARVA CONNELLY MD Copy to: LAURIE ESCOBAR REPRINT SORTER ? Final Pathologic Diagnosis: A. ??STOMACH, ANTRUM, [...] x 0.2 cm). Entirely submitted in C1. Mimerrick Ali 12/23/2017 7:54 AM End of Report [facility] 12/22/2017 21:2 9 EST 12/22/2017 21:29 EST us Marva Connelly MD PATHOLOGY ORDERABLES Fin al Result Performing Organization Address City/State/[facility] Co de Phone Number [facility] [address] [place] [address] documented in this encounter Visit Diagnoses Not on filedocumented in this encounter Care Teams Machine Repairer Maintenance Relationship Specialty Start Date End Date Unknown, Provider, PCP - General 05/03/13 documented as of this encounter
--- OUTSIDE RECORDS SUMMARY | 2024-02-21 13:34 | XMS_ITS | Encounter Summary ---
Author Organization [facility] Address [address] [place] [address] Care Team Providers Care Yardage Control Operator Name Role Phone Unavailable Primary Care Provider Unavailabl e Encounter Details Date Type Department Care Team (Latest Contact Info) Description 04/30/2013 14:39 EDT - 04/30/2013 23:59 EDT Hospital Encounter [address] [address] Unknown, Provider, MD Discharge Disposition: Home or Self Care Social [...] Code Departure Means Destination Home or Self Fdc documented in this encounter Plan of Treatment Not on file documented as of this encounter Visit Diagnoses Not on filedocumented in this encounter
--- OUTSIDE RECORDS SUMMARY | 2024-02-21 13:34 | XMS_ITS | Encounter Summary ---
Author Organization [facility] Address [address] [place] [address] Care Team Providers Care Rural Carrier Associate Name Role Phone Unknown, Provider Primary Care Provider Unava ilable Encounter Details Date Type Department Care Team (Late st Contact Info) Description 05/02/2019 Lab Requisition [facility] Pathology & Laboratory Medicine - [facility] [address] [place] [address] Unknown, Provider, Social History Tobacco Use Types [...] and Giardia Antigen Neg 0 13:44 EDT [facility] Feces SPECIMEN FROM RECTUM / Unknown 05/02/2019 10:00 EDT 05/02/2019 20:57 EDT us Provider Unknown MICROBIOLOGY - GENERAL ORDER CAMERON Final Result [facility] [address] [place] [address] documented in this encounter Visit Diagnoses Not on filedocumented in this encounter Care Teams Rural Carrier Associate Relationship Specialty Start Date End Date Unknown, Provider, PCP - General 05/03/13 documented as of this encounter
--- OUTSIDE RECORDS SUMMARY | 2024-02-21 13:34 | XMS_ITS | Encounter Summary ---
Author Organization [facility] Address [address] [place] [address] Care Team Providers Care Farm Machinery Assembler Name Role Phone Unavailable Primary Care Provider Unavailabl e Encounter Details Date Type Department Care Team (Late st Contact Info) Description 06/08/2010 Results Only [facility] Laboratory Services - [facility] ([facility]) [address] [place] [address] Kesha Bean, [facility] [address] [place] [address] Social History Tobacco Use Types [...] ? NEAL RAMIRES ? Accession #: ? [id number] ? : ? 1965 (Age: 45) ??F ?Collect Date: ? 06/08/2010 ? Location: ? [facility] ? Receive Date: ? 06/09/2010 ? Provider: ?KESHA ELEAZAR CUFF FOLDER ? Copy to: ? Specimen/Source: ?Pap Test, [...] of Report ? [facility] 06/08/2010 06/09/2010 us Kesha Bean CUFF FOLDER PATHOLOGY ORDERABLES Final R esult [facility] [address] [place] [address] documented in this encounter Visit Diagnoses Not on filedocumented in this encounter
--- OUTSIDE RECORDS SUMMARY | 2024-02-21 13:34 | XMS_ITS | Encounter Summary ---
Author Organization [facility] Address [address] [place] [address] Care Team Providers Care Electric Trucker Name Role Phone Unavailable Primary Care Provider Unavailabl e Encounter Details Date Type Department Care Team (Late st Contact Info) Description 08/16/2002 Results Only [facility] [address] [place] [address] Pierre Riddle FNP [address] [place], [place] [id number] Social History Tobacco Use Types Packs/Day Years [...] ? IKE NEAL ? Accession #: ? [id number] : ? 1965 (Age: 37) ??F ?Collect [...] End of Report [facility] 08/16/2002 08/21/2002 us Pierre Riddle AWS SOFTWARE DEVELOPMENT ENGINEER PATHOLOGY ORDERABLES Final Resul t [facility] [address] [place] [address] documented in this encounter Visit Diagnoses Not on filedocumented in this encounter
--- OUTSIDE RECORDS SUMMARY | 2024-02-21 13:34 | XMS_ITS | Encounter Summary ---
Author Organization [facility] Address [address] [place] [address] Care Team Providers Care Rn Occupational Name Role Phone Unknown, Provider Primary Care Provider Unava ilable Encounter Details Date Type Department Care Team (Late st Contact Info) Description 12/24/2020 Lab Requisition [facility] Pathology & Laboratory Medicine - [facility] [address] [place], [place] [id number] Outr Resulting Lab, Provider Social History Tobacco [...] 12/24/2020 12:2 8 EST 12/24/2020 22:41 EST us Provider Outr Resulting Lab MICROBIOLOGY - GENER AL ORDERABLES Final Result [facility] [address] [place] [address] * COVID-19 TESTING (12/24/2020 12:28 EST) COVID-19 rt-PCR Result Negative Negative 12/25/2020 2:11 EST [facility] Comment: This test has [...] history, and epidemiological information. Performed on the [employer] Fusion instrument Performing Lab [place] [facility] 12/25/2020 2:11 EST [facility] Swab 12/24/2020 12:2 8 EST 12/24/2020 22:41 EST us Provider Outr Resulting Lab MICROBIOLOGY - GENER AL ORDERABLES Final Result [facility] [address] [place] [address] documented in this encounter Visit Diagnoses Not on filedocumented in this encounter Care Teams Rn Occupational Relationship Specialty Start Date End Date Unknown, Provider, PCP - General 05/03/13 documented as of this encounter
--- OUTSIDE RECORDS SUMMARY | 2024-02-21 13:34 | XMS_ITS | Encounter Summary ---
Author Organization [facility] Address [address] [place] [address] Care Team Providers Care Circus Agent Name Role Phone Unknown, Provider Primary Care Provider Unava ilable Encounter Details Date Type Department Care Team (Late st Contact Info) Description 09/18/2021 Lab Requisition [facility] Pathology & Laboratory Medicine - [facility] [address] [place], [place] [id number] Outr Resulting Lab, Provider Social History Tobacco [...] Swab 09/18/2021 9:27 EDT 09/18/2021 21:46 EDT us Provider Outr Resulting Lab MICROBIOLOGY - GENER AL ORDERABLES Final Result [facility] [address] [place] [address] * COVID-19 TESTING (09/18/2021 9:27 EDT) COVID-19 rt-PCR Result Negative Negative 09/19/2021 1:34 EDT [facility] Comment: This test [...] history, and epidemiological information. Performed on the [employer] Fusion instrument Performing Lab [place] [facility] Lab 09/19/2021 1:34 EDT [facility] Swab 09/18/2021 9:27 EDT 09/18/2021 21:46 EDT us Provider Outr Resulting Lab MICROBIOLOGY - GENER AL ORDERABLES Final Result [facility] [address] [place] [address] documented in this encounter Visit Diagnoses Not on filedocumented in this encounter Care Teams Circus Agent Relationship Specialty Start Date End Date Unknown, Provider, PCP - General 05/03/13 documented as of this encounter
--- OUTSIDE RECORDS SUMMARY | 2024-02-21 13:34 | XMS_ITS | Encounter Summary ---
Author Organization [facility] Address [address] [place] [address] Care Team Providers Care Hot Tamale Worker Name Role Phone Unknown, Provider Primary Care Provider Unava ilable Encounter Details Date Type Department Care Team (Late st Contact Info) Description 09/10/2019 Lab Requisition [facility] Pathology & Laboratory Medicine - [facility] [address] [place], [place] [phone] Outr Resulting Lab, Provider Social History Tobacco [...] H. Pylori Negative Negative 09/11/2019 14:11 EDT [facility] Feces SPECIMEN FROM RECTUM / Unknown 09/10/2019 13:00 EDT 09/10/2019 21:22 EDT Narrative [facility] - 09/11/2019 14:11 EDT Results were obtained with the Cuffed [employer] Wanted[employer] [place] [employer] ALESSANDRO. us Provider Outr Resulting Lab MICROBIOLOGY - GENER AL ORDERABLES Final Result [facility] [address] [place] [address] documented in this encounter Visit Diagnoses Not on filedocumented in this encounter Care Teams Hot Tamale Worker Relationship Specialty Start Date End Date Unknown, Provider, PCP - General 05/03/13 documented as of this encounter
--- OUTSIDE RECORDS SUMMARY | 2024-02-21 13:35 | XMS_ITS | Continuity of Care Document ---
Author Organization [place] - [facility], [facility] Address [address] [place] [address] Assessment No assessment recorded. Plan of Treatment Reminders Order Date Submit Date Provider Last Modified By Organization Details Last Modified Time Details Appointments Nurse Visit 20 2024 10:30A M [facility] Nursing Staff Not available Not available Not available Lab TSH, serum, reflex free T4 2023 024 [facility] (Registration ), [address] [place] [address] [place], [address], 12/15/2023 09:55:08 Referral None recorde d. Procedures None recorde d. Surgeries None recorde d. Imaging None recorde d. Medication Orders None recorde d. Patient TargetsNo targets recorded. Patient InstructionsNo instructions recorded. Reason for Referral None Reported. Results Created Date Observation Date Name Description Value Unit Range Abnormal Flag Note LastModifiedBy Organization Detail LastModifiedTime 10/31/1910/27/2020 imagi ng/di agnos tic resul t [...] 10/30 06:53:08 10/31/19 24 01/29/2020 MAMMO , scree ravindra No observ ation record ed. Not Available 10/30 06:53:09 10/31/19 24 01/29/2020 MAMMO hali No observ ation record ed. Not Available [...] Not Available 10/30 06:55:21 10/31/19 24 05/24/2018 mariahi ng/di russellos tic resul t No observ ation record ed. Not Available 10/30 06:55:22 01/17/20 24 01/17/2024 x-ray imagi ng repor t Patien t Name: Shine Aguila Unit #: [id number] Loc: DIORS Orderi ng Provid er: Moi Ulloa M.D. Accoun t #: [id number] Status : PRE CLI Primar y Care Provid er: Mayra Dockery M.D. Date of Exam: 05/07 Sex: F [...] the addres s above. Thank- you. INTERFACE [facility] [address] , [place], [address] 01/17/2024 15:10:13 Result Notes None recorded. Problems Name Problem SNOMED Code Status Onset Date Resolution Date Notes Provider Name and Address Organization Details Recorded Time Generali zed anxiety disorder 77149163 Active [address], [place], [address] , [facility] 4 17:32:40 Hyperlip idemia 68992653 Active 2010 on statin MD [address], [place], [address] , [facility] 4 12:10:51 Hypothyr oidism 65194258 Active [address], [place], [address] , [facility] 4 12:10:57 Rosacea 907662178 Active [address], [place], [address] , [facility] 4 12:14:51 Arthralg ia of temporom andibula r joint 02957678 Active [address], [place], [address] , [facility] 4 12:01:12 Restless legs 65518199 Active [address], [place], [address] , [facility] 4 12:14:31 Fatigue 37860815 Active [address], [facility] [address] , [facility] 4 12:02:27 Acquired absence of cervix and uterus 102905039 Active MD [address], [facility] [address] , [facility] 4 12:00:55 Adult health examinat ion Active [address], [facility] [address] , [facility] 4 12:01:04 Vitamin D deficien cy 14362951 Active [address], [facility] [address] , [facility] 4 12:15:16 Pain in thoracic spine 907606831 Active [address], [facility] [address] , [facility] 4 12:13:25 Sciatica 34598041 Active [address], [facility] [address] , [facility] 4 13:21:53 Right upper quadrant pain 671724702 Active [address], [facility] [address] , [facility] 4 12:14:44 Pain of right knee joint 59272657960 4100 Active [address], [facility] [address] , [facility] 4 12:13:42 Pain of left shoulder joint 71479446843 430907 Active [address], [place], [address] , [facility] 4 12:13:33 Insomnia 646027102 Active [address], [facility] [address] , [facility] 4 12:12:20 Diarrhea 38832903 Completed 201905/16/2019 Problem Code: R19.7; Problem Code Type: ICD-10; Not Available [facility] 3 04:09:35 Diabetes mellitus screenin g Completed 201906/18/2019 Problem Code: Z13.1; Problem Code Type: ICD-10; Not Available [facility] 3 04:09:35 Prediabe guillaume 914937682 Active [address], [facility] [address] [place] [address] 4 12:14:25 Obstruct андрей sleep apnea syndrome 83207065 Active [address], [place], [address] , [facility] 4 12:13:15 Polyp of nasal cavity and/or nasal sinus 715143137 Active 2019 Not interest ed in surgical interven tion, continue with nasal steroids . MD [address], [place], [address] , [facility] 4 12:14:17 Screenin g for malignan t neoplasm of breast Completed 201907/01/2023 Problem Code: Z12.39; Problem Code Type: ICD-10; MD [address], [facility] [address] , [facility] 4 12:15:08 Metatars algia 33670776 Active [address], [facility] [address] , [facility] 4 12:12:40 Seasonal allergic rhinitis 350331243 Active [address], [facility] [address] , [facility] 4 12:15:04 Therapeu tic drug monitori ng assay 55316965 Completed 202011/24/2020 Problem Code: Z51.81; Problem Code Type: ICD-10; Not Available [facility] 3 04:09:36 Gastroes ophageal reflux disease without esophagi tis 514913519 Active 2020 No reflux symptoms , just stomach pain. EGD 08/2020 (intesti nal metaplas ia of stomach 08/2018, not present 2020) Hx of Hpylori 12/[address], [facility] [address] , [facility] 4 13:18:40 Menopaus e present 904390096 Active [address], [facility] [address] , [facility] 4 12:12:29 Chest pain 78578316 Active [address], [facility] [address] , [facility] 4 12:01:35 Dyspnea 643229075 Active [address], [facility] [address] , [facility] 4 12:02:20 Neck pain 82347731 Active [address], [facility] [address] , [facility] 4 12:12:49 Constipa tion 38993001 Active 2022 MAYRA DOCKERY MD [address], [place], [address] [facility] 4 12:01:53 Disorder of skin and/or subcutan eous tissue 67031768 Completed 202207/01/2023 Problem Code: L98.9; Problem Code Type: ICD-10; MD [address], [facility] [address] , [facility] 4 12:02:12 Cough 64328945 Completed 201508/09/2016 Problem Code: R05; Problem Code Type: ICD-10; Not Available [facility] 3 04:09:40 Diarrhea 90828084 Completed 201801/15/2019 Problem Code: R19.7; Problem Code Type: ICD-10; Not Available [facility] 3 04:09:40 Asthenia 44291762 Completed 201705/11/2018 Problem Code: R53.1; Problem Code Type: ICD-10; Not Available [facility] 3 04:09:40 Intestin al metaplas ia of gastric mucosa 47652819 Completed 202009/29/2020 Not Available [facility] 3 04:09:40 Localize d eruption of skin 770235192 Completed 202106/12/2021 Problem Code: R21; Problem Code Type: ICD-10; Not Available [facility] 3 04:09:40 Benign neoplasm of colon 90437258 Completed 201311/10/2022 Problem Code: 211.3; Problem Code Type: ICD-9; Not Available [facility] 3 04:09:41 Sensatio n as if urinary bladder still full 795098198 Completed 201405/11/2018 Problem Code: R39.14; Problem Code Type: ICD-10; Not Available [facility] 3 04:09:41 Anxiety disorder 836524763 Completed 200111/10/2022 Not Available [facility] 3 04:09:41 Blood chemistr y outside referenc e range 295344414 Completed 202009/29/2020 Problem Code: R79.89; Problem Code Type: ICD-10; Not Available [facility] 3 04:09:42 History of clinical finding in subject 441035142 Completed 201211/10/2022 Not Available [facility] 3 04:09:42 Neck pain 38733147 Completed 201809/14/2019 Problem Code: M54.2; Problem Code Type: ICD-10; MD [address], [facility] [address] , [facility] 4 12:12:49 Skin sensatio n disturba nce 42768614 Completed 201906/25/2020 Problem Code: R20.9; Problem Code Type: ICD-10; Not Available [facility] 3 04:09:42 Localize d eruption of skin 794608256 Completed 202008/06/2020 Problem Code: R21; Problem Code Type: ICD-10; Not Available [facility] 3 04:09:42 Pleuriti c pain 9853815 Completed 202009/29/2020 Problem Code: R07.81; Problem Code Type: ICD-10; Not Available [facility] 3 04:09:43 Altered bowel function 09763425 Completed 202210/11/2022 Problem Code: R19.4; Problem Code Type: ICD-10; Not Available [facility] 3 04:09:43 Chest pain 10250469 Completed 201809/14/2019 Problem Code: R07.9; Problem Code Type: ICD-10; MD [address], [place], [address] , [facility] 4 12:01:35 Exposure to communic able disease Completed 202006/12/2021 Problem Code: Z20.828; Problem Code Type: ICD-10; Not Available [facility] 3 04:09:44 Muscle pain 56931225 Completed 201605/11/2018 Problem Code: M79.1; Problem Code Type: ICD-10; Not Available [facility] 3 04:09:44 Viral screenin g Completed 202110/05/2021 Problem Code: Z11.52; Problem Code Type: ICD-10; Not Available [facility] 3 04:09:44 Adult health examinat ion Completed 201405/11/2018 Problem Code: Z00.00; Problem Code Type: ICD-10; MAYRA DOCKERY MD [address], [place], [address] , [facility] 4 12:01:04 Hypertro phic conditio n of skin 38481634 Completed 201405/11/2018 Problem Code: L91.8; Problem Code Type: ICD-10; Not Available [facility] 3 04:09:45 Hypertro phic conditio n of skin 22148430 Completed 202106/14/2022 Problem Code: L91.8; Problem Code Type: ICD-10; Not Available [facility] 3 04:09:45 Pain of right shoulder joint 66575149001 409827 Completed 202106/14/2022 Problem Code: M25.511; Problem Code Type: ICD-10; Not Available [facility] 3 04:09:45 Smoker 97000545 Completed 201308/03/2016 Not Available [facility] 3 04:09:46 Dizzines s and giddines s 242222324 Completed 201605/11/2018 Problem Code: R42; Problem Code Type: ICD-10; Not Available [facility] 3 04:09:46 Pain in right foot 82868649303 9107 Completed 201505/11/2018 Problem Code: M79.671; Problem Code Type: ICD-10; Not Available [facility] 3 04:09:46 Pain in thoracic spine 412794189 Completed 202110/05/2021 Problem Code: M54.89; Problem Code Type: ICD-10; MAYRA DOCKERY MD [address], [place], [address] , [facility] 4 12:13:25 Low back pain 821084496 Completed 201605/11/2018 Problem Code: M54.5; Problem Code Type: ICD-10; Not Available [facility] 3 04:09:47 Bradycar geoff 44081316 Completed 202006/12/2021 Problem Code: R00.1; Problem Code Type: ICD-10; Not Available [facility] 3 04:09:47 Abdomina l pain 03480224 Completed 202210/11/2022 Problem Code: R10.9; Problem Code Type: ICD-10; Not Available [facility] 3 04:09:47 Nausea 144653361 Completed 202010/11/2022 Problem Code: R11.0; Problem Code Type: ICD-10; Not Available [facility] 3 04:09:48 Exposure to viral hepatiti s Completed 201605/11/2018 Problem Code: Z20.5; Problem Code Type: ICD-10; Not Available [facility] 3 04:09:48 Increase d frequenc y of urinatio n 150016295 Completed 201405/11/2018 Problem Code: R35.0; Problem Code Type: ICD-10; Not Available [facility] 3 04:09:49 Pain in right foot 67571943511 9107 Completed 202106/14/2022 Problem Code: M79.671; Problem Code Type: ICD-10; Not Available [facility] 3 04:09:49 Dyspnea 441100202 Completed 201505/11/2018 Problem Code: R06.09; Problem Code Type: ICD-10; MD [address]iel [address], [facility] [address] , [facility] 4 12:02:20 History of adenomat ous polyp of colon 291337882 Active 2013, normal colonosc opy [address], [facility] [address] , [facility] 12:10:28 Ex-smoke r 5846550 Active [address], [facility] [address] , [facility] 12:13:06 Problem Notes None recorded. Procedures Surgical History Date Name Laterality Status Provider Name and Address Organization Details Recorded Time 07/02/19 23 Most Recent Mammogram completed ADOLFO MCCANN RN [facility] 07/01/2023 11:59:19 08/29/19 19 Date of Last Colonoscopy completed ADOLFO MCCANN RN [facility] 07/01/2023 12:03:39 02/16/19 05 hysterectomy completed MD Grabiel [address], [facility] [address] [place] [address] 07/01/2023 12:21:25 Imaging Results None recorded. Procedure Notes None recorded. Medical Equipment None Reported. Allergies Allergen ID Allergen Name Allergen Category Reaction Reaction Severity Criticality Documentation Date Start Date Code Code System Note Provider Name and Address Organization Details Recorded Time 99015 codeine medicatio n other Not available Not available 12/24/20222008 2670 RxNorm GI Aller gyRea ction : 'GI'; Not Available [facility] 3 16:21:52 96805 oxycodone medicatio n dizziness vomiting Not available Not available Not available 07/01/2023 7804 RxNorm ADOLFO MCCANN RN null, [facility] 4 11:49:08 30156 Bactrim medicatio n Not available Not available Not available 07/01/2023 57855 9 RxNorm acute hepat itis, eleva ahmet liver enzym es ADOLFO MCCANN RN [facility], [facility] 4 11:49:47 18799 Effexor medicatio n headache nausea vomiting Not available Not available Not available Not available 07/01/2023 06649 2 RxNorm ADOLFO MCCANN RN [facility], [facility] 4 11:50:12 59984 garlic preparati on food,medi cation hives Not available Not available 07/01/2023 85268 7 RxNorm throa t close s ADOLFO MCCANN RN [facility], [facility] 4 11:50:41 Medications Name Sig Start [...] Anusol-HC 25 mg rectal supposito ry 1 AL BID 09/01 completed Not Available Not Available [...] Smoking Status Former Smoker ADOLFO MCCANN RN [facility], [place] - [facility] 04/18/2023 11:13:48 When Did You Quit Smoking? 16+yearssinc elastcigaret te [email or web address] Information not available 04/18/2023 Sex: Female Functional Status None recorded. Mental Status None recorded. Family History Relationship Description Onset Age of this Age Resolved Age Notes LastModified by Organization Details LastModified Time Mother Family history of Hypertension [email or web address] Not available 11/2022 03:58:35 Notes:*Problem: Mother: yasmin [...] adolescent or pediatric 7 completed Not Available [facility] 12/24/2022 04:35:28 Tdap 2 completed Not Available [facility] 12/24/2022 04:35:28 Tdap 2 completed Not Available [facility] 12/24/2022 04:35:29 Influenza, split virus, trivalent, preservative 6 completed Not Available [facility] 12/24/2022 04:35:29 Influenza, split virus, trivalent, preservative 5 completed Not Available [facility] 12/24/2022 04:35:29 Influenza, split virus, quadrivalent, PF 2 completed Not Available [facility] 12/24/2022 04:35:30 Influenza, split virus, quadrivalent, PF 1 completed Not Available [facility] 12/24/2022 04:35:30 Influenza, split virus, quadrivalent, PF 0 completed Not Available [facility] 12/24/2022 04:35:30 Influenza, split virus, quadrivalent, preservative 8 completed Not Available [facility] 12/24/2022 04:35:30 COVID-19, mRNA, LNP-S, PF, 100 mcg/0.5mL dose or 50 mcg/0.25mL dose 1 completed Not Available [facility] 12/24/2022 04:35:31 SARS-COV-2 (COVID-19) vaccine, UNSPECIFIED 1 completed Not Available [facility] 12/24/2022 04:35:31 SARS-COV-2 (COVID-19) vaccine, UNSPECIFIED 0 completed Not Available [facility] 12/24/2022 04:35:31 Hep B, adult 8 completed Not Available [facility] 12/24/2022 04:35:32 Hep B, adult 7 completed Not Available [facility] 12/24/2022 04:35:32 influenza, unspecified formulation 9 completed Not Available [facility] 12/24/2022 04:35:33 Influenza, split virus, quadrivalent, PF 3 completed Not Available [facility] 02/25/2023 05:33:14 Influenza, MDCK, trivalent, PF 4 completed ANABEL SCOTT RN [facility] 12/05/2023 09:03:19 Past Encounters Encounter ID Performer Location Encounter Start Date Encounter Closed Date Diagnosis/Indication Diagnosis SNOMED-CT Code Diagnosis ICD10 Code Diagnosis Note [id number] ADOLFO MCCANN RN [address] [place] [address] 11/28/2023 09:29:12 11/28/2023 10:16:32 Hypothyroidism [id number] E03.9 Titrate up dose of synthroid Health Concerns Section Related Observation LastModified by Organization Detai ls LastModified Time None Recorded Concern Status LastModified by Organization Details LastModified Time None Recorded Payers Encounter Date Sequence Insurance Name Policy Number Policy Hester Covered Member ID Hester Member ID Guarantor Name 11/28/2023 1 [place] [facility] (POS) [id number] Neal Ramires [id number] Neal Ramires 11/28/2023 1 [facility] (MEDICAID) Neal Ramires [id number] Neal Ramires OBGyn Episode No OBEpisode recorded.
[2024-02-21 19:32] LABS: Hemoglobin A1C 5.8 % (<5.7)
[2024-02-21 19:58] LABS: Calculated LDL 146 mg/dL (<100); Cholesterol 219 mg/dL (<200); HDL Cholesterol 46 mg/dL (40-60); TSH (W/Ref FT4) 1.12 uIU/mL (0.36-3.74); Triglyceride 135 mg/dL (<150)
== END 2024-02-21 13:30 | disposition home or self-care (01) ==
LOC: NCHCN 13:29
PROVIDERS: PCP Family Medicine; Visit Provider Family Medicine
DX: E03.9 Hypothyroidism, unspecified (principal); E78.5 Hyperlipidemia, unspecified; E55.9 Vitamin D deficiency, unspecified; R73.03 Prediabetes
CPT/HCPCS: 80061; 82306; 83036; 84443

== ENCOUNTER 2024-04-17 02:19 | Outpatient (CLI) | payer MEDICAID, SELFPAY ==
--- NOTE | 2024-04-17 08:15 | DI.MRI_ITS ---
Exam(s) MR UPPER JOINT LT WO EXAM: MR UPPER JOINT LT WO CLINICAL HISTORY: L SHOULDER PAIN,ARTHRITIS LT GLENOHUMERAL JOINT,M19.012. TECHNIQUE: Multiplanar multisequence MRI was performed. COMPARISON: None. FINDINGS: BONES: There is no fracture or contusion pattern. Degenerative subchondral cysts in the superior hu meral head. Degenerative subchondral cysts in the glenoid. JOINTS:The acromioclavicular joint shows mild inferior spurring. Mild spurring at the tip of the acr omion. The glenohumeral joint shows degenerative changes with inferior spurring. TENDONS: Supraspinatus: Mild thickening and edema. Infraspinatus: Unremarkable. Subscapularis: Unremarkable. Teres Minor: Unremarkable. Biceps and [place]: Unremarkable. MUSCLES: Unremarkable. GLENOID LABRUM: Blunting of the posterior labrum consistent with degenerative changes. No focal tear is visible. SOFT TISSUES: Unremarkable. BURSAE: Subacromial and subdeltoid bursae . IMPRESSION: Degenerative changes of the glenohumeral joint. Supraspinatus tendinosis. DATA REPOSITORY:
== END 2024-04-17 02:39 ==
LOC: DI 02:19
PROVIDERS: PCP Family Medicine; Visit Provider Student in an Organized Health Care Education/Training Program
DX: M19.012 Primary osteoarthritis, left shoulder (principal)
CPT/HCPCS: 73221

== ENCOUNTER 2024-07-31 09:49 | Outpatient (REF) | payer MEDICAID, SELFPAY ==
[2024-07-31 15:41] LABS: HCT 39.9 % (36.0-46.0); HGB 13.5 g/dL (11.2-15.7); MCH 30.3 pg (27.0-33.0); MCHC 33.8 % (32.0-36.0); MCV 90 fL (80-95); MPV 10.7 fL (8.0-11.0); Platelet Count 304 10^3/uL (130-400); RBC 4.46 10^6/uL (3.93-5.22); RDW 12.3 % (11.7-14.6); RDW-SD 39.9 fL; WBC 6.22 10^3/uL (4.4-10.8)
[2024-07-31 16:03] LABS: Hemoglobin A1C 5.9 % (<5.7)
[2024-07-31 16:05] LABS: Calculated LDL 140 mg/dL (<100); Cholesterol 220 mg/dL (<200); HDL Cholesterol 51 mg/dL (>or=50); TSH (W/Ref FT4) 0.47 uIU/mL (0.36-3.74); Triglyceride 148 mg/dL (<150)
== END 2024-07-31 09:50 | disposition home or self-care (01) ==
LOC: NCHCN 09:49
PROVIDERS: PCP Family Medicine; Visit Provider Nurse Practitioner Family
DX: E03.9 Hypothyroidism, unspecified (principal); E78.5 Hyperlipidemia, unspecified; R73.03 Prediabetes; R53.83 Other fatigue
CPT/HCPCS: 80061; 85027; 83036; 84443

== ENCOUNTER 2024-10-10 15:08 | Outpatient (REF) | payer MEDICAID, SELFPAY ==
[2024-10-10 15:27] LABS: TSH (W/Ref FT4) 0.31 uIU/mL (0.36-3.74)
== END 2024-10-10 15:09 | disposition home or self-care (01) ==
LOC: NCHCN 15:08
PROVIDERS: PCP Family Medicine; Visit Provider Family Medicine
DX: E03.9 Hypothyroidism, unspecified (principal)
CPT/HCPCS: 84439; 84443

== ENCOUNTER 2025-01-07 09:45 | Outpatient (REF) | payer MEDICAID, SELFPAY ==
[2025-01-07 16:41] LABS: TSH (W/Ref FT4) 0.24 uIU/mL (0.55-4.78)
== END 2025-01-07 09:46 | disposition home or self-care (01) ==
LOC: NCHCN 09:45
PROVIDERS: PCP Family Medicine; Visit Provider Family Medicine
DX: E03.9 Hypothyroidism, unspecified (principal)
CPT/HCPCS: 84439; 84443